=== PATIENT | female | born 1955 | race Caucasian/White ===

== ENCOUNTER → 2020-11-17 | Day surgery (SDC) | payer MEDICARE ==
[~2020-11-17] MED LIST: ASPI325T8 PEG; ATOR80TA72 PO; CARV25TA2 PO; CLOP75TA PO; DEXTROSE 50% 25 GM / 50ML DISP.SYRIN. IV ONE; ENAL1.25 IVP; ESCITALOPRAM OX10 MG PO; INSU100I27 SQ; INSU100V35 SQ; INSU100V41 SQ; IV RINGERS,LACTATED 1000ML 1,000 ML IV SCH; LIDOCAINE 2% PF 5 ML VIAL. ONE; LISI2.5T PO; METF500T16 PO; ONDA4VIA7 IV; PROPOFOL 10 MG/ML (20ML) VIAL. IV ONE
--- NOTE | 2020-11-17 14:01 | PDOC1 ---
History and Physical Date of Admission Date of Admission DATE: 11/17/20 TIME: 13:57 Identification/Chief Complaint Chief Complaint +Unneeded PEG History of Present Illness History of Present Illness 65 y/o female who had PEG placed August for OP dysphagia. Now recovered and wished removal. Past Medical History Cardiovascular: HTN, Hyperlipidemia Endocrine: Diabetes Past Surgical History Past Surgical History: Cholecystectomy, , Total knee replacement, Hysterectomy, Other (left toe amputation) Family History Family History: Coronary Artery Disease Social History Smoke: Quit Current Medications Current Medications Current Medications Ringer's Solution 1,000 ml @ 50 mls/hr Q20H IV Last administered on 11/17/20at 13:28; Start 11/17/20 at 07:00; Stop 11/17/20 at 18:59 Dextrose (Dextrose 50%-Water Syringe) 25 gm 1X ONCE IV Last administered on 11/17/20at 13:28; Start 11/17/20 at 13:30; Stop 11/17/20 at 13:31; Status DC Propofol (Diprivan) 200 mg STK-MED ONCE IV ; Start 11/17/20 at 13:45; Stop 11/17/20 at 13:46; Status DC Lidocaine HCl (Lidocaine Pf 2% Vial) 5 ml STK-MED ONCE .ROUTE ; Start 11/17/20 at 13:45; Stop 11/17/20 at 13:46; Status DC Active Scripts Active Admelog (Insulin Lispro) 100 Unit/1 Ml Vial 0 Units SQ Q6HRS 30 Days Enalaprilat (Enalaprilat Dihydrate) 1.25 Mg/1 Ml Vial 1.25 Mg IVP PRN Q6HRS PRN 10 Days Reported Insulin Aspart 100 Unit/1 Ml Vial 100 Unit SQ SLIDING SCALE Levemir Flextouch (Insulin Detemir) 100 Unit/1 Ml Insuln.pen 50 Unit SQ BID Escitalopram Oxalate 10 Mg Tablet 10 Mg PO DAILY Carvedilol 25 Mg Tablet Unknown Dose PO BIDWMEALS Atorvastatin Calcium 80 Mg Tablet Unknown Dose PO QHS Lisinopril 2.5 Mg Tablet Unknown Dose PO DAILY Clopidogrel (Clopidogrel Bisulfate) 75 Mg Tablet Unknown Dose PO DAILY Metformin Hcl 500 Mg Tablet Unknown Dose PO DAILY Allergies Allergies: Coded Allergies: No Known Drug Allergies (Unverified , 11/17/20) ROS Review of System Otherwise negative. Physical Exam General: Alert, Oriented X3, Cooperative, No acute distress HEENT: Atraumatic, PERRLA, EOMI Lungs: Clear to auscultation Heart: S1S2, RRR, no gallops, no murmurs Abdomen: Normal bowel sounds, No tenderness, No hepatosplenomegaly, No masses, Other (PEG tube) Male Genitals Exam: normal prostate Rectal Exam: not examined Extremities: No cyanosis, No edema Skin: No rashes Neuro: Normal speech, Strength at 5/5 X4 ext, Normal tone, Sensation intact, Cranial nerves 3-12 NL, Reflexes 2+ Psych/Mental Status: Mental status NL, Mood NL Vitals Vitals Vital Signs Date Time Temp Pulse Resp B/P (MAP) Pulse Ox O2 Delivery O2 Flow Rate FiO2 11/17/20 13:21 98.3 62 20 96 98.3 Labs Labs Laboratory Tests Test 11/17/20 13:18 Glucose (Fingerstick) 64 mg/dL (70-99) Laboratory Tests Test 11/17/20 13:18 Glucose (Fingerstick) 64 mg/dL (70-99) VTE Prophylaxis Ordered VTE Prophylaxis Devices: No VTE Pharmacological Prophylaxi: No Assessment/Plan Assessment/Plan IMP: Unneeded PEG PLAN: g-tube removal. CONSTANTINE LIU MD Nov 17, 2020 14:01
--- NOTE | 2020-11-17 14:15 | PDOC4 ---
PROCEDURE Procedure EGD/de-PEG Indication: unneeded PEG Meds: per anesthesia Findings: E--normal G--old g-tube, otherwise normal. D--normal to second portion. -Old g-tube cut and pushed into stomach, grasped with snare and removed orally. Marivel. well. IMP: successful PEG removal. REC: 4x4's over stoma until no drainage; usually w/in 24hours stops. Resume diet, meds. Call/follow-up prn. CONSTANTINE LIU MD Nov 17, 2020 14:15
[2020-11-17 14:34] VITALS: BP 171/77
== END | disposition home or self-care (01) ==
LOC: ENDOS 12:36
PROVIDERS: ATTEND Internal Medicine Gastroenterology
DX: Z43.1 Encounter for attention to gastrostomy (principal); I10 Essential (primary) hypertension; E78.00 Pure hypercholesterolemia, unspecified; E11.9 Type 2 diabetes mellitus without complications; F41.9 Anxiety disorder, unspecified; Z90.710 Acquired absence of both cervix and uterus; Z98.890 Other specified postprocedural states; Z87.891 Personal history of nicotine dependence; Z79.899 Other long term (current) drug therapy; Z79.4 Long term (current) use of insulin
CPT/HCPCS: 43247; 82962; J2704

== ENCOUNTER 2021-02-01 19:29 | Inpatient (IN) | payer MEDICARE, OTHER ==
[~2021-02-01] VITALS: Ht 162.6 cm; Wt 99.3 kg
[~2021-02-01 19:29] MED LIST changes: -DEXTROSE 50% 25 GM / 50ML DISP.SYRIN. IV ONE; -IV RINGERS,LACTATED 1000ML 1,000 ML IV SCH; -LIDOCAINE 2% PF 5 ML VIAL. ONE; -PROPOFOL 10 MG/ML (20ML) VIAL. IV ONE
--- NOTE | 2021-02-01 19:55 | PHYS DOC ---
Past Medical History Smoking Status: Former Smoker (AGUSTIN HERRERA APRN) General Adult HPI: HPI: Patient is a 66 year old female who presents with here from [facility] and rehab when this afternoon she began to have nausea and vomiting. She denies any abdominal pain. She then is now requiring oxygen. She was 88% on room air. On 2 L she is at 94%. Patient was given a Zofran at the nursing facility after she began vomiting and then EMS gave her Zofran on the way to the hospital. Patient states it has helped some. Patient denies fever, cough, shortness of breath, chest pain, body aches, congestion, sore throat, new numbness or tingling my dizziness, headache. Patient denies any pain at this time. 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 She also has a history of diabetes, hyperlipidemia, saccadic eye movements, hypertension. (AGUSTIN HERRERA APRN) Review of Systems: Review of Systems: Constitutional: Denies fever or chills. [] Eyes: Denies change in visual acuity. [] HENT: Denies nasal congestion or sore throat. [] Respiratory: Denies cough. +shortness of breath. [] Cardiovascular: Denies chest pain or edema. [] GI: Denies abdominal pain. + nausea, +vomiting, denies bloody stools or diarrhea. [] : Denies dysuria. [] Musculoskeletal: Denies back pain or joint pain. [] Integument: Denies rash. [] Neurologic: Denies headache, focal weakness or sensory changes. [] Endocrine: Denies polyuria or polydipsia. [] Lymphatic: Denies swollen glands. [] Psychiatric: Denies depression or anxiety. [] (AGUSTIN HERRERA APRN) Heart Score: C/O Chest Pain: No Risk Factors: Risk Factors: DM, Current or recent (<one month) smoker, HTN, HLP, family history of CAD, obesity. Risk Scores: Score 0 - 3: 2.5% MACE over next 6 weeks - Discharge Home Score 4 - 6: 20.3% MACE over next 6 weeks - Admit for Clinical Observation Score 7 - 10: 72.7% MACE over next 6 weeks - Early Invasive Strategies (SHARONAGUSTINSOHAN Reddy APRN) Current Medications: Current Medications Medications (Trade) Dose Ordered Sig/Liam Start Time Stop Time Status Last Admin Dose Admin Sodium Chloride 1,000 ml @ 1,000 mls/hr Q1H 02/01/21 19:45 02/01/21 20:44 UNV (JOSE HERRERASOHAN Reddy APRN) Allergies: Allergies: Allergies Coded Allergies Type Severity Reaction Last Updated Verified No Known Drug Allergies 11/17/20 No (SHARONAGUSTINSOHAN Reddy APRN) Physical Exam: PE: Constitutional: Well developed, well nourished, no acute distress, non-toxic appearance. [] HENT: Normocephalic, atraumatic, bilateral external ears normal, oropharynx moist, no oral exudates, nose normal. [] Eyes: PERRLA, EOMI, conjunctiva normal, no discharge. [] Neck: Normal range of motion, no tenderness, supple, no stridor. [] Cardiovascular:Heart rate regular rhythm, no murmur [] Lungs & Thorax: Bilateral upper breath sounds inspiratory wheezing and lower lobes clear to auscultation [] Abdomen: Bowel sounds normal, soft, no tenderness, no masses, no pulsatile masses. [] Skin: Warm, dry, no erythema, no rash. pressure ulcer to right heel with dressing. [] Back: No tenderness, no CVA tenderness. [] Extremities: No tenderness, no cyanosis, no clubbing, ROM intact, bilateral lower 2+ edema. [] Neurologic: Alert and oriented X 3, normal motor function, normal sensory function, no focal deficits noted. [] Psychologic: Affect normal, judgement normal, mood normal. [] (AGUSTIN HERRERA APRN) EKG: EK AND READ BY DR ROSE SINUS RHYTHM AND NO STEMI (AGUSTIN HERRERA APRN) Radiology/Procedures: Radiology/Procedures: [] Impression: [facility] [address] [place] [address] IMAGING REPORT Signed PATIENT: RE WAKEFIELD ACCOUNT: [id number] : 1955 LOCATION: ER AGE: 66 SEX: F EXAM STATUS: PRE ER ORD. PHYSICIAN: AGUSTIN HERRERA APRN REASON: SOA, VOMITING, HYPOXIA PROCEDURE: PORTABLE CHEST 1V Exam: Chest one view INDICATION: Short of air, vomiting, hypoxia TECHNIQUE: Frontal view of the chest Comparisons: None FINDINGS: The cardiomediastinal silhouette and pulmonary vessels are within normal limits. Patchy airspace disease at the lung bases bilaterally. No pleural effusion. IMPRESSION: Subtle patchy bibasilar airspace disease may be infectious or inflammatory in etiology. Electronically signed by: Dale Wheeler MD (02/01/2021 8:29 PM) [facility] DICTATED and SIGNED BY: DALE WHEELER MD DATE: 02/01/[id number] 0 (AGUSTIN HERRERA APRN) Course & Med Decision Making: Course & Med Decision Making Pertinent Labs and Imaging studies reviewed. (See chart for details) COVID-19 CRITERIA: The patient was evaluated during the global COVID-19 pandemic, and that diagnosis was suspected/considered upon their initial presentation. Their evaluation, treatment and testing was consistent with current guidelines for patients who present with complaints or symptoms that may be related to COVID-19. See HPI. Alert and oriented x4. Abdomen soft and nontender. Upper lungs have expiratory wheezing in lower lobes are clear. Speaks in full clear sentences. Patient states she is eating and drinking a regular diet and has no swallowing issues from the stroke. Skin is pink warm and dry. She is afebrile. Denies any urinary symptoms. Patient is on Plavix. Patient does have pneumonia on x- ray. She is given Zosyn. Lactic is normal. Blood cultures have been drawn. I have shown Dr Rose the venous ABG and states it is fine. Troponin is also bumped but so with the kidney function. Looking back kidney function is staying about the same since 2020. I do not have a troponin to look back on however. EKG shows a sinus rhythm and no STEMI. Patient is admitted to the hospitalist. [] (AGUSTIN HERRERA APRN) Dragon Disclaimer: Dragon Disclaimer: This electronic medical record was generated, in whole or in part, using a voice recognition dictation system. (AGUSTIN HERRERA APRN) COVID-19 Patient Risks: Age 65 or older: Yes Sign of co-morbidity: Yes Exp to person + for COVID: No Travel from affected area: No Lower respiratory symptoms: Yes Fever: No Other: Yes (N/V) (AGUSTIN HERRERA APRN) PPE Use: Full PPE with N95 mask or PAPR: Yes (AGUSTIN HERRERA APRN) Departure Departure Impression: Primary Impression: Pneumonia Qualified Codes: J18.9 - Pneumonia, unspecified organism Additional Impressions: Elevated troponin Person under investigation for COVID-19 UTI (urinary tract infection) Qualified Codes: N39.0 - Urinary tract infection, site not specified Disposition: ADMITTED INPT THIS HOSP Admitting Physician: CELINE (AGUSTIN HERRERA APRN) Condition: STABLE Referrals: SANDRA GORDON (PCP) Attending Signature Attending Signature I have reviewed the PA/ELECTRICAL CONTROLS DESIGNER's note and plan of care. I was available for consultation as needed during the patient's visit in the emergency department. I agree with the clinical impression, plan, and disposition. (CONSTANTINE ROSE DO) AGUSTIN HERRERA APRN Feb 01, 2021 19:55 CONSTANTINE ROSE DO Feb 01, 2021 23:37
[2021-02-01] MEDS ORDERED: IV NORMAL SALINE 1000ML BAG 1,000 ML IV SCH (20:00)
[2021-02-01 20:05] LABS: BASO # 0.1 x10^3/uL (0.0-0.2); BASO % 0 % (0-3); EOS % 0 % (0-3); HEMATOCRIT 28.5 % (36.0-47.0); HEMOGLOBIN 9.1 g/dL (12.0-15.5); LYMPH # 2.2 x10^3/uL (1.0-4.8); LYMPH % 13 % (24-48); MEAN CORPUSCULAR HEMOGLOBIN 25 pg (25-35); MEAN CORPUSCULAR HGB CONC 32 g/dL (31-37); MEAN CORPUSCULAR VOLUME 78 fL (79-100); MONO % 6 % (0-9); NEUT # 13.6 x10^3/uL (1.8-7.7); NEUT % 81 % (31-73); PLATELET COUNT 243 x10^3/uL (140-400); RED BLOOD COUNT 3.63 x10^6/uL (3.50-5.40); RED CELL DISTRIBUTION WIDTH 16.7 % (11.5-14.5); WHITE BLOOD COUNT 16.8 x10^3/uL (4.0-11.0)
[2021-02-01 20:10] LABS: CALCIUM 8.9 mg/dL (8.5-10.1); CREATININE 1.2 mg/dL (0.6-1.0); GFR 44.8; POTASSIUM 4.2 mmol/L (3.5-5.1)
[2021-02-01 20:15] LABS: ALBUMIN 2.6 g/dL (3.4-5.0); ALBUMIN/GLOBULIN RATIO 0.6 (1.0-1.7); TOTAL BILIRUBIN 0.4 mg/dL (0.2-1.0); TOTAL PROTEIN 6.9 g/dL (6.4-8.2)
[2021-02-01 20:18] LABS: BASE EXCESS COOX 3 mmol/L (-3-3); HCO3 COOX 29 mmol/L (21-28); METHEMOGLOBIN 0.6 % (0.0-1.9); OXYHEMOGLOBIN 66.2 %; PCO2 COOX 49 mmHg (35-46)
--- NOTE | 2021-02-01 20:31 | RAD ---
Exam: Chest one view INDICATION: Short of air, vomiting, hypoxia TECHNIQUE: Frontal view of the chest Comparisons: None FINDINGS: The cardiomediastinal silhouette and pulmonary vessels are within normal limits. Patchy airspace disease at the lung bases bilaterally. No pleural effusion. IMPRESSION: Subtle patchy bibasilar airspace disease may be infectious or inflammatory in etiology. Electronically signed by: Dale Lentz MD (02/01/2021 8:29 PM) [facility]
[2021-02-01 20:34] LABS: % BANDS 4 % (0-9); % MONOS 1 % (0-10); PLT ESTIMATE ADEQUATE (ADEQUATE)
[2021-02-01 20:35] LABS: % LYMPHS 10 % (24-48); % SEGS 85 % (35-66)
--- NOTE | 2021-02-01 20:35 | EKG ---
[facility] [address] [place] [address] Test Date: 2021-02-01 Test Time: 20:33:07 Pat Name: RE WAKEFIELD Department: Room: Gender: F [employer]working [employer] Fe[employer]: : 1955 Requested By: AGUSTIN HERRERA Order Number: [id number] Reading MD: Measurements Intervals [place] Rate: 84 P: 32 WY: 158 QRS: 16 QRSD: 76 T: 42 QT: 366 QTc: 436 Interpretive Statements SINUS RHYTHM LEFT ATRIAL ABNORMALITY ABNORMAL ECG RI6.01 No previous ECG available for comparison
[2021-02-01 20:36] LABS: ANISOCYTOSIS SLIGHT; POIKILOCYTOSIS SLIGHT
[2021-02-01 20:49] LABS: SAT O2 COOX 67 % (92-99)
[2021-02-01 20:52] LABS: PO2 COOX 38 mmHg (65-108)
[2021-02-01] MEDS ORDERED: PIPERACILLIN/TAZOBACTAM 3.375 GM in IV NORMAL SALINE 50ML 50 ML IV ONE (21:00)
[2021-02-01] MEDS ORDERED: ONDANSETRON PF 4 MG/2 ML VIAL. IV PRN (21:15)
[2021-02-01] MEDS ORDERED: PIP/TAZO PER PHARMACY MC PRN (21:15)
[2021-02-01 21:28] LABS: BILIRUBIN,URINE NEGATIVE (NEG); CLARITY,URINE CLOUDY; COLOR,URINE YELLOW; NITRITE,URINE POSITIVE (NEG); PROTEIN,URINE >=300 mg/dL (NEG-TRACE); UROBILINOGEN,URINE 0.2 mg/dL (0.2 mg/dL)
[2021-02-01] MEDS ORDERED: MAG HYDROX/ALUMINUM HYD/SIMETH 30 ML ORAL.SUSP PO PRN (21:30)
[2021-02-01] MEDS ORDERED: oxyCODONE/APAP 5/325 1 TAB TABLET PO PRN (21:30)
[2021-02-01] MEDS ORDERED: MORPHINE SULFATE 2 MG/ML VIAL. IV PRN (21:30)
[2021-02-01] MEDS ORDERED: MAGNESIUM HYDROXIDE 2,400 MG/30 ML ORAL.SUSP. PO PRN (21:30)
[2021-02-01] MEDS ORDERED: MORPHINE SULFATE 4 MG/ML VIAL. IV PRN (21:30)
[2021-02-01] MEDS ORDERED: traMADol 50 MG TABLET PO PRN ×2 (21:30)
[2021-02-01] MEDS ORDERED: CALCIUM CARBONATE 500 MG TAB.CHEW PO PRN (21:30)
[2021-02-01] MEDS ORDERED: BISACODYL 10 MG SUPP.RECT. PR PRN (21:30)
[2021-02-01 21:36] LABS: BACTERIA,URINE MANY /HPF (0-FEW); WBC,URINE TNTC /HPF (0-4)
[2021-02-01 21:37] LABS: AMORPHOUS SEDIMENT,UR PRESENT /HPF; HYALINE CASTS, URINE FEW /HPF
[2021-02-01] MEDS ORDERED: DEXTROSE 50% 25 GM / 50ML DISP.SYRIN. IV PRN (22:00)
[2021-02-01] MEDS ORDERED: IV DEXTROSE 5% 250 ML BAG. IV PRN (22:00)
[2021-02-02] MEDS: ENOXAPARIN 40 MG/0.4 ML SYRINGE. SQ SCH ×2 (00:19→21:37)
[2021-02-02] MEDS ORDERED: PIPERACILLIN/TAZOBACTAM 3.375 GM in IV NORMAL SALINE 50ML 50 ML IV ONE (03:30)
[2021-02-02 04:45] VITALS: BP 129/48
--- NOTE | 2021-02-02 06:34 | NUR ---
Around 0445 pt. arrived to the unit via bed from ED w/ PNU, SOA and elevated Troponin. She is alert and can make some needs known.
[2021-02-02 07:00] VITALS: BP 136/48
--- NOTE | 2021-02-02 07:09 | NUR ---
Talked W/ Dr. Jackson about consult and he will see pt. Paged Dr. Stoll and awaiting callback. Day nurse notified.
[2021-02-02] MEDS ORDERED: ASCO500C9 PO (07:28)
[2021-02-02] MEDS ORDERED: COLL30OI TP (07:28)
[2021-02-02] MEDS ORDERED: MELA3TAB19 PO (07:28)
[2021-02-02] MEDS ORDERED: ONDA4TAB7 PO (07:28)
[2021-02-02] MEDS ORDERED: LISI-517 PO (07:28)
[2021-02-02] MEDS ORDERED: ACET325T9 PO (07:28)
[2021-02-02] MEDS ORDERED: MAGN400O7 PO (07:28)
[2021-02-02] MEDS ORDERED: HYDR-2761 PO (07:28)
[2021-02-02] MEDS ORDERED: MULT-238 PO (07:28)
[2021-02-02] MEDS ORDERED: INSU100I53 SQ (07:28)
[2021-02-02] MEDS ORDERED: BISA10SU55 RC (07:28)
[2021-02-02] MEDS: CLOPIDOGREL BISULFATE 75 MG TABLET PO SCH (08:06)
[2021-02-02] MEDS: CITALOPRAM 20 MG TABLET. PO SCH (08:06)
[2021-02-02] MEDS: INSULIN LISPRO 300 UNITS/3 ML VIAL. SQ SCH ×3 (08:08→17:00)
[2021-02-02] MEDS ORDERED: INSULIN DETEMIR 50 UNIT SQ SCH (09:00)
[2021-02-02 09:05] LABS: BASO % 0 % (0-3); EOS # 0.1 x10^3/uL (0.0-0.7); EOS % 1 % (0-3); HEMATOCRIT 27.4 % (36.0-47.0); HEMOGLOBIN 8.6 g/dL (12.0-15.5); LYMPH # 2.1 x10^3/uL (1.0-4.8); LYMPH % 17 % (24-48); MEAN CORPUSCULAR HEMOGLOBIN 25 pg (25-35); MEAN CORPUSCULAR HGB CONC 32 g/dL (31-37); MEAN CORPUSCULAR VOLUME 79 fL (79-100); MONO # 0.9 x10^3/uL (0.0-1.1); MONO % 7 % (0-9); NEUT # 9.1 x10^3/uL (1.8-7.7); NEUT % 75 % (31-73); PLATELET COUNT 215 x10^3/uL (140-400); RED BLOOD COUNT 3.48 x10^6/uL (3.50-5.40); RED CELL DISTRIBUTION WIDTH 16.8 % (11.5-14.5); WHITE BLOOD COUNT 12.2 x10^3/uL (4.0-11.0)
[2021-02-02 09:27] LABS: CALCIUM 8.5 mg/dL (8.5-10.1); CREATININE 1.2 mg/dL (0.6-1.0); GFR 44.8; POTASSIUM 4.1 mmol/L (3.5-5.1)
[2021-02-02 09:37] LABS: MAGNESIUM 1.8 mg/dL (1.8-2.4)
[2021-02-02] MEDS: INSULIN GLARGINE SYRINGE. SQ SCH ×2 (10:00→21:36)
[2021-02-02 11:00] VITALS: BP 123/43
[2021-02-02] MEDS: PIPERACILLIN/TAZOBACTAM 3.375 GM in IV NORMAL SALINE 50ML 50 ML IV SCH ×3 (11:50→23:14)
[2021-02-02] MEDS: ONDANSETRON PF 4 MG/2 ML VIAL. IVP PRN (12:22)
--- NOTE | 2021-02-02 12:22 | NUR ---
NUNO following for discharge planning. Spoke with RN and reviewed chart. NUNO confirmed with Eusebia that pt resides in LTC at [facility]. Pt COVID pending and on . MARNI garcia. Consult to pulmonary. NUNO following. Addendum: 02/03/21 at 1025 by DENISE REINA NUNO did fax updates to [facility], packet on chart. Pt identified as BPCI today, 02/03. Discharge planners to follow.
--- NOTE | 2021-02-02 12:27 | PDOC2 ---
MELANI VILLA APRN 02/02/21 1227: CARDIAC CONSULT DATE OF CONSULT Date of Consult DATE: 02/02/21 TIME: 12:20 REASON FOR CONSULT Reason for Consult: Elevated troponin REFERRING PHYSICIAN Referring Physician: Larisa Fischer APRN SOURCE Source: Chart review, Patient HISTORY OF PRESENT ILLNESS HISTORY OF PRESENT ILLNESS This is a 66 yo female who presented from [facility] secondary to persistent nausea and vomiting. Troponin noted to be elevated, which prompted this consult. She denies any chest pain, palpitations, dizziness, diaphoresis, or shortness of breath. Continues to have nausea/vomiting. PAST MEDICAL HISTORY Cardiovascular: HTN, Hyperlipidemia CENTRAL NERVOUS SYSTEM: CVA Psych: Anxiety Endocrine: Diabetes PAST SURGICAL HISTORY Past Surgical History: Total knee replacement (bilateral ), Hysterectomy FAMILY HISTORY Family History: Heart Disease SOCIAL HISTORY Smoke: No ALCOHOL: none Drugs: None Lives: [facility] (for rehab following stroke ) CURRENT MEDICATIONS CURRENT MEDICATIONS Current Medications Medications (Trade) Dose Ordered Sig/Liam Route PRN Reason Start Time Stop Time Status Last Admin Dose Admin Sodium Chloride 1,000 ml @ 1,000 mls/hr Q1H IV 02/01/21 20:00 02/01/21 20:59 DC 02/01/21 20:48 Piperacillin Sod/ Tazobactam Sod 3.375 gm/Sodium Chloride 50 ml @ 100 mls/hr 1X ONCE IV 02/01/21 21:00 02/01/21 21:29 DC 02/01/21 21:21 Enoxaparin Sodium (Lovenox 40mg Syringe) 40 mg Q24H SQ 02/01/21 21:30 02/02/21 00:19 Clopidogrel Bisulfate (Plavix) 75 mg DAILY PO 02/02/21 09:00 02/02/21 08:06 Citalopram Hydrobromide (CeleXA) 20 mg DAILY PO 02/02/21 09:00 02/02/21 08:06 Insulin Glargine (Lantus Syringe) 50 unit BID SQ 02/02/21 09:00 02/02/21 10:00 Insulin Human Lispro (HumaLOG) 9 units TIDWMEALS SQ 02/02/21 08:00 02/02/21 11:51 Piperacillin Sod/ Tazobactam Sod 3.375 gm/Sodium Chloride 50 ml @ 100 mls/hr ONCE ONCE IV 02/02/21 03:30 02/02/21 03:59 DC 02/02/21 03:33 Piperacillin Sod/ Tazobactam Sod 3.375 gm/Sodium Chloride 50 ml @ 100 mls/hr Q6HRS IV 02/02/21 12:00 02/02/21 11:50 ALLERGIES ALLERGIES: Coded Allergies: No Known Drug Allergies (Unverified , 11/17/20) ROS Review of System 14 point ROS conducted with pertinent positives noted above in HPI PHYSICAL EXAM General: Alert, Oriented X3, Cooperative, No acute distress HEENT: Atraumatic Lungs: Clear to auscultation Heart: Regular rate Abdomen: Soft, Other (obese ) Extremities: Other (1+ bilateral LE edema ) Skin: Other (drsg intact to right heel) Neuro: Normal speech, Sensation intact, Other (right sided hemiplegia ) Psych/Mental Status: Mental status NL, Mood NL MUSCULOSKELETAL: Osteoarthritic changes both hands VITALS/I&O VITALS/I&O: Vital Signs Date Time Temp Pulse Resp B/P (MAP) Pulse Ox O2 Delivery O2 Flow Rate FiO2 02/02/21 11:00 99.7 82 18 123/43 (69) 93 Nasal Cannula 2.0 99.7 I & O 02/01/21 02/01/21 02/02/21 15:00 23:00 07:00 Intake Total 1050 ml 50 ml Balance 1050 ml 50 ml LABS Lab: Laboratory Tests Test 02/01/21 19:41 02/01/21 19:47 02/01/21 21:19 02/01/21 22:35 O2 Saturation 67 % (92-99) *L Arterial Blood pH 7.38 (7.35-7.45) Arterial Blood pCO2 at Patient Temp 49 mmHg (35-46) H Arterial Blood pO2 at Patient Temp 38 mmHg (65-108) *L Arterial Blood HCO3 29 mmol/L (21-28) H Arterial Blood Base Excess 3 mmol/L (-3-3) Alveolar-arterial Oxygen Gradient mmHg (0.0-25.0) Oxyhemoglobin 66.2 % Methemoglobin 0.6 % (0.0-1.9) Carbon Monoxide, Quantitative 0.3 % (0.0-1.9) FiO2 28 White Blood Count 16.8 x10^3/uL (4.0-11.0) H Red Blood Count 3.63 x10^6/uL (3.50-5.40) Hemoglobin 9.1 g/dL (12.0-15.5) L Hematocrit 28.5 % (36.0-47.0) L Mean Corpuscular Volume 78 fL (79-100) L Mean Corpuscular Hemoglobin 25 pg (25-35) Mean Corpuscular Hemoglobin Concent 32 g/dL (31-37) Red Cell Distribution Width 16.7 % (11.5-14.5) H Platelet Count 243 x10^3/uL (140-400) Neutrophils (%) (Auto) 81 % (31-73) H Lymphocytes (%) (Auto) 13 % (24-48) L Monocytes (%) (Auto) 6 % (0-9) Eosinophils (%) (Auto) 0 % (0-3) Basophils (%) (Auto) 0 % (0-3) Neutrophils # (Auto) 13.6 x10^3/uL (1.8-7.7) H Lymphocytes # (Auto) 2.2 x10^3/uL (1.0-4.8) Monocytes # (Auto) 1.0 x10^3/uL (0.0-1.1) Eosinophils # (Auto) 0.0 x10^3/uL (0.0-0.7) Basophils # (Auto) 0.1 x10^3/uL (0.0-0.2) Segmented Neutrophils % 85 % (35-66) H Band Neutrophils % 4 % (0-9) Lymphocytes % 10 % (24-48) L Monocytes % 1 % (0-10) Platelet Estimate Adequate (ADEQUATE) Poikilocytosis Slight Anisocytosis Slight D-Dimer (Ann) 0.99 ug/mlFEU (0.00-0.50) H Sodium Level 141 mmol/L (136-145) Potassium Level 4.2 mmol/L (3.5-5.1) Chloride Level 105 mmol/L (98-107) Carbon Dioxide Level 29 mmol/L (21-32) Anion Gap 7 (6-14) Blood Urea Nitrogen 26 mg/dL (7-20) H Creatinine 1.2 mg/dL (0.6-1.0) H Estimated GFR (Cockcroft-Gault) 44.8 BUN/Creatinine Ratio 22 (6-20) H Glucose Level 174 mg/dL (70-99) H Lactic Acid Level 0.8 mmol/L (0.4-2.0) Calcium Level 8.9 mg/dL (8.5-10.1) Total Bilirubin 0.4 mg/dL (0.2-1.0) Aspartate Amino Transferase (AST) 11 U/L (15-37) L Alanine Aminotransferase (ALT) 20 U/L (14-59) Alkaline Phosphatase 88 U/L (46-116) Troponin I Quantitative 0.082 ng/mL (0.000-0.055) 0.130 ng/mL (0.000-0.055) QU-Tlu-B-Type Natriuretic Peptide 1472 pg/mL (0-124) H Total Protein 6.9 g/dL (6.4-8.2) Albumin 2.6 g/dL (3.4-5.0) L Albumin/Globulin Ratio 0.6 (1.0-1.7) L Urine Collection Type Unknown Urine Color Yellow Urine Clarity Cloudy Urine pH 5.0 (<5.0-8.0) Urine Specific [place] 1.025 (1.000-1.030) Urine Protein >=300 mg/dL (NEG-TRACE) Urine Glucose (UA) Negative mg/dL (NEG) Urine Ketones (Stick) Negative mg/dL (NEG) Urine Blood Large (NEG) Urine Nitrite Positive (NEG) Urine Bilirubin Negative (NEG) Urine Urobilinogen Dipstick 0.2 mg/dL (0.2 mg/dL) Urine Leukocyte Esterase Moderate (NEG) Urine RBC 6-10 /HPF (0-2) Urine WBC Tntc /HPF (0-4) Urine Squamous Epithelial Cells Mod /LPF Urine Amorphous Sediment Present /HPF Urine Bacteria Many /HPF (0-FEW) Urine Hyaline Casts Few /HPF Urine Mucus Slight /LPF Test 02/02/21 01:40 02/02/21 07:57 02/02/21 08:35 Troponin I Quantitative 0.201 ng/mL (0.000-0.055) Glucose (Fingerstick) 179 mg/dL (70-99) H White Blood Count 12.2 x10^3/uL (4.0-11.0) H Red Blood Count 3.48 x10^6/uL (3.50-5.40) L Hemoglobin 8.6 g/dL (12.0-15.5) L Hematocrit 27.4 % (36.0-47.0) L Mean Corpuscular Volume 79 fL (79-100) Mean Corpuscular Hemoglobin 25 pg (25-35) Mean Corpuscular Hemoglobin Concent 32 g/dL (31-37) Red Cell Distribution Width 16.8 % (11.5-14.5) H Platelet Count 215 x10^3/uL (140-400) Neutrophils (%) (Auto) 75 % (31-73) H Lymphocytes (%) (Auto) 17 % (24-48) L Monocytes (%) (Auto) 7 % (0-9) Eosinophils (%) (Auto) 1 % (0-3) Basophils (%) (Auto) 0 % (0-3) Neutrophils # (Auto) 9.1 x10^3/uL (1.8-7.7) H Lymphocytes # (Auto) 2.1 x10^3/uL (1.0-4.8) Monocytes # (Auto) 0.9 x10^3/uL (0.0-1.1) Eosinophils # (Auto) 0.1 x10^3/uL (0.0-0.7) Basophils # (Auto) 0.0 x10^3/uL (0.0-0.2) Sodium Level 144 mmol/L (136-145) Potassium Level 4.1 mmol/L (3.5-5.1) Chloride Level 106 mmol/L (98-107) Carbon Dioxide Level 30 mmol/L (21-32) Anion Gap 8 (6-14) Blood Urea Nitrogen 27 mg/dL (7-20) H Creatinine 1.2 mg/dL (0.6-1.0) H Estimated GFR (Cockcroft-Gault) 44.8 Glucose Level 182 mg/dL (70-99) H Calcium Level 8.5 mg/dL (8.5-10.1) Magnesium Level 1.8 mg/dL (1.8-2.4) Ferritin 51 ng/mL (8-252) Lactate Dehydrogenase 186 U/L (81-234) Creatine Kinase 491 U/L (26-192) H Laboratory Tests 02/01/21 19:47 02/02/21 08:35 Laboratory Tests 02/01/21 19:47 02/02/21 08:35 ECHOCARDIOGRAM ECHOCARDIOGRAM <Conclusion> The left ventricular systolic function is normal and the ejection fraction is within normal range. The Ejection Fraction is 60-65%. There is normal LV segmental wall motion. DATE: 09/02/20 1034 ASSESSMENT/PLAN ASSESSMENT/PLAN 1. Nausea/vomiting, recurrent 2. Acute respiratory failure secondary to PNA 3. Mild troponin elevation; highest 0.2. Most probable type II, demand ischemia. Echo 09/02 with preserved LV systolic function as noted above. CP free 4. GIULIA; s/p IV hydration 5. Accelerated hypertension; now controlled 6. Hyperlipidemia; statin 7. Diabetes, II 8. H/o CVA with right-sided hemiplegia. 9. Leukocytosis, fevers in setting of UTI and PNA Recommendations Trend troponin Secondary prevention; Plavix, statin Consider outpatient ischemic evaluation Support care Ongoing antibiotic therapy GENE PRINCE MD 02/03/21 1048: CARDIAC CONSULT ASSESSMENT/PLAN ASSESSMENT/PLAN Pt. seen and examined. Agree with above TICKET ATTENDANT note. Supportive care. Late entry for 02/02/2021 MELANI VILLA APRN Feb 02, 2021 12:27 GENE PRINCE MD Feb 03, 2021 10:48
[2021-02-02] MEDS ORDERED: INSULIN ASPART 100 UNIT SQ SCH (12:30)
[2021-02-02] MEDS ORDERED: NON FORMULARY ITEM (Melatonin 3 MG) PO PRN (12:30)
[2021-02-02] MEDS ORDERED: MAGNESIUM HYDROXIDE 2,400 MG/30 ML ORAL.SUSP. PO PRN (12:30)
[2021-02-02] MEDS ORDERED: BISACODYL 10 MG SUPP.RECT. RC PRN (12:30)
[2021-02-02] MEDS ORDERED: ACETAMINOPHEN 325 MG TABLET. PO PRN (12:30)
[2021-02-02] MEDS ORDERED: HYDROcodone/APAP 5/325MG 1 TAB TABLET PO PRN (12:30)
[2021-02-02 12:52] LABS: CHOLESTEROL/HDL RATIO 2.9
[2021-02-02] MEDS: LISINOPRIL 5 MG TABLET. PO SCH (12:59)
[2021-02-02] MEDS: MULTIVITAMIN with MINERAL TABLET. PO SCH (12:59)
--- NOTE | 2021-02-02 13:10 | HP ---
ADMIT DATE: 02/01/2021 HISTORY OF PRESENT ILLNESS: The patient is a 66-year-old female patient, a resident at [facility] who apparently has been complaining of recurrent bouts of nausea and vomiting. She was treated with Zofran ODT without any improvement. While at the snf, she denied any abdominal pain and therefore, the patient was transferred to [facility] for further evaluation for this intractable nausea and vomiting. By the time she arrived here, she was noted to be hypoxic. Her oxygen saturation was only 88% on 2 liters of oxygen. Her oxygen saturation has improved to 94%. She apparently was given Zofran again en route to the hospital and the patient stated that her nausea and vomiting, has subsided. She denied any fever, but did complain of cough with scanty sputum. Denied any chest pain, body aches, congestion, sore throat and she is known to have a left middle cerebral artery territory infarct with right-sided hemiplegia and she is mostly bed bound, wheelchair bound. Was extensively investigated in the Emergency Room. Has had lab work, which showed that she has leukocytosis, white cell count of 16,800. Her blood gases showed that she was hypoxic with pH of 7.38, pCO2 of 49, pO2 of 38 and bicarbonate 29, oxygen saturation was only 67%. Her D-dimer was 0.99. Her chemistry on arrival showed that she was mildly dehydrated. Her troponin was slightly elevated at 0.082 and beta natriuretic peptide was 1472. Her urinalysis showed the urine was yellow, cloudy with a pH of 5, specific gravity 10.25. There was large amount of protein, negative for glucose, negative for ketones. There was large amount of blood, positive for nitrite and negative for bilirubin. Moderate amount of leukocyte esterase. There were 6-10 rbc's, too numerous to count wbc's, and many bacteria. Her chest x-ray showed the patient has patchy airspace disease at the lung bases bilaterally, no pleural effusion. ASSESSMENT AND PLAN: The patient was admitted with bilateral lung infiltrate and urinary tract infection. She was started on IV antibiotic in the form of Zosyn 3.375 gram IV every 6 hours, was continued on all her other medications. PAST MEDICAL HISTORY: Significant for type 2 diabetes mellitus, hypertension, and hyperlipidemia. PAST SURGICAL HISTORY: Unremarkable. FAMILY HISTORY: Noncontributory. SOCIAL HISTORY: She is , currently resides at [facility]. She does not smoke, drink alcohol or use any recreational drugs. 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 She obviously has left middle cerebral artery territory infarct with right-sided hemiplegia, aphasia and dysphagia that has resolved. She did have gastrostomy tube placed, but was subsequently removed. MEDICATIONS: She is currently on following medications: She is currently on Plavix 75 mg once a day, atorvastatin calcium 80 mg at bedtime, carvedilol 25 mg twice a day, lisinopril 5 mg once a day, hydrocodone/APAP 5/325 one tablet every 8 hours, Tylenol 650 every 6 hours, escitalopram oxalate 10 mg once a day, bisacodyl 10 mg suppositories rectally daily p.r.n. for constipation. She is on milk of magnesia 30 mL p.o. daily p.r.n. for constipation, ondansetron 4 mg every 4 hours as needed. She is on metformin 500 mg twice a day. She is on Lantus insulin as insulin sliding scale, Levemir insulin 50 units twice a day. She is on ascorbic acid 500 mg twice a day, multivitamin 1 tablet once a day. She is on Santyl ointment for her wounds, multivitamin with mineral 1 tablet once a day, melatonin 3 mg at bedtime. PHYSICAL EXAMINATION: GENERAL: On arrival to the Emergency Room, she looked well and was clearly in no apparent respiratory distress. He was slightly tachypneic, but she was pale, but no jaundice, cyanosis or thyromegaly. No jugular venous distention. Slight bilateral lower limb edema, more so on the right than the left. VITAL SIGNS: Her heart rate was 92, blood pressure was 171/77, temperature was 98.6, respiratory rate was 26 and oxygen saturation was 92% on 2 liters of oxygen. HEAD, EYES, EARS, NOSE AND THROAT: Showed normocephalic, atraumatic. NECK: Supple. HEART: Showed normal first and second heart sounds with no gallop or murmur. CHEST: Clear to auscultation. No crepitation or rhonchi. ABDOMEN: Distended, soft, nontender. NEUROLOGIC: She was awake, alert, responding appropriately. All cranial nerves intact. She has dense right-sided hemiplegia. LABORATORY DIAGNOSTIC DATA: Her lab work on arrival to the Emergency Room showed a white cell count of 16,800; hemoglobin 9.1; hematocrit 28.5; MCV 78; and platelet count of 243,000 with normal manual differential. Her D-dimer was 0.99. Chemistry on arrival showed that the patient's serum sodium was 141, potassium 4.2, chloride 105, bicarbonate 29, anion gap of 7, BUN 26, creatinine 1.2. Estimated GFR was 44.8 mL per minute. Her glucose 174, calcium was 8.9. Lactic acid was only 0.8. Total bilirubin, AST, ALT, alkaline phosphatase were normal. Her first set of cardiac enzymes showed troponin to be 0.082, beta natriuretic peptide was 1472. Total protein 6.9, albumin was 2.6. Her blood gases showed a pH of 7.38, pCO2 of 49, pO2 of 38, bicarbonate 29, oxygen saturation was 67% on room air. ASSESSMENT: The patient was admitted with recurrent bouts of nausea, vomiting that have subsided. She was extensively investigated in the Emergency Room, was found to have urinary tract infection as well as bilateral lung infiltrate and was started on IV antibiotic in the form of Zosyn 3.375 gram. The patient has multiple other medical problems including hypertension, hyperlipidemia, type 2 diabetes mellitus, left middle cerebral artery territory infarct, right-sided hemiplegia. Has dysphagia for which she has a gastrostomy tube that was placed and was removed. She is now able to eat and drink. PLAN: My plan is to continue with IV antibiotic in the form of Zosyn. Continue with all her medications. Continue with Lovenox for DVT prophylaxis. Continue with wound care. I have consulted the wound care team as well as vascular surgeon evaluate the patient. HUMAIRA LORD MD DR: ALVIN/deuce JOB#: [id number] / [id number]
[2021-02-02] MEDS: ACETAMINOPHEN 325 MG TABLET. PO PRN (15:22)
--- NOTE | 2021-02-02 15:55 | NUR ---
Wound/Ostomy Care Wound Type/Assessment: Patient seen per wound care consult. See wound assessment. Patient has DFU to right heel. Wound cleansed and assessed. Wound appears sloughy with some eschar. Treatment Recommendations/Plan: Recommendations for honey alginate (left in room) and cover with foam dressing. Change every 3 days. A foam was also placed on the left heel for protection. Education provided: Patient educated on dressing changes and PU prevention. Offloading surface/device: Bilateral heels elevated using pillows. Recommended Referrals/Tests: N/A Discharge Recommendations for dressings: Dressing change instructions left in room. No other wounds noted. Bed lowered and call light in reach. Wound care will follow up on 02/11/21. Addendum: 02/04/21 at 1304 by LAVELLE ROSA RN Pair of Heel medix boots ordered
[2021-02-02 16:22] VITALS: BP 149/54
[2021-02-02] MEDS: METOCLOPRAMIDE HCL 10 MG/2 ML VIAL. IVP SCH ×2 (16:29→21:37)
[2021-02-02] MEDS ORDERED: INSULIN ASPART 15 UNIT SQ SCH (16:30)
[2021-02-02] MEDS: metFORMIN 500 MG TABLET PO SCH (17:00)
[2021-02-02] MEDS: VANCOMYCIN PER PHARMACY MC PRN (17:31)
--- NOTE | 2021-02-02 17:31 | NUR ---
Pharmacy Vancomycin Dosing Note S:Consulted to monitor and dose vancomycin started 02/02/21. O:RE WAKEFIELD is a 66 year old F with pneumonia, fever. Height: 5 feet, 4 inches Weight: 98.5 kg Dosing Weight: Actual Other Antibiotics: ZOSYN 3.375G IV Q6HRS LABS: Last BUN: 27 Last Creatinine: 1.2 Creatinine Clearance: 52 mL/min Last WBC: 12.2 Tmax (past 24 hours): 103.4 Microbiology: BLOOD CX PENDING I/O: 1100/- A: Patient requires vancomycin for pneumonia/fevers, goal trough 15-20 mcg/ml. Her SCr is 1.2 with an eCrCl of 52 ml/min. Will plan to omit loading dose due to elevated SCr on admission: P: 1. Initiate Vancomycin 1500 mg IV q24h 2. Follow up Trough level on 02/04/21 at 1630 3. Pharmacy will continue to monitor, follow and adjust therapy as needed. GAIL KENNEY [facility], 02/02/21 [id number]
--- NOTE | 2021-02-02 17:38 | PDOC ---
PULMONARY PROGRESS NOTES DATE: 02/02/21 TIME: 17:38 Vitals Vital Signs Date Time Temp Pulse Resp B/P (MAP) Pulse Ox O2 Delivery O2 Flow Rate FiO2 02/02/21 16:22 100.0 83 18 149/54 (85) 93 Nasal Cannula 2.0 100.0 Lungs: Clear Labs Laboratory Tests Test 02/01/21 19:41 02/01/21 19:47 02/01/21 21:19 02/01/21 22:35 O2 Saturation 67 % (92-99) Arterial Blood pH 7.38 (7.35-7.45) Arterial Blood pCO2 at Patient Temp 49 mmHg (35-46) Arterial Blood pO2 at Patient Temp 38 mmHg (65-108) Arterial Blood HCO3 29 mmol/L (21-28) Arterial Blood Base Excess 3 mmol/L (-3-3) Alveolar-arterial Oxygen Gradient mmHg (0.0-25.0) Oxyhemoglobin 66.2 % Methemoglobin 0.6 % (0.0-1.9) Carbon Monoxide, Quantitative 0.3 % (0.0-1.9) FiO2 28 White Blood Count 16.8 x10^3/uL (4.0-11.0) Red Blood Count 3.63 x10^6/uL (3.50-5.40) Hemoglobin 9.1 g/dL (12.0-15.5) Hematocrit 28.5 % (36.0-47.0) Mean Corpuscular Volume 78 fL (79-100) Mean Corpuscular Hemoglobin 25 pg (25-35) Mean Corpuscular Hemoglobin Concent 32 g/dL (31-37) Red Cell Distribution Width 16.7 % (11.5-14.5) Platelet Count 243 x10^3/uL (140-400) Neutrophils (%) (Auto) 81 % (31-73) Lymphocytes (%) (Auto) 13 % (24-48) Monocytes (%) (Auto) 6 % (0-9) Eosinophils (%) (Auto) 0 % (0-3) Basophils (%) (Auto) 0 % (0-3) Neutrophils # (Auto) 13.6 x10^3/uL (1.8-7.7) Lymphocytes # (Auto) 2.2 x10^3/uL (1.0-4.8) Monocytes # (Auto) 1.0 x10^3/uL (0.0-1.1) Eosinophils # (Auto) 0.0 x10^3/uL (0.0-0.7) Basophils # (Auto) 0.1 x10^3/uL (0.0-0.2) Segmented Neutrophils % 85 % (35-66) Band Neutrophils % 4 % (0-9) Lymphocytes % 10 % (24-48) Monocytes % 1 % (0-10) Platelet Estimate Adequate (ADEQUATE) Poikilocytosis Slight Anisocytosis Slight D-Dimer (Ann) 0.99 ug/mlFEU (0.00-0.50) Sodium Level 141 mmol/L (136-145) Potassium Level 4.2 mmol/L (3.5-5.1) Chloride Level 105 mmol/L (98-107) Carbon Dioxide Level 29 mmol/L (21-32) Anion Gap 7 (6-14) Blood Urea Nitrogen 26 mg/dL (7-20) Creatinine 1.2 mg/dL (0.6-1.0) Estimated GFR (Cockcroft-Gault) 44.8 BUN/Creatinine Ratio 22 (6-20) Glucose Level 174 mg/dL (70-99) Lactic Acid Level 0.8 mmol/L (0.4-2.0) Calcium Level 8.9 mg/dL (8.5-10.1) Total Bilirubin 0.4 mg/dL (0.2-1.0) Aspartate Amino Transf (AST/SGOT) 11 U/L (15-37) Alanine Aminotransferase (ALT/SGPT) 20 U/L (14-59) Alkaline Phosphatase 88 U/L (46-116) Troponin I Quantitative 0.082 ng/mL (0.000-0.055) 0.130 ng/mL (0.000-0.055) CU-Usw-O-Type Natriuretic Peptide 1472 pg/mL (0-124) Total Protein 6.9 g/dL (6.4-8.2) Albumin 2.6 g/dL (3.4-5.0) Albumin/Globulin Ratio 0.6 (1.0-1.7) Urine Collection Type Unknown Urine Color Yellow Urine Clarity Cloudy Urine pH 5.0 (<5.0-8.0) Urine Specific [place] 1.025 (1.000-1.030) Urine Protein >=300 mg/dL (NEG-TRACE) Urine Glucose (UA) Negative mg/dL (NEG) Urine Ketones (Stick) Negative mg/dL (NEG) Urine Blood Large (NEG) Urine Nitrite Positive (NEG) Urine Bilirubin Negative (NEG) Urine Urobilinogen Dipstick 0.2 mg/dL (0.2 mg/dL) Urine Leukocyte Esterase Moderate (NEG) Urine RBC 6-10 /HPF (0-2) Urine WBC Tntc /HPF (0-4) Urine Squamous Epithelial Cells Mod /LPF Urine Amorphous Sediment Present /HPF Urine Bacteria Many /HPF (0-FEW) Urine Hyaline Casts Few /HPF Urine Mucus Slight /LPF Test 02/02/21 01:40 02/02/21 07:57 02/02/21 08:35 02/02/21 11:38 Troponin I Quantitative 0.201 ng/mL (0.000-0.055) 0.185 ng/mL (0.000-0.055) Glucose (Fingerstick) 179 mg/dL (70-99) 276 mg/dL (70-99) White Blood Count 12.2 x10^3/uL (4.0-11.0) Red Blood Count 3.48 x10^6/uL (3.50-5.40) Hemoglobin 8.6 g/dL (12.0-15.5) Hematocrit 27.4 % (36.0-47.0) Mean Corpuscular Volume 79 fL (79-100) Mean Corpuscular Hemoglobin 25 pg (25-35) Mean Corpuscular Hemoglobin Concent 32 g/dL (31-37) Red Cell Distribution Width 16.8 % (11.5-14.5) Platelet Count 215 x10^3/uL (140-400) Neutrophils (%) (Auto) 75 % (31-73) Lymphocytes (%) (Auto) 17 % (24-48) Monocytes (%) (Auto) 7 % (0-9) Eosinophils (%) (Auto) 1 % (0-3) Basophils (%) (Auto) 0 % (0-3) Neutrophils # (Auto) 9.1 x10^3/uL (1.8-7.7) Lymphocytes # (Auto) 2.1 x10^3/uL (1.0-4.8) Monocytes # (Auto) 0.9 x10^3/uL (0.0-1.1) Eosinophils # (Auto) 0.1 x10^3/uL (0.0-0.7) Basophils # (Auto) 0.0 x10^3/uL (0.0-0.2) Sodium Level 144 mmol/L (136-145) Potassium Level 4.1 mmol/L (3.5-5.1) Chloride Level 106 mmol/L (98-107) Carbon Dioxide Level 30 mmol/L (21-32) Anion Gap 8 (6-14) Blood Urea Nitrogen 27 mg/dL (7-20) Creatinine 1.2 mg/dL (0.6-1.0) Estimated GFR (Cockcroft-Gault) 44.8 Glucose Level 182 mg/dL (70-99) Calcium Level 8.5 mg/dL (8.5-10.1) Magnesium Level 1.8 mg/dL (1.8-2.4) Ferritin 51 ng/mL (8-252) Lactate Dehydrogenase 186 U/L (81-234) Creatine Kinase 491 U/L (26-192) Triglycerides Level 137 mg/dL (0-150) Cholesterol Level 113 mg/dL (0-200) LDL Cholesterol, Calculated 47 mg/dL (0-100) VLDL Cholesterol, Calculated 27 mg/dL (0-40) Non-HDL Cholesterol Calculated 74 mg/dL (0-129) HDL Cholesterol 39 mg/dL (40-60) Cholesterol/HDL Ratio 2.9 Test 02/02/21 17:05 Glucose (Fingerstick) 165 mg/dL (70-99) Laboratory Tests Test 02/01/21 19:41 02/01/21 19:47 02/01/21 21:19 02/01/21 22:35 O2 Saturation 67 % (92-99) Arterial Blood pH 7.38 (7.35-7.45) Arterial Blood pCO2 at Patient Temp 49 mmHg (35-46) Arterial Blood pO2 at Patient Temp 38 mmHg (65-108) Arterial Blood HCO3 29 mmol/L (21-28) Arterial Blood Base Excess 3 mmol/L (-3-3) Alveolar-arterial Oxygen Gradient mmHg (0.0-25.0) Oxyhemoglobin 66.2 % Methemoglobin 0.6 % (0.0-1.9) Carbon Monoxide, Quantitative 0.3 % (0.0-1.9) FiO2 28 White Blood Count 16.8 x10^3/uL (4.0-11.0) Red Blood Count 3.63 x10^6/uL (3.50-5.40) Hemoglobin 9.1 g/dL (12.0-15.5) Hematocrit 28.5 % (36.0-47.0) Mean Corpuscular Volume 78 fL (79-100) Mean Corpuscular Hemoglobin 25 pg (25-35) Mean Corpuscular Hemoglobin Concent 32 g/dL (31-37) Red Cell Distribution Width 16.7 % (11.5-14.5) Platelet Count 243 x10^3/uL (140-400) Neutrophils (%) (Auto) 81 % (31-73) Lymphocytes (%) (Auto) 13 % (24-48) Monocytes (%) (Auto) 6 % (0-9) Eosinophils (%) (Auto) 0 % (0-3) Basophils (%) (Auto) 0 % (0-3) Neutrophils # (Auto) 13.6 x10^3/uL (1.8-7.7) Lymphocytes # (Auto) 2.2 x10^3/uL (1.0-4.8) Monocytes # (Auto) 1.0 x10^3/uL (0.0-1.1) Eosinophils # (Auto) 0.0 x10^3/uL (0.0-0.7) Basophils # (Auto) 0.1 x10^3/uL (0.0-0.2) Segmented Neutrophils % 85 % (35-66) Band Neutrophils % 4 % (0-9) Lymphocytes % 10 % (24-48) Monocytes % 1 % (0-10) Platelet Estimate Adequate (ADEQUATE) Poikilocytosis Slight Anisocytosis Slight D-Dimer (Ann) 0.99 ug/mlFEU (0.00-0.50) Sodium Level 141 mmol/L (136-145) Potassium Level 4.2 mmol/L (3.5-5.1) Chloride Level 105 mmol/L (98-107) Carbon Dioxide Level 29 mmol/L (21-32) Anion Gap 7 (6-14) Blood Urea Nitrogen 26 mg/dL (7-20) Creatinine 1.2 mg/dL (0.6-1.0) Estimated GFR (Cockcroft-Gault) 44.8 BUN/Creatinine Ratio 22 (6-20) Glucose Level 174 mg/dL (70-99) Lactic Acid Level 0.8 mmol/L (0.4-2.0) Calcium Level 8.9 mg/dL (8.5-10.1) Total Bilirubin 0.4 mg/dL (0.2-1.0) Aspartate Amino Transf (AST/SGOT) 11 U/L (15-37) Alanine Aminotransferase (ALT/SGPT) 20 U/L (14-59) Alkaline Phosphatase 88 U/L (46-116) Troponin I Quantitative 0.082 ng/mL (0.000-0.055) 0.130 ng/mL (0.000-0.055) LH-Tox-M-Type Natriuretic Peptide 1472 pg/mL (0-124) Total Protein 6.9 g/dL (6.4-8.2) Albumin 2.6 g/dL (3.4-5.0) Albumin/Globulin Ratio 0.6 (1.0-1.7) Urine Collection Type Unknown Urine Color Yellow Urine Clarity Cloudy Urine pH 5.0 (<5.0-8.0) Urine Specific [place] 1.025 (1.000-1.030) Urine Protein >=300 mg/dL (NEG-TRACE) Urine Glucose (UA) Negative mg/dL (NEG) Urine Ketones (Stick) Negative mg/dL (NEG) Urine Blood Large (NEG) Urine Nitrite Positive (NEG) Urine Bilirubin Negative (NEG) Urine Urobilinogen Dipstick 0.2 mg/dL (0.2 mg/dL) Urine Leukocyte Esterase Moderate (NEG) Urine RBC 6-10 /HPF (0-2) Urine WBC Tntc /HPF (0-4) Urine Squamous Epithelial Cells Mod /LPF Urine Amorphous Sediment Present /HPF Urine Bacteria Many /HPF (0-FEW) Urine Hyaline Casts Few /HPF Urine Mucus Slight /LPF Test 02/02/21 01:40 02/02/21 07:57 02/02/21 08:35 02/02/21 11:38 Troponin I Quantitative 0.201 ng/mL (0.000-0.055) 0.185 ng/mL (0.000-0.055) Glucose (Fingerstick) 179 mg/dL (70-99) 276 mg/dL (70-99) White Blood Count 12.2 x10^3/uL (4.0-11.0) Red Blood Count 3.48 x10^6/uL (3.50-5.40) Hemoglobin 8.6 g/dL (12.0-15.5) Hematocrit 27.4 % (36.0-47.0) Mean Corpuscular Volume 79 fL (79-100) Mean Corpuscular Hemoglobin 25 pg (25-35) Mean Corpuscular Hemoglobin Concent 32 g/dL (31-37) Red Cell Distribution Width 16.8 % (11.5-14.5) Platelet Count 215 x10^3/uL (140-400) Neutrophils (%) (Auto) 75 % (31-73) Lymphocytes (%) (Auto) 17 % (24-48) Monocytes (%) (Auto) 7 % (0-9) Eosinophils (%) (Auto) 1 % (0-3) Basophils (%) (Auto) 0 % (0-3) Neutrophils # (Auto) 9.1 x10^3/uL (1.8-7.7) Lymphocytes # (Auto) 2.1 x10^3/uL (1.0-4.8) Monocytes # (Auto) 0.9 x10^3/uL (0.0-1.1) Eosinophils # (Auto) 0.1 x10^3/uL (0.0-0.7) Basophils # (Auto) 0.0 x10^3/uL (0.0-0.2) Sodium Level 144 mmol/L (136-145) Potassium Level 4.1 mmol/L (3.5-5.1) Chloride Level 106 mmol/L (98-107) Carbon Dioxide Level 30 mmol/L (21-32) Anion Gap 8 (6-14) Blood Urea Nitrogen 27 mg/dL (7-20) Creatinine 1.2 mg/dL (0.6-1.0) Estimated GFR (Cockcroft-Gault) 44.8 Glucose Level 182 mg/dL (70-99) Calcium Level 8.5 mg/dL (8.5-10.1) Magnesium Level 1.8 mg/dL (1.8-2.4) Ferritin 51 ng/mL (8-252) Lactate Dehydrogenase 186 U/L (81-234) Creatine Kinase 491 U/L (26-192) Triglycerides Level 137 mg/dL (0-150) Cholesterol Level 113 mg/dL (0-200) LDL Cholesterol, Calculated 47 mg/dL (0-100) VLDL Cholesterol, Calculated 27 mg/dL (0-40) Non-HDL Cholesterol Calculated 74 mg/dL (0-129) HDL Cholesterol 39 mg/dL (40-60) Cholesterol/HDL Ratio 2.9 Test 02/02/21 17:05 Glucose (Fingerstick) 165 mg/dL (70-99) Medications Active Scripts Medications Dose Route/Sig Max Daily Dose Days Date Category Dose Instructions Zofran (Ondansetron Hcl) 4 Mg Tablet 1 Tab PO PRN Q4HRS PRN 02/02/21 Reported Vitamin C (Ascorbic Acid) 500 Mg Capsule 500 Mg PO BID 02/02/21 Reported Santyl Ointment (Collagenase) 30 Gm Oint...g. 1 Kimberlee TP QSUTUTH 02/02/21 Reported DIRECTED BY PHYSICIAN Hydrocodone-Apap 5-325 (Hydrocodone Bit/Acetaminophen) 1 Tab Tablet 1 Tab PO PRN Q8HRS PRN 02/02/21 Reported Thera-M Caplet (Multivit,Ther Iron,Ca,Fa & Min) 1 Each Tablet 1 Each PO DAILY 02/02/21 Reported Milk Of Magnesia (Magnesium Hydroxide) 400 Mg/5 Ml Oral.susp 30 Ml PO PRN DAILY PRN 02/02/21 Reported Melatonin 3 Mg Tablet.er 3 Mg PO PRN QHS PRN 02/02/21 Reported Insulin Aspart Flexpen (Insulin Aspart) 100 Unit/1 Ml Insuln.pen 15 Unit SQ TIDAC 02/02/21 Reported Dulcolax (Bisacodyl) 10 Mg Supp.rect 10 Mg RC PRN DAILY PRN 02/02/21 Reported Tylenol (Acetaminophen) 325 Mg Tablet 650 Mg PO PRN Q6HRS PRN 02/02/21 Reported Lisinopril 5 Mg Tablet 5 Mg PO DAILY 02/02/21 Reported Insulin Aspart 100 Unit/1 Ml Vial 100 Unit SQ SLIDING SCALE 11/17/20 Reported Levemir Flextouch (Insulin Detemir) 100 Unit/1 Ml Insuln.pen 50 Unit SQ BID 11/17/20 Reported Escitalopram Oxalate 10 Mg Tablet 10 Mg PO DAILY 11/17/20 Reported Carvedilol 25 Mg Tablet Unknown Dose PO BIDWMEALS 09/01/20 Reported Atorvastatin Calcium 80 Mg Tablet Unknown Dose PO QHS 09/01/20 Reported Clopidogrel (Clopidogrel Bisulfate) 75 Mg Tablet Unknown Dose PO DAILY 09/01/20 Reported Metformin Hcl 500 Mg Tablet 500 Mg PO BID 09/01/20 Reported Impression . Acute hypoxemic respiratory failure multifactorial Suspect recurrent aspiration Fever rule out sepsis See orders N.p.o. for now, consult speech LOREN LUGO MD Feb 02, 2021 17:38
[2021-02-02] MEDS: VANCOMYCIN 1.5 GM in IV NORMAL SALINE 500ML BAG 500 ML IV SCH (18:26)
[2021-02-02 18:27] LABS: INFLUENZA A PATIENT NEGATIVE (NEGATIVE); INFLUENZA B PATIENT NEGATIVE (NEGATIVE)
[2021-02-02 19:00] VITALS: BP 127/46
--- NOTE | 2021-02-02 20:15 | CONS ---
DATE OF CONSULTATION: 02/02/2021 ATTENDING PHYSICIAN: Elia Davies MD REASON FOR CONSULTATION: The patient is seen in pulmonary consultation at the request of Dr. Davies for abnormal chest x-ray revealing bilateral nodular alveolar type of infiltrates. HISTORY OF PRESENT ILLNESS: The patient is a 66-year-old with prior history of CVA with right-sided hemiparesis. She has had previous video dysphagia study back in 08/2020 which revealed aspiration. The patient has had a previous PEG tube placement in place, which was eventually removed. She now presents with intractable emesis. She had an abnormal x-ray, which I personally reviewed. I was asked to see her in consultation. The patient denies fever or chills. She has been having some periods of diaphoresis. She has never smoked. Normally does not wear oxygen at home. PAST MEDICAL HISTORY: Remarkable for previous CVA with right-sided hemiparesis, status post previous PEG placement, which was eventually removed. She also has a history of type 2 diabetes, hypertension, hyperlipidemia. She has had previous left middle cerebral artery infarct. SOCIAL HISTORY: She currently resides at [facility]. PAST SURGICAL HISTORY: Status post previous PEG placement. She has had previous left big toe amputation. FAMILY HISTORY: Noncontributory. SOCIAL HISTORY: She resides at [facility]. No history of tobacco or alcohol. REVIEW OF SYSTEMS: As indicated above, otherwise, a 10-point system was reviewed and negative. CURRENT MEDICATION: List was reviewed. She is receiving IV Zosyn along with multiple other medications. PHYSICAL EXAMINATION: VITAL SIGNS: Since admission, she has had a T-max of 100.0. HEENT: Eyes: The sclerae were nonicteric. NECK: Jugular venous distention was not elevated. No lymphadenopathy. CHEST: Full expansion. LUNGS: Scattered rhonchi. No wheezes. CARDIOVASCULAR: Regular rate and rhythm with S1, S2. No S3. ABDOMEN: Obese, soft. EXTREMITIES: No clubbing, cyanosis. Minimal edema. NEUROLOGICAL: The patient had a weak cough. She had right-sided hemiparesis. A detailed neuro exam was not performed. LABORATORY DATA: Reviewed. White count was elevated. Hemoglobin and hematocrit were chronically low. Arterial blood gas revealed a pH of 7.38, PaCO2 of 49, PO2 of 38 on FiO2 of 28%. This may be a venous sample. D-dimer was 0.99. Chest x-ray as indicated above. IMPRESSION: 1. Acute hypoxemic respiratory failure, multifactorial. 2. Suspect aspiration pneumonia. 3. Abnormal x-ray compatible with bilateral nodular alveolar type of infiltrates, suspect chronic on top of acute infiltrates. 4. Rule out SARS-CoV-2. 5. Rule out possible influenza A or B. 6. History of cerebrovascular accident with right-sided hemiparesis. 7. Type 2 diabetes. 8. Intractable emesis. 9. Fever. PLAN: 1. We will initiate empiric antibiotics. 2. Check SARS-CoV-2 and influenza screen. 3. Continue home medications. 4. Anticoagulation. 5. We will defer any further evaluation of intractable vomiting to Dr. Davies. 6. N.p.o. Consult speech. Suspect the patient chronically aspirating. I do appreciate the privilege in sharing in the patient's care. LOREN LUGO MD DR: RUPERT/deuce JOB#: [id number] / [id number]
[2021-02-02] MEDS: LACTOBACILLUS RHAMNOSUS GG 1 CAPSULE. PO SCH (21:34)
[2021-02-02] MEDS: ASCORBIC ACID 500 MG TABLET PO SCH (21:34)
[2021-02-02] MEDS: ATORVASTATIN CALCIUM 40 MG TABLET. PO SCH (21:34)
[2021-02-02 22:56] VITALS: BP 125/52
[2021-02-03 03:00] VITALS: BP 120/59
[2021-02-03] MEDS: PIPERACILLIN/TAZOBACTAM 3.375 GM in IV NORMAL SALINE 50ML 50 ML IV SCH ×3 (06:15→18:19)
[2021-02-03 07:00] VITALS: BP 137/48
[2021-02-03 07:37] LABS: BASO % 0 % (0-3); EOS # 0.1 x10^3/uL (0.0-0.7); EOS % 1 % (0-3); HEMATOCRIT 25.4 % (36.0-47.0); LYMPH # 2.1 x10^3/uL (1.0-4.8); LYMPH % 18 % (24-48); MEAN CORPUSCULAR HEMOGLOBIN 25 pg (25-35); MEAN CORPUSCULAR HGB CONC 31 g/dL (31-37); MEAN CORPUSCULAR VOLUME 80 fL (79-100); MONO # 1.1 x10^3/uL (0.0-1.1); MONO % 9 % (0-9); NEUT # 8.1 x10^3/uL (1.8-7.7); NEUT % 71 % (31-73); PLATELET COUNT 197 x10^3/uL (140-400); RED CELL DISTRIBUTION WIDTH 16.7 % (11.5-14.5); WHITE BLOOD COUNT 11.5 x10^3/uL (4.0-11.0)
[2021-02-03 07:50] LABS: CALCIUM 8.3 mg/dL (8.5-10.1); CREATININE 1.3 mg/dL (0.6-1.0); GFR 40.9; POTASSIUM 3.9 mmol/L (3.5-5.1)
[2021-02-03] MEDS: INSULIN LISPRO 300 UNITS/3 ML VIAL. SQ SCH ×3 (07:56→17:00)
[2021-02-03] MEDS: metFORMIN 500 MG TABLET PO SCH ×2 (08:00→18:18)
[2021-02-03] MEDS: LACTOBACILLUS RHAMNOSUS GG 1 CAPSULE. PO SCH ×2 (09:00→21:23)
[2021-02-03] MEDS: ASCORBIC ACID 500 MG TABLET PO SCH ×2 (09:00→21:23)
[2021-02-03] MEDS: METOCLOPRAMIDE HCL 10 MG/2 ML VIAL. IVP SCH ×4 (09:33→21:21)
--- NOTE | 2021-02-03 09:34 | PDOC2 ---
GI CONSULT Date of Service: DATE: 02/03/21 TIME: 09:34 Reason For Consult: n/v HPI: HPI: 66 y/o female sent from care facility for n/v which has apparently resolved. Admitted w/ resp failure/concern for aspiration pneumonia and UTI, also some elevation in troponin. MILLER HEAD eval pending - the patient also has ice water at bedside. She tells me it started yesterday w/o precipitating events, happened "a lot," and has not recurred since last night. Denies abd pain and acid reflux. Hasn't stooled in a couple days but doesn't want help. Not able to obtain much more meaningful history - she became tearful and said "I don't want another feeding tube." H/o oropharyngeal dysphagia after CVA in 08/2020, had PEG placed and then removed by Dr. Sanchez in 11/2020. EGD unremarkable. On Plavix. PMH: PMH: HTN, HLD, CVA, DM, CKD cholecystectomy, , hysterectomy, bilateral total knee replacements, left toe amputation FH: Family History: CAD Social History: Smoke: No ALCOHOL: none Drugs: None ROS: Per HPI. Vitals: Vitals: Vital Signs Date Time Temp Pulse Resp B/P (MAP) Pulse Ox O2 Delivery O2 Flow Rate FiO2 02/03/21 03:00 98.0 80 17 120/59 (79) 94 Nasal Cannula 2.0 98.0 Labs: Labs: Laboratory Tests Test 02/02/21 11:38 02/02/21 17:05 02/02/21 17:54 02/02/21 19:28 Glucose (Fingerstick) 276 mg/dL (70-99) 165 mg/dL (70-99) 143 mg/dL (70-99) Influenza Type A Antigen Negative (NEGATIVE) Influenza Type B Antigen Negative (NEGATIVE) Test 02/03/21 06:50 02/03/21 07:48 White Blood Count 11.5 x10^3/uL (4.0-11.0) Red Blood Count 3.20 x10^6/uL (3.50-5.40) Hemoglobin 8.0 g/dL (12.0-15.5) Hematocrit 25.4 % (36.0-47.0) Mean Corpuscular Volume 80 fL (79-100) Mean Corpuscular Hemoglobin 25 pg (25-35) Mean Corpuscular Hemoglobin Concent 31 g/dL (31-37) Red Cell Distribution Width 16.7 % (11.5-14.5) Platelet Count 197 x10^3/uL (140-400) Neutrophils (%) (Auto) 71 % (31-73) Lymphocytes (%) (Auto) 18 % (24-48) Monocytes (%) (Auto) 9 % (0-9) Eosinophils (%) (Auto) 1 % (0-3) Basophils (%) (Auto) 0 % (0-3) Neutrophils # (Auto) 8.1 x10^3/uL (1.8-7.7) Lymphocytes # (Auto) 2.1 x10^3/uL (1.0-4.8) Monocytes # (Auto) 1.1 x10^3/uL (0.0-1.1) Eosinophils # (Auto) 0.1 x10^3/uL (0.0-0.7) Basophils # (Auto) 0.0 x10^3/uL (0.0-0.2) Sodium Level 144 mmol/L (136-145) Potassium Level 3.9 mmol/L (3.5-5.1) Chloride Level 108 mmol/L (98-107) Carbon Dioxide Level 31 mmol/L (21-32) Anion Gap 5 (6-14) Blood Urea Nitrogen 26 mg/dL (7-20) Creatinine 1.3 mg/dL (0.6-1.0) Estimated GFR (Cockcroft-Gault) 40.9 Glucose Level 109 mg/dL (70-99) Calcium Level 8.3 mg/dL (8.5-10.1) Glucose (Fingerstick) 111 mg/dL (70-99) URINE CULTURE Preliminary Preliminary GREATER THAN 100,000 CFU/ML GRAM NEGATIVE RODS on 02/03/21 at 0852 FINAL ID= [ESCHERICHIA COLI] BLOOD CULTURE Preliminary NO GROWTH AFTER 1 DAY Allergies: Coded Allergies: No Known Drug Allergies (Unverified , 11/17/20) Medications: Current Medications Medications (Trade) Dose Ordered Sig/Liam Route PRN Reason Start Time Stop Time Status Last Admin Dose Admin Piperacillin Sod/ Tazobactam Sod 3.375 gm/Sodium Chloride 50 ml @ 100 mls/hr Q6HRS IV 02/02/21 12:00 02/03/21 06:15 Lisinopril (Prinivil) 5 mg DAILY PO 02/02/21 13:00 02/02/21 12:59 Multivitamins (Thera M Plus) 1 tab DAILY PO 02/02/21 13:00 02/02/21 12:59 Vancomycin HCl (Vanco Per Pharmacy) 1 each PRN DAILY PRN MC SEE COMMENTS 02/02/21 16:15 02/02/21 17:31 Metoclopramide HCl (Reglan Vial) 10 mg QIDACHS IVP 02/02/21 16:30 02/02/21 21:37 Vancomycin HCl 1.5 gm/Sodium Chloride 500 ml @ 250 mls/hr Q24H IV 02/02/21 17:00 02/02/21 18:26 Imaging: Imaging: CXR 02/02 IMPRESSION: Subtle patchy bibasilar airspace disease may be infectious or inflammatory in etiology. PE: GEN: in COVID isolation - test pending HEENT: Atraumatic, PERRL LUNGS: diminished, NC 2L HEART: RRR ABD: large, soft, non-tender, quiet bS EXTREMITY: BLE edema SKIN: dressing right heel NEURO/PSYCH: A & O 3, tearful, right hemiplegia A/P: A/P: N/v - resolved?? Pneumonia, UTI, NSTEMI, fever Leukocytosis, chronic anemia H/o PEG placement/removal H/o CVA on Plavix, DM R/o COVID -- Add IV acid-head control clerk - monitor for n/v - not sure she's the greatest historian, also was upset this morning. Note has IV Reglan ordered. Consider abd imaging. Check anemia parameters for completeness. Await MILLER HEAD suzanne. SONA SHAW Feb 03, 2021 09:34
[2021-02-03] MEDS: INSULIN GLARGINE SYRINGE. SQ SCH ×2 (09:41→22:35)
--- NOTE | 2021-02-03 09:57 | PDOC ---
PULMONARY PROGRESS NOTES DATE: 02/03/21 TIME: 09:57 Subjective Patient ate today, had 1 episodes of emesis, not more short of air no chest pain no pressure Vitals Vital Signs Date Time Temp Pulse Resp B/P (MAP) Pulse Ox O2 Delivery O2 Flow Rate FiO2 02/03/21 07:00 98.4 71 17 137/48 (77) 96 Nasal Cannula 2.0 98.4 ROS: No Chest Pain, No Abdominal Pain, No Increase Cough General: Alert Lungs: Clear, Crackles Cardiovascular: S1, S2 Abdomen: Soft Neuro Exam: Alert Extremities: No Edema Skin: Warm Labs Laboratory Tests Test 02/01/21 19:41 02/01/21 19:47 02/01/21 21:19 02/01/21 22:35 O2 Saturation 67 % (92-99) Arterial Blood pH 7.38 (7.35-7.45) Arterial Blood pCO2 at Patient Temp 49 mmHg (35-46) Arterial Blood pO2 at Patient Temp 38 mmHg (65-108) Arterial Blood HCO3 29 mmol/L (21-28) Arterial Blood Base Excess 3 mmol/L (-3-3) Alveolar-arterial Oxygen Gradient mmHg (0.0-25.0) Oxyhemoglobin 66.2 % Methemoglobin 0.6 % (0.0-1.9) Carbon Monoxide, Quantitative 0.3 % (0.0-1.9) FiO2 28 White Blood Count 16.8 x10^3/uL (4.0-11.0) Red Blood Count 3.63 x10^6/uL (3.50-5.40) Hemoglobin 9.1 g/dL (12.0-15.5) Hematocrit 28.5 % (36.0-47.0) Mean Corpuscular Volume 78 fL (79-100) Mean Corpuscular Hemoglobin 25 pg (25-35) Mean Corpuscular Hemoglobin Concent 32 g/dL (31-37) Red Cell Distribution Width 16.7 % (11.5-14.5) Platelet Count 243 x10^3/uL (140-400) Neutrophils (%) (Auto) 81 % (31-73) Lymphocytes (%) (Auto) 13 % (24-48) Monocytes (%) (Auto) 6 % (0-9) Eosinophils (%) (Auto) 0 % (0-3) Basophils (%) (Auto) 0 % (0-3) Neutrophils # (Auto) 13.6 x10^3/uL (1.8-7.7) Lymphocytes # (Auto) 2.2 x10^3/uL (1.0-4.8) Monocytes # (Auto) 1.0 x10^3/uL (0.0-1.1) Eosinophils # (Auto) 0.0 x10^3/uL (0.0-0.7) Basophils # (Auto) 0.1 x10^3/uL (0.0-0.2) Segmented Neutrophils % 85 % (35-66) Band Neutrophils % 4 % (0-9) Lymphocytes % 10 % (24-48) Monocytes % 1 % (0-10) Platelet Estimate Adequate (ADEQUATE) Poikilocytosis Slight Anisocytosis Slight D-Dimer (Ann) 0.99 ug/mlFEU (0.00-0.50) Sodium Level 141 mmol/L (136-145) Potassium Level 4.2 mmol/L (3.5-5.1) Chloride Level 105 mmol/L (98-107) Carbon Dioxide Level 29 mmol/L (21-32) Anion Gap 7 (6-14) Blood Urea Nitrogen 26 mg/dL (7-20) Creatinine 1.2 mg/dL (0.6-1.0) Estimated GFR (Cockcroft-Gault) 44.8 BUN/Creatinine Ratio 22 (6-20) Glucose Level 174 mg/dL (70-99) Lactic Acid Level 0.8 mmol/L (0.4-2.0) Calcium Level 8.9 mg/dL (8.5-10.1) Total Bilirubin 0.4 mg/dL (0.2-1.0) Aspartate Amino Transf (AST/SGOT) 11 U/L (15-37) Alanine Aminotransferase (ALT/SGPT) 20 U/L (14-59) Alkaline Phosphatase 88 U/L (46-116) Troponin I Quantitative 0.082 ng/mL (0.000-0.055) 0.130 ng/mL (0.000-0.055) RN-Mdb-Y-Type Natriuretic Peptide 1472 pg/mL (0-124) Total Protein 6.9 g/dL (6.4-8.2) Albumin 2.6 g/dL (3.4-5.0) Albumin/Globulin Ratio 0.6 (1.0-1.7) Urine Collection Type Unknown Urine Color Yellow Urine Clarity Cloudy Urine pH 5.0 (<5.0-8.0) Urine Specific [place] 1.025 (1.000-1.030) Urine Protein >=300 mg/dL (NEG-TRACE) Urine Glucose (UA) Negative mg/dL (NEG) Urine Ketones (Stick) Negative mg/dL (NEG) Urine Blood Large (NEG) Urine Nitrite Positive (NEG) Urine Bilirubin Negative (NEG) Urine Urobilinogen Dipstick 0.2 mg/dL (0.2 mg/dL) Urine Leukocyte Esterase Moderate (NEG) Urine RBC 6-10 /HPF (0-2) Urine WBC Tntc /HPF (0-4) Urine Squamous Epithelial Cells Mod /LPF Urine Amorphous Sediment Present /HPF Urine Bacteria Many /HPF (0-FEW) Urine Hyaline Casts Few /HPF Urine Mucus Slight /LPF Test 02/02/21 01:40 02/02/21 07:57 02/02/21 08:35 02/02/21 11:38 Troponin I Quantitative 0.201 ng/mL (0.000-0.055) 0.185 ng/mL (0.000-0.055) Glucose (Fingerstick) 179 mg/dL (70-99) 276 mg/dL (70-99) White Blood Count 12.2 x10^3/uL (4.0-11.0) Red Blood Count 3.48 x10^6/uL (3.50-5.40) Hemoglobin 8.6 g/dL (12.0-15.5) Hematocrit 27.4 % (36.0-47.0) Mean Corpuscular Volume 79 fL (79-100) Mean Corpuscular Hemoglobin 25 pg (25-35) Mean Corpuscular Hemoglobin Concent 32 g/dL (31-37) Red Cell Distribution Width 16.8 % (11.5-14.5) Platelet Count 215 x10^3/uL (140-400) Neutrophils (%) (Auto) 75 % (31-73) Lymphocytes (%) (Auto) 17 % (24-48) Monocytes (%) (Auto) 7 % (0-9) Eosinophils (%) (Auto) 1 % (0-3) Basophils (%) (Auto) 0 % (0-3) Neutrophils # (Auto) 9.1 x10^3/uL (1.8-7.7) Lymphocytes # (Auto) 2.1 x10^3/uL (1.0-4.8) Monocytes # (Auto) 0.9 x10^3/uL (0.0-1.1) Eosinophils # (Auto) 0.1 x10^3/uL (0.0-0.7) Basophils # (Auto) 0.0 x10^3/uL (0.0-0.2) Sodium Level 144 mmol/L (136-145) Potassium Level 4.1 mmol/L (3.5-5.1) Chloride Level 106 mmol/L (98-107) Carbon Dioxide Level 30 mmol/L (21-32) Anion Gap 8 (6-14) Blood Urea Nitrogen 27 mg/dL (7-20) Creatinine 1.2 mg/dL (0.6-1.0) Estimated GFR (Cockcroft-Gault) 44.8 Glucose Level 182 mg/dL (70-99) Calcium Level 8.5 mg/dL (8.5-10.1) Magnesium Level 1.8 mg/dL (1.8-2.4) Ferritin 51 ng/mL (8-252) Lactate Dehydrogenase 186 U/L (81-234) Creatine Kinase 491 U/L (26-192) Triglycerides Level 137 mg/dL (0-150) Cholesterol Level 113 mg/dL (0-200) LDL Cholesterol, Calculated 47 mg/dL (0-100) VLDL Cholesterol, Calculated 27 mg/dL (0-40) Non-HDL Cholesterol Calculated 74 mg/dL (0-129) HDL Cholesterol 39 mg/dL (40-60) Cholesterol/HDL Ratio 2.9 Test 02/02/21 17:05 02/02/21 17:54 02/02/21 19:28 02/03/21 06:50 Glucose (Fingerstick) 165 mg/dL (70-99) 143 mg/dL (70-99) Influenza Type A Antigen Negative (NEGATIVE) Influenza Type B Antigen Negative (NEGATIVE) White Blood Count 11.5 x10^3/uL (4.0-11.0) Red Blood Count 3.20 x10^6/uL (3.50-5.40) Hemoglobin 8.0 g/dL (12.0-15.5) Hematocrit 25.4 % (36.0-47.0) Mean Corpuscular Volume 80 fL (79-100) Mean Corpuscular Hemoglobin 25 pg (25-35) Mean Corpuscular Hemoglobin Concent 31 g/dL (31-37) Red Cell Distribution Width 16.7 % (11.5-14.5) Platelet Count 197 x10^3/uL (140-400) Neutrophils (%) (Auto) 71 % (31-73) Lymphocytes (%) (Auto) 18 % (24-48) Monocytes (%) (Auto) 9 % (0-9) Eosinophils (%) (Auto) 1 % (0-3) Basophils (%) (Auto) 0 % (0-3) Neutrophils # (Auto) 8.1 x10^3/uL (1.8-7.7) Lymphocytes # (Auto) 2.1 x10^3/uL (1.0-4.8) Monocytes # (Auto) 1.1 x10^3/uL (0.0-1.1) Eosinophils # (Auto) 0.1 x10^3/uL (0.0-0.7) Basophils # (Auto) 0.0 x10^3/uL (0.0-0.2) Sodium Level 144 mmol/L (136-145) Potassium Level 3.9 mmol/L (3.5-5.1) Chloride Level 108 mmol/L (98-107) Carbon Dioxide Level 31 mmol/L (21-32) Anion Gap 5 (6-14) Blood Urea Nitrogen 26 mg/dL (7-20) Creatinine 1.3 mg/dL (0.6-1.0) Estimated GFR (Cockcroft-Gault) 40.9 Glucose Level 109 mg/dL (70-99) Calcium Level 8.3 mg/dL (8.5-10.1) Test 02/03/21 07:48 Glucose (Fingerstick) 111 mg/dL (70-99) Laboratory Tests Test 02/02/21 11:38 02/02/21 17:05 02/02/21 17:54 02/02/21 19:28 Glucose (Fingerstick) 276 mg/dL (70-99) 165 mg/dL (70-99) 143 mg/dL (70-99) Influenza Type A Antigen Negative (NEGATIVE) Influenza Type B Antigen Negative (NEGATIVE) Test 02/03/21 06:50 02/03/21 07:48 White Blood Count 11.5 x10^3/uL (4.0-11.0) Red Blood Count 3.20 x10^6/uL (3.50-5.40) Hemoglobin 8.0 g/dL (12.0-15.5) Hematocrit 25.4 % (36.0-47.0) Mean Corpuscular Volume 80 fL (79-100) Mean Corpuscular Hemoglobin 25 pg (25-35) Mean Corpuscular Hemoglobin Concent 31 g/dL (31-37) Red Cell Distribution Width 16.7 % (11.5-14.5) Platelet Count 197 x10^3/uL (140-400) Neutrophils (%) (Auto) 71 % (31-73) Lymphocytes (%) (Auto) 18 % (24-48) Monocytes (%) (Auto) 9 % (0-9) Eosinophils (%) (Auto) 1 % (0-3) Basophils (%) (Auto) 0 % (0-3) Neutrophils # (Auto) 8.1 x10^3/uL (1.8-7.7) Lymphocytes # (Auto) 2.1 x10^3/uL (1.0-4.8) Monocytes # (Auto) 1.1 x10^3/uL (0.0-1.1) Eosinophils # (Auto) 0.1 x10^3/uL (0.0-0.7) Basophils # (Auto) 0.0 x10^3/uL (0.0-0.2) Sodium Level 144 mmol/L (136-145) Potassium Level 3.9 mmol/L (3.5-5.1) Chloride Level 108 mmol/L (98-107) Carbon Dioxide Level 31 mmol/L (21-32) Anion Gap 5 (6-14) Blood Urea Nitrogen 26 mg/dL (7-20) Creatinine 1.3 mg/dL (0.6-1.0) Estimated GFR (Cockcroft-Gault) 40.9 Glucose Level 109 mg/dL (70-99) Calcium Level 8.3 mg/dL (8.5-10.1) Glucose (Fingerstick) 111 mg/dL (70-99) Medications Active Scripts Medications Dose Route/Sig Max Daily Dose Days Date Category Dose Instructions Zofran (Ondansetron Hcl) 4 Mg Tablet 1 Tab PO PRN Q4HRS PRN 02/02/21 Reported Vitamin C (Ascorbic Acid) 500 Mg Capsule 500 Mg PO BID 02/02/21 Reported Santyl Ointment (Collagenase) 30 Gm Oint...g. 1 Kimberlee TP QSUTUTH 02/02/21 Reported DIRECTED BY PHYSICIAN Hydrocodone-Apap 5-325 (Hydrocodone Bit/Acetaminophen) 1 Tab Tablet 1 Tab PO PRN Q8HRS PRN 02/02/21 Reported Thera-M Caplet (Multivit,Ther Iron,Ca,Fa & Min) 1 Each Tablet 1 Each PO DAILY 02/02/21 Reported Milk Of Magnesia (Magnesium Hydroxide) 400 Mg/5 Ml Oral.susp 30 Ml PO PRN DAILY PRN 02/02/21 Reported Melatonin 3 Mg Tablet.er 3 Mg PO PRN QHS PRN 02/02/21 Reported Insulin Aspart Flexpen (Insulin Aspart) 100 Unit/1 Ml Insuln.pen 15 Unit SQ TIDAC 02/02/21 Reported Dulcolax (Bisacodyl) 10 Mg Supp.rect 10 Mg RC PRN DAILY PRN 02/02/21 Reported Tylenol (Acetaminophen) 325 Mg Tablet 650 Mg PO PRN Q6HRS PRN 02/02/21 Reported Lisinopril 5 Mg Tablet 5 Mg PO DAILY 02/02/21 Reported Insulin Aspart 100 Unit/1 Ml Vial 100 Unit SQ SLIDING SCALE 11/17/20 Reported Levemir Flextouch (Insulin Detemir) 100 Unit/1 Ml Insuln.pen 50 Unit SQ BID 11/17/20 Reported Escitalopram Oxalate 10 Mg Tablet 10 Mg PO DAILY 11/17/20 Reported Carvedilol 25 Mg Tablet Unknown Dose PO BIDWMEALS 09/01/20 Reported Atorvastatin Calcium 80 Mg Tablet Unknown Dose PO QHS 09/01/20 Reported Clopidogrel (Clopidogrel Bisulfate) 75 Mg Tablet Unknown Dose PO DAILY 09/01/20 Reported Metformin Hcl 500 Mg Tablet 500 Mg PO BID 09/01/20 Reported Impression . IMPRESSION: 1. Acute hypoxemic respiratory failure, multifactorial. 2. Suspect aspiration pneumonia. 3. Abnormal x-ray compatible with bilateral nodular alveolar type of infiltrates, suspect chronic on top of acute infiltrates. 4. Rule out SARS-CoV-2., Pending 5. Influenza screen negative 6. History of cerebrovascular accident with right-sided hemiparesis. 7. Type 2 diabetes. 8. Intractable emesis. 9. Fever. Plan . Updated 02/03 Discussed with speech Continue antibiotics We will defer advancing diet to PCP Follow GI input 1. We will initiate empiric antibiotics. 2. Check SARS-CoV-2 and influenza screen. 3. Continue home medications. 4. Anticoagulation. 5. We will defer any further evaluation of intractable vomiting to Dr. Davies. 6. N.p.o. Consult speech. Suspect the patient chronically aspirating. LOREN LUGO MD Feb 03, 2021 09:57
--- NOTE | 2021-02-03 10:11 | PDOC ---
PER LI WOMEN'S ACTIVITIES ADVISER 02/03/21 1011: CARDIO Progress Notes Date and Time Date of Service 02/03/2021 Time of Evaluation 0940 Subjective Subjective: No Chest Pain, No shortness of breath, No Palpitations Vitals Vitals Vital Signs Date Time Temp Pulse Resp B/P (MAP) Pulse Ox O2 Delivery O2 Flow Rate FiO2 02/03/21 07:00 98.4 71 17 137/48 (77) 96 Nasal Cannula 2.0 98.4 Weight Weight [ ] Input and Output Intake and Output Intake and Output 02/03/21 07:00 Intake Total 400 ml Balance 400 ml Intake Oral 300 ml IV Total 100 ml # Voids 1 Laboratory Labs Laboratory Tests Test 02/02/21 11:38 02/02/21 17:05 02/02/21 17:54 02/02/21 19:28 Glucose (Fingerstick) 276 mg/dL (70-99) 165 mg/dL (70-99) 143 mg/dL (70-99) Influenza Type A Antigen Negative (NEGATIVE) Influenza Type B Antigen Negative (NEGATIVE) Test 02/03/21 06:50 02/03/21 07:48 White Blood Count 11.5 x10^3/uL (4.0-11.0) Red Blood Count 3.20 x10^6/uL (3.50-5.40) Hemoglobin 8.0 g/dL (12.0-15.5) Hematocrit 25.4 % (36.0-47.0) Mean Corpuscular Volume 80 fL (79-100) Mean Corpuscular Hemoglobin 25 pg (25-35) Mean Corpuscular Hemoglobin Concent 31 g/dL (31-37) Red Cell Distribution Width 16.7 % (11.5-14.5) Platelet Count 197 x10^3/uL (140-400) Neutrophils (%) (Auto) 71 % (31-73) Lymphocytes (%) (Auto) 18 % (24-48) Monocytes (%) (Auto) 9 % (0-9) Eosinophils (%) (Auto) 1 % (0-3) Basophils (%) (Auto) 0 % (0-3) Neutrophils # (Auto) 8.1 x10^3/uL (1.8-7.7) Lymphocytes # (Auto) 2.1 x10^3/uL (1.0-4.8) Monocytes # (Auto) 1.1 x10^3/uL (0.0-1.1) Eosinophils # (Auto) 0.1 x10^3/uL (0.0-0.7) Basophils # (Auto) 0.0 x10^3/uL (0.0-0.2) Sodium Level 144 mmol/L (136-145) Potassium Level 3.9 mmol/L (3.5-5.1) Chloride Level 108 mmol/L (98-107) Carbon Dioxide Level 31 mmol/L (21-32) Anion Gap 5 (6-14) Blood Urea Nitrogen 26 mg/dL (7-20) Creatinine 1.3 mg/dL (0.6-1.0) Estimated GFR (Cockcroft-Gault) 40.9 Glucose Level 109 mg/dL (70-99) Calcium Level 8.3 mg/dL (8.5-10.1) Glucose (Fingerstick) 111 mg/dL (70-99) Microbiology Micro Microbiology 02/01/21 Urine Culture - Preliminary, Resulted 02/01/21 Blood Culture - Preliminary, Resulted NO GROWTH AFTER 1 DAY Physical Exam HEENT: Neck Supple W Full Motion Chest: Symmetric LUNGS: Other (diminished) Heart: RRR (SR) Abdomen: Soft N/T Extremities: Other (3+ bilateral Le pitting edema) Neurology: alert, oriented, follow commands Assessment Assessment 1. Nausea/vomiting, recurrent 2. Acute respiratory failure secondary to PNA. Aspiration? currently NPO 3. Mild troponin elevation; highest 0.2. Most probable type II, demand ischemia. Echo 09/02 with preserved LV systolic function as noted above. CP free 4. GIULIA; s/p IV hydration 5. Accelerated hypertension; labile episode 6. Hyperlipidemia; statin 7. Diabetes, II 8. H/o CVA with right-sided hemiplegia. 9. Leukocytosis, fevers in setting of UTI and PNA 10. Bilateral Leg edema: more to left with tenderness Recommendations 1. Venous doppler to r/o DVT low dose lasix x1 2. Secondary prevention resume when able to take PO. Plavix, statin. Hydralazine IV PRN while NPO 3. Consider outpatient ischemic evaluation 4. Ongoing antibiotic therapy Justicifation of Admission Dx: Justifications for Admission: Justification of Admission Dx: Yes Stroke - Ischemic: Stroke-Ischemic GENE PRINCE MD 02/03/21 1618: CARDIO Progress Notes Plan Plan The patient was seen and interviewed as well as examined at the bedside. The chart was reviewed. The case was discussed. Agree with the plan of care. PER LI APRN Feb 03, 2021 10:11 GENE PRINCE MD Feb 03, 2021 16:18
--- NOTE | 2021-02-03 10:51 | PN ---
DATE: SUBJECTIVE: The patient is resting, slightly propped up in bed, no apparent distress. She denied any further episodes of nausea and vomiting. This morning, she apparently has had her breakfast without any difficulty, although she has vomited yesterday. PHYSICAL EXAMINATION: GENERAL: When I examined her this morning, she looked well and was clearly in no apparent respiratory distress. She was pale. No jaundice or cyanosis. No lymphadenopathy, no thyromegaly. No jugular venous distention. No limb edema. VITAL SIGNS: Her heart rate was 71, blood pressure was 137/48, temperature was 98.4, respiratory rate was 17 and oxygen saturation was 96% on 2 liters of oxygen. HEAD, EYES, EARS, NOSE AND THROAT: Normocephalic, atraumatic. NECK: Supple. HEART: Showed normal first and second heart sounds. No gallop, rub or murmur. CHEST: Clear to auscultation. No crepitation or rhonchi. ABDOMEN: Distended, soft, nontender. NEUROLOGIC: She is awake, alert, responding appropriately. All her cranial nerves intact. She has right-sided hemiparesis. Her intake was 1100, no output was recorded. LABORATORY DATA: As of this morning, her white cell count is down to 11,500, hemoglobin 8, hematocrit 25, MCV 80 and platelet count of 197,000. Her chemistry showed a serum sodium over 144, potassium 3.9, chloride 108, bicarbonate 31, anion gap of 5, BUN 26, creatinine 1.3, estimated GFR was 40 mL per minute. Her glucose 109, calcium was 8.3. ASSESSMENT: 1. Recurrent bouts of nausea, vomiting, probably aspiration pneumonia. 2. Urinary tract infection, left middle cerebral artery territory infarct, right-sided hemiplegia, hypertension, hyperlipidemia. PLAN: To continue with IV antibiotic in the form of Zosyn and vancomycin. Continue to monitor blood sugar and adjust insulin as needed. Continue with Lovenox for DVT prophylaxis. I did consult the sleeping car service attendant as well as the audio production engineer. She was seen also by the garment sorter and she has type 2 non-ST segment elevation myocardial infarction and she was also seen by the vascular surgeon who is ordering carotid Doppler. There are no plans for any aggressive treatment. HUMAIRA LORD MD DR: ALVIN/deuce JOB#: [id number] / [id number]
[2021-02-03 11:00] VITALS: BP 149/57
--- NOTE | 2021-02-03 11:01 | PDOC2 ---
CONSULT Date of Service Date of Service DATE: 02/03/21 TIME: 10:37 Reason for Consult Reason for Consult: Lower extremity wounds. Referring Physician Referring Physician: Dr. Davies Identification/Chief Complaint Chief Complaint Nausea and vomiting Source Source: Chart review, Patient History of Present Illness Reason for Visit: This is a pleasant 66-year-old female who is a resident of [facility] re[facility] who was admitted with complaints of nausea and vomiting. Upon admission she was noted to be hypoxic with bilateral lung infiltrates and urinary tract infection. She has a history of CVA with right-sided hemiparesis. She is also noted to have bilateral heel pressure wounds. Patient states her stroke occurred in August 2020. She has not ambulated since due to her right-sided weakness. She states the wounds on her heel are the results of shearing with the sheets and she does not know how long they have been present. She complains of pain in her right heel and no obvious pain in left heel. Her right heel has full thickness skin slough with eschar, her right heel has more of a pressure injury with callous. Past Medical History Cardiovascular: HTN, Hyperlipidemia CENTRAL NERVOUS SYSTEM: CVA Psych: Anxiety Endocrine: Diabetes Past Surgical History Past Surgical History Left first toe amputation Past Surgical History: Total knee replacement (bilateral ), Hysterectomy Family History Family History: Heart Disease Social History No ALCOHOL: none Drugs: None Lives: [facility] (for rehab following stroke ) Current Problem List Problem List Problems Medical Problems: (1) Elevated troponin Status: Acute (2) Person under investigation for COVID-19 Status: Acute (3) Pneumonia Status: Acute (4) UTI (urinary tract infection) Status: Acute Current Medications Current Medications Current Medications Sodium Chloride 1,000 ml @ 1,000 mls/hr Q1H IV Last administered on 02/01/21at 20:48; Start 02/01/21 at 20:00; Stop 02/01/21 at 20:59; Status DC Piperacillin Sod/ Tazobactam Sod 3.375 gm/Sodium Chloride 50 ml @ 100 mls/hr 1X ONCE IV Last administered on 02/01/21at 21:21; Start 02/01/21 at 21:00; Stop 02/01/21 at 21:29; Status DC Ondansetron HCl (Zofran) 4 mg PRN Q8HRS PRN IV NAUSEA/VOMITING; Start 02/01/21 at 21:15; Stop 02/01/21 at 21:35; Status DC Labetalol HCl (Normodyne Iv Push) 20 mg PRN Q30MIN PRN IVP HYPERTENSION; Start 02/01/21 at 21:15 Piperacillin Sod/ Tazobactam Sod (Zosyn Per Pharmacy) 1 each PRN DAILY PRN MC SEE COMMENTS; Start 02/01/21 at 21:15 Tramadol HCl (Ultram) 50 mg PRN Q6HRS PRN PO MILD PAIN 1-3; Start 02/01/21 at 21:30 Morphine Sulfate (Morphine Sulfate) 4 mg PRN Q3HRS PRN IV SEVERE PAIN; Start 02/01/21 at 21:30 Ondansetron HCl (Zofran) 4 mg PRN Q6HRS PRN IVP NAUSEA/VOMITING Last administered on 02/02/21at 12:22; Start 02/01/21 at 21:30 Al Hydroxide/Mg Hydroxide (Mylanta Plus Xs) 30 ml PRN Q3HRS PRN PO HEARTBURN / GAS; Start 02/01/21 at 21:30 Calcium Carbonate/ Glycine (Tums) 500 mg PRN Q3HRS PRN PO UPSET STOMACH; Start 02/01/21 at 21:30 Zolpidem Tartrate (Ambien) 5 mg PRN QHS PRN PO INSOMNIA, MAY REPEAT IN 1HR; Start 02/01/21 at 21:30 Morphine Sulfate (Morphine Sulfate) 2 mg PRN Q1HR PRN IV MODERATE PAIN; Start 02/01/21 at 21:30 Oxycodone/ Acetaminophen (Percocet 5/325) 1 tab PRN Q4HRS PRN PO SEVERE PAIN; Start 02/01/21 at 21:30 Acetaminophen (Tylenol) 650 mg PRN Q6HRS PRN PO Headaches, Temp > 101.5F Last administered on 02/02/21at 15:22; Start 02/01/21 at 21:30 Magnesium Hydroxide (Milk Of Magnesia) 2,400 mg PRN Q12HR PRN PO CONSTIPATION; Start 02/01/21 at 21:30 Bisacodyl (Dulcolax Supp) 10 mg PRN DAILY PRN AK CONSTIPATION; Start 02/01/21 at 21:30 Enoxaparin Sodium (Lovenox 40mg Syringe) 40 mg Q24H SQ Last administered on 02/02/21at 21:37; Start 02/01/21 at 21:30 Clopidogrel Bisulfate (Plavix) 75 mg DAILY PO Last administered on 02/02/21at 08:06; Start 02/02/21 at 09:00 Citalopram Hydrobromide (CeleXA) 20 mg DAILY PO Last administered on 02/02/21at 08:06; Start 02/02/21 at 09:00 Non-Formulary Medication (Insulin Detemir (Levemir Flextouch)) 50 unit BID SQ ; Start 02/02/21 at 09:00; Status UNV Tramadol HCl (Ultram) 50 mg PRN Q6HRS PRN PO PAIN; Start 02/01/21 at 21:30; Stop 02/01/21 at 21:35; Status DC Insulin Glargine (Lantus Syringe) 50 unit BID SQ Last administered on 02/03/21at 09:41; Start 02/02/21 at 09:00 Insulin Human Lispro (HumaLOG) 9 units TIDWMEALS SQ Last administered on 02/02/21at 11:51; Start 02/02/21 at 08:00 Dextrose (Dextrose 50%-Water Syringe) 12.5 gm PRN Q15MIN PRN IV SEE COMMENTS; Start 02/01/21 at 22:00 Dextrose (Iv Dextrose 5%) 250 ml PRN Q15MIN PRN IV SEE COMMENTS; Start 02/01/21 at 22:00 Piperacillin Sod/ Tazobactam Sod 3.375 gm/Sodium Chloride 50 ml @ 100 mls/hr ONCE ONCE IV Last administered on 02/02/21at 03:33; Start 02/02/21 at 03:30; Stop 02/02/21 at 03:59; Status DC Piperacillin Sod/ Tazobactam Sod 3.375 gm/Sodium Chloride 50 ml @ 100 mls/hr Q6HRS IV Last administered on 02/03/21at 06:15; Start 02/02/21 at 12:00 Lactobacillus Rhamnosus (Culturelle) 1 cap BID PO ; Start 02/02/21 at 21:00 Acetaminophen (Tylenol) 650 mg PRN Q6HRS PRN PO MILD PAIN / TEMP > 100.3'F; Start 02/02/21 at 12:30; Status UNV Bisacodyl (Dulcolax Supp) 10 mg PRN DAILY PRN RC CONSTIPATION; Start 02/02/21 at 12:30; Status UNV Acetaminophen/ Hydrocodone Bitart (Lortab 5/325) 1 tab PRN Q8HRS PRN PO MODERATE PAIN; Start 02/02/21 at 12:30 Lisinopril (Prinivil) 5 mg DAILY PO Last administered on 02/02/21at 12:59; Start 02/02/21 at 13:00 Magnesium Hydroxide (Milk Of Magnesia) 2,400 mg PRN DAILY PRN PO CONSTIPATION; Start 02/02/21 at 12:30; Status UNV Metformin HCl (Glucophage) 500 mg BIDWMEALS PO ; Start 02/02/21 at 17:00 Ascorbic Acid (Vitamin C) 500 mg BID PO ; Start 02/02/21 at 21:00 Non-Formulary Medication (Collagenase Clostridium Hist. (Santyl Ointment)) 1 kimberlee [facility] ; Start 02/03/21 at 16:00; Status UNV Non-Formulary Medication (Insulin Aspart ) 100 unit sliding scale SQ ; Start 02/02/21 at 12:30; Status UNV Non-Formulary Medication (Insulin Aspart (Insulin Aspart Flexpen)) 15 unit TIDAC SQ ; Start 02/02/21 at 16:30; Status UNV Non-Formulary Medication (Melatonin ) 3 mg PRN QHS PRN PO INSOMNIA; Start 02/02/21 at 12:30; Status UNV Multivitamins (Thera M Plus) 1 tab DAILY PO Last administered on 02/02/21at 12:59; Start 02/02/21 at 13:00 Ondansetron HCl (Zofran Odt) 4 mg PRN Q4HRS PRN PO NAUSEA/VOMITING; Start 02/02 at 12:45 Atorvastatin Calcium (Lipitor) 40 mg QHS PO ; Start 02/02/21 at 21:00 Vancomycin HCl (Vanco Per Pharmacy) 1 each PRN DAILY PRN MC SEE COMMENTS Last administered on 02/02/21at 17:31; Start 02/02/21 at 16:15 Metoclopramide HCl (Reglan Vial) 10 mg QIDACHS IVP Last administered on 02/03/21at 09:33; Start 02/02/21 at 16:30 Vancomycin HCl 1.5 gm/Sodium Chloride 500 ml @ 250 mls/hr Q24H IV Last administered on 02/02/21at 18:26; Start 02/02/21 at 17:00 Vancomycin HCl (Vancomycin Trough Level) 1 each 1X ONCE MC ; Start 02/04/21 at 16:30; Stop 02/04/21 at 16:31 Pantoprazole Sodium (PROTONIX VIAL for IV PUSH) 40 mg DAILYAC IVP ; Start 02/03/21 at 11:00 Active Scripts Active Reported Zofran (Ondansetron Hcl) 4 Mg Tablet 1 Tab PO PRN Q4HRS PRN Vitamin C (Ascorbic Acid) 500 Mg Capsule 500 Mg PO BID Santyl Ointment (Collagenase) 30 Gm Oint...g. 1 Kimberlee TP QSUTUTH DIRECTED BY PHYSICIAN Hydrocodone-Apap 5-325 (Hydrocodone Bit/Acetaminophen) 1 Tab Tablet 1 Tab PO PRN Q8HRS PRN Thera-M Caplet (Multivit,Ther Iron,Ca,Fa & Min) 1 Each Tablet 1 Each PO DAILY Milk Of Magnesia (Magnesium Hydroxide) 400 Mg/5 Ml Oral.susp 30 Ml PO PRN DAILY PRN Melatonin 3 Mg Tablet.er 3 Mg PO PRN QHS PRN Insulin Aspart Flexpen (Insulin Aspart) 100 Unit/1 Ml Insuln.pen 15 Unit SQ TIDAC Dulcolax (Bisacodyl) 10 Mg Supp.rect 10 Mg RC PRN DAILY PRN Tylenol (Acetaminophen) 325 Mg Tablet 650 Mg PO PRN Q6HRS PRN Lisinopril 5 Mg Tablet 5 Mg PO DAILY Insulin Aspart 100 Unit/1 Ml Vial 100 Unit SQ SLIDING SCALE Levemir Flextouch (Insulin Detemir) 100 Unit/1 Ml Insuln.pen 50 Unit SQ BID Escitalopram Oxalate 10 Mg Tablet 10 Mg PO DAILY Carvedilol 25 Mg Tablet Unknown Dose PO BIDWMEALS Atorvastatin Calcium 80 Mg Tablet Unknown Dose PO QHS Clopidogrel (Clopidogrel Bisulfate) 75 Mg Tablet Unknown Dose PO DAILY Metformin Hcl 500 Mg Tablet 500 Mg PO BID Allergies Allergies: Coded Allergies: No Known Drug Allergies (Unverified , 11/17/20) ROS Review of System Constitutional: Positive for fever Eyes: Denies any visual disturbances, wears glasses. HENT: Denies nasal congestion or sore throat Respiratory: Denies shortness of breath Cardiovascular: Denies any palpitations or chest pain GI: Denies abdominal pain, nausea and vomiting have resolved, tolerating diet : Denies dysuria or hematuria, positive for UTI Musculoskeletal: As per HPI Integument: As per HPI Neurologic: No gross deficits Endocrine: Diabetes all other ROS negative. Physical Exam Physical Exam General: Alert and oriented X3 HEENT: Atraumatic, Pupils equal, round. Mucous membranes moist. Cardiac: Heart rate regular. Normal carotid pulses. Lungs: Non-labored respirations. Abdomen: Obese. Extremities: unable to appreciated pulses, possibly due to body habitus Musculoskeletal: Gait steady. Moving all extremities on left side. Right side flaccid. Account Specialist strength left arm 5/5. Skin: Right heel with eschar and slough. Erythema present. Left heel with erythema, small intact callous. Neurological: Sensation intact bilaterally. Speech clear, no facial asymmetry. Psychiatry: No depression or anxiety Vitals VITALS Vital Signs Date Time Temp Pulse Resp B/P (MAP) Pulse Ox O2 Delivery O2 Flow Rate FiO2 02/03/21 07:00 98.4 71 17 137/48 (77) 96 Nasal Cannula 2.0 98.4 Labs Labs Laboratory Tests Test 02/01/21 19:41 02/01/21 19:47 02/01/21 21:19 02/01/21 22:35 O2 Saturation 67 % (92-99) Arterial Blood pH 7.38 (7.35-7.45) Arterial Blood pCO2 at Patient Temp 49 mmHg (35-46) Arterial Blood pO2 at Patient Temp 38 mmHg (65-108) Arterial Blood HCO3 29 mmol/L (21-28) Arterial Blood Base Excess 3 mmol/L (-3-3) Alveolar-arterial Oxygen Gradient mmHg (0.0-25.0) Oxyhemoglobin 66.2 % Methemoglobin 0.6 % (0.0-1.9) Carbon Monoxide, Quantitative 0.3 % (0.0-1.9) FiO2 28 White Blood Count 16.8 x10^3/uL (4.0-11.0) Red Blood Count 3.63 x10^6/uL (3.50-5.40) Hemoglobin 9.1 g/dL (12.0-15.5) Hematocrit 28.5 % (36.0-47.0) Mean Corpuscular Volume 78 fL (79-100) Mean Corpuscular Hemoglobin 25 pg (25-35) Mean Corpuscular Hemoglobin Concent 32 g/dL (31-37) Red Cell Distribution Width 16.7 % (11.5-14.5) Platelet Count 243 x10^3/uL (140-400) Neutrophils (%) (Auto) 81 % (31-73) Lymphocytes (%) (Auto) 13 % (24-48) Monocytes (%) (Auto) 6 % (0-9) Eosinophils (%) (Auto) 0 % (0-3) Basophils (%) (Auto) 0 % (0-3) Neutrophils # (Auto) 13.6 x10^3/uL (1.8-7.7) Lymphocytes # (Auto) 2.2 x10^3/uL (1.0-4.8) Monocytes # (Auto) 1.0 x10^3/uL (0.0-1.1) Eosinophils # (Auto) 0.0 x10^3/uL (0.0-0.7) Basophils # (Auto) 0.1 x10^3/uL (0.0-0.2) Segmented Neutrophils % 85 % (35-66) Band Neutrophils % 4 % (0-9) Lymphocytes % 10 % (24-48) Monocytes % 1 % (0-10) Platelet Estimate Adequate (ADEQUATE) Poikilocytosis Slight Anisocytosis Slight D-Dimer (Ann) 0.99 ug/mlFEU (0.00-0.50) Sodium Level 141 mmol/L (136-145) Potassium Level 4.2 mmol/L (3.5-5.1) Chloride Level 105 mmol/L (98-107) Carbon Dioxide Level 29 mmol/L (21-32) Anion Gap 7 (6-14) Blood Urea Nitrogen 26 mg/dL (7-20) Creatinine 1.2 mg/dL (0.6-1.0) Estimated GFR (Cockcroft-Gault) 44.8 BUN/Creatinine Ratio 22 (6-20) Glucose Level 174 mg/dL (70-99) Lactic Acid Level 0.8 mmol/L (0.4-2.0) Calcium Level 8.9 mg/dL (8.5-10.1) Total Bilirubin 0.4 mg/dL (0.2-1.0) Aspartate Amino Transf (AST/SGOT) 11 U/L (15-37) Alanine Aminotransferase (ALT/SGPT) 20 U/L (14-59) Alkaline Phosphatase 88 U/L (46-116) Troponin I Quantitative 0.082 ng/mL (0.000-0.055) 0.130 ng/mL (0.000-0.055) YE-Elj-U-Type Natriuretic Peptide 1472 pg/mL (0-124) Total Protein 6.9 g/dL (6.4-8.2) Albumin 2.6 g/dL (3.4-5.0) Albumin/Globulin Ratio 0.6 (1.0-1.7) Urine Collection Type Unknown Urine Color Yellow Urine Clarity Cloudy Urine pH 5.0 (<5.0-8.0) Urine Specific [place] 1.025 (1.000-1.030) Urine Protein >=300 mg/dL (NEG-TRACE) Urine Glucose (UA) Negative mg/dL (NEG) Urine Ketones (Stick) Negative mg/dL (NEG) Urine Blood Large (NEG) Urine Nitrite Positive (NEG) Urine Bilirubin Negative (NEG) Urine Urobilinogen Dipstick 0.2 mg/dL (0.2 mg/dL) Urine Leukocyte Esterase Moderate (NEG) Urine RBC 6-10 /HPF (0-2) Urine WBC Tntc /HPF (0-4) Urine Squamous Epithelial Cells Mod /LPF Urine Amorphous Sediment Present /HPF Urine Bacteria Many /HPF (0-FEW) Urine Hyaline Casts Few /HPF Urine Mucus Slight /LPF Test 02/02/21 01:40 02/02/21 07:57 02/02/21 08:35 02/02/21 11:38 Troponin I Quantitative 0.201 ng/mL (0.000-0.055) 0.185 ng/mL (0.000-0.055) Glucose (Fingerstick) 179 mg/dL (70-99) 276 mg/dL (70-99) White Blood Count 12.2 x10^3/uL (4.0-11.0) Red Blood Count 3.48 x10^6/uL (3.50-5.40) Hemoglobin 8.6 g/dL (12.0-15.5) Hematocrit 27.4 % (36.0-47.0) Mean Corpuscular Volume 79 fL (79-100) Mean Corpuscular Hemoglobin 25 pg (25-35) Mean Corpuscular Hemoglobin Concent 32 g/dL (31-37) Red Cell Distribution Width 16.8 % (11.5-14.5) Platelet Count 215 x10^3/uL (140-400) Neutrophils (%) (Auto) 75 % (31-73) Lymphocytes (%) (Auto) 17 % (24-48) Monocytes (%) (Auto) 7 % (0-9) Eosinophils (%) (Auto) 1 % (0-3) Basophils (%) (Auto) 0 % (0-3) Neutrophils # (Auto) 9.1 x10^3/uL (1.8-7.7) Lymphocytes # (Auto) 2.1 x10^3/uL (1.0-4.8) Monocytes # (Auto) 0.9 x10^3/uL (0.0-1.1) Eosinophils # (Auto) 0.1 x10^3/uL (0.0-0.7) Basophils # (Auto) 0.0 x10^3/uL (0.0-0.2) Sodium Level 144 mmol/L (136-145) Potassium Level 4.1 mmol/L (3.5-5.1) Chloride Level 106 mmol/L (98-107) Carbon Dioxide Level 30 mmol/L (21-32) Anion Gap 8 (6-14) Blood Urea Nitrogen 27 mg/dL (7-20) Creatinine 1.2 mg/dL (0.6-1.0) Estimated GFR (Cockcroft-Gault) 44.8 Glucose Level 182 mg/dL (70-99) Calcium Level 8.5 mg/dL (8.5-10.1) Magnesium Level 1.8 mg/dL (1.8-2.4) Ferritin 51 ng/mL (8-252) Lactate Dehydrogenase 186 U/L (81-234) Creatine Kinase 491 U/L (26-192) Triglycerides Level 137 mg/dL (0-150) Cholesterol Level 113 mg/dL (0-200) LDL Cholesterol, Calculated 47 mg/dL (0-100) VLDL Cholesterol, Calculated 27 mg/dL (0-40) Non-HDL Cholesterol Calculated 74 mg/dL (0-129) HDL Cholesterol 39 mg/dL (40-60) Cholesterol/HDL Ratio 2.9 Test 02/02/21 17:05 02/02/21 17:54 02/02/21 19:28 02/03/21 06:50 Glucose (Fingerstick) 165 mg/dL (70-99) 143 mg/dL (70-99) Influenza Type A Antigen Negative (NEGATIVE) Influenza Type B Antigen Negative (NEGATIVE) White Blood Count 11.5 x10^3/uL (4.0-11.0) Red Blood Count 3.20 x10^6/uL (3.50-5.40) Hemoglobin 8.0 g/dL (12.0-15.5) Hematocrit 25.4 % (36.0-47.0) Mean Corpuscular Volume 80 fL (79-100) Mean Corpuscular Hemoglobin 25 pg (25-35) Mean Corpuscular Hemoglobin Concent 31 g/dL (31-37) Red Cell Distribution Width 16.7 % (11.5-14.5) Platelet Count 197 x10^3/uL (140-400) Neutrophils (%) (Auto) 71 % (31-73) Lymphocytes (%) (Auto) 18 % (24-48) Monocytes (%) (Auto) 9 % (0-9) Eosinophils (%) (Auto) 1 % (0-3) Basophils (%) (Auto) 0 % (0-3) Neutrophils # (Auto) 8.1 x10^3/uL (1.8-7.7) Lymphocytes # (Auto) 2.1 x10^3/uL (1.0-4.8) Monocytes # (Auto) 1.1 x10^3/uL (0.0-1.1) Eosinophils # (Auto) 0.1 x10^3/uL (0.0-0.7) Basophils # (Auto) 0.0 x10^3/uL (0.0-0.2) Sodium Level 144 mmol/L (136-145) Potassium Level 3.9 mmol/L (3.5-5.1) Chloride Level 108 mmol/L (98-107) Carbon Dioxide Level 31 mmol/L (21-32) Anion Gap 5 (6-14) Blood Urea Nitrogen 26 mg/dL (7-20) Creatinine 1.3 mg/dL (0.6-1.0) Estimated GFR (Cockcroft-Gault) 40.9 Glucose Level 109 mg/dL (70-99) Calcium Level 8.3 mg/dL (8.5-10.1) Test 02/03/21 07:48 Glucose (Fingerstick) 111 mg/dL (70-99) Laboratory Tests Test 02/02/21 11:38 02/02/21 17:05 02/02/21 17:54 02/02/21 19:28 Glucose (Fingerstick) 276 mg/dL (70-99) 165 mg/dL (70-99) 143 mg/dL (70-99) Influenza Type A Antigen Negative (NEGATIVE) Influenza Type B Antigen Negative (NEGATIVE) Test 02/03/21 06:50 02/03/21 07:48 White Blood Count 11.5 x10^3/uL (4.0-11.0) Red Blood Count 3.20 x10^6/uL (3.50-5.40) Hemoglobin 8.0 g/dL (12.0-15.5) Hematocrit 25.4 % (36.0-47.0) Mean Corpuscular Volume 80 fL (79-100) Mean Corpuscular Hemoglobin 25 pg (25-35) Mean Corpuscular Hemoglobin Concent 31 g/dL (31-37) Red Cell Distribution Width 16.7 % (11.5-14.5) Platelet Count 197 x10^3/uL (140-400) Neutrophils (%) (Auto) 71 % (31-73) Lymphocytes (%) (Auto) 18 % (24-48) Monocytes (%) (Auto) 9 % (0-9) Eosinophils (%) (Auto) 1 % (0-3) Basophils (%) (Auto) 0 % (0-3) Neutrophils # (Auto) 8.1 x10^3/uL (1.8-7.7) Lymphocytes # (Auto) 2.1 x10^3/uL (1.0-4.8) Monocytes # (Auto) 1.1 x10^3/uL (0.0-1.1) Eosinophils # (Auto) 0.1 x10^3/uL (0.0-0.7) Basophils # (Auto) 0.0 x10^3/uL (0.0-0.2) Sodium Level 144 mmol/L (136-145) Potassium Level 3.9 mmol/L (3.5-5.1) Chloride Level 108 mmol/L (98-107) Carbon Dioxide Level 31 mmol/L (21-32) Anion Gap 5 (6-14) Blood Urea Nitrogen 26 mg/dL (7-20) Creatinine 1.3 mg/dL (0.6-1.0) Estimated GFR (Cockcroft-Gault) 40.9 Glucose Level 109 mg/dL (70-99) Calcium Level 8.3 mg/dL (8.5-10.1) Glucose (Fingerstick) 111 mg/dL (70-99) Assessment/Plan Assessment/Plan 66-year-old female with 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 Right worse than left. In addition patient has bilateral lung infiltrates and urinary tract infection. Her wound should heel with offloading and local wound care. Would be agressive with off-loading will order heriberto splints as well as elevate on multiple pillows. No surgical or arterial intervention recommended at this time. We could pursue additional imaging if the wounds worsen or fail to he el. In light of her recent CVA would recommend carotid ultrasound. Patient was seen and examined with Dr. Nails he agrees with above. We will follow-up on the patient's carotid ultrasound once completed. We will follow peripherally with regards to her wounds. Vascular surgery staff note: Pt seen and examined with the nurse practioner. The Impression and plan were discussed and well stated above. 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 She has a history of left hemispheric stroke with right hemiplegia. Plan to obtain a carotid ultrasound. She needs a heel relief splint for the right foot with f/u at the wound care center. She does not require debridement at this time. Discussed in detail with the patient. RE Beckett MD, APRN Feb 03, 2021 11:01 KATIANA NAILS II, MD Feb 04, 2021 11:28
[2021-02-03] MEDS: PANTOPRAZOLE IV PUSH 40 MG VIAL. IVP SCH (13:04)
[2021-02-03] MEDS: VANCOMYCIN PER PHARMACY MC PRN ×2 (13:08→13:13)
--- NOTE | 2021-02-03 13:43 | RAD ---
US BILATERAL LOWEREXTREMITY VENOUS DOPPLER History: Reason: leg pain, edema Comparison: None. Discussion: Multiple longitudinal and transverse high resolution real-time images of the venous system of bilater wi lower extremity were obtained with color and Doppler sampling. The common femoral, superficial fem oral, popliteal and proximal calf veins are all patent and demonstrate normal flow and compressibilit y. Normal respiratory phasicity and augmentation is present. Impression: 1. No evidence of deep vein thrombosis. Electronically signed by: Mc Aceves DO (02/03/2021 1:41 PM) [id number]
--- NOTE | 2021-02-03 13:45 | RAD ---
US DPLX CAROTID BILAT History: Reason: Right Sided Weakness; history CVA 08/2020 / [facility]. Instructions: / History: COMPARISON: None Technique: Duplex sonography of the cervical portion of both carotid arteries was performed. Real-roberta e grayscale, color flow Doppler, and Doppler spectral waveform analysis is performed. PQRS Compliance Statement - Stenosis calculations for CT, MR and conventional angiography are based u donna measurement of the distal ICA diameter in accordance with the NASCET methodology. Stenosis calcu lations for carotid ultrasound studies are derived from validated velocity criteria which are known t o correlate with the NASCET methodology. Findings: Right side: Peak systolic flow velocity of the CCA is 78 cm/sec. Peak systolic flow velocity of the ICA is 137 cm/sec. The ICA/CCA ratio is 1.8. Peak end diastolic flow velocity of the ICA is 40 cm/sec. The peak systolic velocity of the ECA is 149 cm/sec. Mild atheromatous plaque. Tortuous internal carotid artery. Left side: Peak systolic flow velocity of the CCA is 125 cm/sec. Peak systolic flow velocity of the ICA is 135 cm/sec. The ICA/CCA ratio is 1.1. Peak end diastolic flow velocity of the ICA is 44 cm/sec. Peak systolic flow velocity of the ECA is 135 cm/sec. Mild atheromatous plaque. Tortuous internal carotid artery. Vertebral arteries: Bilateral vertebral arteries demonstrate antegrade flow. IMPRESSION: 1. 50-69 percent narrowing of the bilateral mid internal carotid arteries. 2. Mild atheromatous plaque bilaterally. Electronically signed by: Mc Aceves DO (02/03/2021 1:42 PM) [id number]
[2021-02-03 15:00] VITALS: BP 176/67
--- NOTE | 2021-02-03 15:45 | RAD ---
Supine abdomen. HISTORY: Vomiting Supine view was taken of the abdomen. There is mild gas in the colon. There is not definite evidence of a small bowel obstruction. There is degenerative change and disc space narrowing in the lower lumb ar spine. Portable technique is limited. There is vascular calcification. Patient's had a cholecystec benjamin. IMPRESSION: 1. Nonspecific bowel gas without definite obstruction. Electronically signed by: Rico Reynaga MD (02/03/2021 3:42 PM) [facility]
[2021-02-03] MEDS ORDERED: COLLAGENASE CLOSTRIDIUM HIST TP SCH (16:00)
[2021-02-03] MEDS ORDERED: FUROSEMIDE 20 MG/2 ML VIAL. IVP ONE (16:15)
[2021-02-03] MEDS: LISINOPRIL 5 MG TABLET. PO SCH (18:18)
[2021-02-03] MEDS: CLOPIDOGREL BISULFATE 75 MG TABLET PO SCH (18:18)
[2021-02-03] MEDS: MULTIVITAMIN with MINERAL TABLET. PO SCH (18:18)
[2021-02-03] MEDS: CITALOPRAM 20 MG TABLET. PO SCH (18:18)
[2021-02-03 19:00] VITALS: BP 153/63
[2021-02-03] MEDS: VANCOMYCIN 1.5 GM in IV NORMAL SALINE 500ML BAG 500 ML IV SCH (19:50)
[2021-02-03] MEDS: ENOXAPARIN 40 MG/0.4 ML SYRINGE. SQ SCH (21:21)
[2021-02-03] MEDS: ATORVASTATIN CALCIUM 40 MG TABLET. PO SCH (21:22)
[2021-02-03 23:00] VITALS: BP 144/55
[2021-02-04] MEDS: PIPERACILLIN/TAZOBACTAM 3.375 GM in IV NORMAL SALINE 50ML 50 ML IV SCH ×5 (00:02→21:11)
[2021-02-04 03:00] VITALS: BP 135/55
[2021-02-04] MEDS: ONDANSETRON PF 4 MG/2 ML VIAL. IVP PRN (06:03)
[2021-02-04 07:00] VITALS: BP 134/54
[2021-02-04 07:45] LABS: BASO % 0 % (0-3); EOS # 0.1 x10^3/uL (0.0-0.7); EOS % 1 % (0-3); HEMATOCRIT 23.5 % (36.0-47.0); HEMOGLOBIN 7.7 g/dL (12.0-15.5); LYMPH # 1.6 x10^3/uL (1.0-4.8); LYMPH % 17 % (24-48); MEAN CORPUSCULAR HEMOGLOBIN 26 pg (25-35); MEAN CORPUSCULAR HGB CONC 33 g/dL (31-37); MEAN CORPUSCULAR VOLUME 78 fL (79-100); MONO % 10 % (0-9); NEUT # 7.1 x10^3/uL (1.8-7.7); NEUT % 72 % (31-73); PLATELET COUNT 193 x10^3/uL (140-400); RED BLOOD COUNT 3.01 x10^6/uL (3.50-5.40); RED CELL DISTRIBUTION WIDTH 16.3 % (11.5-14.5); WHITE BLOOD COUNT 9.9 x10^3/uL (4.0-11.0)
[2021-02-04] MEDS: ASCORBIC ACID 500 MG TABLET PO SCH ×2 (07:56→21:36)
[2021-02-04] MEDS: metFORMIN 500 MG TABLET PO SCH ×2 (07:56→17:04)
[2021-02-04] MEDS: PANTOPRAZOLE IV PUSH 40 MG VIAL. IVP SCH (07:56)
[2021-02-04] MEDS: CITALOPRAM 20 MG TABLET. PO SCH (07:56)
[2021-02-04] MEDS: LACTOBACILLUS RHAMNOSUS GG 1 CAPSULE. PO SCH ×2 (07:56→21:35)
[2021-02-04] MEDS: MULTIVITAMIN with MINERAL TABLET. PO SCH (07:56)
[2021-02-04] MEDS: METOCLOPRAMIDE HCL 10 MG/2 ML VIAL. IVP SCH ×4 (07:56→21:36)
[2021-02-04] MEDS: CLOPIDOGREL BISULFATE 75 MG TABLET PO SCH (07:57)
[2021-02-04] MEDS: INSULIN LISPRO 300 UNITS/3 ML VIAL. SQ SCH ×3 (08:00→17:00)
[2021-02-04] MEDS: INSULIN GLARGINE SYRINGE. SQ SCH ×2 (08:05→21:00)
[2021-02-04] MEDS: LISINOPRIL 5 MG TABLET. PO SCH (08:10)
[2021-02-04 08:14] LABS: ALBUMIN 2.3 g/dL (3.4-5.0); ALBUMIN/GLOBULIN RATIO 0.5 (1.0-1.7); CALCIUM 8.6 mg/dL (8.5-10.1); CREATININE 1.3 mg/dL (0.6-1.0); GFR 40.9; POTASSIUM 3.6 mmol/L (3.5-5.1); TOTAL BILIRUBIN 0.6 mg/dL (0.2-1.0); TOTAL PROTEIN 6.6 g/dL (6.4-8.2)
--- NOTE | 2021-02-04 08:44 | PDOC ---
PULMONARY PROGRESS NOTES DATE: 02/04/21 TIME: 08:44 Subjective Feels a bit better, fever yesterday 100.5 Not more short of air Vitals Vital Signs Date Time Temp Pulse Resp B/P (MAP) Pulse Ox O2 Delivery O2 Flow Rate FiO2 02/04/21 08:10 73 134/54 02/04/21 03:00 98.8 18 99 Nasal Cannula 3.0 98.8 ROS: No Chest Pain, No Abdominal Pain, No Increase Cough General: Alert Lungs: Clear, Crackles Cardiovascular: S1, S2 Abdomen: Soft Neuro Exam: Alert Extremities: No Edema Skin: Warm Labs Laboratory Tests Test 02/02/21 11:38 02/02/21 17:05 02/02/21 17:54 02/02/21 19:28 Glucose (Fingerstick) 276 mg/dL (70-99) 165 mg/dL (70-99) 143 mg/dL (70-99) Influenza Type A Antigen Negative (NEGATIVE) Influenza Type B Antigen Negative (NEGATIVE) Test 02/03/21 06:50 02/03/21 07:48 02/03/21 11:36 02/03/21 17:11 White Blood Count 11.5 x10^3/uL (4.0-11.0) Red Blood Count 3.20 x10^6/uL (3.50-5.40) Hemoglobin 8.0 g/dL (12.0-15.5) Hematocrit 25.4 % (36.0-47.0) Mean Corpuscular Volume 80 fL (79-100) Mean Corpuscular Hemoglobin 25 pg (25-35) Mean Corpuscular Hemoglobin Concent 31 g/dL (31-37) Red Cell Distribution Width 16.7 % (11.5-14.5) Platelet Count 197 x10^3/uL (140-400) Neutrophils (%) (Auto) 71 % (31-73) Lymphocytes (%) (Auto) 18 % (24-48) Monocytes (%) (Auto) 9 % (0-9) Eosinophils (%) (Auto) 1 % (0-3) Basophils (%) (Auto) 0 % (0-3) Neutrophils # (Auto) 8.1 x10^3/uL (1.8-7.7) Lymphocytes # (Auto) 2.1 x10^3/uL (1.0-4.8) Monocytes # (Auto) 1.1 x10^3/uL (0.0-1.1) Eosinophils # (Auto) 0.1 x10^3/uL (0.0-0.7) Basophils # (Auto) 0.0 x10^3/uL (0.0-0.2) Sodium Level 144 mmol/L (136-145) Potassium Level 3.9 mmol/L (3.5-5.1) Chloride Level 108 mmol/L (98-107) Carbon Dioxide Level 31 mmol/L (21-32) Anion Gap 5 (6-14) Blood Urea Nitrogen 26 mg/dL (7-20) Creatinine 1.3 mg/dL (0.6-1.0) Estimated GFR (Cockcroft-Gault) 40.9 Glucose Level 109 mg/dL (70-99) Calcium Level 8.3 mg/dL (8.5-10.1) Iron Level 12 ug/dL (50-170) Total Iron Binding Capacity 226 ug/dL (250-450) Iron Saturation 5 % (15-34) Vitamin B12 Level 406 pg/mL (247-911) Glucose (Fingerstick) 111 mg/dL (70-99) 152 mg/dL (70-99) 148 mg/dL (70-99) Test 02/03/21 19:31 02/04/21 07:30 02/04/21 08:01 Glucose (Fingerstick) 147 mg/dL (70-99) 64 mg/dL (70-99) White Blood Count 9.9 x10^3/uL (4.0-11.0) Red Blood Count 3.01 x10^6/uL (3.50-5.40) Hemoglobin 7.7 g/dL (12.0-15.5) Hematocrit 23.5 % (36.0-47.0) Mean Corpuscular Volume 78 fL (79-100) Mean Corpuscular Hemoglobin 26 pg (25-35) Mean Corpuscular Hemoglobin Concent 33 g/dL (31-37) Red Cell Distribution Width 16.3 % (11.5-14.5) Platelet Count 193 x10^3/uL (140-400) Neutrophils (%) (Auto) 72 % (31-73) Lymphocytes (%) (Auto) 17 % (24-48) Monocytes (%) (Auto) 10 % (0-9) Eosinophils (%) (Auto) 1 % (0-3) Basophils (%) (Auto) 0 % (0-3) Neutrophils # (Auto) 7.1 x10^3/uL (1.8-7.7) Lymphocytes # (Auto) 1.6 x10^3/uL (1.0-4.8) Monocytes # (Auto) 1.0 x10^3/uL (0.0-1.1) Eosinophils # (Auto) 0.1 x10^3/uL (0.0-0.7) Basophils # (Auto) 0.0 x10^3/uL (0.0-0.2) Sodium Level 146 mmol/L (136-145) Potassium Level 3.6 mmol/L (3.5-5.1) Chloride Level 108 mmol/L (98-107) Carbon Dioxide Level 30 mmol/L (21-32) Anion Gap 8 (6-14) Blood Urea Nitrogen 27 mg/dL (7-20) Creatinine 1.3 mg/dL (0.6-1.0) Estimated GFR (Cockcroft-Gault) 40.9 BUN/Creatinine Ratio 21 (6-20) Glucose Level 61 mg/dL (70-99) Calcium Level 8.6 mg/dL (8.5-10.1) Total Bilirubin 0.6 mg/dL (0.2-1.0) Aspartate Amino Transf (AST/SGOT) 12 U/L (15-37) Alanine Aminotransferase (ALT/SGPT) 17 U/L (14-59) Alkaline Phosphatase 61 U/L (46-116) Total Protein 6.6 g/dL (6.4-8.2) Albumin 2.3 g/dL (3.4-5.0) Albumin/Globulin Ratio 0.5 (1.0-1.7) Laboratory Tests Test 02/03/21 11:36 02/03/21 17:11 02/03/21 19:31 02/04/21 07:30 Glucose (Fingerstick) 152 mg/dL (70-99) 148 mg/dL (70-99) 147 mg/dL (70-99) White Blood Count 9.9 x10^3/uL (4.0-11.0) Red Blood Count 3.01 x10^6/uL (3.50-5.40) Hemoglobin 7.7 g/dL (12.0-15.5) Hematocrit 23.5 % (36.0-47.0) Mean Corpuscular Volume 78 fL (79-100) Mean Corpuscular Hemoglobin 26 pg (25-35) Mean Corpuscular Hemoglobin Concent 33 g/dL (31-37) Red Cell Distribution Width 16.3 % (11.5-14.5) Platelet Count 193 x10^3/uL (140-400) Neutrophils (%) (Auto) 72 % (31-73) Lymphocytes (%) (Auto) 17 % (24-48) Monocytes (%) (Auto) 10 % (0-9) Eosinophils (%) (Auto) 1 % (0-3) Basophils (%) (Auto) 0 % (0-3) Neutrophils # (Auto) 7.1 x10^3/uL (1.8-7.7) Lymphocytes # (Auto) 1.6 x10^3/uL (1.0-4.8) Monocytes # (Auto) 1.0 x10^3/uL (0.0-1.1) Eosinophils # (Auto) 0.1 x10^3/uL (0.0-0.7) Basophils # (Auto) 0.0 x10^3/uL (0.0-0.2) Sodium Level 146 mmol/L (136-145) Potassium Level 3.6 mmol/L (3.5-5.1) Chloride Level 108 mmol/L (98-107) Carbon Dioxide Level 30 mmol/L (21-32) Anion Gap 8 (6-14) Blood Urea Nitrogen 27 mg/dL (7-20) Creatinine 1.3 mg/dL (0.6-1.0) Estimated GFR (Cockcroft-Gault) 40.9 BUN/Creatinine Ratio 21 (6-20) Glucose Level 61 mg/dL (70-99) Calcium Level 8.6 mg/dL (8.5-10.1) Total Bilirubin 0.6 mg/dL (0.2-1.0) Aspartate Amino Transf (AST/SGOT) 12 U/L (15-37) Alanine Aminotransferase (ALT/SGPT) 17 U/L (14-59) Alkaline Phosphatase 61 U/L (46-116) Total Protein 6.6 g/dL (6.4-8.2) Albumin 2.3 g/dL (3.4-5.0) Albumin/Globulin Ratio 0.5 (1.0-1.7) Test 02/04/21 08:01 Glucose (Fingerstick) 64 mg/dL (70-99) Medications Active Scripts Medications Dose Route/Sig Max Daily Dose Days Date Category Dose Instructions Zofran (Ondansetron Hcl) 4 Mg Tablet 1 Tab PO PRN Q4HRS PRN 02/02/21 Reported Vitamin C (Ascorbic Acid) 500 Mg Capsule 500 Mg PO BID 02/02/21 Reported Santyl Ointment (Collagenase) 30 Gm Oint...g. 1 Kimberlee TP QSUTUTH 02/02/21 Reported DIRECTED BY PHYSICIAN Hydrocodone-Apap 5-325 (Hydrocodone Bit/Acetaminophen) 1 Tab Tablet 1 Tab PO PRN Q8HRS PRN 02/02/21 Reported Thera-M Caplet (Multivit,Ther Iron,Ca,Fa & Min) 1 Each Tablet 1 Each PO DAILY 02/02/21 Reported Milk Of Magnesia (Magnesium Hydroxide) 400 Mg/5 Ml Oral.susp 30 Ml PO PRN DAILY PRN 02/02/21 Reported Melatonin 3 Mg Tablet.er 3 Mg PO PRN QHS PRN 02/02/21 Reported Insulin Aspart Flexpen (Insulin Aspart) 100 Unit/1 Ml Insuln.pen 15 Unit SQ TIDAC 02/02/21 Reported Dulcolax (Bisacodyl) 10 Mg Supp.rect 10 Mg RC PRN DAILY PRN 02/02/21 Reported Tylenol (Acetaminophen) 325 Mg Tablet 650 Mg PO PRN Q6HRS PRN 02/02/21 Reported Lisinopril 5 Mg Tablet 5 Mg PO DAILY 02/02/21 Reported Insulin Aspart 100 Unit/1 Ml Vial 100 Unit SQ SLIDING SCALE 11/17/20 Reported Levemir Flextouch (Insulin Detemir) 100 Unit/1 Ml Insuln.pen 50 Unit SQ BID 11/17/20 Reported Escitalopram Oxalate 10 Mg Tablet 10 Mg PO DAILY 11/17/20 Reported Carvedilol 25 Mg Tablet Unknown Dose PO BIDWMEALS 09/01/20 Reported Atorvastatin Calcium 80 Mg Tablet Unknown Dose PO QHS 09/01/20 Reported Clopidogrel (Clopidogrel Bisulfate) 75 Mg Tablet Unknown Dose PO DAILY 09/01/20 Reported Metformin Hcl 500 Mg Tablet 500 Mg PO BID 09/01/20 Reported Impression . IMPRESSION: 1. Acute hypoxemic respiratory failure, multifactorial. 2. Suspect aspiration pneumonia. 3. Abnormal x-ray compatible with bilateral nodular alveolar type of infiltrates, suspect chronic on top of acute infiltrates. 4. Rule out SARS-CoV-2., Pending 5. Influenza screen negative 6. History of cerebrovascular accident with right-sided hemiparesis. 7. Type 2 diabetes. 8. Intractable emesis. 9. Fever. 10. Carotic stenosis 11. Diabetic heel ulcer right greater than left Plan . Updated 02/04 continue current support with antibiotics Follow other consultants input If fever persists may require ID consult Nausea and vomiting is better today Updated 02/03 Discussed with speech Continue antibiotics We will defer advancing diet to PCP Follow GI input LOREN LUGO MD Feb 04, 2021 08:44
--- NOTE | 2021-02-04 10:20 | PN ---
DATE: 02/04/2021 SUBJECTIVE: The patient is resting, slightly propped up in bed, in no apparent distress. On questioning her, she denied any complaint. In particular, she has no further episodes of nausea or vomiting. She has eaten her breakfast. Denied any other complaint. Apparently, she was seen by the Speech Therapy yesterday and she has had a bedside swallowing evaluation, which showed that there are no overt signs or symptoms of aspiration. Her blood cultures are so far negative; however, her urine culture has grown more than 100,000 colony-forming units per mL of Gram-negative rods identified as Escherichia coli sensitive to almost all antibiotics. PHYSICAL EXAMINATION: GENERAL: When I examined her this morning, she looked pale, but not jaundiced or cyanosed. No lymphadenopathy. No thyromegaly. No jugular venous distension. No lower limb edema. VITAL SIGNS: Her heart rate was 73, blood pressure was 134/54, temperature was 98.5, respiratory rate was 18 and oxygen saturation was 96% on 2 liters of oxygen. HEAD, EYES, EARS, NOSE, AND THROAT:: Showed normocephalic, atraumatic. NECK: Supple. HEART: Showed normal first and second heart sounds. No gallop or murmur. CHEST: Clear to auscultation. No crepitation or rhonchi. ABDOMEN: Distended, soft, nontender. NEUROLOGIC: She is awake, alert, responding appropriately. All her cranial nerves are intact. She has right-sided hemiplegia. Her intake was 400, no output was recorded. LABORATORY DATA: Her lab work this morning showed a serum sodium 146, potassium 3.6, chloride 108, bicarbonate 30, anion gap of 8, BUN 27, creatinine 1.3, estimated GFR was 41 mL per minute. Her glucose was 61, calcium was 8.6. Total bilirubin, AST, ALT, alkaline phosphatase were normal. Total protein was 6.6, albumin was 2.3. Her white cell count was 9900; hemoglobin 7.7; hematocrit 23.5; MCV 78; platelet count of 193,000 with normal manual differential. ASSESSMENT: 1. Recurrent bouts of nausea and vomiting with resultant aspiration pneumonia. 2. Urinary tract infection. 3. 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 4. Hypertension. 5. Hyperlipidemia. PLAN: Is to continue with IV Zosyn and vancomycin. Continue to monitor blood sugar and adjust insulin as needed. Continue with Lovenox for DVT prophylaxis. She has elevated D-dimer; however, the information systems architect felt that this is type 2 non-ST segment elevation myocardial infarction and the vascular surgeon saw her and they recommended carotid Doppler ultrasound, which showed that the patient has 50-69% narrowing of the bilateral mid internal carotid arteries and mild atheromatous plaque bilaterally. Her lower extremity ultrasound showed no evidence of deep vein thrombosis. Her KUB showed nonspecific bowel gas pattern without evidence of obstruction. HUMAIRA LORD MD DR: ALVIN/deuce JOB#: [id number] / [id number]
[2021-02-04 10:22] LABS: VANC TR 21.6 mcg/mL (10.0-20.0)
--- NOTE | 2021-02-04 10:26 | PDOC ---
Date of Service: DATE: 02/04/21 TIME: 10:22 Subjective: Subjective: Says passed swallow eval. No vomiting since yesterday. Had some juice. Objective: Vital Signs: Vital Signs Date Time Temp Pulse Resp B/P (MAP) Pulse Ox O2 Delivery O2 Flow Rate FiO2 02/04/21 08:10 73 134/54 02/04/21 07:00 98.5 18 96 Nasal Cannula 2.0 98.5 Labs: Laboratory Tests Test 02/03/21 11:36 02/03/21 17:11 02/03/21 19:31 02/04/21 07:30 Glucose (Fingerstick) 152 mg/dL 148 mg/dL 147 mg/dL White Blood Count 9.9 x10^3/uL Red Blood Count 3.01 x10^6/uL Hemoglobin 7.7 g/dL Hematocrit 23.5 % Mean Corpuscular Volume 78 fL Mean Corpuscular Hemoglobin 26 pg Mean Corpuscular Hemoglobin Concent 33 g/dL Red Cell Distribution Width 16.3 % Platelet Count 193 x10^3/uL Neutrophils (%) (Auto) 72 % Lymphocytes (%) (Auto) 17 % Monocytes (%) (Auto) 10 % Eosinophils (%) (Auto) 1 % Basophils (%) (Auto) 0 % Neutrophils # (Auto) 7.1 x10^3/uL Lymphocytes # (Auto) 1.6 x10^3/uL Monocytes # (Auto) 1.0 x10^3/uL Eosinophils # (Auto) 0.1 x10^3/uL Basophils # (Auto) 0.0 x10^3/uL Sodium Level 146 mmol/L Potassium Level 3.6 mmol/L Chloride Level 108 mmol/L Carbon Dioxide Level 30 mmol/L Anion Gap 8 Blood Urea Nitrogen 27 mg/dL Creatinine 1.3 mg/dL Estimated GFR (Cockcroft-Gault) 40.9 BUN/Creatinine Ratio 21 Glucose Level 61 mg/dL Calcium Level 8.6 mg/dL Total Bilirubin 0.6 mg/dL Aspartate Amino Transf (AST/SGOT) 12 U/L Alanine Aminotransferase (ALT/SGPT) 17 U/L Alkaline Phosphatase 61 U/L Total Protein 6.6 g/dL Albumin 2.3 g/dL Albumin/Globulin Ratio 0.5 Test 02/04/21 08:01 Glucose (Fingerstick) 64 mg/dL BLOOD CULTURE Preliminary NO GROWTH AFTER 2 DAYS Imaging: LITIGATION SECRETARY Bedside Swallow 02/03 Bedside swallow eval completed earlier this date. Pt w/hx of dysphagia d/t CVA in 08/2020. Had PEG placed at that time but removed 11/2020. Pt now resides at [facility]. Staff there stated pt came to them from [facility] on an oral diet. Diet consistency has reportedly been advanced while at [facility] per JOE Reyes. IMPRESSIONS: Oropharyngeal swallow appeared timely, complete at bedside. No overt s/s aspiration. Pt adm w/abnl PCXR and negative COVID 19 and influenza tests. If felt strongly that aspiration may be source of abnl PCXR, could perform imaging to more fully outline swallow function. RECOMMENDATIONS: Diet per GI, thin liquids ok. Imaging (videoswallow) if desired to r/o silent aspiration. DW JOE Morrell and pt. KUB 02/03 IMPRESSION: 1. Nonspecific bowel gas without definite obstruction. PE: GEN: NAD LUNGS: NC 2L, some diminished HEART: RRR ABD: large, soft, non-tender, BS+ NEURO/PSYCH: A & O 3 - happier today A/P: N/v - better Pneumonia, UTI, NSTEMI ACD/ANTONIETA H/o CVA on Plavix, DM COVID negative -- Try clears, ADAT. Continue PPI - change to PO as able. Justicifation of Admission Dx: Justifications for Admission: Justification of Admission Dx: Yes Stroke - Ischemic: Stroke-Ischemic SONA SHAW Feb 04, 2021 10:26
[2021-02-04 10:42] LABS: MAGNESIUM 1.9 mg/dL (1.8-2.4)
--- NOTE | 2021-02-04 10:46 | PDOC ---
PROGRESS NOTES Date of Service DATE: 02/04/21 TIME: 10:42 Subjective Subjective Patient resting in bed, continues to have mild right heel pain. Denies nausea. Feels her "breathing is better". Objective Objective Vital Signs Date Time Temp Pulse Resp B/P (MAP) Pulse Ox O2 Delivery O2 Flow Rate FiO2 02/04/21 08:10 73 134/54 02/04/21 07:00 98.5 18 96 Nasal Cannula 2.0 98.5 Intake and Output 02/04/21 06:57 # Voids 7 # Bowel Movements 1 Physical Exam Physical Exam General: Alert and oriented X3 Cardiac: Heart rate regular. Normal carotid pulses. Lungs: Non-labored respirations. Abdomen: Obese. Skin: Right heel with eschar and slough. Erythema present. Left heel with erythema, small intact callous. Neurological: Sensation intact bilaterally. 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 Right worse than left. -continue to off-load on pillows, prafo boots ordered. -local wound care per wound care team. Carotid stenosis-Ultrasound independently reviewed, mild stenosis bilaterally -follow up scan in one year. Will follow peripherally. Comment Review of Relevant I have reviewed the following items laurie (where applicable) has been applied. Labs Laboratory Tests Test 02/02/21 11:38 02/02/21 17:05 02/02/21 17:54 02/02/21 19:28 Glucose (Fingerstick) 276 mg/dL (70-99) 165 mg/dL (70-99) 143 mg/dL (70-99) Influenza Type A Antigen Negative (NEGATIVE) Influenza Type B Antigen Negative (NEGATIVE) Test 02/03/21 06:50 02/03/21 07:48 02/03/21 11:36 02/03/21 17:11 White Blood Count 11.5 x10^3/uL (4.0-11.0) Red Blood Count 3.20 x10^6/uL (3.50-5.40) Hemoglobin 8.0 g/dL (12.0-15.5) Hematocrit 25.4 % (36.0-47.0) Mean Corpuscular Volume 80 fL (79-100) Mean Corpuscular Hemoglobin 25 pg (25-35) Mean Corpuscular Hemoglobin Concent 31 g/dL (31-37) Red Cell Distribution Width 16.7 % (11.5-14.5) Platelet Count 197 x10^3/uL (140-400) Neutrophils (%) (Auto) 71 % (31-73) Lymphocytes (%) (Auto) 18 % (24-48) Monocytes (%) (Auto) 9 % (0-9) Eosinophils (%) (Auto) 1 % (0-3) Basophils (%) (Auto) 0 % (0-3) Neutrophils # (Auto) 8.1 x10^3/uL (1.8-7.7) Lymphocytes # (Auto) 2.1 x10^3/uL (1.0-4.8) Monocytes # (Auto) 1.1 x10^3/uL (0.0-1.1) Eosinophils # (Auto) 0.1 x10^3/uL (0.0-0.7) Basophils # (Auto) 0.0 x10^3/uL (0.0-0.2) Sodium Level 144 mmol/L (136-145) Potassium Level 3.9 mmol/L (3.5-5.1) Chloride Level 108 mmol/L (98-107) Carbon Dioxide Level 31 mmol/L (21-32) Anion Gap 5 (6-14) Blood Urea Nitrogen 26 mg/dL (7-20) Creatinine 1.3 mg/dL (0.6-1.0) Estimated GFR (Cockcroft-Gault) 40.9 Glucose Level 109 mg/dL (70-99) Calcium Level 8.3 mg/dL (8.5-10.1) Iron Level 12 ug/dL (50-170) Total Iron Binding Capacity 226 ug/dL (250-450) Iron Saturation 5 % (15-34) Vitamin B12 Level 406 pg/mL (247-911) Glucose (Fingerstick) 111 mg/dL (70-99) 152 mg/dL (70-99) 148 mg/dL (70-99) Test 02/03/21 19:31 02/04/21 07:30 02/04/21 08:01 02/04/21 09:35 Glucose (Fingerstick) 147 mg/dL (70-99) 64 mg/dL (70-99) White Blood Count 9.9 x10^3/uL (4.0-11.0) Red Blood Count 3.01 x10^6/uL (3.50-5.40) Hemoglobin 7.7 g/dL (12.0-15.5) Hematocrit 23.5 % (36.0-47.0) Mean Corpuscular Volume 78 fL (79-100) Mean Corpuscular Hemoglobin 26 pg (25-35) Mean Corpuscular Hemoglobin Concent 33 g/dL (31-37) Red Cell Distribution Width 16.3 % (11.5-14.5) Platelet Count 193 x10^3/uL (140-400) Neutrophils (%) (Auto) 72 % (31-73) Lymphocytes (%) (Auto) 17 % (24-48) Monocytes (%) (Auto) 10 % (0-9) Eosinophils (%) (Auto) 1 % (0-3) Basophils (%) (Auto) 0 % (0-3) Neutrophils # (Auto) 7.1 x10^3/uL (1.8-7.7) Lymphocytes # (Auto) 1.6 x10^3/uL (1.0-4.8) Monocytes # (Auto) 1.0 x10^3/uL (0.0-1.1) Eosinophils # (Auto) 0.1 x10^3/uL (0.0-0.7) Basophils # (Auto) 0.0 x10^3/uL (0.0-0.2) Sodium Level 146 mmol/L (136-145) Potassium Level 3.6 mmol/L (3.5-5.1) Chloride Level 108 mmol/L (98-107) Carbon Dioxide Level 30 mmol/L (21-32) Anion Gap 8 (6-14) Blood Urea Nitrogen 27 mg/dL (7-20) Creatinine 1.3 mg/dL (0.6-1.0) Estimated GFR (Cockcroft-Gault) 40.9 BUN/Creatinine Ratio 21 (6-20) Glucose Level 61 mg/dL (70-99) Calcium Level 8.6 mg/dL (8.5-10.1) Total Bilirubin 0.6 mg/dL (0.2-1.0) Aspartate Amino Transf (AST/SGOT) 12 U/L (15-37) Alanine Aminotransferase (ALT/SGPT) 17 U/L (14-59) Alkaline Phosphatase 61 U/L (46-116) Total Protein 6.6 g/dL (6.4-8.2) Albumin 2.3 g/dL (3.4-5.0) Albumin/Globulin Ratio 0.5 (1.0-1.7) Vancomycin Level Trough 21.6 mcg/mL (10.0-20.0) Vancomycin Last Dose Date 02/03/21 Vancomycin Last Dose Time 1700 Laboratory Tests Test 02/03/21 11:36 02/03/21 17:11 02/03/21 19:31 02/04/21 07:30 Glucose (Fingerstick) 152 mg/dL (70-99) 148 mg/dL (70-99) 147 mg/dL (70-99) White Blood Count 9.9 x10^3/uL (4.0-11.0) Red Blood Count 3.01 x10^6/uL (3.50-5.40) Hemoglobin 7.7 g/dL (12.0-15.5) Hematocrit 23.5 % (36.0-47.0) Mean Corpuscular Volume 78 fL (79-100) Mean Corpuscular Hemoglobin 26 pg (25-35) Mean Corpuscular Hemoglobin Concent 33 g/dL (31-37) Red Cell Distribution Width 16.3 % (11.5-14.5) Platelet Count 193 x10^3/uL (140-400) Neutrophils (%) (Auto) 72 % (31-73) Lymphocytes (%) (Auto) 17 % (24-48) Monocytes (%) (Auto) 10 % (0-9) Eosinophils (%) (Auto) 1 % (0-3) Basophils (%) (Auto) 0 % (0-3) Neutrophils # (Auto) 7.1 x10^3/uL (1.8-7.7) Lymphocytes # (Auto) 1.6 x10^3/uL (1.0-4.8) Monocytes # (Auto) 1.0 x10^3/uL (0.0-1.1) Eosinophils # (Auto) 0.1 x10^3/uL (0.0-0.7) Basophils # (Auto) 0.0 x10^3/uL (0.0-0.2) Sodium Level 146 mmol/L (136-145) Potassium Level 3.6 mmol/L (3.5-5.1) Chloride Level 108 mmol/L (98-107) Carbon Dioxide Level 30 mmol/L (21-32) Anion Gap 8 (6-14) Blood Urea Nitrogen 27 mg/dL (7-20) Creatinine 1.3 mg/dL (0.6-1.0) Estimated GFR (Cockcroft-Gault) 40.9 BUN/Creatinine Ratio 21 (6-20) Glucose Level 61 mg/dL (70-99) Calcium Level 8.6 mg/dL (8.5-10.1) Total Bilirubin 0.6 mg/dL (0.2-1.0) Aspartate Amino Transf (AST/SGOT) 12 U/L (15-37) Alanine Aminotransferase (ALT/SGPT) 17 U/L (14-59) Alkaline Phosphatase 61 U/L (46-116) Total Protein 6.6 g/dL (6.4-8.2) Albumin 2.3 g/dL (3.4-5.0) Albumin/Globulin Ratio 0.5 (1.0-1.7) Test 02/04/21 08:01 02/04/21 09:35 Glucose (Fingerstick) 64 mg/dL (70-99) Vancomycin Level Trough 21.6 mcg/mL (10.0-20.0) Vancomycin Last Dose Date 02/03/21 Vancomycin Last Dose Time 1700 Microbiology 02/02/21 Blood Culture - Preliminary, Resulted NO GROWTH AFTER 1 DAY 02/01/21 Urine Culture - Final, Complete 02/01/21 Antimicrobic Susceptibility - Final, Complete Medications Current Medications Sodium Chloride 1,000 ml @ 1,000 mls/hr Q1H IV Last administered on 02/01/21at 20:48; Start 02/01/21 at 20:00; Stop 02/01/21 at 20:59; Status DC Piperacillin Sod/ Tazobactam Sod 3.375 gm/Sodium Chloride 50 ml @ 100 mls/hr 1X ONCE IV Last administered on 02/01/21at 21:21; Start 02/01/21 at 21:00; Stop 02/01/21 at 21:29; Status DC Ondansetron HCl (Zofran) 4 mg PRN Q8HRS PRN IV NAUSEA/VOMITING; Start 02/01/21 at 21:15; Stop 02/01/21 at 21:35; Status DC Labetalol HCl (Normodyne Iv Push) 20 mg PRN Q30MIN PRN IVP HYPERTENSION; Start 02/01/21 at 21:15 Piperacillin Sod/ Tazobactam Sod (Zosyn Per Pharmacy) 1 each PRN DAILY PRN MC SEE COMMENTS; Start 02/01/21 at 21:15 Tramadol HCl (Ultram) 50 mg PRN Q6HRS PRN PO MILD PAIN 1-3; Start 02/01/21 at 21:30 Morphine Sulfate (Morphine Sulfate) 4 mg PRN Q3HRS PRN IV SEVERE PAIN; Start 02/01/21 at 21:30 Ondansetron HCl (Zofran) 4 mg PRN Q6HRS PRN IVP NAUSEA/VOMITING Last administered on 02/04/21at 06:03; Start 02/01/21 at 21:30 Al Hydroxide/Mg Hydroxide (Mylanta Plus Xs) 30 ml PRN Q3HRS PRN PO HEARTBURN / GAS; Start 02/01/21 at 21:30 Calcium Carbonate/ Glycine (Tums) 500 mg PRN Q3HRS PRN PO UPSET STOMACH; Start 02/01/21 at 21:30 Zolpidem Tartrate (Ambien) 5 mg PRN QHS PRN PO INSOMNIA, MAY REPEAT IN 1HR; Start 02/01/21 at 21:30 Morphine Sulfate (Morphine Sulfate) 2 mg PRN Q1HR PRN IV MODERATE PAIN; Start 02/01/21 at 21:30 Oxycodone/ Acetaminophen (Percocet 5/325) 1 tab PRN Q4HRS PRN PO SEVERE PAIN; Start 02/01/21 at 21:30 Acetaminophen (Tylenol) 650 mg PRN Q6HRS PRN PO Headaches, Temp > 101.5F Last administered on 02/02/21at 15:22; Start 02/01/21 at 21:30 Magnesium Hydroxide (Milk Of Magnesia) 2,400 mg PRN Q12HR PRN PO CONSTIPATION; Start 02/01/21 at 21:30 Bisacodyl (Dulcolax Supp) 10 mg PRN DAILY PRN [place] CONSTIPATION; Start 02/01/21 at 21:30 Enoxaparin Sodium (Lovenox 40mg Syringe) 40 mg Q24H SQ Last administered on 02/03/21at 21:21; Start 02/01/21 at 21:30 Clopidogrel Bisulfate (Plavix) 75 mg DAILY PO Last administered on 02/04/21at 07:57; Start 02/02/21 at 09:00 Citalopram Hydrobromide (CeleXA) 20 mg DAILY PO Last administered on 02/04/21at 07:56; Start 02/02/21 at 09:00 Non-Formulary Medication (Insulin Detemir (Levemir Flextouch)) 50 unit BID SQ ; Start 02/02/21 at 09:00; Status UNV Tramadol HCl (Ultram) 50 mg PRN Q6HRS PRN PO PAIN; Start 02/01/21 at 21:30; Stop 02/01/21 at 21:35; Status DC Insulin Glargine (Lantus Syringe) 50 unit BID SQ Last administered on 02/03/21at 22:35; Start 02/02/21 at 09:00 Insulin Human Lispro (HumaLOG) 9 units TIDWMEALS SQ Last administered on 02/02/21at 11:51; Start 02/02/21 at 08:00 Dextrose (Dextrose 50%-Water Syringe) 12.5 gm PRN Q15MIN PRN IV SEE COMMENTS; Start 02/01/21 at 22:00 Dextrose (Iv Dextrose 5%) 250 ml PRN Q15MIN PRN IV SEE COMMENTS; Start 02/01/21 at 22:00 Piperacillin Sod/ Tazobactam Sod 3.375 gm/Sodium Chloride 50 ml @ 100 mls/hr ONCE ONCE IV Last administered on 02/02/21at 03:33; Start 02/02/21 at 03:30; Stop 02/02/21 at 03:59; Status DC Piperacillin Sod/ Tazobactam Sod 3.375 gm/Sodium Chloride 50 ml @ 100 mls/hr Q6HRS IV Last administered on 02/04/21at 06:03; Start 02/02/21 at 12:00 Lactobacillus Rhamnosus (Culturelle) 1 cap BID PO Last administered on 02/04/21 07:56; Start 02/02/21 at 21:00 Acetaminophen (Tylenol) 650 mg PRN Q6HRS PRN PO MILD PAIN / TEMP > 100.3'F; Start 02/02/21 at 12:30; Status UNV Bisacodyl (Dulcolax Supp) 10 mg PRN DAILY PRN RC CONSTIPATION; Start 02/02/21 at 12:30; Status UNV Acetaminophen/ Hydrocodone Bitart (Lortab 5/325) 1 tab PRN Q8HRS PRN PO MODERATE PAIN; Start 02/02/21 at 12:30 Lisinopril (Prinivil) 5 mg DAILY PO Last administered on 02/04/21at 08:10; Start 02/02/21 at 13:00 Magnesium Hydroxide (Milk Of Magnesia) 2,400 mg PRN DAILY PRN PO CONSTIPATION; Start 02/02/21 at 12:30; Status UNV Metformin HCl (Glucophage) 500 mg BIDWMEALS PO Last administered on 02/04/21at 07:56; Start 02/02/21 at 17:00 Ascorbic Acid (Vitamin C) 500 mg BID PO Last administered on 02/04/21at 07:56; Start 02/02/21 at 21:00 Non-Formulary Medication (Collagenase Clostridium Hist. (Santyl Ointment)) 1 kimberlee QSUTUTH TP ; Start 02/03/21 at 16:00; Status UNV Non-Formulary Medication (Insulin Aspart ) 100 unit sliding scale SQ ; Start 02/02/21 at 12:30; Status UNV Non-Formulary Medication (Insulin Aspart (Insulin Aspart Flexpen)) 15 unit TIDAC SQ ; Start 02/02/21 at 16:30; Status UNV Non-Formulary Medication (Melatonin ) 3 mg PRN QHS PRN PO INSOMNIA; Start 02/02/21 at 12:30; Status UNV Multivitamins (Thera M Plus) 1 tab DAILY PO Last administered on 02/04/21at 07:56; Start 02/02/21 at 13:00 Ondansetron HCl (Zofran Odt) 4 mg PRN Q4HRS PRN PO NAUSEA/VOMITING; Start 02/02/21 at 12:45 Atorvastatin Calcium (Lipitor) 40 mg QHS PO Last administered on 02/03/21at 21:22; Start 02/02/21 at 21:00 Vancomycin HCl (Vanco Per Pharmacy) 1 each PRN DAILY PRN MC SEE COMMENTS Last administered on 02/03/21at 13:13; Start 02/02/21 at 16:15 Metoclopramide HCl (Reglan Vial) 10 mg QIDACHS IVP Last administered on 02/04/21at 07:56; Start 02/02/21 at 16:30 Vancomycin HCl 1.5 gm/Sodium Chloride 500 ml @ 250 mls/hr Q24H IV Last administered on 02/03/21at 19:50; Start 02/02/21 at 17:00 Vancomycin HCl (Vancomycin Trough Level) 1 each 1X ONCE MC ; Start 02/04/21 at 18:00; Stop 02/04/21 at 18:01 Pantoprazole Sodium (PROTONIX VIAL for IV PUSH) 40 mg DAILYAC IVP Last administered on 02/04/21at 07:56; Start 02/03/21 at 11:00 Furosemide (Lasix) 20 mg 1X ONCE IVP Last administered on 02/03/21at 16:52; Start 02/03/21 at 16:15; Stop 02/03/21 at 16:16; Status DC Hydralazine HCl (Apresoline Inj) 10 mg PRN Q4HRS PRN IVP ELEVATED BP, SEE COMMENTS; Start 02/03/21 at 16:15 Active Scripts Active Reported Zofran (Ondansetron Hcl) 4 Mg Tablet 1 Tab PO PRN Q4HRS PRN Vitamin C (Ascorbic Acid) 500 Mg Capsule 500 Mg PO BID Santyl Ointment (Collagenase) 30 Gm Oint...g. 1 Kimberlee TP QSUTUTH DIRECTED BY PHYSICIAN Hydrocodone-Apap 5-325 (Hydrocodone Bit/Acetaminophen) 1 Tab Tablet 1 Tab PO PRN Q8HRS PRN Thera-M Caplet (Multivit,Ther Iron,Ca,Fa & Min) 1 Each Tablet 1 Each PO DAILY Milk Of Magnesia (Magnesium Hydroxide) 400 Mg/5 Ml Oral.susp 30 Ml PO PRN DAILY PRN Melatonin 3 Mg Tablet.er 3 Mg PO PRN QHS PRN Insulin Aspart Flexpen (Insulin Aspart) 100 Unit/1 Ml Insuln.pen 15 Unit SQ TIDAC Dulcolax (Bisacodyl) 10 Mg Supp.rect 10 Mg RC PRN DAILY PRN Tylenol (Acetaminophen) 325 Mg Tablet 650 Mg PO PRN Q6HRS PRN Lisinopril 5 Mg Tablet 5 Mg PO DAILY Insulin Aspart 100 Unit/1 Ml Vial 100 Unit SQ SLIDING SCALE Levemir Flextouch (Insulin Detemir) 100 Unit/1 Ml Insuln.pen 50 Unit SQ BID Escitalopram Oxalate 10 Mg Tablet 10 Mg PO DAILY Carvedilol 25 Mg Tablet Unknown Dose PO BIDWMEALS Atorvastatin Calcium 80 Mg Tablet Unknown Dose PO QHS Clopidogrel (Clopidogrel Bisulfate) 75 Mg Tablet Unknown Dose PO DAILY Metformin Hcl 500 Mg Tablet 500 Mg PO BID Vitals/I & O Vital Sign - Last 24 Hours 02/03/21 02/03/21 02/03/21 02/03/21 11:00 15:00 18:18 19:00 Temp 98.8 100.5 98.8 98.8 100.5 98.8 Pulse 81 92 92 79 Resp 18 B/P (MAP) 149/57 (87) 176/67 (103) 176/67 153/63 (93) Pulse Ox 96 92 100 O2 Delivery Nasal Cannula Nasal Cannula Nasal Cannula O2 Flow Rate 2.0 3.0 3.0 02/03/21 02/03/21 02/04/21 02/04/21 20:00 23:00 03:00 07:00 Temp 98.6 98.8 98.5 98.6 98.8 98.5 Pulse 63 73 73 Resp 18 18 18 B/P (MAP) 144/55 (84) 135/55 (81) 134/54 (80) Pulse Ox 98 99 96 O2 Delivery Nasal Cannula Nasal Cannula Nasal Cannula Nasal Cannula O2 Flow Rate 2.0 3.0 3.0 2.0 02/04/21 08:10 Pulse 73 B/P (MAP) 134/54 Justifications for Admission Other Justification HCAP, Resp RE [employer] Feb 04, 2021 10:46
[2021-02-04 11:00] VITALS: BP 137/52
--- NOTE | 2021-02-04 13:22 | PDOC ---
PER LI TETRYL SCREEN OPERATOR 02/04/21 1322: CARDIO Progress Notes Date and Time Date of Service 02/04/2021 Time of Evaluation 1300 Subjective Subjective: No Chest Pain, No shortness of breath, No Palpitations Vitals Vitals Vital Signs Date Time Temp Pulse Resp B/P (MAP) Pulse Ox O2 Delivery O2 Flow Rate FiO2 02/04/21 11:00 98.4 67 18 137/52 (80) 100 Nasal Cannula 2.0 98.4 Weight Weight [ ] Input and Output Intake and Output Intake and Output 02/04/21 07:00 # Voids 7 # Bowel Movements 1 Laboratory Labs Laboratory Tests Test 02/03/21 17:11 02/03/21 19:31 02/04/21 07:30 02/04/21 08:01 Glucose (Fingerstick) 148 mg/dL (70-99) 147 mg/dL (70-99) 64 mg/dL (70-99) White Blood Count 9.9 x10^3/uL (4.0-11.0) Red Blood Count 3.01 x10^6/uL (3.50-5.40) Hemoglobin 7.7 g/dL (12.0-15.5) Hematocrit 23.5 % (36.0-47.0) Mean Corpuscular Volume 78 fL (79-100) Mean Corpuscular Hemoglobin 26 pg (25-35) Mean Corpuscular Hemoglobin Concent 33 g/dL (31-37) Red Cell Distribution Width 16.3 % (11.5-14.5) Platelet Count 193 x10^3/uL (140-400) Neutrophils (%) (Auto) 72 % (31-73) Lymphocytes (%) (Auto) 17 % (24-48) Monocytes (%) (Auto) 10 % (0-9) Eosinophils (%) (Auto) 1 % (0-3) Basophils (%) (Auto) 0 % (0-3) Neutrophils # (Auto) 7.1 x10^3/uL (1.8-7.7) Lymphocytes # (Auto) 1.6 x10^3/uL (1.0-4.8) Monocytes # (Auto) 1.0 x10^3/uL (0.0-1.1) Eosinophils # (Auto) 0.1 x10^3/uL (0.0-0.7) Basophils # (Auto) 0.0 x10^3/uL (0.0-0.2) Sodium Level 146 mmol/L (136-145) Potassium Level 3.6 mmol/L (3.5-5.1) Chloride Level 108 mmol/L (98-107) Carbon Dioxide Level 30 mmol/L (21-32) Anion Gap 8 (6-14) Blood Urea Nitrogen 27 mg/dL (7-20) Creatinine 1.3 mg/dL (0.6-1.0) Estimated GFR (Cockcroft-Gault) 40.9 BUN/Creatinine Ratio 21 (6-20) Glucose Level 61 mg/dL (70-99) Calcium Level 8.6 mg/dL (8.5-10.1) Total Bilirubin 0.6 mg/dL (0.2-1.0) Aspartate Amino Transf (AST/SGOT) 12 U/L (15-37) Alanine Aminotransferase (ALT/SGPT) 17 U/L (14-59) Alkaline Phosphatase 61 U/L (46-116) Total Protein 6.6 g/dL (6.4-8.2) Albumin 2.3 g/dL (3.4-5.0) Albumin/Globulin Ratio 0.5 (1.0-1.7) Test 02/04/21 09:35 02/04/21 11:38 Magnesium Level 1.9 mg/dL (1.8-2.4) Ferritin 85 ng/mL (8-252) Lactate Dehydrogenase 158 U/L (81-234) Creatine Kinase 447 U/L (26-192) Vancomycin Level Trough 21.6 mcg/mL (10.0-20.0) Vancomycin Last Dose Date 02/03/21 Vancomycin Last Dose Time 1700 Glucose (Fingerstick) 91 mg/dL (70-99) Microbiology Micro Microbiology 02/02/21 Blood Culture - Preliminary, Resulted NO GROWTH AFTER 1 DAY 02/01/21 Urine Culture - Final, Complete 02/01/21 Antimicrobic Susceptibility - Final, Complete Physical Exam HEENT: Neck Supple W Full Motion Chest: Symmetric LUNGS: Other (diminished; upper rhonchi faint wheeze) Heart: RRR (SR) Abdomen: Soft N/T Extremities: Other (3+RUE edema and 2+ bilateral Le pitting edema; right side hemiplegia) Neurology: alert, oriented, follow commands Assessment Assessment 1. Nausea/vomiting: none further, now eating 2. Acute respiratory failure secondary to PNA 3. Mild troponin elevation; highest 0.2. Most probable type II, demand ischemia. Echo 09/02 with preserved LV systolic function as noted above. CP free 4. GIULIA; Cr stable at 1.3 5. Accelerated hypertension; controlled 6. Hyperlipidemia; statin 7. Diabetes, II 8. H/o CVA with right-sided hemiplegia. 9. Leukocytosis, fevers in setting of UTI and PNA 10. Bilateral Leg edema: and RUE edema: negative LE DVT. with associated hemiplegia. 11. PSVT: rare episdose Recommendations 1. Passed swallow study. Secondary prevention. Plavix, statin. Continue lisinopril. Low dose toprol 2. Consider outpatient ischemic evaluation 3. Ongoing antibiotic therapy 4. Lasix PRN. PCXR. OT for lymphedema Justicifation of Admission Dx: Justifications for Admission: Justification of Admission Dx: Yes Stroke - Ischemic: Stroke-Ischemic GENE PRINCE MD 02/05/21 0824: CARDIO Progress Notes Plan Plan Late entry for 02/04/2021 Patient seen and examined. Agree with above nurse practitioner note. No new cardiovascular issues. Supportive care. PER LI APRN Feb 04, 2021 13:22 GENE PRINCE MD Feb 05, 2021 08:24
[2021-02-04 15:00] VITALS: BP 148/63
--- NOTE | 2021-02-04 15:07 | RAD ---
XR CHEST 1V History: Reason: [id number],[id number] / Spl. Instructions: / History: Comparison: February 01, 2021 Findings: Ill-defined mid and bibasilar opacities, increased within the left lung base. No pleural effusion. No pneumothorax. Unchanged heart size. Impression: 1. Multifocal ill-defined opacities increased within the left lung base. Electronically signed by: Mc Aceves DO (02/04/2021 3:05 PM) [id number]
[2021-02-04] MEDS: VANCOMYCIN PER PHARMACY MC PRN (15:20)
--- NOTE | 2021-02-04 15:23 | NUR ---
Pharmacy Vancomycin Dosing Note S:Consulted to monitor and dose vancomycin started 02/02/21. O:ER WAKEFIELD is a 66 year old F with Pneumonia fever . Height: 5 feet, 4 inches Weight: 99.3 kg [place] Body Weight: 54.70 Adjusted Body Weight: 72.54 Dosing Weight: Actual Other Antibiotics: ZOSYN 3.375G IV Q6HRS LABS: Last BUN: 27 Last Creatinine: 1.3 Creatinine Clearance: 48 mL/min Last WBC: 9.9 Last Procalcitonin: - Tmax (past 24 hours): 100.5 Microbiology: 02/04 UCX E COLI, BCX NGTD I/O: 400/1 VOID Drug Levels: Last Trough level: 21.6, TRUE TROUGH ~15.2 on 02/04/21 at 0935 Last dose given 02/03/21 at 1950 Vancomycin Dosing: Loading Dose: x1 Dosing Weight: Actual Target Trough: 15-20 A: Based on: THERAPEUTIC TRUE TROUGH ~15.2 MCG/ML (TROUGH WAS DRAWN EARLY), P: 1. CONTINUE Vancomycin 1500 mg IV q24h 2. Follow up Trough level NEEDED 3. Pharmacy will continue to monitor, follow and adjust therapy as needed. GIANFRANCO SALINAS [facility], 02/04/21 [id number]
[2021-02-04] MEDS: METOPROLOL SUCC 24HR ER 25 MG TAB.ER.24H. PO SCH (15:34)
[2021-02-04] MEDS: VANCOMYCIN 1.5 GM in IV NORMAL SALINE 500ML BAG 500 ML IV SCH (17:04)
[2021-02-04 19:00] VITALS: BP 144/54
[2021-02-04] MEDS: ATORVASTATIN CALCIUM 40 MG TABLET. PO SCH (21:35)
[2021-02-04] MEDS: ENOXAPARIN 40 MG/0.4 ML SYRINGE. SQ SCH (21:36)
[2021-02-04 23:00] VITALS: BP 142/54
[2021-02-05] MEDS: PIPERACILLIN/TAZOBACTAM 3.375 GM in IV NORMAL SALINE 50ML 50 ML IV SCH ×4 (00:34→17:55)
[2021-02-05 03:00] VITALS: BP 143/64
[2021-02-05 04:28] LABS: BASO % 0 % (0-3); EOS # 0.3 x10^3/uL (0.0-0.7); EOS % 4 % (0-3); HEMATOCRIT 23.9 % (36.0-47.0); HEMOGLOBIN 7.7 g/dL (12.0-15.5); LYMPH # 1.9 x10^3/uL (1.0-4.8); LYMPH % 21 % (24-48); MEAN CORPUSCULAR HEMOGLOBIN 25 pg (25-35); MEAN CORPUSCULAR HGB CONC 32 g/dL (31-37); MEAN CORPUSCULAR VOLUME 79 fL (79-100); MONO % 11 % (0-9); NEUT # 5.6 x10^3/uL (1.8-7.7); NEUT % 63 % (31-73); PLATELET COUNT 192 x10^3/uL (140-400); RED BLOOD COUNT 3.03 x10^6/uL (3.50-5.40); RED CELL DISTRIBUTION WIDTH 16.5 % (11.5-14.5); WHITE BLOOD COUNT 8.8 x10^3/uL (4.0-11.0)
[2021-02-05 07:00] VITALS: BP 154/52
[2021-02-05] MEDS: INSULIN LISPRO 300 UNITS/3 ML VIAL. SQ SCH ×3 (08:00→17:00)
[2021-02-05] MEDS: INSULIN GLARGINE SYRINGE. SQ SCH ×3 (08:05→21:46)
[2021-02-05] MEDS: PANTOPRAZOLE IV PUSH 40 MG VIAL. IVP SCH (08:12)
[2021-02-05] MEDS: METOCLOPRAMIDE HCL 10 MG/2 ML VIAL. IVP SCH ×2 (08:12→12:42)
[2021-02-05] MEDS: MULTIVITAMIN with MINERAL TABLET. PO SCH (08:13)
[2021-02-05] MEDS: ASCORBIC ACID 500 MG TABLET PO SCH ×2 (08:14→21:42)
[2021-02-05] MEDS: CITALOPRAM 20 MG TABLET. PO SCH (08:14)
[2021-02-05] MEDS: METOPROLOL SUCC 24HR ER 25 MG TAB.ER.24H. PO SCH (08:14)
[2021-02-05] MEDS: metFORMIN 500 MG TABLET PO SCH ×2 (08:14→17:55)
[2021-02-05] MEDS: LACTOBACILLUS RHAMNOSUS GG 1 CAPSULE. PO SCH ×2 (08:14→21:42)
[2021-02-05] MEDS: CLOPIDOGREL BISULFATE 75 MG TABLET PO SCH (08:15)
[2021-02-05] MEDS: LISINOPRIL 5 MG TABLET. PO SCH (08:15)
--- NOTE | 2021-02-05 09:53 | PDOC ---
PULMONARY PROGRESS NOTES DATE: 02/05/21 TIME: 09:53 Subjective Feels a bit better, fever yesterday 100.5 Not more short of air Vitals Vital Signs Date Time Temp Pulse Resp B/P (MAP) Pulse Ox O2 Delivery O2 Flow Rate FiO2 02/05/21 08:15 71 154/52 02/05/21 08:00 Nasal Cannula 2.0 02/05/21 07:00 96.5 22 100 96.5 ROS: No Chest Pain, No Abdominal Pain, No Increase Cough General: Alert Lungs: Clear, Crackles Cardiovascular: S1, S2 Abdomen: Soft Neuro Exam: Alert Extremities: No Edema Skin: Warm Labs Laboratory Tests Test 02/03/21 11:36 02/03/21 17:11 02/03/21 19:31 02/04/21 07:30 Glucose (Fingerstick) 152 mg/dL (70-99) 148 mg/dL (70-99) 147 mg/dL (70-99) White Blood Count 9.9 x10^3/uL (4.0-11.0) Red Blood Count 3.01 x10^6/uL (3.50-5.40) Hemoglobin 7.7 g/dL (12.0-15.5) Hematocrit 23.5 % (36.0-47.0) Mean Corpuscular Volume 78 fL (79-100) Mean Corpuscular Hemoglobin 26 pg (25-35) Mean Corpuscular Hemoglobin Concent 33 g/dL (31-37) Red Cell Distribution Width 16.3 % (11.5-14.5) Platelet Count 193 x10^3/uL (140-400) Neutrophils (%) (Auto) 72 % (31-73) Lymphocytes (%) (Auto) 17 % (24-48) Monocytes (%) (Auto) 10 % (0-9) Eosinophils (%) (Auto) 1 % (0-3) Basophils (%) (Auto) 0 % (0-3) Neutrophils # (Auto) 7.1 x10^3/uL (1.8-7.7) Lymphocytes # (Auto) 1.6 x10^3/uL (1.0-4.8) Monocytes # (Auto) 1.0 x10^3/uL (0.0-1.1) Eosinophils # (Auto) 0.1 x10^3/uL (0.0-0.7) Basophils # (Auto) 0.0 x10^3/uL (0.0-0.2) Sodium Level 146 mmol/L (136-145) Potassium Level 3.6 mmol/L (3.5-5.1) Chloride Level 108 mmol/L (98-107) Carbon Dioxide Level 30 mmol/L (21-32) Anion Gap 8 (6-14) Blood Urea Nitrogen 27 mg/dL (7-20) Creatinine 1.3 mg/dL (0.6-1.0) Estimated GFR (Cockcroft-Gault) 40.9 BUN/Creatinine Ratio 21 (6-20) Glucose Level 61 mg/dL (70-99) Calcium Level 8.6 mg/dL (8.5-10.1) Total Bilirubin 0.6 mg/dL (0.2-1.0) Aspartate Amino Transf (AST/SGOT) 12 U/L (15-37) Alanine Aminotransferase (ALT/SGPT) 17 U/L (14-59) Alkaline Phosphatase 61 U/L (46-116) Total Protein 6.6 g/dL (6.4-8.2) Albumin 2.3 g/dL (3.4-5.0) Albumin/Globulin Ratio 0.5 (1.0-1.7) Test 02/04/21 08:01 02/04/21 09:35 02/04/21 11:38 02/04/21 17:02 Glucose (Fingerstick) 64 mg/dL (70-99) 91 mg/dL (70-99) 84 mg/dL (70-99) Magnesium Level 1.9 mg/dL (1.8-2.4) Ferritin 85 ng/mL (8-252) Lactate Dehydrogenase 158 U/L (81-234) Creatine Kinase 447 U/L (26-192) Vancomycin Level Trough 21.6 mcg/mL (10.0-20.0) Vancomycin Last Dose Date 02/03/21 Vancomycin Last Dose Time 1700 Test 02/04/21 20:27 02/04/21 21:12 02/05/21 04:00 02/05/21 07:58 Glucose (Fingerstick) 65 mg/dL (70-99) 73 mg/dL (70-99) 50 mg/dL (70-99) White Blood Count 8.8 x10^3/uL (4.0-11.0) Red Blood Count 3.03 x10^6/uL (3.50-5.40) Hemoglobin 7.7 g/dL (12.0-15.5) Hematocrit 23.9 % (36.0-47.0) Mean Corpuscular Volume 79 fL (79-100) Mean Corpuscular Hemoglobin 25 pg (25-35) Mean Corpuscular Hemoglobin Concent 32 g/dL (31-37) Red Cell Distribution Width 16.5 % (11.5-14.5) Platelet Count 192 x10^3/uL (140-400) Neutrophils (%) (Auto) 63 % (31-73) Lymphocytes (%) (Auto) 21 % (24-48) Monocytes (%) (Auto) 11 % (0-9) Eosinophils (%) (Auto) 4 % (0-3) Basophils (%) (Auto) 0 % (0-3) Neutrophils # (Auto) 5.6 x10^3/uL (1.8-7.7) Lymphocytes # (Auto) 1.9 x10^3/uL (1.0-4.8) Monocytes # (Auto) 1.0 x10^3/uL (0.0-1.1) Eosinophils # (Auto) 0.3 x10^3/uL (0.0-0.7) Basophils # (Auto) 0.0 x10^3/uL (0.0-0.2) Sodium Level 147 mmol/L (136-145) Potassium Level 3.5 mmol/L (3.5-5.1) Chloride Level 109 mmol/L (98-107) Carbon Dioxide Level 30 mmol/L (21-32) Anion Gap 8 (6-14) Blood Urea Nitrogen 27 mg/dL (7-20) Creatinine 1.4 mg/dL (0.6-1.0) Estimated GFR (Cockcroft-Gault) 37.5 Glucose Level 55 mg/dL (70-99) Calcium Level 8.6 mg/dL (8.5-10.1) Test 02/05/21 08:43 Glucose (Fingerstick) 107 mg/dL (70-99) Laboratory Tests Test 02/04/21 11:38 02/04/21 17:02 02/04/21 20:27 02/04/21 21:12 Glucose (Fingerstick) 91 mg/dL (70-99) 84 mg/dL (70-99) 65 mg/dL (70-99) 73 mg/dL (70-99) Test 02/05/21 04:00 02/05/21 07:58 02/05/21 08:43 White Blood Count 8.8 x10^3/uL (4.0-11.0) Red Blood Count 3.03 x10^6/uL (3.50-5.40) Hemoglobin 7.7 g/dL (12.0-15.5) Hematocrit 23.9 % (36.0-47.0) Mean Corpuscular Volume 79 fL (79-100) Mean Corpuscular Hemoglobin 25 pg (25-35) Mean Corpuscular Hemoglobin Concent 32 g/dL (31-37) Red Cell Distribution Width 16.5 % (11.5-14.5) Platelet Count 192 x10^3/uL (140-400) Neutrophils (%) (Auto) 63 % (31-73) Lymphocytes (%) (Auto) 21 % (24-48) Monocytes (%) (Auto) 11 % (0-9) Eosinophils (%) (Auto) 4 % (0-3) Basophils (%) (Auto) 0 % (0-3) Neutrophils # (Auto) 5.6 x10^3/uL (1.8-7.7) Lymphocytes # (Auto) 1.9 x10^3/uL (1.0-4.8) Monocytes # (Auto) 1.0 x10^3/uL (0.0-1.1) Eosinophils # (Auto) 0.3 x10^3/uL (0.0-0.7) Basophils # (Auto) 0.0 x10^3/uL (0.0-0.2) Sodium Level 147 mmol/L (136-145) Potassium Level 3.5 mmol/L (3.5-5.1) Chloride Level 109 mmol/L (98-107) Carbon Dioxide Level 30 mmol/L (21-32) Anion Gap 8 (6-14) Blood Urea Nitrogen 27 mg/dL (7-20) Creatinine 1.4 mg/dL (0.6-1.0) Estimated GFR (Cockcroft-Gault) 37.5 Glucose Level 55 mg/dL (70-99) Calcium Level 8.6 mg/dL (8.5-10.1) Glucose (Fingerstick) 50 mg/dL (70-99) 107 mg/dL (70-99) Medications Active Scripts Medications Dose Route/Sig Max Daily Dose Days Date Category Dose Instructions Zofran (Ondansetron Hcl) 4 Mg Tablet 1 Tab PO PRN Q4HRS PRN 02/02/21 Reported Vitamin C (Ascorbic Acid) 500 Mg Capsule 500 Mg PO BID 02/02/21 Reported Santyl Ointment (Collagenase) 30 Gm Oint...g. 1 Kimberlee TP QSUTUTH 02/02/21 Reported DIRECTED BY PHYSICIAN Hydrocodone-Apap 5-325 (Hydrocodone Bit/Acetaminophen) 1 Tab Tablet 1 Tab PO PRN Q8HRS PRN 02/02/21 Reported Thera-M Caplet (Multivit,Ther Iron,Ca,Fa & Min) 1 Each Tablet 1 Each PO DAILY 02/02/21 Reported Milk Of Magnesia (Magnesium Hydroxide) 400 Mg/5 Ml Oral.susp 30 Ml PO PRN DAILY PRN 02/02/21 Reported Melatonin 3 Mg Tablet.er 3 Mg PO PRN QHS PRN 02/02/21 Reported Insulin Aspart Flexpen (Insulin Aspart) 100 Unit/1 Ml Insuln.pen 15 Unit SQ TIDAC 02/02/21 Reported Dulcolax (Bisacodyl) 10 Mg Supp.rect 10 Mg RC PRN DAILY PRN 02/02/21 Reported Tylenol (Acetaminophen) 325 Mg Tablet 650 Mg PO PRN Q6HRS PRN 02/02/21 Reported Lisinopril 5 Mg Tablet 5 Mg PO DAILY 02/02/21 Reported Insulin Aspart 100 Unit/1 Ml Vial 100 Unit SQ SLIDING SCALE 11/17/20 Reported Levemir Flextouch (Insulin Detemir) 100 Unit/1 Ml Insuln.pen 50 Unit SQ BID 11/17/20 Reported Escitalopram Oxalate 10 Mg Tablet 10 Mg PO DAILY 11/17/20 Reported Carvedilol 25 Mg Tablet Unknown Dose PO BIDWMEALS 09/01/20 Reported Atorvastatin Calcium 80 Mg Tablet Unknown Dose PO QHS 09/01/20 Reported Clopidogrel (Clopidogrel Bisulfate) 75 Mg Tablet Unknown Dose PO DAILY 09/01/20 Reported Metformin Hcl 500 Mg Tablet 500 Mg PO BID 09/01/20 Reported Impression . IMPRESSION: 1. Acute hypoxemic respiratory failure, multifactorial. 2. Suspect aspiration pneumonia. 3. Abnormal x-ray compatible with bilateral nodular alveolar type of infiltrates, suspect chronic on top of acute infiltrates. 4. Rule out SARS-CoV-2., Pending 5. Influenza screen negative 6. History of cerebrovascular accident with right-sided hemiparesis. 7. Type 2 diabetes. 8. Intractable emesis. 9. Fever. 10. Carotic stenosis 11. Diabetic heel ulcer right greater than left Plan . Updated 02/04 continue current support with antibiotics Follow other consultants input If fever persists may require ID consult Nausea and vomiting is better today Updated 02/03 Discussed with speech Continue antibiotics We will defer advancing diet to PCP Follow GI input LOREN LUGO MD Feb 05, 2021 09:53
[2021-02-05 11:00] VITALS: BP 176/67
[2021-02-05] MEDS ORDERED: DEXTROSE 50% 25 GM / 50ML DISP.SYRIN. IV PRN (11:00)
--- NOTE | 2021-02-05 11:10 | PN ---
DATE: SUBJECTIVE: The patient is resting, slightly propped up in bed, in no apparent distress. On questioning her, denied any complaint, in particular denied any further episodes of nausea, vomiting. She has been afebrile for more than 24 hours now. However, she continued to be on a clear liquid diet. PHYSICAL EXAMINATION: GENERAL: When I examined her, she looked pale. No jaundice or cyanosis. No lymphadenopathy, no thyromegaly. No jugular venous distention. No limb edema. VITAL SIGNS: Her heart rate was 71, blood pressure was 154/52, temperature was 96.5, respiratory rate was 22 and oxygen saturation was 100% on 2 liters of oxygen. HEAD, EYES, EARS, NOSE AND THROAT: Normocephalic, atraumatic. NECK: Supple. HEART: Showed normal first and second heart sounds. No gallop, rub or murmur. CHEST: Clear to auscultation. No crepitation or rhonchi. ABDOMEN: Distended, soft, nontender. No guarding or rigidity. No organomegaly. All hernial orifice intact. Bowel sounds normal. NEUROLOGIC: She is awake, alert, responding appropriately. All cranial nerves intact. She has right-sided hemiplegia. She is mostly bedbound, chair bound. Her intake was 400, no output was recorded. LABORATORY DATA: As of this morning, her white cell count was 8800, hemoglobin 7.7, hematocrit 23.9, MCV 79 and platelet count of 192,000. Her chemistry showed a serum sodium 147, potassium 3.5, chloride 109, bicarbonate 30, anion gap of 8, BUN 27, creatinine 1.4, estimated GFR was 37 mL per minute. Her glucose was 55, calcium was 8.6. ASSESSMENT: 1. Recurrent bouts of nausea, vomiting and resultant aspiration pneumonia. Her nausea and vomiting has largely subsided. 2. Urinary tract infection with a growth of more than 100,000 colony forming units of Gram-negative rods identified as Escherichia coli. 3. Left middle cerebral artery territory infarct, right-sided hemiplegia. 4. Hypertension. 5. Hyperlipidemia. PLAN: To continue with IV Zosyn. I will discontinue vancomycin as her blood cultures do not show any growth for more than 2 days now. Await the evaluation by GI and once they advanced her diet, we will discharge her back to [facility] tomorrow. HUMAIRA LORD MD DR: ALVIN/deuce JOB#: [id number] / [id number]
--- NOTE | 2021-02-05 11:10 | PDOC ---
Date of Service: DATE: 02/05/21 TIME: 11:02 Subjective: Subjective: Tolerating clears, wants more to eat. Loose stool this morning, no n/v, no abd pain. Objective: Objective: Looks like still getting scheduled IV Reglan. Vital Signs: Vital Signs Date Time Temp Pulse Resp B/P (MAP) Pulse Ox O2 Delivery O2 Flow Rate FiO2 02/05/21 08:15 71 154/52 02/05/21 08:00 Nasal Cannula 2.0 02/05/21 07:00 96.5 22 100 96.5 Labs: Laboratory Tests Test 02/04/21 11:38 02/04/21 17:02 02/04/21 20:27 02/04/21 21:12 Glucose (Fingerstick) 91 mg/dL 84 mg/dL 65 mg/dL 73 mg/dL Test 02/05/21 04:00 02/05/21 07:58 02/05/21 08:43 White Blood Count 8.8 x10^3/uL Red Blood Count 3.03 x10^6/uL Hemoglobin 7.7 g/dL Hematocrit 23.9 % Mean Corpuscular Volume 79 fL Mean Corpuscular Hemoglobin 25 pg Mean Corpuscular Hemoglobin Concent 32 g/dL Red Cell Distribution Width 16.5 % Platelet Count 192 x10^3/uL Neutrophils (%) (Auto) 63 % Lymphocytes (%) (Auto) 21 % Monocytes (%) (Auto) 11 % Eosinophils (%) (Auto) 4 % Basophils (%) (Auto) 0 % Neutrophils # (Auto) 5.6 x10^3/uL Lymphocytes # (Auto) 1.9 x10^3/uL Monocytes # (Auto) 1.0 x10^3/uL Eosinophils # (Auto) 0.3 x10^3/uL Basophils # (Auto) 0.0 x10^3/uL Sodium Level 147 mmol/L Potassium Level 3.5 mmol/L Chloride Level 109 mmol/L Carbon Dioxide Level 30 mmol/L Anion Gap 8 Blood Urea Nitrogen 27 mg/dL Creatinine 1.4 mg/dL Estimated GFR (Cockcroft-Gault) 37.5 Glucose Level 55 mg/dL Calcium Level 8.6 mg/dL Glucose (Fingerstick) 50 mg/dL 107 mg/dL BLOOD CULTURE Preliminary NO GROWTH AFTER 3 DAYS Imaging: CXR 02/04 Impression: 1. Multifocal ill-defined opacities increased within the left lung base. PE: GEN: NAD LUNGS: diminished left, NC 2L HEART: RRR ABD: large, NABS, soft, non-tender NEURO/PSYCH: A & O 3 A/P: N/v - resolving Pneumonia, UTI, NSTEMI ACD/ANTONIETA H/o CVA on Plavix, DM COVID negative -- ADAT as ordered yesterday, PO PPI. ?wean off/down on Reglan, change to susp, etc Justicifation of Admission Dx: Justifications for Admission: Justification of Admission Dx: Yes Stroke - Ischemic: Stroke-Ischemic SONA SHAW Feb 05, 2021 11:10
[2021-02-05 11:14] LABS: ALBUMIN 2.4 g/dL (3.4-5.0); ALBUMIN/GLOBULIN RATIO 0.6 (1.0-1.7); TOTAL BILIRUBIN 0.4 mg/dL (0.2-1.0); TOTAL PROTEIN 6.1 g/dL (6.4-8.2)
[2021-02-05 11:19] LABS: CREATININE 1.4 mg/dL (0.6-1.0); GFR 37.5
[2021-02-05 11:20] LABS: CALCIUM 8.6 mg/dL (8.5-10.1); POTASSIUM 3.5 mmol/L (3.5-5.1)
[2021-02-05 15:00] VITALS: BP 150/80
[2021-02-05 19:00] VITALS: BP 182/78
[2021-02-05] MEDS: ATORVASTATIN CALCIUM 40 MG TABLET. PO SCH (21:42)
[2021-02-05] MEDS: ENOXAPARIN 40 MG/0.4 ML SYRINGE. SQ SCH (21:42)
[2021-02-05 23:00] VITALS: BP 190/84
[2021-02-06] MEDS: PIPERACILLIN/TAZOBACTAM 3.375 GM in IV NORMAL SALINE 50ML 50 ML IV SCH ×4 (00:43→17:06)
[2021-02-06 03:00] VITALS: BP 184/72
[2021-02-06 04:05] LABS: BASO % 0 % (0-3); EOS # 0.3 x10^3/uL (0.0-0.7); EOS % 3 % (0-3); HEMATOCRIT 23.9 % (36.0-47.0); HEMOGLOBIN 7.9 g/dL (12.0-15.5); LYMPH # 1.6 x10^3/uL (1.0-4.8); LYMPH % 16 % (24-48); MEAN CORPUSCULAR HEMOGLOBIN 26 pg (25-35); MEAN CORPUSCULAR HGB CONC 33 g/dL (31-37); MEAN CORPUSCULAR VOLUME 79 fL (79-100); MONO # 0.9 x10^3/uL (0.0-1.1); MONO % 9 % (0-9); NEUT # 7.3 x10^3/uL (1.8-7.7); NEUT % 73 % (31-73); PLATELET COUNT 220 x10^3/uL (140-400); RED BLOOD COUNT 3.03 x10^6/uL (3.50-5.40); RED CELL DISTRIBUTION WIDTH 16.2 % (11.5-14.5); WHITE BLOOD COUNT 10.1 x10^3/uL (4.0-11.0)
[2021-02-06 04:22] LABS: CALCIUM 8.8 mg/dL (8.5-10.1); CREATININE 1.2 mg/dL (0.6-1.0); GFR 44.8; POTASSIUM 3.7 mmol/L (3.5-5.1)
[2021-02-06 07:50] VITALS: BP 168/69
[2021-02-06] MEDS: METOCLOPRAMIDE HCL 10 MG/2 ML VIAL. IVP PRN ×2 (07:56→17:20)
[2021-02-06] MEDS: INSULIN LISPRO 300 UNITS/3 ML VIAL. SQ SCH ×3 (08:00→17:00)
[2021-02-06 08:46] LABS: MAGNESIUM 2.1 mg/dL (1.8-2.4)
[2021-02-06] MEDS: MULTIVITAMIN with MINERAL TABLET. PO SCH (09:00)
[2021-02-06] MEDS: ASCORBIC ACID 500 MG TABLET PO SCH ×2 (09:00→21:06)
[2021-02-06] MEDS: LACTOBACILLUS RHAMNOSUS GG 1 CAPSULE. PO SCH ×2 (09:00→21:06)
--- NOTE | 2021-02-06 10:00 | PN ---
DATE: 02/06/2021 SUBJECTIVE: The patient is resting, slightly propped up in bed, in no apparent distress, awake, alert. She continued to have nausea and actually vomited this morning; however, she denied any chest pain, shortness of breath, cough or phlegm. PHYSICAL EXAMINATION: GENERAL: When I examined her this morning, she looked pale, but not jaundiced or cyanosed. No lymphadenopathy. No thyromegaly. No jugular venous distention. No lower limb edema. VITAL SIGNS: Her heart rate was 77, blood pressure was 184/72, temperature was 98.3, respiratory rate 20, and oxygen saturation was 95% on 2 liters of oxygen. HEAD, EYES, EARS, NOSE, AND THROAT: Showed she is normocephalic, atraumatic. NECK: Supple. HEART: Normal first and second heart sounds. No gallop, rub or murmur. CHEST: Clear to auscultation. No crepitation or rhonchi. ABDOMEN: Distended, soft, nontender. NEUROLOGIC: She is awake, alert, responding appropriately. All her cranial nerves are intact. She has right-sided hemiplegia. She has also multiple wounds on her right foot covered with dressing. PLAN: Is to continue with the IV Zosyn for now. I discontinued her vancomycin as her blood culture showed no growth after 3 days. Continue with wound care. She is already on metoclopramide for her possible diabetic gastroparesis. HUMAIRA LORD MD DR: ALVIN/deuce JOB#: [id number] / [id number]
--- NOTE | 2021-02-06 10:11 | PDOC ---
Date of Service: DATE: 02/06/21 TIME: 10:07 Subjective: Subjective: Vomited a little bile before she got nausea medicine before breakfast - she thinks Reglan. Tolerated breakfast w/o issue - has not been advanced beyond full liquids. Objective: Vital Signs: Vital Signs Date Time Temp Pulse Resp B/P (MAP) Pulse Ox O2 Delivery O2 Flow Rate FiO2 02/06/21 07:50 97.7 73 20 168/69 (102) 97 Nasal Cannula 2.0 97.7 Labs: Laboratory Tests Test 02/05/21 11:54 02/05/21 17:11 02/05/21 21:23 02/06/21 03:55 Glucose (Fingerstick) 101 mg/dL 110 mg/dL 151 mg/dL White Blood Count 10.1 x10^3/uL Red Blood Count 3.03 x10^6/uL Hemoglobin 7.9 g/dL Hematocrit 23.9 % Mean Corpuscular Volume 79 fL Mean Corpuscular Hemoglobin 26 pg Mean Corpuscular Hemoglobin Concent 33 g/dL Red Cell Distribution Width 16.2 % Platelet Count 220 x10^3/uL Neutrophils (%) (Auto) 73 % Lymphocytes (%) (Auto) 16 % Monocytes (%) (Auto) 9 % Eosinophils (%) (Auto) 3 % Basophils (%) (Auto) 0 % Neutrophils # (Auto) 7.3 x10^3/uL Lymphocytes # (Auto) 1.6 x10^3/uL Monocytes # (Auto) 0.9 x10^3/uL Eosinophils # (Auto) 0.3 x10^3/uL Basophils # (Auto) 0.0 x10^3/uL Sodium Level 146 mmol/L Potassium Level 3.7 mmol/L Chloride Level 110 mmol/L Carbon Dioxide Level 30 mmol/L Anion Gap 6 Blood Urea Nitrogen 21 mg/dL Creatinine 1.2 mg/dL Estimated GFR (Cockcroft-Gault) 44.8 Glucose Level 95 mg/dL Calcium Level 8.8 mg/dL Magnesium Level 2.1 mg/dL Ferritin 102 ng/mL Lactate Dehydrogenase 146 U/L Creatine Kinase 369 U/L Test 02/06/21 07:17 Glucose (Fingerstick) 90 mg/dL BLOOD CULTURE Preliminary NO GROWTH AFTER 4 DAYS PE: GEN: NAD LUNGS: CTAB HEART: RRR ABD: NABS, soft, large, non-tender NEURO/PSYCH: A & O 3 A/P: N/v - recurred this morning - on PO PPI and IV Reglan Pneumonia, UTI, NSTEMI ACD/ANTONIETA - stable, on Plavix DM COVID negative -- Will review w/ Dr. Sanchez. Justicifation of Admission Dx: Justifications for Admission: Justification of Admission Dx: Yes Stroke - Ischemic: Stroke-Ischemic SONA SHAW Feb 06, 2021 10:11
--- NOTE | 2021-02-06 10:23 | PDOC ---
PULMONARY PROGRESS NOTES DATE: 02/06/21 TIME: 10:23 Subjective Patient feels better, no more emesis Vitals Vital Signs Date Time Temp Pulse Resp B/P (MAP) Pulse Ox O2 Delivery O2 Flow Rate FiO2 02/06/21 07:50 97.7 73 20 168/69 (102) 97 Nasal Cannula 2.0 97.7 ROS: No Nausea, No Chest Pain, No Abdominal Pain, No Increase Cough General: Alert Lungs: Clear, Crackles Cardiovascular: S1, S2 Abdomen: Soft Neuro Exam: Alert Extremities: No Edema Skin: Warm Labs Laboratory Tests Test 02/04/21 11:38 02/04/21 17:02 02/04/21 20:27 02/04/21 21:12 Glucose (Fingerstick) 91 mg/dL (70-99) 84 mg/dL (70-99) 65 mg/dL (70-99) 73 mg/dL (70-99) Test 02/05/21 04:00 02/05/21 07:58 02/05/21 08:43 02/05/21 11:54 White Blood Count 8.8 x10^3/uL (4.0-11.0) Red Blood Count 3.03 x10^6/uL (3.50-5.40) Hemoglobin 7.7 g/dL (12.0-15.5) Hematocrit 23.9 % (36.0-47.0) Mean Corpuscular Volume 79 fL (79-100) Mean Corpuscular Hemoglobin 25 pg (25-35) Mean Corpuscular Hemoglobin Concent 32 g/dL (31-37) Red Cell Distribution Width 16.5 % (11.5-14.5) Platelet Count 192 x10^3/uL (140-400) Neutrophils (%) (Auto) 63 % (31-73) Lymphocytes (%) (Auto) 21 % (24-48) Monocytes (%) (Auto) 11 % (0-9) Eosinophils (%) (Auto) 4 % (0-3) Basophils (%) (Auto) 0 % (0-3) Neutrophils # (Auto) 5.6 x10^3/uL (1.8-7.7) Lymphocytes # (Auto) 1.9 x10^3/uL (1.0-4.8) Monocytes # (Auto) 1.0 x10^3/uL (0.0-1.1) Eosinophils # (Auto) 0.3 x10^3/uL (0.0-0.7) Basophils # (Auto) 0.0 x10^3/uL (0.0-0.2) Sodium Level 147 mmol/L (136-145) Potassium Level 3.5 mmol/L (3.5-5.1) Chloride Level 109 mmol/L (98-107) Carbon Dioxide Level 30 mmol/L (21-32) Anion Gap 8 (6-14) Blood Urea Nitrogen 27 mg/dL (7-20) Creatinine 1.4 mg/dL (0.6-1.0) Estimated GFR (Cockcroft-Gault) 37.5 BUN/Creatinine Ratio 19 (6-20) Glucose Level 55 mg/dL (70-99) Calcium Level 8.6 mg/dL (8.5-10.1) Total Bilirubin 0.4 mg/dL (0.2-1.0) Aspartate Amino Transf (AST/SGOT) 13 U/L (15-37) Alanine Aminotransferase (ALT/SGPT) 14 U/L (14-59) Alkaline Phosphatase 57 U/L (46-116) Total Protein 6.1 g/dL (6.4-8.2) Albumin 2.4 g/dL (3.4-5.0) Albumin/Globulin Ratio 0.6 (1.0-1.7) Glucose (Fingerstick) 50 mg/dL (70-99) 107 mg/dL (70-99) 101 mg/dL (70-99) Test 02/05/21 17:11 02/05/21 21:23 02/06/21 03:55 02/06/21 07:17 Glucose (Fingerstick) 110 mg/dL (70-99) 151 mg/dL (70-99) 90 mg/dL (70-99) White Blood Count 10.1 x10^3/uL (4.0-11.0) Red Blood Count 3.03 x10^6/uL (3.50-5.40) Hemoglobin 7.9 g/dL (12.0-15.5) Hematocrit 23.9 % (36.0-47.0) Mean Corpuscular Volume 79 fL (79-100) Mean Corpuscular Hemoglobin 26 pg (25-35) Mean Corpuscular Hemoglobin Concent 33 g/dL (31-37) Red Cell Distribution Width 16.2 % (11.5-14.5) Platelet Count 220 x10^3/uL (140-400) Neutrophils (%) (Auto) 73 % (31-73) Lymphocytes (%) (Auto) 16 % (24-48) Monocytes (%) (Auto) 9 % (0-9) Eosinophils (%) (Auto) 3 % (0-3) Basophils (%) (Auto) 0 % (0-3) Neutrophils # (Auto) 7.3 x10^3/uL (1.8-7.7) Lymphocytes # (Auto) 1.6 x10^3/uL (1.0-4.8) Monocytes # (Auto) 0.9 x10^3/uL (0.0-1.1) Eosinophils # (Auto) 0.3 x10^3/uL (0.0-0.7) Basophils # (Auto) 0.0 x10^3/uL (0.0-0.2) Sodium Level 146 mmol/L (136-145) Potassium Level 3.7 mmol/L (3.5-5.1) Chloride Level 110 mmol/L (98-107) Carbon Dioxide Level 30 mmol/L (21-32) Anion Gap 6 (6-14) Blood Urea Nitrogen 21 mg/dL (7-20) Creatinine 1.2 mg/dL (0.6-1.0) Estimated GFR (Cockcroft-Gault) 44.8 Glucose Level 95 mg/dL (70-99) Calcium Level 8.8 mg/dL (8.5-10.1) Magnesium Level 2.1 mg/dL (1.8-2.4) Ferritin 102 ng/mL (8-252) Lactate Dehydrogenase 146 U/L (81-234) Creatine Kinase 369 U/L (26-192) Laboratory Tests Test 02/05/21 11:54 02/05/21 17:11 02/05/21 21:23 02/06/21 03:55 Glucose (Fingerstick) 101 mg/dL (70-99) 110 mg/dL (70-99) 151 mg/dL (70-99) White Blood Count 10.1 x10^3/uL (4.0-11.0) Red Blood Count 3.03 x10^6/uL (3.50-5.40) Hemoglobin 7.9 g/dL (12.0-15.5) Hematocrit 23.9 % (36.0-47.0) Mean Corpuscular Volume 79 fL (79-100) Mean Corpuscular Hemoglobin 26 pg (25-35) Mean Corpuscular Hemoglobin Concent 33 g/dL (31-37) Red Cell Distribution Width 16.2 % (11.5-14.5) Platelet Count 220 x10^3/uL (140-400) Neutrophils (%) (Auto) 73 % (31-73) Lymphocytes (%) (Auto) 16 % (24-48) Monocytes (%) (Auto) 9 % (0-9) Eosinophils (%) (Auto) 3 % (0-3) Basophils (%) (Auto) 0 % (0-3) Neutrophils # (Auto) 7.3 x10^3/uL (1.8-7.7) Lymphocytes # (Auto) 1.6 x10^3/uL (1.0-4.8) Monocytes # (Auto) 0.9 x10^3/uL (0.0-1.1) Eosinophils # (Auto) 0.3 x10^3/uL (0.0-0.7) Basophils # (Auto) 0.0 x10^3/uL (0.0-0.2) Sodium Level 146 mmol/L (136-145) Potassium Level 3.7 mmol/L (3.5-5.1) Chloride Level 110 mmol/L (98-107) Carbon Dioxide Level 30 mmol/L (21-32) Anion Gap 6 (6-14) Blood Urea Nitrogen 21 mg/dL (7-20) Creatinine 1.2 mg/dL (0.6-1.0) Estimated GFR (Cockcroft-Gault) 44.8 Glucose Level 95 mg/dL (70-99) Calcium Level 8.8 mg/dL (8.5-10.1) Magnesium Level 2.1 mg/dL (1.8-2.4) Ferritin 102 ng/mL (8-252) Lactate Dehydrogenase 146 U/L (81-234) Creatine Kinase 369 U/L (26-192) Test 02/06/21 07:17 Glucose (Fingerstick) 90 mg/dL (70-99) Medications Active Scripts Medications Dose Route/Sig Max Daily Dose Days Date Category Dose Instructions Zofran (Ondansetron Hcl) 4 Mg Tablet 1 Tab PO PRN Q4HRS PRN 02/02/21 Reported Vitamin C (Ascorbic Acid) 500 Mg Capsule 500 Mg PO BID 02/02/21 Reported Santyl Ointment (Collagenase) 30 Gm Oint...g. 1 Kimberlee TP QSUTUTH 02/02/21 Reported DIRECTED BY PHYSICIAN Hydrocodone-Apap 5-325 (Hydrocodone Bit/Acetaminophen) 1 Tab Tablet 1 Tab PO PRN Q8HRS PRN 02/02/21 Reported Thera-M Caplet (Multivit,Ther Iron,Ca,Fa & Min) 1 Each Tablet 1 Each PO DAILY 02/02/21 Reported Milk Of Magnesia (Magnesium Hydroxide) 400 Mg/5 Ml Oral.susp 30 Ml PO PRN DAILY PRN 02/02/21 Reported Melatonin 3 Mg Tablet.er 3 Mg PO PRN QHS PRN 02/02/21 Reported Insulin Aspart Flexpen (Insulin Aspart) 100 Unit/1 Ml Insuln.pen 15 Unit SQ TIDAC 02/02/21 Reported Dulcolax (Bisacodyl) 10 Mg Supp.rect 10 Mg RC PRN DAILY PRN 02/02/21 Reported Tylenol (Acetaminophen) 325 Mg Tablet 650 Mg PO PRN Q6HRS PRN 02/02/21 Reported Lisinopril 5 Mg Tablet 5 Mg PO DAILY 02/02/21 Reported Insulin Aspart 100 Unit/1 Ml Vial 100 Unit SQ SLIDING SCALE 11/17/20 Reported Levemir Flextouch (Insulin Detemir) 100 Unit/1 Ml Insuln.pen 50 Unit SQ BID 11/17/20 Reported Escitalopram Oxalate 10 Mg Tablet 10 Mg PO DAILY 11/17/20 Reported Carvedilol 25 Mg Tablet Unknown Dose PO BIDWMEALS 09/01/20 Reported Atorvastatin Calcium 80 Mg Tablet Unknown Dose PO QHS 09/01/20 Reported Clopidogrel (Clopidogrel Bisulfate) 75 Mg Tablet Unknown Dose PO DAILY 09/01/20 Reported Metformin Hcl 500 Mg Tablet 500 Mg PO BID 09/01/20 Reported Impression . IMPRESSION: 1. Acute hypoxemic respiratory failure, multifactorial. 2. Suspect aspiration pneumonia. 3. Abnormal x-ray compatible with bilateral nodular alveolar type of infiltrates, suspect chronic on top of acute infiltrates. 4. Rule out SARS-CoV-2., Pending 5. Influenza screen negative 6. History of cerebrovascular accident with right-sided hemiparesis. 7. Type 2 diabetes. 8. Intractable emesis. 9. Fever. 10. Carotic stenosis 11. Diabetic heel ulcer right greater than left Plan . Updated 02/06 Continue antibiotics Follow GI input Emesis is better Up to chair Follow speech Updated 02/04 continue current support with antibiotics Follow other consultants input If fever persists may require ID consult Nausea and vomiting is better today Updated 02/03 Discussed with speech Continue antibiotics We will defer advancing diet to PCP Follow GI input LOREN LUGO MD Feb 06, 2021 10:23
[2021-02-06] MEDS: metFORMIN 500 MG TABLET PO SCH ×2 (10:50→17:05)
[2021-02-06] MEDS: LISINOPRIL 5 MG TABLET. PO SCH (10:51)
[2021-02-06] MEDS: PANTOPRAZOLE 40 MG TABLET.DR. PO SCH (10:51)
[2021-02-06] MEDS: CLOPIDOGREL BISULFATE 75 MG TABLET PO SCH (10:51)
[2021-02-06] MEDS: CITALOPRAM 20 MG TABLET. PO SCH (10:51)
[2021-02-06] MEDS: METOPROLOL SUCC 24HR ER 25 MG TAB.ER.24H. PO SCH (10:54)
[2021-02-06] MEDS: INSULIN GLARGINE SYRINGE. SQ SCH ×2 (10:58→23:27)
[2021-02-06 11:07] VITALS: BP 184/66
[2021-02-06] MEDS: hydrALAZINE 20 MG/ML VIAL. IVP PRN (12:01)
[2021-02-06] MEDS: LABETALOL 20 MG/4 ML DISP.SYRIN. IVP PRN (13:36)
[2021-02-06 15:02] VITALS: BP 172/64
[2021-02-06 19:00] VITALS: BP 156/72
[2021-02-06] MEDS: ATORVASTATIN CALCIUM 40 MG TABLET. PO SCH (21:06)
[2021-02-06] MEDS: ENOXAPARIN 40 MG/0.4 ML SYRINGE. SQ SCH (21:07)
[2021-02-06] MEDS: ONDANSETRON PF 4 MG/2 ML VIAL. IVP PRN (21:09)
[2021-02-06 23:00] VITALS: BP 186/78
[2021-02-07] MEDS: PIPERACILLIN/TAZOBACTAM 3.375 GM in IV NORMAL SALINE 50ML 50 ML IV SCH ×5 (00:54→23:38)
[2021-02-07] MEDS: METOCLOPRAMIDE HCL 10 MG/2 ML VIAL. IVP PRN ×2 (00:54→08:23)
[2021-02-07 03:00] VITALS: BP 180/91
[2021-02-07] MEDS: ONDANSETRON PF 4 MG/2 ML VIAL. IVP PRN (03:01)
[2021-02-07 07:00] VITALS: BP 175/56
[2021-02-07] MEDS: PANTOPRAZOLE 40 MG TABLET.DR. PO SCH (07:30)
[2021-02-07] MEDS: metFORMIN 500 MG TABLET PO SCH ×2 (08:00→14:05)
[2021-02-07] MEDS: INSULIN LISPRO 300 UNITS/3 ML VIAL. SQ SCH ×3 (08:00→17:00)
--- NOTE | 2021-02-07 08:54 | NUR ---
Pt with nausea and vomiting noted during the noc. Pt given prn reglan and zofran to help with symptoms. Also placed new peripheral IV since leakage noted. Will continue to monitor. Pt encouraged ice chips instead of fluid intake at this time.
[2021-02-07] MEDS: LACTOBACILLUS RHAMNOSUS GG 1 CAPSULE. PO SCH ×2 (09:00→21:16)
[2021-02-07] MEDS: ASCORBIC ACID 500 MG TABLET PO SCH ×2 (09:00→21:16)
[2021-02-07] MEDS: MULTIVITAMIN with MINERAL TABLET. PO SCH (09:00)
[2021-02-07] MEDS: INSULIN GLARGINE SYRINGE. SQ SCH ×2 (09:00→21:20)
--- NOTE | 2021-02-07 10:05 | PDOC ---
PULMONARY PROGRESS NOTES DATE: 02/07/21 TIME: 10:02 Subjective sob better, has occ cough has nausea Vitals Vital Signs Date Time Temp Pulse Resp B/P (MAP) Pulse Ox O2 Delivery O2 Flow Rate FiO2 02/07/21 07:00 98.2 73 18 175/56 (95) 96 Nasal Cannula 2.0 98.2 ROS: No Nausea, No Chest Pain, No Abdominal Pain, No Increase Cough General: Alert Lungs: Crackles Cardiovascular: S1, S2 Abdomen: Soft Neuro Exam: Alert Extremities: No Edema Skin: Warm Labs Laboratory Tests Test 02/05/21 11:54 02/05/21 17:11 02/05/21 21:23 02/06/21 03:55 Glucose (Fingerstick) 101 mg/dL (70-99) 110 mg/dL (70-99) 151 mg/dL (70-99) White Blood Count 10.1 x10^3/uL (4.0-11.0) Red Blood Count 3.03 x10^6/uL (3.50-5.40) Hemoglobin 7.9 g/dL (12.0-15.5) Hematocrit 23.9 % (36.0-47.0) Mean Corpuscular Volume 79 fL (79-100) Mean Corpuscular Hemoglobin 26 pg (25-35) Mean Corpuscular Hemoglobin Concent 33 g/dL (31-37) Red Cell Distribution Width 16.2 % (11.5-14.5) Platelet Count 220 x10^3/uL (140-400) Neutrophils (%) (Auto) 73 % (31-73) Lymphocytes (%) (Auto) 16 % (24-48) Monocytes (%) (Auto) 9 % (0-9) Eosinophils (%) (Auto) 3 % (0-3) Basophils (%) (Auto) 0 % (0-3) Neutrophils # (Auto) 7.3 x10^3/uL (1.8-7.7) Lymphocytes # (Auto) 1.6 x10^3/uL (1.0-4.8) Monocytes # (Auto) 0.9 x10^3/uL (0.0-1.1) Eosinophils # (Auto) 0.3 x10^3/uL (0.0-0.7) Basophils # (Auto) 0.0 x10^3/uL (0.0-0.2) Sodium Level 146 mmol/L (136-145) Potassium Level 3.7 mmol/L (3.5-5.1) Chloride Level 110 mmol/L (98-107) Carbon Dioxide Level 30 mmol/L (21-32) Anion Gap 6 (6-14) Blood Urea Nitrogen 21 mg/dL (7-20) Creatinine 1.2 mg/dL (0.6-1.0) Estimated GFR (Cockcroft-Gault) 44.8 Glucose Level 95 mg/dL (70-99) Calcium Level 8.8 mg/dL (8.5-10.1) Magnesium Level 2.1 mg/dL (1.8-2.4) Ferritin 102 ng/mL (8-252) Lactate Dehydrogenase 146 U/L (81-234) Creatine Kinase 369 U/L (26-192) Test 02/06/21 07:17 02/06/21 10:35 02/06/21 16:39 02/06/21 21:48 Glucose (Fingerstick) 90 mg/dL (70-99) 143 mg/dL (70-99) 126 mg/dL (70-99) 154 mg/dL (70-99) Test 02/07/21 07:31 Glucose (Fingerstick) 140 mg/dL (70-99) Laboratory Tests Test 02/06/21 10:35 02/06/21 16:39 02/06/21 21:48 02/07/21 07:31 Glucose (Fingerstick) 143 mg/dL (70-99) 126 mg/dL (70-99) 154 mg/dL (70-99) 140 mg/dL (70-99) Medications Active Scripts Medications Dose Route/Sig Max Daily Dose Days Date Category Dose Instructions Zofran (Ondansetron Hcl) 4 Mg Tablet 1 Tab PO PRN Q4HRS PRN 02/02/21 Reported Vitamin C (Ascorbic Acid) 500 Mg Capsule 500 Mg PO BID 02/02/21 Reported Santyl Ointment (Collagenase) 30 Gm Oint...g. 1 Kimberlee TP QSUTUTH 02/02/21 Reported DIRECTED BY PHYSICIAN Hydrocodone-Apap 5-325 (Hydrocodone Bit/Acetaminophen) 1 Tab Tablet 1 Tab PO PRN Q8HRS PRN 02/02/21 Reported Thera-M Caplet (Multivit,Ther Iron,Ca,Fa & Min) 1 Each Tablet 1 Each PO DAILY 02/02/21 Reported Milk Of Magnesia (Magnesium Hydroxide) 400 Mg/5 Ml Oral.susp 30 Ml PO PRN DAILY PRN 02/02/21 Reported Melatonin 3 Mg Tablet.er 3 Mg PO PRN QHS PRN 02/02/21 Reported Insulin Aspart Flexpen (Insulin Aspart) 100 Unit/1 Ml Insuln.pen 15 Unit SQ TIDAC 02/02/21 Reported Dulcolax (Bisacodyl) 10 Mg Supp.rect 10 Mg RC PRN DAILY PRN 02/02/21 Reported Tylenol (Acetaminophen) 325 Mg Tablet 650 Mg PO PRN Q6HRS PRN 02/02/21 Reported Lisinopril 5 Mg Tablet 5 Mg PO DAILY 02/02/21 Reported Insulin Aspart 100 Unit/1 Ml Vial 100 Unit SQ SLIDING SCALE 11/17/20 Reported Levemir Flextouch (Insulin Detemir) 100 Unit/1 Ml Insuln.pen 50 Unit SQ BID 11/17/20 Reported Escitalopram Oxalate 10 Mg Tablet 10 Mg PO DAILY 11/17/20 Reported Carvedilol 25 Mg Tablet Unknown Dose PO BIDWMEALS 09/01/20 Reported Atorvastatin Calcium 80 Mg Tablet Unknown Dose PO QHS 09/01/20 Reported Clopidogrel (Clopidogrel Bisulfate) 75 Mg Tablet Unknown Dose PO DAILY 09/01/20 Reported Metformin Hcl 500 Mg Tablet 500 Mg PO BID 09/01/20 Reported Impression . IMPRESSION: 1. Acute hypoxemic respiratory failure, multifactorial. 2. Suspect aspiration pneumonia. 3. Abnormal x-ray compatible with bilateral nodular alveolar type of infiltrates, suspect chronic on top of acute infiltrates. 4. Rule out SARS-CoV-2., Pending 5. Influenza screen negative 6. History of cerebrovascular accident with right-sided hemiparesis. 7. Type 2 diabetes. 8. Intractable emesis. 9. Fever. 10. Carotic stenosis 11. Diabetic heel ulcer right greater than left Plan . Updated 02/07 Continue antibiotics Follow GI input still has nausea ct of head ordered by dr carrera increase activity lovenox protonix for prophylaxis Follow speech rec discussed w pt rn Updated 02/04 continue current support with antibiotics Follow other consultants input If fever persists may require ID consult Nausea and vomiting is better today Updated 02/03 Discussed with speech Continue antibiotics We will defer advancing diet to PCP Follow GI input JASON SALDANA MD Feb 07, 2021 10:05
--- NOTE | 2021-02-07 10:41 | RAD ---
STUDY: CT head without contrast INDICATION: Intractable nausea and vomiting. COMPARISON: 09/04/2020 TECHNIQUE: Axial CT imaging through the head without the use of intravenous contrast. Sagittal and co francisco reformats were obtained. One or more of the following individualized dose reduction techniques were utilized for this examinat ion: 1. Automated exposure control 2. Adjustment of the mA and/or kV according to patient size 3. Use of iterative reconstruction technique. FINDINGS: No acute intracranial hemorrhage. No localized mass effect or midline shift. Unchanged generalized pr ominence of the ventricular system. Patchy bihemispheric subcortical as well as periventricular hypoattenuation was present previously. A focus of low attenuation at the lateral margin of the right caudate head, image 13 series 2, was see n on the comparison as was hypoattenuation at the left paramedian kristy. No CT evidence for an acute c ortical infarction. Parenchymal volume loss and intracranial calcific atherosclerosis. No newly seen abnormality of the orbits or scalp. Intact calvarium. Normally aerated mastoid air cell s and middle ears. No layering fluid within the visualized paranasal sinuses. Partially atelectatic l eft maxillary sinus. IMPRESSION: 1. No acute abnormality by CT to explain the patient's symptoms. 2. Several chronic/senescent observations as detailed in the body the report are unchanged from 08/15 Electronically signed by: JESSICA PARKER MD (02/07/2021 10:38 AM) [id number]
[2021-02-07 10:59] VITALS: BP 192/72
--- NOTE | 2021-02-07 12:41 | PN ---
DATE: 02/07/2021 SUBJECTIVE: The patient is resting, slightly propped up in bed, in no apparent distress. She continued to complain of nausea and apparently has vomited 3 times last night. Denied any abdominal pain. PHYSICAL EXAMINATION: GENERAL: When I examined her, she looked pale, but no jaundice, cyanosis or thyromegaly. No jugular venous distension. No lower limb edema. VITAL SIGNS: Her heart rate was 73, blood pressure was 175/58, temperature was 98.2, respiratory rate was 18 and oxygen saturation was 96% on 2 liters of oxygen. HEAD, EYES, EARS, NOSE AND THROAT: Showed normocephalic, atraumatic. NECK: Supple. HEART: Showed normal first and second heart sounds. No gallop, rub or murmur. CHEST: Clear to auscultation. No crepitation or rhonchi. ABDOMEN: Distended, soft, nontender. No guarding or rigidity. No organomegaly. All hernial orifice intact. Bowel sounds normal. NEUROLOGIC: She is awake, alert, responding appropriately. All cranial nerves intact. She has right-sided hemiplegia. Her intake was 950, output was 2100. LABORATORY DATA: Showed a white cell count of 10,000, hemoglobin 8, hematocrit 24, MCV 79 and platelet count 220,000. Her most recent chemistry showed a serum sodium 146, potassium 3.7, chloride 110, bicarbonate 30, anion gap of 6, BUN 21, creatinine 1.2, estimated GFR was 44 mL per minute. Her glucose was 95, calcium was 8.8, magnesium was 2.2, serum iron was 12, TIBC was 226. Iron saturation was 5 and serum ferritin was 102. ASSESSMENT: 1. The patient continued to have recurrent episode of nausea and vomiting. 2. Urinary tract infection with a growth of more than 100,000 colony forming units per mL of gram-negative rods identified as Escherichia coli. 3. Aspiration pneumonia. 4. Left middle cerebral artery territory infarct with right-sided hemiplegia. 5. Hypertension. 6. Hyperlipidemia. 7. Peripheral vascular disease. 8. Type 2 diabetes mellitus. PLAN: The plan is obviously to continue with IV antibiotic in the form of piperacillin, tazobactam. Continue with antiemetic and prokinetic. I was wondering whether doing gastric emptying study or perhaps a CT angiogram of the abdomen to see if the patient is having intestinal angina, although she denied any abdominal pain. I will also arrange for her to have a CT scan of the head without contrast to see if there is any possible examination for perhaps high intracranial pressure and recurrent bouts of nausea and vomiting. HUMAIRA LORD MD DR: ALVIN/deuce JOB#: [id number] / [id number]
[2021-02-07] MEDS: hydrALAZINE 20 MG/ML VIAL. IVP PRN ×2 (14:03→23:38)
[2021-02-07] MEDS: CLOPIDOGREL BISULFATE 75 MG TABLET PO SCH (14:04)
[2021-02-07] MEDS: CITALOPRAM 20 MG TABLET. PO SCH (14:05)
[2021-02-07] MEDS: LISINOPRIL 5 MG TABLET. PO SCH (14:05)
[2021-02-07] MEDS: METOPROLOL SUCC 24HR ER 25 MG TAB.ER.24H. PO SCH (14:07)
[2021-02-07 15:00] VITALS: BP 189/68
[2021-02-07 19:00] VITALS: BP 173/68
[2021-02-07] MEDS: ENOXAPARIN 40 MG/0.4 ML SYRINGE. SQ SCH (21:16)
[2021-02-07] MEDS: ATORVASTATIN CALCIUM 40 MG TABLET. PO SCH (21:16)
[2021-02-07 23:00] VITALS: BP 183/83
[2021-02-08 03:00] VITALS: BP 156/56
[2021-02-08] MEDS: ONDANSETRON PF 4 MG/2 ML VIAL. IVP PRN (05:27)
[2021-02-08] MEDS: PIPERACILLIN/TAZOBACTAM 3.375 GM in IV NORMAL SALINE 50ML 50 ML IV SCH ×3 (05:27→17:06)
[2021-02-08] MEDS: METOCLOPRAMIDE HCL 10 MG/2 ML VIAL. IVP PRN ×3 (05:53→17:07)
[2021-02-08 07:00] VITALS: BP 172/75
[2021-02-08] MEDS: INSULIN LISPRO 300 UNITS/3 ML VIAL. SQ SCH ×3 (08:00→17:00)
[2021-02-08 08:16] LABS: ALBUMIN 2.3 g/dL (3.4-5.0); ALBUMIN/GLOBULIN RATIO 0.5 (1.0-1.7); CALCIUM 8.7 mg/dL (8.5-10.1); CREATININE 1.2 mg/dL (0.6-1.0); GFR 44.8; POTASSIUM 3.7 mmol/L (3.5-5.1); TOTAL BILIRUBIN 0.3 mg/dL (0.2-1.0)
[2021-02-08] MEDS: CLOPIDOGREL BISULFATE 75 MG TABLET PO SCH (08:52)
[2021-02-08] MEDS: LACTOBACILLUS RHAMNOSUS GG 1 CAPSULE. PO SCH ×2 (08:52→20:45)
[2021-02-08] MEDS: metFORMIN 500 MG TABLET PO SCH ×2 (08:52→17:06)
[2021-02-08] MEDS: CITALOPRAM 20 MG TABLET. PO SCH (08:52)
[2021-02-08] MEDS: PANTOPRAZOLE 40 MG TABLET.DR. PO SCH (08:52)
[2021-02-08] MEDS: METOPROLOL SUCC 24HR ER 25 MG TAB.ER.24H. PO SCH (08:53)
[2021-02-08] MEDS: LISINOPRIL 5 MG TABLET. PO SCH (08:54)
[2021-02-08] MEDS: ASCORBIC ACID 500 MG TABLET PO SCH ×2 (08:55→20:45)
[2021-02-08] MEDS: MULTIVITAMIN with MINERAL TABLET. PO SCH (08:55)
[2021-02-08] MEDS: INSULIN GLARGINE SYRINGE. SQ SCH ×2 (09:03→20:43)
--- NOTE | 2021-02-08 09:18 | PN ---
DATE: 02/08/2021 SUBJECTIVE: The patient is resting, slightly propped up in bed, eating her yogurt this morning. So far, she has not had any nausea or vomiting. She had loose bowel movement. Denied any abdominal pain. She has been on Reglan yesterday and she only complained of nausea last night at midnight. I did a CT scan of the head yesterday without contrast and it basically showed no acute intracranial hemorrhage. No localized mass effect or midline shift. Unchanged generalized prominence of the ventricular system. Patchy bihemispheric subcortical as well as periventricular hypoattenuation was present previously and the impression showed that there is no acute abnormality by CT to explain the patient's symptoms. Several chronic senescent observation as detailed in the body. PHYSICAL EXAMINATION: GENERAL: When I examined her this morning, she looked well and was clearly in no apparent distress. No pallor, jaundice, cyanosis, or thyromegaly. No jugular venous distension. No lower limb edema. VITAL SIGNS: Her heart rate was 74, blood pressure was 172/75, temperature was 97.8, respiratory rate was 18, and oxygen saturation was 98% on 2 liters of oxygen. HEAD, EYES, EARS, NOSE, AND THROAT: Showed normocephalic, atraumatic. NECK: Supple. HEART: Showed normal first and second heart sounds. No gallop or murmur. CHEST: Clear to auscultation. No crepitation or rhonchi. ABDOMEN: Distended, soft, nontender. NEUROLOGIC: She was awake, alert, responding appropriately. All her cranial nerves are intact. She has right-sided hemiplegia. Her intake over the last 24 hours was 520, output was 950. LABORATORY DATA: Her chemistry showed a serum sodium 149, potassium 3.7, chloride 110, bicarbonate 29, anion gap of 10, BUN 21, creatinine 1.2, estimated GFR was 44 mL per minute. Her glucose was 139, calcium was 8.7. Total bilirubin, AST, ALT, alkaline phosphatase were normal. Lactate dehydrogenase was normal at 174. Total protein 7, albumin was 2.3. Her white cell count was 10,000; hemoglobin 8; hematocrit 24; MCV 79; and platelet count 220,000. ASSESSMENT: 1. The patient continues to have recurrent episodes of nausea and vomiting. Her CT scan of the head, which showed no abnormality and she continues despite being on prokinetic. 2. Urinary tract infection with growth of more than 100,000 colony-forming units per mL of Gram-negative rods identified as Escherichia coli. 3. Aspiration pneumonia. 4. Left middle cerebral artery territory infarct with right-sided hemiplegia. 5. Hypertension. 6. Hyperlipidemia. 7. Peripheral vascular disease. 8. Type 2 diabetes mellitus. PLAN: Is to continue with IV antibiotic. Continue with the antiemetic and prokinetic. CT scan of the head was unremarkable and showed no evidence of any pathology that might explain her symptoms. I will arrange for her to have a gastric emptying study tomorrow. HUMAIRA LORD MD DR: ALVIN/deuce JOB#: [id number] / [id number]
--- NOTE | 2021-02-08 10:40 | PDOC ---
PULMONARY PROGRESS NOTES DATE: 02/08/21 TIME: 10:37 Subjective sob better, has occ cough has nausea on 02 2 lpm not on 02 at home Vitals Vital Signs Date Time Temp Pulse Resp B/P (MAP) Pulse Ox O2 Delivery O2 Flow Rate FiO2 02/08/21 08:54 74 172/75 02/08/21 07:11 16 98 Nasal Cannula 2.0 02/08/21 07:00 97.8 97.8 ROS: No Chest Pain, No Abdominal Pain, No Increase Cough General: Alert Lungs: Clear Cardiovascular: S1, S2 Abdomen: Soft Neuro Exam: Alert Extremities: No Edema Skin: Warm Labs Laboratory Tests Test 02/06/21 16:39 02/06/21 21:48 02/07/21 07:31 02/07/21 11:42 Glucose (Fingerstick) 126 mg/dL (70-99) 154 mg/dL (70-99) 140 mg/dL (70-99) 124 mg/dL (70-99) Test 02/07/21 17:02 02/07/21 20:08 02/08/21 06:10 02/08/21 07:46 Glucose (Fingerstick) 170 mg/dL (70-99) 165 mg/dL (70-99) 139 mg/dL (70-99) Sodium Level 149 mmol/L (136-145) Potassium Level 3.7 mmol/L (3.5-5.1) Chloride Level 110 mmol/L (98-107) Carbon Dioxide Level 29 mmol/L (21-32) Anion Gap 10 (6-14) Blood Urea Nitrogen 21 mg/dL (7-20) Creatinine 1.2 mg/dL (0.6-1.0) Estimated GFR (Cockcroft-Gault) 44.8 BUN/Creatinine Ratio 18 (6-20) Glucose Level 139 mg/dL (70-99) Calcium Level 8.7 mg/dL (8.5-10.1) Total Bilirubin 0.3 mg/dL (0.2-1.0) Aspartate Amino Transf (AST/SGOT) 9 U/L (15-37) Alanine Aminotransferase (ALT/SGPT) 12 U/L (14-59) Alkaline Phosphatase 58 U/L (46-116) Lactate Dehydrogenase 174 U/L (81-234) Total Protein 7.0 g/dL (6.4-8.2) Albumin 2.3 g/dL (3.4-5.0) Albumin/Globulin Ratio 0.5 (1.0-1.7) Laboratory Tests Test 02/07/21 11:42 02/07/21 17:02 02/07/21 20:08 02/08/21 06:10 Glucose (Fingerstick) 124 mg/dL (70-99) 170 mg/dL (70-99) 165 mg/dL (70-99) Sodium Level 149 mmol/L (136-145) Potassium Level 3.7 mmol/L (3.5-5.1) Chloride Level 110 mmol/L (98-107) Carbon Dioxide Level 29 mmol/L (21-32) Anion Gap 10 (6-14) Blood Urea Nitrogen 21 mg/dL (7-20) Creatinine 1.2 mg/dL (0.6-1.0) Estimated GFR (Cockcroft-Gault) 44.8 BUN/Creatinine Ratio 18 (6-20) Glucose Level 139 mg/dL (70-99) Calcium Level 8.7 mg/dL (8.5-10.1) Total Bilirubin 0.3 mg/dL (0.2-1.0) Aspartate Amino Transf (AST/SGOT) 9 U/L (15-37) Alanine Aminotransferase (ALT/SGPT) 12 U/L (14-59) Alkaline Phosphatase 58 U/L (46-116) Lactate Dehydrogenase 174 U/L (81-234) Total Protein 7.0 g/dL (6.4-8.2) Albumin 2.3 g/dL (3.4-5.0) Albumin/Globulin Ratio 0.5 (1.0-1.7) Test 02/08/21 07:46 Glucose (Fingerstick) 139 mg/dL (70-99) Medications Active Scripts Medications Dose Route/Sig Max Daily Dose Days Date Category Dose Instructions Zofran (Ondansetron Hcl) 4 Mg Tablet 1 Tab PO PRN Q4HRS PRN 02/02/21 Reported Vitamin C (Ascorbic Acid) 500 Mg Capsule 500 Mg PO BID 02/02/21 Reported Santyl Ointment (Collagenase) 30 Gm Oint...g. 1 Kimberlee TP QSUTUTH 02/02/21 Reported DIRECTED BY PHYSICIAN Hydrocodone-Apap 5-325 (Hydrocodone Bit/Acetaminophen) 1 Tab Tablet 1 Tab PO PRN Q8HRS PRN 02/02/21 Reported Thera-M Caplet (Multivit,Ther Iron,Ca,Fa & Min) 1 Each Tablet 1 Each PO DAILY 02/02/21 Reported Milk Of Magnesia (Magnesium Hydroxide) 400 Mg/5 Ml Oral.susp 30 Ml PO PRN DAILY PRN 02/02/21 Reported Melatonin 3 Mg Tablet.er 3 Mg PO PRN QHS PRN 02/02/21 Reported Insulin Aspart Flexpen (Insulin Aspart) 100 Unit/1 Ml Insuln.pen 15 Unit SQ TIDAC 02/02/21 Reported Dulcolax (Bisacodyl) 10 Mg Supp.rect 10 Mg RC PRN DAILY PRN 02/02/21 Reported Tylenol (Acetaminophen) 325 Mg Tablet 650 Mg PO PRN Q6HRS PRN 02/02/21 Reported Lisinopril 5 Mg Tablet 5 Mg PO DAILY 02/02/21 Reported Insulin Aspart 100 Unit/1 Ml Vial 100 Unit SQ SLIDING SCALE 11/17/20 Reported Levemir Flextouch (Insulin Detemir) 100 Unit/1 Ml Insuln.pen 50 Unit SQ BID 11/17/20 Reported Escitalopram Oxalate 10 Mg Tablet 10 Mg PO DAILY 11/17/20 Reported Carvedilol 25 Mg Tablet Unknown Dose PO BIDWMEALS 09/01/20 Reported Atorvastatin Calcium 80 Mg Tablet Unknown Dose PO QHS 09/01/20 Reported Clopidogrel (Clopidogrel Bisulfate) 75 Mg Tablet Unknown Dose PO DAILY 09/01/20 Reported Metformin Hcl 500 Mg Tablet 500 Mg PO BID 09/01/20 Reported Impression . IMPRESSION: 1. Acute hypoxemic respiratory failure, multifactorial. 2. Suspect aspiration pneumonia. 3. Abnormal x-ray compatible with bilateral nodular alveolar type of infiltrates, suspect chronic on top of acute infiltrates. 4. Rule out SARS-CoV-2., Pending 5. Influenza screen negative 6. History of cerebrovascular accident with right-sided hemiparesis. 7. Type 2 diabetes. 8. Intractable emesis. 9. Fever. 10. Carotic stenosis 11. Diabetic heel ulcer right greater than left Plan . Updated 02/08 ttirate fio2 to keep sat 90% Continue antibiotics Follow GI input still has nausea ct of head ordered by dr carrera no acute abnl increase activity lovenox protonix for prophylaxis Follow speech rec discussed w pt rn Updated 02/04 continue current support with antibiotics Follow other consultants input If fever persists may require ID consult Nausea and vomiting is better today Updated 02/03 Discussed with speech Continue antibiotics We will defer advancing diet to PCP Follow GI input JASON SALDANA MD Feb 08, 2021 10:40
[2021-02-08 11:00] VITALS: BP 173/70
[2021-02-08 15:00] VITALS: BP 190/64
[2021-02-08 19:00] VITALS: BP 172/60
[2021-02-08] MEDS: ENOXAPARIN 40 MG/0.4 ML SYRINGE. SQ SCH (20:44)
[2021-02-08] MEDS: ATORVASTATIN CALCIUM 40 MG TABLET. PO SCH (20:45)
[2021-02-08 22:55] VITALS: BP 174/72
[2021-02-09] MEDS: PIPERACILLIN/TAZOBACTAM 3.375 GM in IV NORMAL SALINE 50ML 50 ML IV SCH ×5 (00:25→23:41)
[2021-02-09] MEDS: METOCLOPRAMIDE HCL 10 MG/2 ML VIAL. IVP PRN ×3 (02:11→16:59)
[2021-02-09 03:00] VITALS: BP 157/64
[2021-02-09 07:00] VITALS: BP 171/70
[2021-02-09] MEDS: PANTOPRAZOLE 40 MG TABLET.DR. PO SCH (07:30)
[2021-02-09 07:36] LABS: CALCIUM 8.9 mg/dL (8.5-10.1); CREATININE 1.3 mg/dL (0.6-1.0); GFR 40.9; POTASSIUM 4.1 mmol/L (3.5-5.1)
[2021-02-09] MEDS: INSULIN LISPRO 300 UNITS/3 ML VIAL. SQ SCH ×3 (08:00→16:41)
[2021-02-09] MEDS: metFORMIN 500 MG TABLET PO SCH ×2 (08:00→16:59)
[2021-02-09] MEDS: CITALOPRAM 20 MG TABLET. PO SCH (09:00)
[2021-02-09] MEDS: METOPROLOL SUCC 24HR ER 25 MG TAB.ER.24H. PO SCH (09:00)
[2021-02-09] MEDS: ASCORBIC ACID 500 MG TABLET PO SCH ×2 (09:00→16:59)
[2021-02-09] MEDS: MULTIVITAMIN with MINERAL TABLET. PO SCH (09:00)
[2021-02-09] MEDS: LISINOPRIL 5 MG TABLET. PO SCH (09:00)
[2021-02-09] MEDS: CLOPIDOGREL BISULFATE 75 MG TABLET PO SCH (09:00)
[2021-02-09] MEDS: LACTOBACILLUS RHAMNOSUS GG 1 CAPSULE. PO SCH ×2 (09:00→20:59)
[2021-02-09] MEDS: INSULIN GLARGINE SYRINGE. SQ SCH ×2 (09:00→21:03)
--- NOTE | 2021-02-09 09:52 | PDOC ---
PROGRESS NOTES Date of Service DATE: 02/09/21 TIME: 09:49 Subjective Subjective Patient seen and examined in room. Patient has had some improvement in the pain in her right heel. Patient continues to have nausea. Objective Objective Vital Signs Date Time Temp Pulse Resp B/P (MAP) Pulse Ox O2 Delivery O2 Flow Rate FiO2 02/09/21 07:00 97.9 73 18 171/70 (103) 98 Nasal Cannula 3.0 97.9 Intake and Output 02/09/21 07:00 # Voids 2 Physical Exam Physical Exam General: Alert and oriented X3 Cardiac: Heart rate regular. Lungs: Non-labored respirations. Abdomen: Obese. Skin: Right heel with eschar, no slough. Small area of eschar has unroofed, this is now pink. No erythema or swelling. Left heel with improvement in erythema, small intact callous. Neurological: Sensation intact bilaterally. 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 Right worse than left. Both appear to be improved from the last visit. -continue to off-load on pillows, prafo boots ordered. -local wound care per wound care team. Will follow peripherally. Comment Review of Relevant I have reviewed the following items laurie (where applicable) has been applied. Labs Laboratory Tests Test 02/07/21 11:42 02/07/21 17:02 02/07/21 20:08 02/08/21 06:10 Glucose (Fingerstick) 124 mg/dL (70-99) 170 mg/dL (70-99) 165 mg/dL (70-99) Sodium Level 149 mmol/L (136-145) Potassium Level 3.7 mmol/L (3.5-5.1) Chloride Level 110 mmol/L (98-107) Carbon Dioxide Level 29 mmol/L (21-32) Anion Gap 10 (6-14) Blood Urea Nitrogen 21 mg/dL (7-20) Creatinine 1.2 mg/dL (0.6-1.0) Estimated GFR (Cockcroft-Gault) 44.8 BUN/Creatinine Ratio 18 (6-20) Glucose Level 139 mg/dL (70-99) Calcium Level 8.7 mg/dL (8.5-10.1) Total Bilirubin 0.3 mg/dL (0.2-1.0) Aspartate Amino Transf (AST/SGOT) 9 U/L (15-37) Alanine Aminotransferase (ALT/SGPT) 12 U/L (14-59) Alkaline Phosphatase 58 U/L (46-116) Lactate Dehydrogenase 174 U/L (81-234) Total Protein 7.0 g/dL (6.4-8.2) Albumin 2.3 g/dL (3.4-5.0) Albumin/Globulin Ratio 0.5 (1.0-1.7) Test 02/08/21 07:46 02/08/21 11:30 02/08/21 16:39 02/08/21 18:53 Glucose (Fingerstick) 139 mg/dL (70-99) 201 mg/dL (70-99) 177 mg/dL (70-99) 168 mg/dL (70-99) Test 02/09/21 05:45 02/09/21 07:11 Sodium Level 145 mmol/L (136-145) Potassium Level 4.1 mmol/L (3.5-5.1) Chloride Level 110 mmol/L (98-107) Carbon Dioxide Level 28 mmol/L (21-32) Anion Gap 7 (6-14) Blood Urea Nitrogen 24 mg/dL (7-20) Creatinine 1.3 mg/dL (0.6-1.0) Estimated GFR (Cockcroft-Gault) 40.9 Glucose Level 133 mg/dL (70-99) Calcium Level 8.9 mg/dL (8.5-10.1) Glucose (Fingerstick) 132 mg/dL (70-99) Laboratory Tests Test 02/08/21 11:30 02/08/21 16:39 02/08/21 18:53 02/09/21 05:45 Glucose (Fingerstick) 201 mg/dL (70-99) 177 mg/dL (70-99) 168 mg/dL (70-99) Sodium Level 145 mmol/L (136-145) Potassium Level 4.1 mmol/L (3.5-5.1) Chloride Level 110 mmol/L (98-107) Carbon Dioxide Level 28 mmol/L (21-32) Anion Gap 7 (6-14) Blood Urea Nitrogen 24 mg/dL (7-20) Creatinine 1.3 mg/dL (0.6-1.0) Estimated GFR (Cockcroft-Gault) 40.9 Glucose Level 133 mg/dL (70-99) Calcium Level 8.9 mg/dL (8.5-10.1) Test 02/09/21 07:11 Glucose (Fingerstick) 132 mg/dL (70-99) Microbiology 02/02/21 Blood Culture - Final, Complete NO GROWTH AFTER 5 DAYS 02/01/21 Urine Culture - Final, Complete 02/01/21 Antimicrobic Susceptibility - Final, Complete Medications Current Medications Sodium Chloride 1,000 ml @ 1,000 mls/hr Q1H IV Last administered on 02/01/21at 20:48; Start 02/01/21 at 20:00; Stop 02/01/21 at 20:59; Status DC Piperacillin Sod/ Tazobactam Sod 3.375 gm/Sodium Chloride 50 ml @ 100 mls/hr 1X ONCE IV Last administered on 02/01/21at 21:21; Start 02/01/21 at 21:00; Stop 02/01/21 at 21:29; Status DC Ondansetron HCl (Zofran) 4 mg PRN Q8HRS PRN IV NAUSEA/VOMITING; Start 02/01/21 at 21:15; Stop 02/01/21 at 21:35; Status DC Labetalol HCl (Normodyne Iv Push) 20 mg PRN Q30MIN PRN IVP HYPERTENSION Last administered on 02/06/21at 13:36; Start 02/01/21 at 21:15 Piperacillin Sod/ Tazobactam Sod (Zosyn Per Pharmacy) 1 each PRN DAILY PRN MC SEE COMMENTS; Start 02/01/21 at 21:15 Tramadol HCl (Ultram) 50 mg PRN Q6HRS PRN PO MILD PAIN 1-3; Start 02/01/21 at 21:30; Stop 02/09/21 at 09:35; Status DC Morphine Sulfate (Morphine Sulfate) 4 mg PRN Q3HRS PRN IV SEVERE PAIN; Start 02/01/21 at 21:30; Stop 02/09/21 at 09:37; Status DC Ondansetron HCl (Zofran) 4 mg PRN Q6HRS PRN IVP NAUSEA/VOMITING Last administered on 02/08/21at 05:27; Start 02/01/21 at 21:30 Al Hydroxide/Mg Hydroxide (Mylanta Plus Xs) 30 ml PRN Q3HRS PRN PO HEARTBURN / GAS; Start 02/01/21 at 21:30 Calcium Carbonate/ Glycine (Tums) 500 mg PRN Q3HRS PRN PO UPSET STOMACH; Start 02/01/21 at 21:30 Zolpidem Tartrate (Ambien) 5 mg PRN QHS PRN PO INSOMNIA, MAY REPEAT IN 1HR; Start 02/01/21 at 21:30 Morphine Sulfate (Morphine Sulfate) 2 mg PRN Q1HR PRN IV MODERATE PAIN Last administered on 02/08/21at 00:42; Start 02/01/21 at 21:30; Stop 02/09/21 at 09:37; Status DC Oxycodone/ Acetaminophen (Percocet 5/325) 1 tab PRN Q4HRS PRN PO SEVERE PAIN Last administered on 02/08/21at 05:32; Start 02/01/21 at 21:30; Stop 02/09/21 at 09:35; Status DC Acetaminophen (Tylenol) 650 mg PRN Q6HRS PRN PO Headaches, Temp > 101.5F Last administered on 02/02/21at 15:22; Start 02/01/21 at 21:30 Magnesium Hydroxide (Milk Of Magnesia) 2,400 mg PRN Q12HR PRN PO CONSTIPATION; Start 02/01/21 at 21:30 Bisacodyl (Dulcolax Supp) 10 mg PRN DAILY PRN [place] CONSTIPATION; Start 02/01/21 at 21:30 Enoxaparin Sodium (Lovenox 40mg Syringe) 40 mg Q24H SQ Last administered on 02/08/21at 20:44; Start 02/01/21 at 21:30 Clopidogrel Bisulfate (Plavix) 75 mg DAILY PO Last administered on 02/08/21at 08:52; Start 02/02/21 at 09:00 Citalopram Hydrobromide (CeleXA) 20 mg DAILY PO Last administered on 02/08/21at 08:52; Start 02/02/21 at 09:00; Stop 02/09/21 at 09:35; Status DC Non-Formulary Medication (Insulin Detemir (Levemir Flextouch)) 50 unit BID SQ ; Start 02/02/21 at 09:00; Status UNV Tramadol HCl (Ultram) 50 mg PRN Q6HRS PRN PO PAIN; Start 02/01/21 at 21:30; Stop 02/01/21 at 21:35; Status DC Insulin Glargine (Lantus Syringe) 50 unit BID SQ Last administered on 02/03/21at 22:35; Start 02/02/21 at 09:00; Stop 02/05/21 at 11:00; Status DC Insulin Human Lispro (HumaLOG) 9 units TIDWMEALS SQ Last administered on 02/02/21at 11:51; Start 02/02/21 at 08:00; Stop 02/05/21 at 11:00; Status DC Dextrose (Dextrose 50%-Water Syringe) 12.5 gm PRN Q15MIN PRN IV SEE COMMENTS Last administered on 02/05/21at 08:09; Start 02/01/21 at 22:00 Dextrose (Iv Dextrose 5%) 250 ml PRN Q15MIN PRN IV SEE COMMENTS; Start 02/01/21 at 22:00 Piperacillin Sod/ Tazobactam Sod 3.375 gm/Sodium Chloride 50 ml @ 100 mls/hr ONCE ONCE IV Last administered on 02/02/21at 03:33; Start 02/02/21 at 03:30; Stop 02/02/21 at 03:59; Status DC Piperacillin Sod/ Tazobactam Sod 3.375 gm/Sodium Chloride 50 ml @ 100 mls/hr Q6HRS IV Last administered on 02/09/21at 05:48; Start 02/02/21 at 12:00 Lactobacillus Rhamnosus (Culturelle) 1 cap BID PO Last administered on 02/08/21at 20:45; Start 02/02/21 at 21:00 Acetaminophen (Tylenol) 650 mg PRN Q6HRS PRN PO MILD PAIN / TEMP > 100.3'F; Start 02/02/21 at 12:30; Status UNV Bisacodyl (Dulcolax Supp) 10 mg PRN DAILY PRN [place] CONSTIPATION; Start 02/02/21 at 12:30; Status UNV Acetaminophen/ Hydrocodone Bitart (Lortab 5/325) 1 tab PRN Q8HRS PRN PO MODERATE PAIN; Start 02/02/21 at 12:30; Stop 02/09/21 at 09:35; Status DC Lisinopril (Prinivil) 5 mg DAILY PO Last administered on 02/08/21at 08:54; Start 02/02/21 at 13:00 Magnesium Hydroxide (Milk Of Magnesia) 2,400 mg PRN DAILY PRN PO CONSTIPATION; Start 02/02/21 at 12:30; Status UNV Metformin HCl (Glucophage) 500 mg BIDWMEALS PO Last administered on 02/08/21at 17:06; Start 02/02/21 at 17:00 Ascorbic Acid (Vitamin C) 500 mg BID PO Last administered on 02/08/21at 20:45; Start 02/02/21 at 21:00; Stop 02/09/21 at 09:39; Status DC Non-Formulary Medication (Collagenase Clostridium Hist. (Santyl Ointment)) 1 [place] [facility] ; Start 02/03/21 at 16:00; Status UNV Non-Formulary Medication (Insulin Aspart ) 100 unit sliding scale SQ ; Start 02/02/21 at 12:30; Status UNV Non-Formulary Medication (Insulin Aspart (Insulin Aspart Flexpen)) 15 unit TIDAC SQ ; Start 02/02/21 at 16:30; Status UNV Non-Formulary Medication (Melatonin ) 3 mg PRN QHS PRN PO INSOMNIA; Start 02/02/21 at 12:30; Status UNV Multivitamins (Thera M Plus) 1 tab DAILY PO Last administered on 02/05/21at 08:13; Start 02/02/21 at 13:00; Stop 02/09/21 at 09:40; Status DC Ondansetron HCl (Zofran Odt) 4 mg PRN Q4HRS PRN PO NAUSEA/VOMITING; Start 02/02/21 at 12:45 Atorvastatin Calcium (Lipitor) 40 mg QHS PO Last administered on 02/08/21at 20:45; Start 02/02/21 at 21:00 Vancomycin HCl (Vanco Per Pharmacy) 1 each PRN DAILY PRN MC SEE COMMENTS Last administered on 02/04/21at 15:20; Start 02/02/21 at 16:15; Stop 02/05/21 at 10:51; Status DC Metoclopramide HCl (Reglan Vial) 10 mg QIDACHS IVP Last administered on 02/05/21at 12:42; Start 02/02/21 at 16:30; Stop 02/05/21 at 14:01; Status DC Vancomycin HCl 1.5 gm/Sodium Chloride 500 ml @ 250 mls/hr Q24H IV Last administered on 02/04/21at 17:04; Start 02/02/21 at 17:00; Stop 02/05/21 at 10:52; Status DC Vancomycin HCl (Vancomycin Trough Level) 1 each 1X ONCE MC ; Start 02/04/21 at 18:00; Stop 02/05/21 at 10:51; Status DC Pantoprazole Sodium (PROTONIX VIAL for IV PUSH) 40 mg DAILYAC IVP Last administered on 02/05/21at 08:12; Start 02/03/21 at 11:00; Stop 02/05/21 at 11:10; Status DC Furosemide (Lasix) 20 mg 1X ONCE IVP Last administered on 02/03/21at 16:52; Start 02/03/21 at 16:15; Stop 02/03/21 at 16:16; Status DC Hydralazine HCl (Apresoline Inj) 10 mg PRN Q4HRS PRN IVP ELEVATED BP, 1ST CHOICE Last administered on 02/07/21at 23:38; Start 02/03/21 at 16:15 Metoprolol Succinate (Toprol Xl) 12.5 mg DAILY PO Last administered on 02/08/21at 08:53; Start 02/04/21 at 14:00 Insulin Human Lispro (HumaLOG) 0-5 UNITS TIDWMEALS SQ ; Start 02/05/21 at 12:00 Dextrose (Dextrose 50%-Water Syringe) 12.5 gm PRN Q15MIN PRN IV SEE COMMENTS; Start 02/05/21 at 11:00; Status UNV Insulin Glargine (Lantus Syringe) 10 unit BID SQ Last administered on 02/08/21at 20:43; Start 02/05/21 at 12:00 Pantoprazole Sodium (Protonix) 40 mg DAILYAC PO Last administered on 02/08/21at 08:52; Start 02/06/21 at 07:30 Metoclopramide HCl (Reglan Vial) 10 mg PRN Q6HRS PRN IVP NAUSEA/VOMITING Last administered on 02/09/21at 02:11; Start 02/05/21 at 14:15 Ascorbic Acid (Vitamin C) 500 mg BIDWMEALS PO ; Start 02/09/21 at 17:00 Multivitamins (Thera M Plus) 1 tab DAILYWBKFT PO ; Start 02/10/21 at 08:00 Active Scripts Active Reported Zofran (Ondansetron Hcl) 4 Mg Tablet 1 Tab PO PRN Q4HRS PRN Vitamin C (Ascorbic Acid) 500 Mg Capsule 500 Mg PO BID Santyl Ointment (Collagenase) 30 Gm Oint...g. 1 Kimberlee TP QSUTUTH DIRECTED BY PHYSICIAN Hydrocodone-Apap 5-325 (Hydrocodone Bit/Acetaminophen) 1 Tab Tablet 1 Tab PO PRN Q8HRS PRN Thera-M Caplet (Multivit,Ther Iron,Ca,Fa & Min) 1 Each Tablet 1 Each PO DAILY Milk Of Magnesia (Magnesium Hydroxide) 400 Mg/5 Ml Oral.susp 30 Ml PO PRN DAILY PRN Melatonin 3 Mg Tablet.er 3 Mg PO PRN QHS PRN Insulin Aspart Flexpen (Insulin Aspart) 100 Unit/1 Ml Insuln.pen 15 Unit SQ TIDAC Dulcolax (Bisacodyl) 10 Mg Supp.rect 10 Mg RC PRN DAILY PRN Tylenol (Acetaminophen) 325 Mg Tablet 650 Mg PO PRN Q6HRS PRN Lisinopril 5 Mg Tablet 5 Mg PO DAILY Insulin Aspart 100 Unit/1 Ml Vial 100 Unit SQ SLIDING SCALE Levemir Flextouch (Insulin Detemir) 100 Unit/1 Ml Insuln.pen 50 Unit SQ BID Escitalopram Oxalate 10 Mg Tablet 10 Mg PO DAILY Carvedilol 25 Mg Tablet Unknown Dose PO BIDWMEALS Atorvastatin Calcium 80 Mg Tablet Unknown Dose PO QHS Clopidogrel (Clopidogrel Bisulfate) 75 Mg Tablet Unknown Dose PO DAILY Metformin Hcl 500 Mg Tablet 500 Mg PO BID Vitals/I & O Vital Sign - Last 24 Hours 02/08/21 02/08/21 02/08/21 02/08/21 11:00 15:00 19:00 20:00 Temp 97.7 97.9 97.7 97.7 97.9 97.7 Pulse 75 84 71 Resp 18 18 17 B/P (MAP) 173/70 (104) 190/64 (106) 172/60 (97) Pulse Ox 95 96 94 O2 Delivery Nasal Cannula Nasal Cannula Nasal Cannula Nasal Cannula O2 Flow Rate 2.0 2.0 3.0 2.0 02/08/21 02/09/21 02/09/21 22:55 03:00 07:00 Temp 97.9 97.9 97.9 97.9 97.9 97.9 Pulse 70 68 73 Resp 18 18 18 B/P (MAP) 174/72 (106) 157/64 (95) 171/70 (103) Pulse Ox 95 94 98 O2 Delivery Nasal Cannula Nasal Cannula Nasal Cannula O2 Flow Rate 2.0 3.0 3.0 Justifications for Admission Other Justification HCAP, Resp RE Shaver APRN Feb 09, 2021 09:52
--- NOTE | 2021-02-09 10:01 | PN ---
DATE: 02/09/2021 SUBJECTIVE: The patient is resting, slightly propped up in bed, in no apparent respiratory distress. She is awake, alert, continued to complain of nausea. She is n.p.o. for gastric emptying study. PHYSICAL EXAMINATION: GENERAL: When I examined her this morning, she looked well and was clearly in no apparent respiratory distress. No pallor, jaundice, cyanosis, or thyromegaly. No jugular venous distention. No lower limb edema. VITAL SIGNS: Her heart rate was 73, blood pressure was 171/70, temperature 97.9, respiratory rate was 18, and oxygen saturation was 98% on 3 liters of oxygen. HEAD, EYES, EARS, NOSE, AND THROAT: Showed normocephalic, atraumatic. NECK: Supple. HEART: Showed normal first and second heart sounds. No gallop, rub or murmur. CHEST: Clear to auscultation. No crepitation or rhonchi. ABDOMEN: Distended, soft, nontender. NEUROLOGIC: She was awake, alert, responding appropriately. All cranial nerves intact. She has right-sided hemiplegia. Her intake was 520, output was 400. LABORATORY DATA: As of this morning, her serum sodium was 145, potassium 4.1, chloride 110, bicarbonate 28, anion gap of 7, BUN 24, creatinine 1.3, estimated GFR was 40 mL per minute. Her glucose 133 and calcium was 8.9. ASSESSMENT: 1. The patient continued to have intractable nausea and vomiting. CT scan of the head showed no abnormality to account for her symptoms. She is scheduled for gastric emptying study. 2. Urinary tract infection with growth of more than 100,000 colony-forming units per mL of Gram-negative rods, identified as Escherichia coli. 3. Aspiration pneumonia. 4. Left middle cerebral artery territory infarct, ___-sided hemiplegia. 5. Hypertension. 6. Hyperlipidemia. 7. Peripheral vascular disease. 8. Type 2 diabetes mellitus. PLAN: Is to continue with IV antibiotic. Continue with antiemetic and prokinetic. She is scheduled for gastric emptying study. I will consult our pharmacist to go over her medication to see if any of her medication might be the cause of her persistent nausea and vomiting. HUMAIRA LORD MD DR: ALVIN/deuce JOB#: [id number] / [id number]
[2021-02-09 11:00] VITALS: BP_SYST 171; BP_SYST 193; BP_DIAS 63; BP_DIAS 70
--- NOTE | 2021-02-09 11:58 | PDOC ---
Date of Service: DATE: 02/09/21 TIME: 11:51 Subjective: Subjective: Vomited bile yesterday. Nausea comes in waves. Sometimes related to eating, sometimes not. Sometimes dizzy, sometimes not. Now denies coughing. Pretty wheezy when I saw this morning - she says she needs adjusted in bed and we called staff. Objective: Objective: D/w Dr. Davies - lai w/ ongoing n/v, ordered GES. Vital Signs: Vital Signs Date Time Temp Pulse Resp B/P (MAP) Pulse Ox O2 Delivery O2 Flow Rate FiO2 02/09/21 11:00 97.5 76 20 193/63 (106) 96 Nasal Cannula 3.0 97.5 Labs: Laboratory Tests Test 02/08/21 16:39 02/08/21 18:53 02/09/21 05:45 02/09/21 07:11 Glucose (Fingerstick) 177 mg/dL 168 mg/dL 132 mg/dL Sodium Level 145 mmol/L Potassium Level 4.1 mmol/L Chloride Level 110 mmol/L Carbon Dioxide Level 28 mmol/L Anion Gap 7 Blood Urea Nitrogen 24 mg/dL Creatinine 1.3 mg/dL Estimated GFR (Cockcroft-Gault) 40.9 Glucose Level 133 mg/dL Calcium Level 8.9 mg/dL BLOOD CULTURE Final NO GROWTH AFTER 5 DAYS Imaging: Head CT IMPRESSION: 1. No acute abnormality by CT to explain the patient's symptoms. 2. Several chronic/senescent observations as detailed in the body the report are unchanged from 09/04/2020 PE: GEN: chronically ill LUNGS: exp wheezing HEART: RRR ABD: soft, non-tender NEURO/PSYCH: A & O 3 A/P: N/v Pneumonia, UTI, DM, ACD/ANTONIETA, h/o CVA COVID negative -- Last week she clarified emesis was actually coughing - now denies coughing but still vomiting. Await GES, continue PPI (can change to IV if indicated) and PRN IV Reglan. Justicifation of Admission Dx: Justifications for Admission: Justification of Admission Dx: Yes Stroke - Ischemic: Stroke-Ischemic SONA SHAW Feb 09, 2021 11:58
--- NOTE | 2021-02-09 12:21 | PDOC ---
PULMONARY PROGRESS NOTES DATE: 02/09/21 TIME: 12:19 Subjective faint audible wheezing, has occ cough has nausea on 02 2 lpm not on 02 at home Vitals Vital Signs Date Time Temp Pulse Resp B/P (MAP) Pulse Ox O2 Delivery O2 Flow Rate FiO2 02/09/21 11:00 97.5 76 20 193/63 (106) 96 Nasal Cannula 3.0 97.5 ROS: No Chest Pain, No Abdominal Pain, No Increase Cough General: Alert Lungs: Wheezing Cardiovascular: S1, S2 Abdomen: Soft Neuro Exam: Alert Extremities: No Edema Skin: Warm Labs Laboratory Tests Test 02/07/21 17:02 02/07/21 20:08 02/08/21 06:10 02/08/21 07:46 Glucose (Fingerstick) 170 mg/dL (70-99) 165 mg/dL (70-99) 139 mg/dL (70-99) Sodium Level 149 mmol/L (136-145) Potassium Level 3.7 mmol/L (3.5-5.1) Chloride Level 110 mmol/L (98-107) Carbon Dioxide Level 29 mmol/L (21-32) Anion Gap 10 (6-14) Blood Urea Nitrogen 21 mg/dL (7-20) Creatinine 1.2 mg/dL (0.6-1.0) Estimated GFR (Cockcroft-Gault) 44.8 BUN/Creatinine Ratio 18 (6-20) Glucose Level 139 mg/dL (70-99) Calcium Level 8.7 mg/dL (8.5-10.1) Total Bilirubin 0.3 mg/dL (0.2-1.0) Aspartate Amino Transf (AST/SGOT) 9 U/L (15-37) Alanine Aminotransferase (ALT/SGPT) 12 U/L (14-59) Alkaline Phosphatase 58 U/L (46-116) Lactate Dehydrogenase 174 U/L (81-234) Total Protein 7.0 g/dL (6.4-8.2) Albumin 2.3 g/dL (3.4-5.0) Albumin/Globulin Ratio 0.5 (1.0-1.7) Test 02/08/21 11:30 02/08/21 16:39 02/08/21 18:53 02/09/21 05:45 Glucose (Fingerstick) 201 mg/dL (70-99) 177 mg/dL (70-99) 168 mg/dL (70-99) Sodium Level 145 mmol/L (136-145) Potassium Level 4.1 mmol/L (3.5-5.1) Chloride Level 110 mmol/L (98-107) Carbon Dioxide Level 28 mmol/L (21-32) Anion Gap 7 (6-14) Blood Urea Nitrogen 24 mg/dL (7-20) Creatinine 1.3 mg/dL (0.6-1.0) Estimated GFR (Cockcroft-Gault) 40.9 Glucose Level 133 mg/dL (70-99) Calcium Level 8.9 mg/dL (8.5-10.1) Test 02/09/21 07:11 02/09/21 12:02 Glucose (Fingerstick) 132 mg/dL (70-99) 156 mg/dL (70-99) Laboratory Tests Test 02/08/21 16:39 02/08/21 18:53 02/09/21 05:45 02/09/21 07:11 Glucose (Fingerstick) 177 mg/dL (70-99) 168 mg/dL (70-99) 132 mg/dL (70-99) Sodium Level 145 mmol/L (136-145) Potassium Level 4.1 mmol/L (3.5-5.1) Chloride Level 110 mmol/L (98-107) Carbon Dioxide Level 28 mmol/L (21-32) Anion Gap 7 (6-14) Blood Urea Nitrogen 24 mg/dL (7-20) Creatinine 1.3 mg/dL (0.6-1.0) Estimated GFR (Cockcroft-Gault) 40.9 Glucose Level 133 mg/dL (70-99) Calcium Level 8.9 mg/dL (8.5-10.1) Test 02/09/21 12:02 Glucose (Fingerstick) 156 mg/dL (70-99) Medications Active Scripts Medications Dose Route/Sig Max Daily Dose Days Date Category Dose Instructions Zofran (Ondansetron Hcl) 4 Mg Tablet 1 Tab PO PRN Q4HRS PRN 02/02/21 Reported Vitamin C (Ascorbic Acid) 500 Mg Capsule 500 Mg PO BID 02/02/21 Reported Santyl Ointment (Collagenase) 30 Gm Oint...g. 1 Kimberlee TP QSUTUTH 02/02/21 Reported DIRECTED BY PHYSICIAN Hydrocodone-Apap 5-325 (Hydrocodone Bit/Acetaminophen) 1 Tab Tablet 1 Tab PO PRN Q8HRS PRN 02/02/21 Reported Thera-M Caplet (Multivit,Ther Iron,Ca,Fa & Min) 1 Each Tablet 1 Each PO DAILY 02/02/21 Reported Milk Of Magnesia (Magnesium Hydroxide) 400 Mg/5 Ml Oral.susp 30 Ml PO PRN DAILY PRN 02/02/21 Reported Melatonin 3 Mg Tablet.er 3 Mg PO PRN QHS PRN 02/02/21 Reported Insulin Aspart Flexpen (Insulin Aspart) 100 Unit/1 Ml Insuln.pen 15 Unit SQ TIDAC 02/02/21 Reported Dulcolax (Bisacodyl) 10 Mg Supp.rect 10 Mg RC PRN DAILY PRN 02/02/21 Reported Tylenol (Acetaminophen) 325 Mg Tablet 650 Mg PO PRN Q6HRS PRN 02/02/21 Reported Lisinopril 5 Mg Tablet 5 Mg PO DAILY 02/02/21 Reported Insulin Aspart 100 Unit/1 Ml Vial 100 Unit SQ SLIDING SCALE 11/17/20 Reported Levemir Flextouch (Insulin Detemir) 100 Unit/1 Ml Insuln.pen 50 Unit SQ BID 11/17/20 Reported Escitalopram Oxalate 10 Mg Tablet 10 Mg PO DAILY 11/17/20 Reported Carvedilol 25 Mg Tablet Unknown Dose PO BIDWMEALS 09/01/20 Reported Atorvastatin Calcium 80 Mg Tablet Unknown Dose PO QHS 09/01/20 Reported Clopidogrel (Clopidogrel Bisulfate) 75 Mg Tablet Unknown Dose PO DAILY 09/01/20 Reported Metformin Hcl 500 Mg Tablet 500 Mg PO BID 09/01/20 Reported Impression . IMPRESSION: 1. Acute hypoxemic respiratory failure, multifactorial. 2. Suspect aspiration pneumonia. 3. Abnormal x-ray compatible with bilateral nodular alveolar type of infiltrates, suspect chronic on top of acute infiltrates. 4. SARS-CoV-2.,neg 5. Influenza screen negative 6. History of cerebrovascular accident with right-sided hemiparesis. 7. Type 2 diabetes. 8. Intractable emesis. 9. Fever. 10. Carotic stenosis 11. Diabetic heel ulcer right greater than left Plan . Updated 02/09 wheezing start nebs cxr today ttirate fio2 to keep sat 92% Continue antibiotics Follow GI input nausea per dr debi increase activity lovenox protonix for prophylaxis Follow speech rec discussed w pt rn Updated 02/08 ttirate fio2 to keep sat 90% Continue antibiotics Follow GI input still has nausea ct of head ordered by dr carrera no acute abnl increase activity lovenox protonix for prophylaxis Follow speech rec discussed w pt rn JANIS AUGUSTE MD Feb 09, 2021 12:21
[2021-02-09] MEDS ORDERED: IPRATRPIUM/ALBUTEROL 0.5/2.5MG 3 ML NEBU. ONE (13:50)
[2021-02-09] MEDS: IPRATRPIUM/ALBUTEROL 0.5/2.5MG 3 ML NEBU. NEB SCH ×2 (13:52→20:26)
[2021-02-09] MEDS: ONDANSETRON PF 4 MG/2 ML VIAL. IVP PRN (14:14)
[2021-02-09 15:00] VITALS: BP 193/68
--- NOTE | 2021-02-09 15:54 | RAD ---
History: Reason: intractable nausea and vomiting NM NOTIFIED / Spl. Instructions: / History: Procedure: The patient ate a standard meal containing Tc-99m sulfur colloid. Scintigraphic images of the abdomen were obtained. Counts were obtained. Findings: Retention percentages are as follows: 1 Hr: 100 2 Hr:82 3 Hr:76 4 Hr:76 Normal Retention Percentage Range is as Follows: 1 Hr: 35-91% 2 Hr: 2.7-60% 3 Hr: 0.5-28% 4 Hr: 0-10% Impression: Delayed gastric emptying is identified Electronically signed by: Carmelo Sena MD (02/09/2021 3:51 PM) [id number]
--- NOTE | 2021-02-09 17:40 | RAD ---
EXAM: CHEST 1 VIEW History: Dyspnea COMPARISON: 02/04/2021 TECHNIQUE: Single portable radiograph of the chest Findings/ impression: Low lung volumes and technique accentuates heart size and pulmonary vascularity. Mild prominent bilat eral interstitial lung markings likely mild congestive changes or interstitial infiltrates. Bibasilar lung airspace opacities likely atelectasis or infiltrate slightly increased since prior exam. Electronically signed by: Billy Vergaar MD (02/09/2021 5:38 PM) [id number]
[2021-02-09 19:00] VITALS: BP 179/71
[2021-02-09] MEDS: ATORVASTATIN CALCIUM 40 MG TABLET. PO SCH (20:59)
[2021-02-09] MEDS: ONDANSETRON ODT 4 MG TAB.RAPDIS. PO PRN (20:59)
[2021-02-09] MEDS: ENOXAPARIN 40 MG/0.4 ML SYRINGE. SQ SCH (21:00)
[2021-02-09 22:47] VITALS: BP 183/72
[2021-02-10] MEDS: ONDANSETRON PF 4 MG/2 ML VIAL. IVP PRN ×2 (01:52→20:38)
[2021-02-10 03:05] VITALS: BP 188/63
[2021-02-10] MEDS: PIPERACILLIN/TAZOBACTAM 3.375 GM in IV NORMAL SALINE 50ML 50 ML IV SCH ×3 (05:54→17:09)
[2021-02-10] MEDS: METOCLOPRAMIDE HCL 10 MG/2 ML VIAL. IVP PRN (05:56)
[2021-02-10 07:00] VITALS: BP 189/75
[2021-02-10] MEDS: INSULIN LISPRO 300 UNITS/3 ML VIAL. SQ SCH ×3 (08:00→17:00)
[2021-02-10] MEDS: IPRATRPIUM/ALBUTEROL 0.5/2.5MG 3 ML NEBU. NEB SCH ×4 (08:10→19:47)
[2021-02-10] MEDS ORDERED: METOCLOPRAMIDE HCL 10 MG/2 ML VIAL. IVP SCH (08:45)
[2021-02-10] MEDS: INSULIN GLARGINE SYRINGE. SQ SCH ×2 (09:00→20:36)
[2021-02-10] MEDS: PANTOPRAZOLE 40 MG TABLET.DR. PO SCH (09:27)
[2021-02-10] MEDS: LACTOBACILLUS RHAMNOSUS GG 1 CAPSULE. PO SCH ×2 (09:27→20:35)
[2021-02-10] MEDS: MULTIVITAMIN with MINERAL TABLET. PO SCH (09:27)
[2021-02-10] MEDS: ASCORBIC ACID 500 MG TABLET PO SCH ×2 (09:27→17:08)
[2021-02-10] MEDS: CLOPIDOGREL BISULFATE 75 MG TABLET PO SCH (09:27)
[2021-02-10] MEDS: metFORMIN 500 MG TABLET PO SCH ×2 (09:28→17:08)
[2021-02-10] MEDS: LISINOPRIL 5 MG TABLET. PO SCH (09:28)
[2021-02-10] MEDS: METOPROLOL SUCC 24HR ER 25 MG TAB.ER.24H. PO SCH (09:29)
--- NOTE | 2021-02-10 09:39 | PDOC ---
Date of Service: DATE: 02/10/21 TIME: 09:35 Subjective: Subjective: Tolerating full liquids. Some nausea, no vomiting since the weekend. Stooling. Objective: Objective: D/w Dr. Davies - concerned pt may need J-tube, spoke w/ pharmacy re: any medications that could contribute. Vital Signs: Vital Signs Date Time Temp Pulse Resp B/P (MAP) Pulse Ox O2 Delivery O2 Flow Rate FiO2 02/10/21 09:29 87 189/75 02/10/21 08:12 93 Nasal Cannula 2.0 02/10/21 07:00 98.0 22 98.0 Labs: Laboratory Tests Test 02/09/21 12:02 02/09/21 16:37 02/09/21 18:53 02/10/21 07:36 Glucose (Fingerstick) 156 mg/dL 145 mg/dL 188 mg/dL 120 mg/dL Imaging: GES 02/10 Retention percentages are as follows: 1 Hr: 100 2 Hr:82 3 Hr:76 4 Hr:76 Normal Retention Percentage Range is as Follows: 1 Hr: 35-91% 2 Hr: 2.7-60% 3 Hr: 0.5-28% 4 Hr: 0-10% Impression: Delayed gastric emptying is identified PE: GEN: NAD LUNGS: diminished anteriorly, NC 2L HEART: RRR ABD: S/ND/NT NEURO/PSYCH: A & O 3 A/P: Delayed gastric emptying - impressive GES results as above Pneumonia, UTI, DM, h/o CVA ACD/ANTONIETA, h/o G tube COVID negative -- Back to scheduled IV Reglan for now - will adjust so scheduled before meals. Dr. Davies wondering about surgery eval for J-tube - will d/w Dr. Sanchez. Justicifation of Admission Dx: Justifications for Admission: Justification of Admission Dx: Yes Stroke - Ischemic: Stroke-Ischemic SONA SHAW Feb 10, 2021 09:39
--- NOTE | 2021-02-10 09:51 | PN ---
DATE: 02/10/2021 SUBJECTIVE: The patient is resting, slightly propped up, clearly tachypneic. She apparently choked when she attempted to drink her orange juice, has had gastric emptying study, which showed delayed gastric emptying with 76% of her meals still in her stomach for hours. PHYSICAL EXAMINATION: GENERAL: When I examined her, she was slightly tachypneic, pale, but no jaundice, cyanosis or thyromegaly. No jugular venous distention. No lower limb edema. VITAL SIGNS: Her heart rate was 80, blood pressure was 188/63, temperature was 97.8, respiratory rate was 18, and oxygen saturation was 95% on 2 liters of oxygen. HEAD, EYES, EARS, NOSE AND THROAT: Showed normocephalic, atraumatic. NECK: Supple. HEART: Showed normal first and second heart sounds. No gallop or murmur. CHEST: Shows central trachea, equal bilateral chest expansion, air entry with diffuse wheezing bilaterally. She has also bilateral crackles posteriorly. ABDOMEN: Distended, soft, nontender. NEUROLOGIC: She is awake, alert, responding appropriately. All cranial nerves intact. She has right-sided hemiplegia. Her intake and output were incompletely recorded. LABORATORY DATA: As of yesterday, her serum sodium was 145, potassium 4.1, chloride 110, bicarbonate 28, anion gap of 7, BUN 24, creatinine 1.3, estimated GFR was 41 mL per minute, her glucose 133, calcium was 8.9. Her most recent white cell count was 10,000, hemoglobin 8, hematocrit 24, MCV 79, and platelet count 220,000 with normal manual differential. ASSESSMENT: 1. The patient clearly has diabetic gastroparesis and she probably has aspirated again as her chest is very wheezy and has bilateral crepitation. 2. Urinary tract infection with growth of more than 100,000 colony forming units of gram-negative rods identified as Escherichia coli. 3. Aspiration pneumonia. 4. Left middle cerebral artery territory infarct with right-sided hemiplegia. 5. Hypertension. 6. Hyperlipidemia. 7. Peripheral vascular disease. 8. Type 2 diabetes mellitus with diabetic foot ulcer, more in the right than left. She has also carotid artery stenosis showing that 50%-69% narrowing of the bilateral mid internal carotid arteries with mild atheromatous plaque bilaterally. Given the patient has not really improved and continued to have evidence of aspiration and has diabetic gastroparesis, I think she probably needs an gastrojejunostomy tube placed for her to be able to be discharged. I will discuss this with the Gastroenterology team. HUMAIRA LORD MD DR: ALVIN/deuce JOB#: [id number] / [id number]
--- NOTE | 2021-02-10 10:38 | PDOC ---
PULMONARY PROGRESS NOTES DATE: 02/10/21 TIME: 10:35 Subjective resolved audible wheezing, has occ cough has nausea on 02 2 lpm not on 02 at home Vitals Vital Signs Date Time Temp Pulse Resp B/P (MAP) Pulse Ox O2 Delivery O2 Flow Rate FiO2 02/10/21 09:29 87 189/75 02/10/21 08:12 93 Nasal Cannula 2.0 02/10/21 07:00 98.0 22 98.0 ROS: No Chest Pain, No Abdominal Pain, No Increase Cough General: Alert, No acute distress Lungs: Clear Cardiovascular: S1, S2 Abdomen: Soft Neuro Exam: Alert Extremities: No Edema Skin: Warm Labs Laboratory Tests Test 02/08/21 11:30 02/08/21 16:39 02/08/21 18:53 02/09/21 05:45 Glucose (Fingerstick) 201 mg/dL (70-99) 177 mg/dL (70-99) 168 mg/dL (70-99) Sodium Level 145 mmol/L (136-145) Potassium Level 4.1 mmol/L (3.5-5.1) Chloride Level 110 mmol/L (98-107) Carbon Dioxide Level 28 mmol/L (21-32) Anion Gap 7 (6-14) Blood Urea Nitrogen 24 mg/dL (7-20) Creatinine 1.3 mg/dL (0.6-1.0) Estimated GFR (Cockcroft-Gault) 40.9 Glucose Level 133 mg/dL (70-99) Calcium Level 8.9 mg/dL (8.5-10.1) Test 02/09/21 07:11 02/09/21 12:02 02/09/21 16:37 02/09/21 18:53 Glucose (Fingerstick) 132 mg/dL (70-99) 156 mg/dL (70-99) 145 mg/dL (70-99) 188 mg/dL (70-99) Test 02/10/21 07:36 Glucose (Fingerstick) 120 mg/dL (70-99) Laboratory Tests Test 02/09/21 12:02 02/09/21 16:37 02/09/21 18:53 02/10/21 07:36 Glucose (Fingerstick) 156 mg/dL (70-99) 145 mg/dL (70-99) 188 mg/dL (70-99) 120 mg/dL (70-99) Medications Active Scripts Medications Dose Route/Sig Max Daily Dose Days Date Category Dose Instructions Zofran (Ondansetron Hcl) 4 Mg Tablet 1 Tab PO PRN Q4HRS PRN 02/02/21 Reported Vitamin C (Ascorbic Acid) 500 Mg Capsule 500 Mg PO BID 02/02/21 Reported Santyl Ointment (Collagenase) 30 Gm Oint...g. 1 Kimberlee TP QSUTUTH 02/02/21 Reported DIRECTED BY PHYSICIAN Hydrocodone-Apap 5-325 (Hydrocodone Bit/Acetaminophen) 1 Tab Tablet 1 Tab PO PRN Q8HRS PRN 02/02/21 Reported Thera-M Caplet (Multivit,Ther Iron,Ca,Fa & Min) 1 Each Tablet 1 Each PO DAILY 02/02/21 Reported Milk Of Magnesia (Magnesium Hydroxide) 400 Mg/5 Ml Oral.susp 30 Ml PO PRN DAILY PRN 02/02/21 Reported Melatonin 3 Mg Tablet.er 3 Mg PO PRN QHS PRN 02/02/21 Reported Insulin Aspart Flexpen (Insulin Aspart) 100 Unit/1 Ml Insuln.pen 15 Unit SQ TIDAC 02/02/21 Reported Dulcolax (Bisacodyl) 10 Mg Supp.rect 10 Mg RC PRN DAILY PRN 02/02/21 Reported Tylenol (Acetaminophen) 325 Mg Tablet 650 Mg PO PRN Q6HRS PRN 02/02/21 Reported Lisinopril 5 Mg Tablet 5 Mg PO DAILY 02/02/21 Reported Insulin Aspart 100 Unit/1 Ml Vial 100 Unit SQ SLIDING SCALE 11/17/20 Reported Levemir Flextouch (Insulin Detemir) 100 Unit/1 Ml Insuln.pen 50 Unit SQ BID 11/17/20 Reported Escitalopram Oxalate 10 Mg Tablet 10 Mg PO DAILY 11/17/20 Reported Carvedilol 25 Mg Tablet Unknown Dose PO BIDWMEALS 09/01/20 Reported Atorvastatin Calcium 80 Mg Tablet Unknown Dose PO QHS 09/01/20 Reported Clopidogrel (Clopidogrel Bisulfate) 75 Mg Tablet Unknown Dose PO DAILY 09/01/20 Reported Metformin Hcl 500 Mg Tablet 500 Mg PO BID 09/01/20 Reported Comments cxr 02/09 Low lung volumes and technique accentuates heart size and pulmonary vascularity. Mild prominent bilateral interstitial lung markings likely mild congestive changes or interstitial infiltrates. Bibasilar lung airspace opacities likely atelectasis or infiltrate slightly increased since prior exam. Electronically signed by: Billy Vergara MD (02/09/2021 5:38 PM) [id number] Impression . IMPRESSION: 1. Acute hypoxemic respiratory failure, multifactorial. 2. Suspect aspiration pneumonia. 3. Abnormal x-ray compatible, slightly worse 02/09, suspect CHF 4. SARS-CoV-2.,neg 5. Influenza screen negative 6. History of cerebrovascular accident with right-sided hemiparesis. 7. Type 2 diabetes. 8. Intractable emesis. 9. Fever. 10. Carotic stenosis 11. Diabetic heel ulcer right greater than left Plan . Updated 02/10 wheezing resolved. will give extra IV lasix today nebs cxr reviewed 02/09/ ttirate fio2 to keep sat 92% Continue antibiotics Follow GI input increase activity lovenox protonix for prophylaxis Follow speech rec discussed w pt rn Updated 02/08 ttirate fio2 to keep sat 90% Continue antibiotics Follow GI input still has nausea ct of head ordered by dr carrera no acute abnl increase activity lovenox protonix for prophylaxis Follow speech rec discussed w pt rn JANIS AUGUSTE MD Feb 10, 2021 10:38
[2021-02-10] MEDS ORDERED: FUROSEMIDE 40 MG/4 ML VIAL. IVP ONE (10:45)
[2021-02-10 11:00] VITALS: BP 204/74
[2021-02-10] MEDS: METOCLOPRAMIDE HCL 10 MG/2 ML VIAL. IVP SCH ×3 (11:13→20:35)
[2021-02-10] MEDS: LABETALOL 20 MG/4 ML DISP.SYRIN. IVP PRN (11:30)
[2021-02-10 15:00] VITALS: BP 194/65
[2021-02-10] MEDS: PANTOPRAZOLE IV PUSH 40 MG VIAL. IVP SCH (17:05)
[2021-02-10 19:45] VITALS: BP 184/64
[2021-02-10] MEDS: ATORVASTATIN CALCIUM 40 MG TABLET. PO SCH (20:35)
[2021-02-10] MEDS: ENOXAPARIN 40 MG/0.4 ML SYRINGE. SQ SCH (20:35)
[2021-02-10 23:27] VITALS: BP 175/64
[2021-02-11] MEDS: PIPERACILLIN/TAZOBACTAM 3.375 GM in IV NORMAL SALINE 50ML 50 ML IV SCH ×4 (00:17→18:02)
[2021-02-11 03:39] VITALS: BP 187/73
[2021-02-11 07:00] VITALS: BP 188/79
[2021-02-11] MEDS: METOCLOPRAMIDE HCL 10 MG/2 ML VIAL. IVP SCH (07:57)
[2021-02-11] MEDS: PANTOPRAZOLE IV PUSH 40 MG VIAL. IVP SCH (07:57)
[2021-02-11] MEDS: LACTOBACILLUS RHAMNOSUS GG 1 CAPSULE. PO SCH ×2 (07:58→21:11)
[2021-02-11] MEDS: metFORMIN 500 MG TABLET PO SCH ×2 (07:58→18:00)
[2021-02-11] MEDS: CLOPIDOGREL BISULFATE 75 MG TABLET PO SCH (07:58)
[2021-02-11] MEDS: ASCORBIC ACID 500 MG TABLET PO SCH ×2 (07:58→18:00)
[2021-02-11] MEDS: METOPROLOL SUCC 24HR ER 25 MG TAB.ER.24H. PO SCH (07:58)
[2021-02-11] MEDS: MULTIVITAMIN with MINERAL TABLET. PO SCH (07:58)
[2021-02-11] MEDS: LISINOPRIL 5 MG TABLET. PO SCH (07:59)
[2021-02-11] MEDS: INSULIN LISPRO 300 UNITS/3 ML VIAL. SQ SCH ×3 (08:00→17:00)
[2021-02-11] MEDS: IPRATRPIUM/ALBUTEROL 0.5/2.5MG 3 ML NEBU. NEB SCH ×4 (08:08→20:43)
[2021-02-11] MEDS: INSULIN GLARGINE SYRINGE. SQ SCH ×2 (08:11→21:13)
--- NOTE | 2021-02-11 09:39 | PDOC ---
Date of Service: DATE: 02/11/21 TIME: 09:36 Subjective: Subjective: No vomiting for a couple days on full liquids. Doesn't want a J tube - "been there done that." Says Reglan helps a lot. Objective: Vital Signs: Vital Signs Date Time Temp Pulse Resp B/P (MAP) Pulse Ox O2 Delivery O2 Flow Rate FiO2 02/11/21 08:03 97 Nasal Cannula 2.0 02/11/21 07:59 83 188/79 02/11/21 07:00 97.9 27 97.9 Labs: Laboratory Tests Test 02/10/21 11:40 02/10/21 16:52 02/10/21 20:51 02/11/21 07:58 Glucose (Fingerstick) 177 mg/dL 149 mg/dL 185 mg/dL 158 mg/dL PE: GEN: NAD - breakfast tray about half consumed LUNGS: NC, diminished HEART: RRR ABD: large, soft, non-tender NEURO/PSYCH: A & O 3 A/P: Gastroparesis -- Transition to Reglan susp, change to PO PPI. Justicifation of Admission Dx: Justifications for Admission: Justification of Admission Dx: Yes Stroke - Ischemic: Stroke-Ischemic SONA SHAW Feb 11, 2021 09:39
[2021-02-11] MEDS: ONDANSETRON ODT 4 MG TAB.RAPDIS. PO PRN ×2 (09:56→21:10)
--- NOTE | 2021-02-11 10:27 | PDOC ---
PULMONARY PROGRESS NOTES DATE: 02/11/21 TIME: 10:25 Subjective resolved audible wheezing, has occ cough has nausea on 02 2 lpm not on 02 at home Vitals Vital Signs Date Time Temp Pulse Resp B/P (MAP) Pulse Ox O2 Delivery O2 Flow Rate FiO2 02/11/21 08:03 97 Nasal Cannula 2.0 02/11/21 07:59 83 188/79 02/11/21 07:00 97.9 27 97.9 ROS: No Chest Pain, No Abdominal Pain, No Increase Cough General: Alert, No acute distress Lungs: Clear Cardiovascular: S1, S2 Abdomen: Soft Neuro Exam: Alert Extremities: No Edema Skin: Warm Labs Laboratory Tests Test 02/09/21 12:02 02/09/21 16:37 02/09/21 18:53 02/10/21 07:36 Glucose (Fingerstick) 156 mg/dL (70-99) 145 mg/dL (70-99) 188 mg/dL (70-99) 120 mg/dL (70-99) Test 02/10/21 11:40 02/10/21 16:52 02/10/21 20:51 02/11/21 07:58 Glucose (Fingerstick) 177 mg/dL (70-99) 149 mg/dL (70-99) 185 mg/dL (70-99) 158 mg/dL (70-99) Laboratory Tests Test 02/10/21 11:40 02/10/21 16:52 02/10/21 20:51 02/11/21 07:58 Glucose (Fingerstick) 177 mg/dL (70-99) 149 mg/dL (70-99) 185 mg/dL (70-99) 158 mg/dL (70-99) Medications Active Scripts Medications Dose Route/Sig Max Daily Dose Days Date Category Dose Instructions Zofran (Ondansetron Hcl) 4 Mg Tablet 1 Tab PO PRN Q4HRS PRN 02/02/21 Reported Vitamin C (Ascorbic Acid) 500 Mg Capsule 500 Mg PO BID 02/02/21 Reported Santyl Ointment (Collagenase) 30 Gm Oint...g. 1 Kimberlee TP QSUTUTH 02/02/21 Reported DIRECTED BY PHYSICIAN Hydrocodone-Apap 5-325 (Hydrocodone Bit/Acetaminophen) 1 Tab Tablet 1 Tab PO PRN Q8HRS PRN 02/02/21 Reported Thera-M Caplet (Multivit,Ther Iron,Ca,Fa & Min) 1 Each Tablet 1 Each PO DAILY 02/02/21 Reported Milk Of Magnesia (Magnesium Hydroxide) 400 Mg/5 Ml Oral.susp 30 Ml PO PRN DAILY PRN 02/02/21 Reported Melatonin 3 Mg Tablet.er 3 Mg PO PRN QHS PRN 02/02/21 Reported Insulin Aspart Flexpen (Insulin Aspart) 100 Unit/1 Ml Insuln.pen 15 Unit SQ TIDAC 02/02/21 Reported Dulcolax (Bisacodyl) 10 Mg Supp.rect 10 Mg RC PRN DAILY PRN 02/02/21 Reported Tylenol (Acetaminophen) 325 Mg Tablet 650 Mg PO PRN Q6HRS PRN 02/02/21 Reported Lisinopril 5 Mg Tablet 5 Mg PO DAILY 02/02/21 Reported Insulin Aspart 100 Unit/1 Ml Vial 100 Unit SQ SLIDING SCALE 11/17/20 Reported Levemir Flextouch (Insulin Detemir) 100 Unit/1 Ml Insuln.pen 50 Unit SQ BID 11/17/20 Reported Escitalopram Oxalate 10 Mg Tablet 10 Mg PO DAILY 11/17/20 Reported Carvedilol 25 Mg Tablet Unknown Dose PO BIDWMEALS 09/01/20 Reported Atorvastatin Calcium 80 Mg Tablet Unknown Dose PO QHS 09/01/20 Reported Clopidogrel (Clopidogrel Bisulfate) 75 Mg Tablet Unknown Dose PO DAILY 09/01/20 Reported Metformin Hcl 500 Mg Tablet 500 Mg PO BID 09/01/20 Reported Comments cxr 02/09 Low lung volumes and technique accentuates heart size and pulmonary vascularity. Mild prominent bilateral interstitial lung markings likely mild congestive changes or interstitial infiltrates. Bibasilar lung airspace opacities likely atelectasis or infiltrate slightly increased since prior exam. Electronically signed by: Billy Vergara MD (02/09/2021 5:38 PM) [id number] Impression . IMPRESSION: 1. Acute hypoxemic respiratory failure, multifactorial. 2. Suspect aspiration pneumonia. 3. Abnormal x-ray compatible, slightly worse 02/09, suspect CHF 4. SARS-CoV-2.,neg 5. Influenza screen negative 6. History of cerebrovascular accident with right-sided hemiparesis. 7. Type 2 diabetes./ gastroparesis 8. Intractable emesis. 9. Fever. 10. Carotic stenosis 11. Diabetic heel ulcer right greater than left Plan . Updated 02/11 wheezing improved. s/p lasix add low dose steroids/ Steroid nebs cxr reviewed 02/09/ CHF ttirate fio2 to keep sat 92% Continue antibiotics Follow GI input increase activity lovenox protonix for prophylaxis Follow speech rec discussed w pt rn / DR Davies Updated 02/10 wheezing resolved. will give extra IV lasix today nebs cxr reviewed 02/09/ CHF ttirate fio2 to keep sat 92% Continue antibiotics Follow GI input increase activity lovenox protonix for prophylaxis Follow speech rec discussed w pt JANIS Canales MD Feb 11, 2021 10:27
[2021-02-11 11:00] VITALS: BP 196/73
[2021-02-11] MEDS: BUDESONIDE 0.5 MG/2 ML NEBU. NEB SCH ×2 (11:20→20:43)
[2021-02-11] MEDS: METOCLOPRAMIDE ORAL SOLN 10 MG/10 ML SOLUTION. PO SCH ×3 (12:16→21:11)
[2021-02-11] MEDS: predniSONE 20 MG TABLET PO SCH (12:16)
--- NOTE | 2021-02-11 12:38 | PN ---
DATE: 02/11/2021 SUBJECTIVE: The patient is resting, slightly propped up in bed, no apparent distress. She said she slept very well last night. She has eaten her breakfast this morning. She is a full liquid diet, has no nausea or vomiting. She refused gastrojejunostomy tube. PHYSICAL EXAMINATION: GENERAL: When I examined her, she looked well and was clearly in no apparent respiratory distress. No pallor, jaundice, cyanosis or thyromegaly. No jugular venous distention or limb edema. VITAL SIGNS: Her heart rate was 83, blood pressure was 188/79, temperature 97.9, respiratory rate was 27 and oxygen saturation was 97% on 2 liters of oxygen. HEAD, EYES, EARS, NOSE AND THROAT: Showed normocephalic, atraumatic. NECK: Supple. HEART: Showed normal first and second heart sounds. No gallop, rub or murmur. CHEST: Shows central trachea, equal bilateral chest expansion, air entry ____, a few bilateral basal crepitation, all the bronchospasm has largely subsided. ABDOMEN: Distended, soft and nontender. NEUROLOGIC: She is awake, alert, responding appropriately. All cranial nerves intact. She has right-sided hemiplegia. LABORATORY DATA: Her lab work is stable. ASSESSMENT: 1. The patient clearly has diabetic gastroparesis and she probably has aspirated again. She has chest is very wheezy and has bilateral crepitation, although the wheezing has completely resolved after the breathing treatment. 2. Urinary tract infection with growth of more than 100,000 colony forming units per mL of gram-negative rods identified as Escherichia coli. 3. Aspiration pneumonia. 4. Left middle cerebral artery territory infarct with right-sided hemiplegia. 5. Hypertension. 6. Hyperlipidemia. 7. Peripheral vascular disease. 8. Type 2 diabetes mellitus, diabetic foot ulcer, more on the right than left. 9. She has also carotid artery stenosis showing 50-69% narrowing of bilateral mid internal carotid arteries with mild atheromatous plaques bilaterally. PLAN: Given the patient is refusing the gastrojejunostomy tube and that despite all the findings on her gastric emptying I will advance her diet. We will have already scheduled her Reglan and if she is tolerating her diet, she will be discharged back to [facility] tomorrow. HUMAIRA LORD MD DR: Monika JOB#: [id number] / [id number]
--- NOTE | 2021-02-11 12:59 | NUR ---
1200 INSULIN NONADMIN PT WAS TOO NAUSEATED TO EAT.
[2021-02-11 15:00] VITALS: BP 211/88
[2021-02-11] MEDS: ONDANSETRON PF 4 MG/2 ML VIAL. IVP PRN (15:50)
--- NOTE | 2021-02-11 16:57 | NUR ---
Wound/Ostomy Care Wound Type/Assessment: Patient seen per wound care follow up. See wound assessment. Patient has DFU to right heel. Wound cleansed, assessed, and measured. Wound appears sloughy with some eschar but has improved since last assessment. Treatment Recommendations/Plan: Recommendations for Medi-honey gel applied to xeroform gauze and cover with foam dressing. Change on Tuesday and Tuesday. A foam was also placed on the left heel for protection. Dressings applied. Education provided: Patient educated on dressing changes and PU prevention. Offloading surface/device: Bilateral heel medix in place. Recommended Referrals/Tests: N/A Discharge Recommendations for dressings: Dressing change instructions left in room. No other wounds noted. Bed lowered and call light in reach. Wound care will follow up on 02/19/21.
[2021-02-11 19:48] VITALS: BP 184/75
[2021-02-11] MEDS: ZOLPIDEM 5 MG TABLET. PO PRN ×2 (20:58→21:11)
[2021-02-11] MEDS: ATORVASTATIN CALCIUM 40 MG TABLET. PO SCH (21:11)
[2021-02-11] MEDS: ENOXAPARIN 40 MG/0.4 ML SYRINGE. SQ SCH (21:11)
[2021-02-11 23:31] VITALS: BP 175/72
[2021-02-12] MEDS: PIPERACILLIN/TAZOBACTAM 3.375 GM in IV NORMAL SALINE 50ML 50 ML IV SCH ×4 (00:56→17:26)
[2021-02-12 03:28] VITALS: BP 191/77
[2021-02-12 04:45] LABS: HEMATOCRIT 25.9 % (36.0-47.0); HEMOGLOBIN 8.3 g/dL (12.0-15.5); RED BLOOD COUNT 3.27 x10^6/uL (3.50-5.40); RED CELL DISTRIBUTION WIDTH 16.6 % (11.5-14.5); WHITE BLOOD COUNT 10.9 x10^3/uL (4.0-11.0)
[2021-02-12 05:20] LABS: ALBUMIN 2.4 g/dL (3.4-5.0); ALBUMIN/GLOBULIN RATIO 0.5 (1.0-1.7); CALCIUM 8.7 mg/dL (8.5-10.1); CREATININE 1.4 mg/dL (0.6-1.0); GFR 37.5; POTASSIUM 3.9 mmol/L (3.5-5.1); TOTAL BILIRUBIN 0.2 mg/dL (0.2-1.0); TOTAL PROTEIN 7.1 g/dL (6.4-8.2)
[2021-02-12] MEDS: ONDANSETRON PF 4 MG/2 ML VIAL. IVP PRN ×2 (05:57→12:16)
[2021-02-12 07:00] VITALS: BP 191/78
[2021-02-12] MEDS: METOCLOPRAMIDE ORAL SOLN 10 MG/10 ML SOLUTION. PO SCH ×4 (07:30→21:14)
[2021-02-12] MEDS: IPRATRPIUM/ALBUTEROL 0.5/2.5MG 3 ML NEBU. NEB SCH ×4 (07:36→20:20)
[2021-02-12] MEDS: BUDESONIDE 0.5 MG/2 ML NEBU. NEB SCH ×2 (07:36→20:20)
[2021-02-12] MEDS: MULTIVITAMIN with MINERAL TABLET. PO SCH (08:00)
[2021-02-12] MEDS: metFORMIN 500 MG TABLET PO SCH ×2 (08:00→17:24)
[2021-02-12] MEDS: ASCORBIC ACID 500 MG TABLET PO SCH ×2 (08:00→17:24)
[2021-02-12] MEDS: INSULIN LISPRO 300 UNITS/3 ML VIAL. SQ SCH ×3 (08:00→17:30)
[2021-02-12] MEDS: CLOPIDOGREL BISULFATE 75 MG TABLET PO SCH ×2 (09:00→17:43)
[2021-02-12] MEDS: LISINOPRIL 5 MG TABLET. PO SCH ×2 (09:00→17:43)
[2021-02-12] MEDS: predniSONE 20 MG TABLET PO SCH (09:00)
[2021-02-12] MEDS: METOPROLOL SUCC 24HR ER 25 MG TAB.ER.24H. PO SCH ×2 (09:00→17:43)
[2021-02-12] MEDS: LACTOBACILLUS RHAMNOSUS GG 1 CAPSULE. PO SCH ×2 (09:00→21:14)
[2021-02-12] MEDS: INSULIN GLARGINE SYRINGE. SQ SCH ×2 (09:11→21:25)
--- NOTE | 2021-02-12 09:56 | PDOC ---
Date of Service: DATE: 02/12/21 TIME: 09:52 Subjective: Subjective: Nausea is worse today, no vomiting. Had pudding in cream of wheat. Objective: Objective: D/w Dr. Davies - more vomiting and now wants J tube, asking for surgery opinion. D/w nurse - no vomiting but constant nausea, spent significant time discussing situation w/ family yesterday on phone, then family came to the hospital and said no one had explained anything but did remember talking to nurse. Staff says ate 25-50% of full liquids for breakfast. Vital Signs: Vital Signs Date Time Temp Pulse Resp B/P (MAP) Pulse Ox O2 Delivery O2 Flow Rate FiO2 02/12/21 07:38 97 Nasal Cannula 2.0 02/12/21 07:00 97.5 88 20 191/78 (115) 97.5 Labs: Laboratory Tests Test 02/11/21 11:52 02/11/21 16:33 02/11/21 20:39 02/12/21 03:25 Glucose (Fingerstick) 168 mg/dL 207 mg/dL 258 mg/dL White Blood Count 10.9 x10^3/uL Red Blood Count 3.27 x10^6/uL Hemoglobin 8.3 g/dL Hematocrit 25.9 % Mean Corpuscular Volume 79 fL Mean Corpuscular Hemoglobin 25 pg Mean Corpuscular Hemoglobin Concent 32 g/dL Red Cell Distribution Width 16.6 % Platelet Count 246 x10^3/uL Sodium Level 148 mmol/L Potassium Level 3.9 mmol/L Chloride Level 111 mmol/L Carbon Dioxide Level 32 mmol/L Anion Gap 5 Blood Urea Nitrogen 19 mg/dL Creatinine 1.4 mg/dL Estimated GFR (Cockcroft-Gault) 37.5 BUN/Creatinine Ratio 14 Glucose Level 215 mg/dL Calcium Level 8.7 mg/dL Total Bilirubin 0.2 mg/dL Aspartate Amino Transf (AST/SGOT) 10 U/L Alanine Aminotransferase (ALT/SGPT) 14 U/L Alkaline Phosphatase 53 U/L Total Protein 7.1 g/dL Albumin 2.4 g/dL Albumin/Globulin Ratio 0.5 Test 02/12/21 07:18 Glucose (Fingerstick) 210 mg/dL C PE: GEN: NAD, voice quiet LUNGS: some exp wheezing, NC HEART: RRR ABD: large, quiet BS, non-tender NEURO/PSYCH: A & O 3... forgetful? A/P: Gastroparesis -- Varying history, changed mind about wanting to discuss J tube... ?back to IV Reglan, etc. Will d/w Dr. Sanchez. Justicifation of Admission Dx: Justifications for Admission: Justification of Admission Dx: Yes Stroke - Ischemic: Stroke-Ischemic SONA SHAW Feb 12, 2021 09:56
--- NOTE | 2021-02-12 10:38 | PN ---
DATE: 02/12/2021 SUBJECTIVE: The patient is resting, slightly propped up in bed, in no apparent distress. She is awake, alert, denied any further episodes of nausea, vomiting; however, she agreed to go ahead with gastrojejunostomy tube placement and therefore I did consult Dr. Henry for that. Unfortunately, she apparently has eaten something this morning. PHYSICAL EXAMINATION: GENERAL: However, when I examined her, she looked well and was clearly in no apparent respiratory distress. No pallor, jaundice, cyanosis or thyromegaly. No jugular venous distension. No limb edema. VITAL SIGNS: Her heart rate was 88, blood pressure was 191/78, temperature 97.5, respiratory rate was 20 and oxygen saturation was 100% on 2 liters of oxygen. HEAD, EYES, EARS, NOSE AND THROAT: Showed normocephalic, atraumatic. NECK: Supple. HEART: Normal first and second heart sounds. No gallop, rub or murmur. CHEST: Shows central trachea, equal bilateral chest expansion, air entry. I could not appreciate any crepitation or rhonchi. ABDOMEN: Distended, soft and nontender. NEUROLOGIC: She was awake, alert, responding appropriately. All cranial nerves intact. She has right-sided hemiplegia. ASSESSMENT: 1. Acute hypoxic respiratory failure. 2. Likely due to aspiration pneumonia. 3. Urinary tract infection with growth of more than 100,000 colony forming units per mL of gram-negative rods identified as Escherichia coli. 4. The patient has diabetic gastroparesis and has finally agreed to have a gastrojejunostomy tube placed. 5. Left middle cerebral artery territory infarct, right-sided hemiplegia. 6. Hypertension. 7. Hyperlipidemia. 8. Peripheral vascular disease. 9. Type 2 diabetes mellitus with diabetic foot ulcer, more on the right than left. 10. She does have bilateral carotid artery stenosis showing 50-69% narrowing bilateral mid internal carotid arteries with mild atherosclerotic plaques bilaterally. PLAN: To consult Dr. Henry for gastrojejunostomy tube. Meanwhile, will continue with IV antibiotic. Continue with bronchodilator. HUMAIRA LORD MD DR: ALVIN/deuce JOB#: [id number] / [id number]
[2021-02-12 11:00] VITALS: BP 193/76
--- NOTE | 2021-02-12 11:07 | PDOC2 ---
ROSALBARUBÉN Patel REGISTERED PUBLIC HEALTH NURSE 02/12/21 1107: CONSULT Date of Consult Date of Consult DATE: 02/12/21 TIME: 11:01 Reason for Consult Reason for Consult: j tube Referring Physician Referring Physician: Dr Davies Identification/Chief Complaint Chief Complaint nausea, vomiting Source Source: Chart review, Patient History of Present Illness Reason for Visit: N/V, concern for aspiration pneumonia on admission, uti gastroparesis noted hx of peg after stroke taking full liquids, nausea, denies emesis Past Medical History Cardiovascular: HTN, Hyperlipidemia CENTRAL NERVOUS SYSTEM: CVA Psych: Anxiety Endocrine: Diabetes Past Surgical History Past Surgical History: Total knee replacement (bilateral ), Hysterectomy Family History Family History: Heart Disease Social History No ALCOHOL: none Drugs: None Lives: Long-Term (for rehab following stroke ) Current Problem List Problem List Problems Medical Problems: (1) Elevated troponin Status: Acute (2) Person under investigation for COVID-19 Status: Acute (3) Pneumonia Status: Acute (4) UTI (urinary tract infection) Status: Acute Current Medications Current Medications Current Medications Sodium Chloride 1,000 ml @ 1,000 mls/hr Q1H IV Last administered on 02/01/21at 20:48; Start 02/01/21 at 20:00; Stop 02/01/21 at 20:59; Status DC Piperacillin Sod/ Tazobactam Sod 3.375 gm/Sodium Chloride 50 ml @ 100 mls/hr 1X ONCE IV Last administered on 02/01/21at 21:21; Start 02/01/21 at 21:00; Stop 02/01/21 at 21:29; Status DC Ondansetron HCl (Zofran) 4 mg PRN Q8HRS PRN IV NAUSEA/VOMITING; Start 02/01/21 at 21:15; Stop 02/01/21 at 21:35; Status DC Labetalol HCl (Normodyne Iv Push) 20 mg PRN Q30MIN PRN IVP HYPERTENSION Last administered on 02/10/21at 11:30; Start 02/01/21 at 21:15 Piperacillin Sod/ Tazobactam Sod (Zosyn Per Pharmacy) 1 each PRN DAILY PRN MC SEE COMMENTS; Start 02/01/21 at 21:15 Tramadol HCl (Ultram) 50 mg PRN Q6HRS PRN PO MILD PAIN 1-3; Start 02/01/21 at 21:30; Stop 02/09/21 at 09:35; Status DC Morphine Sulfate (Morphine Sulfate) 4 mg PRN Q3HRS PRN IV SEVERE PAIN; Start 02/01/21 at 21:30; Stop 02/09/21 at 09:37; Status DC Ondansetron HCl (Zofran) 4 mg PRN Q6HRS PRN IVP NAUSEA/VOMITING Last adminis tered on 02/12/21at 05:57; Start 02/01/21 at 21:30 Al Hydroxide/Mg Hydroxide (Mylanta Plus Xs) 30 ml PRN Q3HRS PRN PO HEARTBURN / GAS; Start 02/01/21 at 21:30 Calcium Carbonate/ Glycine (Tums) 500 mg PRN Q3HRS PRN PO UPSET STOMACH; Start 02/01/21 at 21:30 Zolpidem Tartrate (Ambien) 5 mg PRN QHS PRN PO INSOMNIA, MAY REPEAT IN 1HR Last administered on 02/11/21at 20:58; Start 02/01/21 at 21:30 Morphine Sulfate (Morphine Sulfate) 2 mg PRN Q1HR PRN IV MODERATE PAIN Last administered on 02/08/21at 00:42; Start 02/01/21 at 21:30; Stop 02/09/21 at 09:37; Status DC Oxycodone/ Acetaminophen (Percocet 5/325) 1 tab PRN Q4HRS PRN PO SEVERE PAIN Last administered on 02/08/21at 05:32; Start 02/01/21 at 21:30; Stop 02/09/21 at 09:35; Status DC Acetaminophen (Tylenol) 650 mg PRN Q6HRS PRN PO Headaches, Temp > 101.5F Last administered on 02/02/21at 15:22; Start 02/01/21 at 21:30 Magnesium Hydroxide (Milk Of Magnesia) 2,400 mg PRN Q12HR PRN PO CONSTIPATION; Start 02/01/21 at 21:30 Bisacodyl (Dulcolax Supp) 10 mg PRN DAILY PRN IN CONSTIPATION; Start 02/01/21 at 21:30 Enoxaparin Sodium (Lovenox 40mg Syringe) 40 mg Q24H SQ Last administered on 02/11/21at 21:11; Start 02/01/21 at 21:30 Clopidogrel Bisulfate (Plavix) 75 mg DAILY PO Last administered on 02/11/21at 07:58; Start 02/02/21 at 09:00 Citalopram Hydrobromide (CeleXA) 20 mg DAILY PO Last administered on 02/08/21at 08:52; Start 02/02/21 at 09:00; Stop 02/09/21 at 09:35; Status DC Non-Formulary Medication (Insulin Detemir (Levemir Flextouch)) 50 unit BID SQ ; Start 02/02/21 at 09:00; Status UNV Tramadol HCl (Ultram) 50 mg PRN Q6HRS PRN PO PAIN; Start 02/01/21 at 21:30; Stop 02/01/21 at 21:35; Status DC Insulin Glargine (Lantus Syringe) 50 unit BID SQ Last administered on 02/03/21at 22:35; Start 02/02/21 at 09:00; Stop 02/05/21 at 11:00; Status DC Insulin Human Lispro (HumaLOG) 9 units TIDWMEALS SQ Last administered on 02/02/21at 11:51; Start 02/02/21 at 08:00; Stop 02/05/21 at 11:00; Status DC Dextrose (Dextrose 50%-Water Syringe) 12.5 gm PRN Q15MIN PRN IV SEE COMMENTS Last administered on 02/05/21at 08:09; Start 02/01/21 at 22:00 Dextrose (Iv Dextrose 5%) 250 ml PRN Q15MIN PRN IV SEE COMMENTS; Start 02/01/21 at 22:00; Status Cancel Piperacillin Sod/ Tazobactam Sod 3.375 gm/Sodium Chloride 50 ml @ 100 mls/hr ONCE ONCE IV Last administered on 02/02/21at 03:33; Start 02/02/21 at 03:30; Stop 02/02/21 at 03:59; Status DC Piperacillin Sod/ Tazobactam Sod 3.375 gm/Sodium Chloride 50 ml @ 100 mls/hr Q6HRS IV Last administered on 02/12/21at 05:23; Start 02/02/21 at 12:00 Lactobacillus Rhamnosus (Culturelle) 1 cap BID PO Last administered on 02/11/21at 21:11; Start 02/02/21 at 21:00 Acetaminophen (Tylenol) 650 mg PRN Q6HRS PRN PO MILD PAIN / TEMP > 100.3'F; Start 02/02/21 at 12:30; Status UNV Bisacodyl (Dulcolax Supp) 10 mg PRN DAILY PRN RC CONSTIPATION; Start 02/02/21 at 12:30; Status UNV Acetaminophen/ Hydrocodone Bitart (Lortab 5/325) 1 tab PRN Q8HRS PRN PO MODERATE PAIN; Start 02/02/21 at 12:30; Stop 02/09/21 at 09:35; Status DC Lisinopril (Prinivil) 5 mg DAILY PO Last administered on 02/11/21at 07:59; Start 02/02/21 at 13:00 Magnesium Hydroxide (Milk Of Magnesia) 2,400 mg PRN DAILY PRN PO CONSTIPATION; Start 02/02/21 at 12:30; Status UNV Metformin HCl (Glucophage) 500 mg BIDWMEALS PO Last administered on 02/11/21at 1 8:00; Start 02/02/21 at 17:00 Ascorbic Acid (Vitamin C) 500 mg BID PO Last administered on 02/08/21at 20:45; Start 02/02/21 at 21:00; Stop 02/09/21 at 09:39; Status DC Non-Formulary Medication (Collagenase Clostridium Hist. (Santyl Ointment)) 1 kimberlee QSUTUTH TP ; Start 02/03/21 at 16:00; Status UNV Non-Formulary Medication (Insulin Aspart ) 100 unit sliding scale SQ ; Start 02/02/21 at 12:30; Status UNV Non-Formulary Medication (Insulin Aspart (Insulin Aspart Flexpen)) 15 unit TIDAC SQ ; Start 02/02/21 at 16:30; Status UNV Non-Formulary Medication (Melatonin ) 3 mg PRN QHS PRN PO INSOMNIA; Start 02/02/21 at 12:30; Status UNV Multivitamins (Thera M Plus) 1 tab DAILY PO Last administered on 02/05/21at 08:13; Start 02/02/21 at 13:00; Stop 02/09/21 at 09:40; Status DC Ondansetron HCl (Zofran Odt) 4 mg PRN Q4HRS PRN PO NAUSEA/VOMITING Last administered on 02/11/21at 21:10; Start 02/02/21 at 12:45 Atorvastatin Calcium (Lipitor) 40 mg QHS PO Last administered on 02/11/21at 21:11; Start 02/02/21 at 21:00 Vancomycin HCl (Vanco Per Pharmacy) 1 each PRN DAILY PRN MC SEE COMMENTS Last administered on 02/04/21at 15:20; Start 02/02/21 at 16:15; Stop 02/05/21 at 10:51; Status DC Metoclopramide HCl (Reglan Vial) 10 mg QIDACHS IVP Last administered on 02/05/21at 12:42; Start 02/02/21 at 16:30; Stop 02/05/21 at 14:01; Status DC Vancomycin HCl 1.5 gm/Sodium Chloride 500 ml @ 250 mls/hr Q24H IV Last administered on 02/04/21at 17:04; Start 02/02/21 at 17:00; Stop 02/05/21 at 10:52; Status DC Vancomycin HCl (Vancomycin Trough Level) 1 each 1X ONCE MC ; Start 02/04/21 at 18:00; Stop 02/05/21 at 10:51; Status DC Pantoprazole Sodium (PROTONIX VIAL for IV PUSH) 40 mg DAILYAC IVP Last administered on 02/05/21at 08:12; Start 02/03/21 at 11:00; Stop 02/05/21 at 11:10; Status DC Furosemide (Lasix) 20 mg 1X ONCE IVP Last administered on 02/03/21at 16:52; Start 02/03/21 at 16:15; Stop 02/03/21 at 16:16; Status DC Hydralazine HCl (Apresoline Inj) 10 mg PRN Q4HRS PRN IVP ELEVATED BP, 1ST CHOICE Last administered on 02/07/21at 23:38; Start 02/03/21 at 16:15 Metoprolol Succinate (Toprol Xl) 12.5 mg DAILY PO Last administered on 02/11/21at 07:58; Start 02/04/21 at 14:00 Insulin Human Lispro (HumaLOG) 0-5 UNITS TIDWMEALS SQ Last administered on 02/10/21at 11:47; Start 02/05/21 at 12:00 Dextrose (Dextrose 50%-Water Syringe) 12.5 gm PRN Q15MIN PRN IV SEE COMMENTS; Start 02/05/21 at 11:00; Status UNV Insulin Glargine (Lantus Syringe) 10 unit BID SQ Last administered on 02/12/21at 09:11; Start 02/05/21 at 12:00 Pantoprazole Sodium (Protonix) 40 mg DAILYAC PO Last administered on 02/10/21 09:27; Start 02/06/21 at 07:30; Stop 02/10/21 at 09:41; Status DC Metoclopramide HCl (Reglan Vial) 10 mg PRN Q6HRS PRN IVP NAUSEA/VOMITING Last administered on 02/10/21at 05:56; Start 02/05/21 at 14:15; Stop 02/10/21 at 08:42; Status DC Ascorbic Acid (Vitamin C) 500 mg BIDWMEALS PO Last administered on 02/11/21at 18:00; Start 02/09/21 at 17:00 Multivitamins (Thera M Plus) 1 tab DAILYWBKFT PO Last administered on 02/11/21at 07:58; Start 02/10/21 at 08:00 Albuterol/ Ipratropium (Duoneb) 3 ml RTQID NEB Last administered on 02/12/21at 07:36; Start 02/09/21 at 16:00 Albuterol/ Ipratropium (Duoneb) 3 ml STK-MED ONCE .ROUTE ; Start 02/09/21 at 13:50; Stop 02/09/21 at 13:51; Status DC Metoclopramide HCl (Reglan Vial) 10 mg Q6HRS IVP Last administered on 02/10/21at 09:26; Start 02/10/21 at 08:45; Stop 02/10/21 at 09:41; Status DC Metoclopramide HCl (Reglan Vial) 10 mg QIDACHS IVP Last administered on 02/11/21 07:57; Start 02/10/21 at 11:30; Stop 02/11/21 at 09:50; Status DC Pantoprazole Sodium (PROTONIX VIAL for IV PUSH) 40 mg BIDAC IVP Last administered on 02/11/21at 07:57; Start 02/10/21 at 16:30; Stop 02/11/21 at 09:41; Status DC Furosemide (Lasix) 40 mg 1X ONCE IVP Last administered on 02/10/21at 11:12; Start 02/10/21 at 10:45; Stop 02/10/21 at 10:46; Status DC Metoclopramide HCl (Reglan Oral Solution) 10 mg QIDACHS PO Last administered on 02/11/21at 21:11; Start 02/11/21 at 11:30 Prednisone (Prednisone) 40 mg DAILY PO Last administered on 02/11/21at 12:16; Start 02/11/21 at 10:15 Budesonide (Pulmicort) 0.5 mg RTBID NEB Last administered on 02/12/21at 07:36; Start 02/11/21 at 10:15 Active Scripts Active Reported Zofran (Ondansetron Hcl) 4 Mg Tablet 1 Tab PO PRN Q4HRS PRN Vitamin C (Ascorbic Acid) 500 Mg Capsule 500 Mg PO BID Santyl Ointment (Collagenase) 30 Gm Oint...g. 1 Kimberlee TP QSUTUTH DIRECTED BY PHYSICIAN Hydrocodone-Apap 5-325 (Hydrocodone Bit/Acetaminophen) 1 Tab Tablet 1 Tab PO PRN Q8HRS PRN Thera-M Caplet (Multivit,Ther Iron,Ca,Fa & Min) 1 Each Tablet 1 Each PO DAILY Milk Of Magnesia (Magnesium Hydroxide) 400 Mg/5 Ml Oral.susp 30 Ml PO PRN DAILY PRN Melatonin 3 Mg Tablet.er 3 Mg PO PRN QHS PRN Insulin Aspart Flexpen (Insulin Aspart) 100 Unit/1 Ml Insuln.pen 15 Unit SQ TIDAC Dulcolax (Bisacodyl) 10 Mg Supp.rect 10 Mg RC PRN DAILY PRN Tylenol (Acetaminophen) 325 Mg Tablet 650 Mg PO PRN Q6HRS PRN Lisinopril 5 Mg Tablet 5 Mg PO DAILY Insulin Aspart 100 Unit/1 Ml Vial 100 Unit SQ SLIDING SCALE Levemir Flextouch (Insulin Detemir) 100 Unit/1 Ml Insuln.pen 50 Unit SQ BID Escitalopram Oxalate 10 Mg Tablet 10 Mg PO DAILY Carvedilol 25 Mg Tablet Unknown Dose PO BIDWMEALS Atorvastatin Calcium 80 Mg Tablet Unknown Dose PO QHS Clopidogrel (Clopidogrel Bisulfate) 75 Mg Tablet Unknown Dose PO DAILY Metformin Hcl 500 Mg Tablet 500 Mg PO BID Allergies Allergies: Coded Allergies: No Known Drug Allergies (Unverified , 11/17/20) ROS General: YES: Fatigue; No: Chills PSYCHOLOGICAL ROS: No: Anxiety, Depression Eyes: No Blurry vision, No Double vision HEENT: No: Heacaches, Sore Throat Hematological and Lymphatic: No: Bleeding Problems, Blood Clots Respiratory: No: Cough, Shortness of breath Gastrointestinal: Yes Other (see hpi) Genitourinary: No Dysuria, No Hematuria Musculoskeletal: Yes Muscle Pain, Yes Muscular Weakness; No Joint Pain Neurological: Yes Speech Problems; No Behavorial Changes Skin: No Pruritus, No Rash Physical Exam General: Alert, Cooperative, No acute distress HEENT: Atraumatic, PERRLA Lungs: Clear to auscultation, Normal air movement Heart: Regular rate, Normal S1, Normal S2 Abdomen: Normal bowel sounds, Soft Extremities: No clubbing, No cyanosis Skin: No breakdown, No significant lesion Neuro: Normal tone, Sensation intact Vitals VITALS Vital Signs Date Time Temp Pulse Resp B/P (MAP) Pulse Ox O2 Delivery O2 Flow Rate FiO2 02/12/21 08:00 Nasal Cannula 2.0 02/12/21 07:38 97 02/12/21 07:00 97.5 88 20 191/78 (115) 97.5 Labs Labs Laboratory Tests Test 02/10/21 11:40 02/10/21 16:52 02/10/21 20:51 02/11/21 07:58 Glucose (Fingerstick) 177 mg/dL (70-99) 149 mg/dL (70-99) 185 mg/dL (70-99) 158 mg/dL (70-99) Test 02/11/21 11:52 02/11/21 16:33 02/11/21 20:39 02/12/21 03:25 Glucose (Fingerstick) 168 mg/dL (70-99) 207 mg/dL (70-99) 258 mg/dL (70-99) White Blood Count 10.9 x10^3/uL (4.0-11.0) Red Blood Count 3.27 x10^6/uL (3.50-5.40) Hemoglobin 8.3 g/dL (12.0-15.5) Hematocrit 25.9 % (36.0-47.0) Mean Corpuscular Volume 79 fL (79-100) Mean Corpuscular Hemoglobin 25 pg (25-35) Mean Corpuscular Hemoglobin Concent 32 g/dL (31-37) Red Cell Distribution Width 16.6 % (11.5-14.5) Platelet Count 246 x10^3/uL (140-400) Sodium Level 148 mmol/L (136-145) Potassium Level 3.9 mmol/L (3.5-5.1) Chloride Level 111 mmol/L (98-107) Carbon Dioxide Level 32 mmol/L (21-32) Anion Gap 5 (6-14) Blood Urea Nitrogen 19 mg/dL (7-20) Creatinine 1.4 mg/dL (0.6-1.0) Estimated GFR (Cockcroft-Gault) 37.5 BUN/Creatinine Ratio 14 (6-20) Glucose Level 215 mg/dL (70-99) Calcium Level 8.7 mg/dL (8.5-10.1) Total Bilirubin 0.2 mg/dL (0.2-1.0) Aspartate Amino Transf (AST/SGOT) 10 U/L (15-37) Alanine Aminotransferase (ALT/SGPT) 14 U/L (14-59) Alkaline Phosphatase 53 U/L (46-116) Total Protein 7.1 g/dL (6.4-8.2) Albumin 2.4 g/dL (3.4-5.0) Albumin/Globulin Ratio 0.5 (1.0-1.7) Test 02/12/21 07:18 Glucose (Fingerstick) 210 mg/dL (70-99) Laboratory Tests Test 02/11/21 11:52 02/11/21 16:33 02/11/21 20:39 02/12/21 03:25 Glucose (Fingerstick) 168 mg/dL (70-99) 207 mg/dL (70-99) 258 mg/dL (70-99) White Blood Count 10.9 x10^3/uL (4.0-11.0) Red Blood Count 3.27 x10^6/uL (3.50-5.40) Hemoglobin 8.3 g/dL (12.0-15.5) Hematocrit 25.9 % (36.0-47.0) Mean Corpuscular Volume 79 fL (79-100) Mean Corpuscular Hemoglobin 25 pg (25-35) Mean Corpuscular Hemoglobin Concent 32 g/dL (31-37) Red Cell Distribution Width 16.6 % (11.5-14.5) Platelet Count 246 x10^3/uL (140-400) Sodium Level 148 mmol/L (136-145) Potassium Level 3.9 mmol/L (3.5-5.1) Chloride Level 111 mmol/L (98-107) Carbon Dioxide Level 32 mmol/L (21-32) Anion Gap 5 (6-14) Blood Urea Nitrogen 19 mg/dL (7-20) Creatinine 1.4 mg/dL (0.6-1.0) Estimated GFR (Cockcroft-Gault) 37.5 BUN/Creatinine Ratio 14 (6-20) Glucose Level 215 mg/dL (70-99) Calcium Level 8.7 mg/dL (8.5-10.1) Total Bilirubin 0.2 mg/dL (0.2-1.0) Aspartate Amino Transf (AST/SGOT) 10 U/L (15-37) Alanine Aminotransferase (ALT/SGPT) 14 U/L (14-59) Alkaline Phosphatase 53 U/L (46-116) Total Protein 7.1 g/dL (6.4-8.2) Albumin 2.4 g/dL (3.4-5.0) Albumin/Globulin Ratio 0.5 (1.0-1.7) Test 02/12/21 07:18 Glucose (Fingerstick) 210 mg/dL (70-99) Assessment/Plan Assessment/Plan gastroparesis dm, CHF, stroke, obesity will have dr pina review poor surgical candidate FLYNN PINA MD 02/12/21 2010: CONSULT Assessment/Plan Assessment/Plan Pt seen and examined. Agree with Ms. Booth's note Pt is interested in pursuing J tube placement. would favor medical maximizing. Thanks for consult! RUBÉN BOOTH REGISTERED PUBLIC HEALTH NURSE Feb 12, 2021 11:07 FLYNN PINA MD Feb 12, 2021 20:10
--- NOTE | 2021-02-12 11:45 | PDOC ---
PULMONARY PROGRESS NOTES DATE: 02/12/21 TIME: 11:44 Subjective resolved audible wheezing, has occ cough has nausea on 02 2 lpm not on 02 at home Vitals Vital Signs Date Time Temp Pulse Resp B/P (MAP) Pulse Ox O2 Delivery O2 Flow Rate FiO2 02/12/21 11:33 96 Nasal Cannula 2.0 02/12/21 11:00 98.2 90 20 193/76 (115) 98.2 ROS: No Chest Pain, No Abdominal Pain, No Increase Cough General: Alert, No acute distress Lungs: Clear Cardiovascular: S1, S2 Abdomen: Soft Neuro Exam: Alert Extremities: No Edema Skin: Warm Labs Laboratory Tests Test 02/10/21 16:52 02/10/21 20:51 02/11/21 07:58 02/11/21 11:52 Glucose (Fingerstick) 149 mg/dL (70-99) 185 mg/dL (70-99) 158 mg/dL (70-99) 168 mg/dL (70-99) Test 02/11/21 16:33 02/11/21 20:39 02/12/21 03:25 02/12/21 07:18 Glucose (Fingerstick) 207 mg/dL (70-99) 258 mg/dL (70-99) 210 mg/dL (70-99) White Blood Count 10.9 x10^3/uL (4.0-11.0) Red Blood Count 3.27 x10^6/uL (3.50-5.40) Hemoglobin 8.3 g/dL (12.0-15.5) Hematocrit 25.9 % (36.0-47.0) Mean Corpuscular Volume 79 fL (79-100) Mean Corpuscular Hemoglobin 25 pg (25-35) Mean Corpuscular Hemoglobin Concent 32 g/dL (31-37) Red Cell Distribution Width 16.6 % (11.5-14.5) Platelet Count 246 x10^3/uL (140-400) Sodium Level 148 mmol/L (136-145) Potassium Level 3.9 mmol/L (3.5-5.1) Chloride Level 111 mmol/L (98-107) Carbon Dioxide Level 32 mmol/L (21-32) Anion Gap 5 (6-14) Blood Urea Nitrogen 19 mg/dL (7-20) Creatinine 1.4 mg/dL (0.6-1.0) Estimated GFR (Cockcroft-Gault) 37.5 BUN/Creatinine Ratio 14 (6-20) Glucose Level 215 mg/dL (70-99) Calcium Level 8.7 mg/dL (8.5-10.1) Total Bilirubin 0.2 mg/dL (0.2-1.0) Aspartate Amino Transf (AST/SGOT) 10 U/L (15-37) Alanine Aminotransferase (ALT/SGPT) 14 U/L (14-59) Alkaline Phosphatase 53 U/L (46-116) Total Protein 7.1 g/dL (6.4-8.2) Albumin 2.4 g/dL (3.4-5.0) Albumin/Globulin Ratio 0.5 (1.0-1.7) Test 02/12/21 11:11 Glucose (Fingerstick) 208 mg/dL (70-99) Laboratory Tests Test 02/11/21 11:52 02/11/21 16:33 02/11/21 20:39 02/12/21 03:25 Glucose (Fingerstick) 168 mg/dL (70-99) 207 mg/dL (70-99) 258 mg/dL (70-99) White Blood Count 10.9 x10^3/uL (4.0-11.0) Red Blood Count 3.27 x10^6/uL (3.50-5.40) Hemoglobin 8.3 g/dL (12.0-15.5) Hematocrit 25.9 % (36.0-47.0) Mean Corpuscular Volume 79 fL (79-100) Mean Corpuscular Hemoglobin 25 pg (25-35) Mean Corpuscular Hemoglobin Concent 32 g/dL (31-37) Red Cell Distribution Width 16.6 % (11.5-14.5) Platelet Count 246 x10^3/uL (140-400) Sodium Level 148 mmol/L (136-145) Potassium Level 3.9 mmol/L (3.5-5.1) Chloride Level 111 mmol/L (98-107) Carbon Dioxide Level 32 mmol/L (21-32) Anion Gap 5 (6-14) Blood Urea Nitrogen 19 mg/dL (7-20) Creatinine 1.4 mg/dL (0.6-1.0) Estimated GFR (Cockcroft-Gault) 37.5 BUN/Creatinine Ratio 14 (6-20) Glucose Level 215 mg/dL (70-99) Calcium Level 8.7 mg/dL (8.5-10.1) Total Bilirubin 0.2 mg/dL (0.2-1.0) Aspartate Amino Transf (AST/SGOT) 10 U/L (15-37) Alanine Aminotransferase (ALT/SGPT) 14 U/L (14-59) Alkaline Phosphatase 53 U/L (46-116) Total Protein 7.1 g/dL (6.4-8.2) Albumin 2.4 g/dL (3.4-5.0) Albumin/Globulin Ratio 0.5 (1.0-1.7) Test 02/12/21 07:18 02/12/21 11:11 Glucose (Fingerstick) 210 mg/dL (70-99) 208 mg/dL (70-99) Medications Active Scripts Medications Dose Route/Sig Max Daily Dose Days Date Category Dose Instructions Zofran (Ondansetron Hcl) 4 Mg Tablet 1 Tab PO PRN Q4HRS PRN 02/02/21 Reported Vitamin C (Ascorbic Acid) 500 Mg Capsule 500 Mg PO BID 02/02/21 Reported Santyl Ointment (Collagenase) 30 Gm Oint...g. 1 Kimberlee TP QSUTUTH 02/02/21 Reported DIRECTED BY PHYSICIAN Hydrocodone-Apap 5-325 (Hydrocodone Bit/Acetaminophen) 1 Tab Tablet 1 Tab PO PRN Q8HRS PRN 02/02/21 Reported Thera-M Caplet (Multivit,Ther Iron,Ca,Fa & Min) 1 Each Tablet 1 Each PO DAILY 02/02/21 Reported Milk Of Magnesia (Magnesium Hydroxide) 400 Mg/5 Ml Oral.susp 30 Ml PO PRN DAILY PRN 02/02/21 Reported Melatonin 3 Mg Tablet.er 3 Mg PO PRN QHS PRN 02/02/21 Reported Insulin Aspart Flexpen (Insulin Aspart) 100 Unit/1 Ml Insuln.pen 15 Unit SQ TIDAC 02/02/21 Reported Dulcolax (Bisacodyl) 10 Mg Supp.rect 10 Mg RC PRN DAILY PRN 02/02/21 Reported Tylenol (Acetaminophen) 325 Mg Tablet 650 Mg PO PRN Q6HRS PRN 02/02/21 Reported Lisinopril 5 Mg Tablet 5 Mg PO DAILY 02/02/21 Reported Insulin Aspart 100 Unit/1 Ml Vial 100 Unit SQ SLIDING SCALE 11/17/20 Reported Levemir Flextouch (Insulin Detemir) 100 Unit/1 Ml Insuln.pen 50 Unit SQ BID 11/17/20 Reported Escitalopram Oxalate 10 Mg Tablet 10 Mg PO DAILY 11/17/20 Reported Carvedilol 25 Mg Tablet Unknown Dose PO BIDWMEALS 09/01/20 Reported Atorvastatin Calcium 80 Mg Tablet Unknown Dose PO QHS 09/01/20 Reported Clopidogrel (Clopidogrel Bisulfate) 75 Mg Tablet Unknown Dose PO DAILY 09/01/20 Reported Metformin Hcl 500 Mg Tablet 500 Mg PO BID 09/01/20 Reported Comments cxr 02/09 Low lung volumes and technique accentuates heart size and pulmonary vascularity. Mild prominent bilateral interstitial lung markings likely mild congestive changes or interstitial infiltrates. Bibasilar lung airspace opacities likely atelectasis or infiltrate slightly increased since prior exam. Electronically signed by: Billy Vergara MD (02/09/2021 5:38 PM) [id number] Impression . IMPRESSION: 1. Acute hypoxemic respiratory failure, multifactorial. 2. Suspect aspiration pneumonia. 3. Abnormal x-ray compatible, slightly worse 02/09, suspect CHF 4. SARS-CoV-2.,neg 5. Influenza screen negative 6. History of cerebrovascular accident with right-sided hemiparesis. 7. Type 2 diabetes./ gastroparesis 8. Intractable emesis. 9. Fever. 10. Carotic stenosis 11. Diabetic heel ulcer right greater than left Plan . Updated 02/12 wheezing improved. s/p lasix low dose steroids/ Steroid nebs cxr reviewed 02/09/ CHF ttirate fio2 to keep sat 92% Continue antibiotics Follow GI input increase activity lovenox protonix for prophylaxis Follow speech rec discussed w pt rn / DR Davies Updated 02/11 wheezing improved. s/p lasix add low dose steroids/ Steroid nebs cxr reviewed 02/09/ CHF ttirate fio2 to keep sat 92% Continue antibiotics Follow GI input increase activity lovenox protonix for prophylaxis Follow speech rec discussed w pt rn / JANIS Nguyen MD Feb 12, 2021 11:45
[2021-02-12 15:00] VITALS: BP 191/69
[2021-02-12] MEDS: LABETALOL 20 MG/4 ML DISP.SYRIN. IVP PRN (17:43)
[2021-02-12 19:00] VITALS: BP 170/71
--- NOTE | 2021-02-12 20:05 | NUR ---
Pt in bed assessment completed vss poc explained, pt denied pain but c/o nausea will medicate pt. pt reoriented to call light will resume care and continue to monitor pt. Call light in reach.
[2021-02-12] MEDS: ATORVASTATIN CALCIUM 40 MG TABLET. PO SCH (21:14)
[2021-02-12] MEDS: ONDANSETRON ODT 4 MG TAB.RAPDIS. PO PRN (21:14)
[2021-02-12] MEDS: ENOXAPARIN 40 MG/0.4 ML SYRINGE. SQ SCH (21:15)
[2021-02-12 22:52] VITALS: BP 156/66
[2021-02-13] VITALS (7 sets, daily range): BP systolic 172–186; BP diastolic 54–82
[2021-02-13] MEDS: PIPERACILLIN/TAZOBACTAM 3.375 GM in IV NORMAL SALINE 50ML 50 ML IV SCH ×4 (00:08→17:51)
[2021-02-13] MEDS: ONDANSETRON PF 4 MG/2 ML VIAL. IVP PRN (01:30)
[2021-02-13] MEDS: hydrALAZINE 20 MG/ML VIAL. IVP PRN ×2 (02:44→17:54)
[2021-02-13] MEDS: METOCLOPRAMIDE ORAL SOLN 10 MG/10 ML SOLUTION. PO SCH ×4 (05:57→21:00)
[2021-02-13 06:15] LABS: HEMATOCRIT 26.9 % (36.0-47.0); HEMOGLOBIN 8.4 g/dL (12.0-15.5); RED BLOOD COUNT 3.36 x10^6/uL (3.50-5.40); RED CELL DISTRIBUTION WIDTH 16.5 % (11.5-14.5); WHITE BLOOD COUNT 11.8 x10^3/uL (4.0-11.0)
[2021-02-13 06:29] LABS: PROTHROMBIN TIME PATIENT 15.4 SEC (11.7-14.0)
[2021-02-13 06:32] LABS: ALBUMIN 2.5 g/dL (3.4-5.0); ALBUMIN/GLOBULIN RATIO 0.6 (1.0-1.7); CALCIUM 8.9 mg/dL (8.5-10.1); CREATININE 1.6 mg/dL (0.6-1.0); GFR 32.2; POTASSIUM 3.2 mmol/L (3.5-5.1); TOTAL BILIRUBIN 0.2 mg/dL (0.2-1.0)
[2021-02-13] MEDS: BUDESONIDE 0.5 MG/2 ML NEBU. NEB SCH ×2 (07:35→21:39)
[2021-02-13] MEDS: IPRATRPIUM/ALBUTEROL 0.5/2.5MG 3 ML NEBU. NEB SCH ×4 (07:35→21:39)
--- NOTE | 2021-02-13 09:29 | NUR ---
pt left the floor for procedure at approx 0930. the called and updates were given.
[2021-02-13] MEDS: ASCORBIC ACID 500 MG TABLET PO SCH ×2 (10:53→17:34)
[2021-02-13] MEDS: MULTIVITAMIN with MINERAL TABLET. PO SCH (10:53)
[2021-02-13] MEDS: CLOPIDOGREL BISULFATE 75 MG TABLET PO SCH (10:53)
[2021-02-13] MEDS: metFORMIN 500 MG TABLET PO SCH ×2 (10:53→17:29)
[2021-02-13] MEDS: LACTOBACILLUS RHAMNOSUS GG 1 CAPSULE. PO SCH ×2 (10:53→21:00)
--- NOTE | 2021-02-13 10:53 | PDOC ---
PULMONARY PROGRESS NOTES DATE: 02/13/21 TIME: 10:51 Subjective resolved audible wheezing, has occ cough has nausea on 02 2 lpm not on 02 at home Vitals Vital Signs Date Time Temp Pulse Resp B/P (MAP) Pulse Ox O2 Delivery O2 Flow Rate FiO2 02/13/21 07:37 96 Nasal Cannula 2.0 02/13/21 07:00 97.6 85 20 186/73 (110) 97.6 ROS: No Chest Pain, No Abdominal Pain, No Increase Cough General: Alert, No acute distress Lungs: Clear Cardiovascular: S1, S2 Abdomen: Soft Neuro Exam: Alert Extremities: No Edema Skin: Warm Labs Laboratory Tests Test 02/11/21 11:52 02/11/21 16:33 02/11/21 20:39 02/12/21 03:25 Glucose (Fingerstick) 168 mg/dL (70-99) 207 mg/dL (70-99) 258 mg/dL (70-99) White Blood Count 10.9 x10^3/uL (4.0-11.0) Red Blood Count 3.27 x10^6/uL (3.50-5.40) Hemoglobin 8.3 g/dL (12.0-15.5) Hematocrit 25.9 % (36.0-47.0) Mean Corpuscular Volume 79 fL (79-100) Mean Corpuscular Hemoglobin 25 pg (25-35) Mean Corpuscular Hemoglobin Concent 32 g/dL (31-37) Red Cell Distribution Width 16.6 % (11.5-14.5) Platelet Count 246 x10^3/uL (140-400) Sodium Level 148 mmol/L (136-145) Potassium Level 3.9 mmol/L (3.5-5.1) Chloride Level 111 mmol/L (98-107) Carbon Dioxide Level 32 mmol/L (21-32) Anion Gap 5 (6-14) Blood Urea Nitrogen 19 mg/dL (7-20) Creatinine 1.4 mg/dL (0.6-1.0) Estimated GFR (Cockcroft-Gault) 37.5 BUN/Creatinine Ratio 14 (6-20) Glucose Level 215 mg/dL (70-99) Calcium Level 8.7 mg/dL (8.5-10.1) Total Bilirubin 0.2 mg/dL (0.2-1.0) Aspartate Amino Transf (AST/SGOT) 10 U/L (15-37) Alanine Aminotransferase (ALT/SGPT) 14 U/L (14-59) Alkaline Phosphatase 53 U/L (46-116) Total Protein 7.1 g/dL (6.4-8.2) Albumin 2.4 g/dL (3.4-5.0) Albumin/Globulin Ratio 0.5 (1.0-1.7) Test 02/12/21 07:18 02/12/21 11:11 02/12/21 16:57 02/12/21 19:44 Glucose (Fingerstick) 210 mg/dL (70-99) 208 mg/dL (70-99) 233 mg/dL (70-99) 226 mg/dL (70-99) Test 02/13/21 03:50 02/13/21 07:34 White Blood Count 11.8 x10^3/uL (4.0-11.0) Red Blood Count 3.36 x10^6/uL (3.50-5.40) Hemoglobin 8.4 g/dL (12.0-15.5) Hematocrit 26.9 % (36.0-47.0) Mean Corpuscular Volume 80 fL (79-100) Mean Corpuscular Hemoglobin 25 pg (25-35) Mean Corpuscular Hemoglobin Concent 31 g/dL (31-37) Red Cell Distribution Width 16.5 % (11.5-14.5) Platelet Count 252 x10^3/uL (140-400) Prothrombin Time 15.4 SEC (11.7-14.0) Prothromb Time International Ratio 1.3 (0.8-1.1) Activated Partial Thromboplast Time 37 SEC (24-38) Sodium Level 149 mmol/L (136-145) Potassium Level 3.2 mmol/L (3.5-5.1) Chloride Level 111 mmol/L (98-107) Carbon Dioxide Level 32 mmol/L (21-32) Anion Gap 6 (6-14) Blood Urea Nitrogen 22 mg/dL (7-20) Creatinine 1.6 mg/dL (0.6-1.0) Estimated GFR (Cockcroft-Gault) 32.2 BUN/Creatinine Ratio 14 (6-20) Glucose Level 194 mg/dL (70-99) Calcium Level 8.9 mg/dL (8.5-10.1) Total Bilirubin 0.2 mg/dL (0.2-1.0) Aspartate Amino Transf (AST/SGOT) 11 U/L (15-37) Alanine Aminotransferase (ALT/SGPT) 14 U/L (14-59) Alkaline Phosphatase 47 U/L (46-116) Total Protein 7.0 g/dL (6.4-8.2) Albumin 2.5 g/dL (3.4-5.0) Albumin/Globulin Ratio 0.6 (1.0-1.7) Glucose (Fingerstick) 189 mg/dL (70-99) Laboratory Tests Test 02/12/21 11:11 02/12/21 16:57 02/12/21 19:44 02/13/21 03:50 Glucose (Fingerstick) 208 mg/dL (70-99) 233 mg/dL (70-99) 226 mg/dL (70-99) White Blood Count 11.8 x10^3/uL (4.0-11.0) Red Blood Count 3.36 x10^6/uL (3.50-5.40) Hemoglobin 8.4 g/dL (12.0-15.5) Hematocrit 26.9 % (36.0-47.0) Mean Corpuscular Volume 80 fL (79-100) Mean Corpuscular Hemoglobin 25 pg (25-35) Mean Corpuscular Hemoglobin Concent 31 g/dL (31-37) Red Cell Distribution Width 16.5 % (11.5-14.5) Platelet Count 252 x10^3/uL (140-400) Prothrombin Time 15.4 SEC (11.7-14.0) Prothromb Time International Ratio 1.3 (0.8-1.1) Activated Partial Thromboplast Time 37 SEC (24-38) Sodium Level 149 mmol/L (136-145) Potassium Level 3.2 mmol/L (3.5-5.1) Chloride Level 111 mmol/L (98-107) Carbon Dioxide Level 32 mmol/L (21-32) Anion Gap 6 (6-14) Blood Urea Nitrogen 22 mg/dL (7-20) Creatinine 1.6 mg/dL (0.6-1.0) Estimated GFR (Cockcroft-Gault) 32.2 BUN/Creatinine Ratio 14 (6-20) Glucose Level 194 mg/dL (70-99) Calcium Level 8.9 mg/dL (8.5-10.1) Total Bilirubin 0.2 mg/dL (0.2-1.0) Aspartate Amino Transf (AST/SGOT) 11 U/L (15-37) Alanine Aminotransferase (ALT/SGPT) 14 U/L (14-59) Alkaline Phosphatase 47 U/L (46-116) Total Protein 7.0 g/dL (6.4-8.2) Albumin 2.5 g/dL (3.4-5.0) Albumin/Globulin Ratio 0.6 (1.0-1.7) Test 02/13/21 07:34 Glucose (Fingerstick) 189 mg/dL (70-99) Medications Active Scripts Medications Dose Route/Sig Max Daily Dose Days Date Category Dose Instructions Zofran (Ondansetron Hcl) 4 Mg Tablet 1 Tab PO PRN Q4HRS PRN 02/02/21 Reported Vitamin C (Ascorbic Acid) 500 Mg Capsule 500 Mg PO BID 02/02/21 Reported Santyl Ointment (Collagenase) 30 Gm Oint...g. 1 Kimberlee TP QSUTUTH 02/02/21 Reported DIRECTED BY PHYSICIAN Hydrocodone-Apap 5-325 (Hydrocodone Bit/Acetaminophen) 1 Tab Tablet 1 Tab PO PRN Q8HRS PRN 02/02/21 Reported Thera-M Caplet (Multivit,Ther Iron,Ca,Fa & Min) 1 Each Tablet 1 Each PO DAILY 02/02/21 Reported Milk Of Magnesia (Magnesium Hydroxide) 400 Mg/5 Ml Oral.susp 30 Ml PO PRN DAILY PRN 02/02/21 Reported Melatonin 3 Mg Tablet.er 3 Mg PO PRN QHS PRN 02/02/21 Reported Insulin Aspart Flexpen (Insulin Aspart) 100 Unit/1 Ml Insuln.pen 15 Unit SQ TIDAC 02/02/21 Reported Dulcolax (Bisacodyl) 10 Mg Supp.rect 10 Mg RC PRN DAILY PRN 02/02/21 Reported Tylenol (Acetaminophen) 325 Mg Tablet 650 Mg PO PRN Q6HRS PRN 02/02/21 Reported Lisinopril 5 Mg Tablet 5 Mg PO DAILY 02/02/21 Reported Insulin Aspart 100 Unit/1 Ml Vial 100 Unit SQ SLIDING SCALE 11/17/20 Reported Levemir Flextouch (Insulin Detemir) 100 Unit/1 Ml Insuln.pen 50 Unit SQ BID 11/17/20 Reported Escitalopram Oxalate 10 Mg Tablet 10 Mg PO DAILY 11/17/20 Reported Carvedilol 25 Mg Tablet Unknown Dose PO BIDWMEALS 09/01/20 Reported Atorvastatin Calcium 80 Mg Tablet Unknown Dose PO QHS 09/01/20 Reported Clopidogrel (Clopidogrel Bisulfate) 75 Mg Tablet Unknown Dose PO DAILY 09/01/20 Reported Metformin Hcl 500 Mg Tablet 500 Mg PO BID 09/01/20 Reported Comments cxr 02/09 Low lung volumes and technique accentuates heart size and pulmonary vascularity. Mild prominent bilateral interstitial lung markings likely mild congestive changes or interstitial infiltrates. Bibasilar lung airspace opacities likely atelectasis or infiltrate slightly increased since prior exam. Electronically signed by: Billy Vergara MD (02/09/2021 5:38 PM) [id number] Impression . IMPRESSION: 1. Acute hypoxemic respiratory failure, multifactorial. 2. Suspect aspiration pneumonia. 3. Abnormal x-ray compatible, slightly worse 02/09, suspect CHF 4. SARS-CoV-2.,neg 5. Influenza screen negative 6. History of cerebrovascular accident with right-sided hemiparesis. 7. Type 2 diabetes./ gastroparesis 8. Intractable emesis. 9. Fever. 10. Carotic stenosis 11. Diabetic heel ulcer right greater than left Plan . Updated 02/13 wheezing improved. s/p lasix low dose steroids/ Steroid nebs cxr reviewed 02/09/ CHF ttirate fio2 to keep sat 92% Continue antibiotics Follow GI input increase activity lovenox protonix for prophylaxis Follow speech rec discussed w pt rn / dc plans per PCP JANIS AUGUSTE MD Feb 13, 2021 10:53
[2021-02-13] MEDS: LISINOPRIL 5 MG TABLET. PO SCH (10:54)
[2021-02-13] MEDS: METOPROLOL SUCC 24HR ER 25 MG TAB.ER.24H. PO SCH (10:55)
[2021-02-13] MEDS: POTASSIUM CHLORIDE 20 MEQ TABLET.ER. PO SCH ×3 (11:04→21:00)
[2021-02-13] MEDS: INSULIN LISPRO 300 UNITS/3 ML VIAL. SQ SCH ×3 (11:13→17:52)
[2021-02-13] MEDS: INSULIN GLARGINE SYRINGE. SQ SCH ×2 (11:14→21:00)
--- NOTE | 2021-02-13 11:14 | PDOC ---
Date of Service: DATE: 02/13/21 TIME: 11:11 Subjective: Subjective: Nausea is "so-so," no vomiting. Objective: Objective: Reviewed surgery note - medical management preferred for now. Vital Signs: Vital Signs Date Time Temp Pulse Resp B/P (MAP) Pulse Ox O2 Delivery O2 Flow Rate FiO2 02/13/21 11:00 97.8 84 20 172/54 (93) 95 Nasal Cannula 2.0 97.8 Labs: Laboratory Tests Test 02/12/21 16:57 02/12/21 19:44 02/13/21 03:50 02/13/21 07:34 Glucose (Fingerstick) 233 mg/dL 226 mg/dL 189 mg/dL White Blood Count 11.8 x10^3/uL Red Blood Count 3.36 x10^6/uL Hemoglobin 8.4 g/dL Hematocrit 26.9 % Mean Corpuscular Volume 80 fL Mean Corpuscular Hemoglobin 25 pg Mean Corpuscular Hemoglobin Concent 31 g/dL Red Cell Distribution Width 16.5 % Platelet Count 252 x10^3/uL Prothrombin Time 15.4 SEC Prothromb Time International Ratio 1.3 Activated Partial Thromboplast Time 37 SEC Sodium Level 149 mmol/L Potassium Level 3.2 mmol/L Chloride Level 111 mmol/L Carbon Dioxide Level 32 mmol/L Anion Gap 6 Blood Urea Nitrogen 22 mg/dL Creatinine 1.6 mg/dL Estimated GFR (Cockcroft-Gault) 32.2 BUN/Creatinine Ratio 14 Glucose Level 194 mg/dL Calcium Level 8.9 mg/dL Total Bilirubin 0.2 mg/dL Aspartate Amino Transf (AST/SGOT) 11 U/L Alanine Aminotransferase (ALT/SGPT) 14 U/L Alkaline Phosphatase 47 U/L Total Protein 7.0 g/dL Albumin 2.5 g/dL Albumin/Globulin Ratio 0.6 Imaging: C/A CT pending PE: GEN: NAD LUNGS: diminished, NC HEART: RRR ABD: large, soft, non-tender NEURO/PSYCH: A & O 3 - forgetful? A/P: Gastroparesis -- Continue same/support per GI, await CT. Justicifation of Admission Dx: Justifications for Admission: Justification of Admission Dx: Yes Stroke - Ischemic: Stroke-Ischemic SONA SHAW Feb 13, 2021 11:14
--- NOTE | 2021-02-13 12:08 | RAD ---
CT CHEST AND ABDOMEN WITHOUT CONTRAST History: Recurrent aspiration pneumonia. Technique: CT of the chest and abdomen were performed with intravenous contrast. Coronal and sagittal reconstructions were performed. Exposure: One or more of the following individualized dose reduction techniques were utilized for thi s examination: 1. Automated exposure control 2. Adjustment of the mA and/or kV according to patient size 3. Use of iterative reconstruction technique. Comparison: CT abdomen pelvis March 09, 2013 Findings: Chest: Moderate prominent mediastinal lymph nodes. Coronary artery calcination. Atheromatous plaque w ithin the aorta and branch vessels. Minimal pericardial effusion. Moderate bilateral pleural effusions with adjacent atelectasis, right greater than left. Interstitial thickening with ground glass opacities bilaterally, concerning for pulmonary edema. Right upper lobe nodular opacity measures 1.3 x 1.0 cm (series 2 image 18). Additional smaller nodula r opacities adjacent. Abdomen: The liver, spleen and pancreas are unremarkable. Prior cholecystectomy. Left adrenal nodule measures 1.7 x 1.4 cm, unchanged compared to 2013. Bilateral perinephric stranding. Nonobstructing intrarenal calculi. Mild left hydronephrosis. Small c alculi within the left proximal ureter just distal to the ureteropelvic junction. Largest measures 3 mm. No right hydronephrosis. Imaged bowel is nonobstructed. Atheromatous plaque throughout the nonaneurysmal abdominal aorta and b ranch vessels. No pathologic lymphadenopathy. No ascites. Body wall edema. Small fat-containing umbil ical hernia. Bones: Multilevel lumbar spondylosis most prominent L4-5 and L5-S1. Grade 1 anterolisthesis L4 on L5. Impression: Chest CT: 1. Moderate bilateral pleural effusions with adjacent atelectasis. 2. Bilateral septal thickening with groundglass opacities, concerning for pulmonary edema. 3. Right upper lobe nodular opacity with adjacent smaller nodular opacities. Recommend short-term CT follow-up after treatment to ensure resolution as malignancy is not excluded. Abdomen and pelvis CT: 1. Left proximal ureteral tiny obstructing calculi contributing to mild left hydronephrosis and candido nephric/periureteral fat stranding. 2. Additional bilateral nonobstructing intrarenal calculi. 3. Body wall edema. 4. Left adrenal nodule, unchanged compared to 2013 and likely benign given stability over time Electronically signed by: Mc Aceves DO (02/13/2021 12:05 PM) [id number]
--- NOTE | 2021-02-13 12:22 | PN ---
DATE: 02/13/2021 SUBJECTIVE: The patient is resting, slightly propped up in bed, in no apparent respiratory distress. She apparently had eaten this morning few bites of her cream of wheat and had nausea last night that required Zofran twice. She was seen by the surgical team and would like to have medical optimization before pursuing surgical placement of the jejunostomy tube. PHYSICAL EXAMINATION: GENERAL: When I examined her this morning, she was resting slightly propped up in bed, in no apparent respiratory distress. She was pale, but no jaundice, cyanosis or thyromegaly. No jugular venous distension. No limb edema. VITAL SIGNS: Her heart rate was 85, blood pressure was 186/73, temperature was 97.6, respiratory rate 20, and oxygen saturation was 96% on 2 liters of oxygen. HEAD, EYES, EARS, NOSE AND THROAT: Showed normocephalic, atraumatic. NECK: Supple. HEART: Showed normal first and second heart sounds. No gallop, rub or murmur. CHEST: Shows central trachea, equal bilateral chest expansion, air entry, vesicular sounds with bilateral basal crepitation and few scattered rhonchi. ABDOMEN: Distended, soft, nontender. NEUROLOGIC: She is awake, alert, responding appropriately. All cranial nerves intact. She has right-sided hemiplegia. She has multiple wounds on both feet. Her intake and output are incompletely recorded. LABORATORY DATA: Her white cell count was 11,800, hemoglobin 8.4, hematocrit 26.9, MCV 80 and platelet count 252,000. Her chemistry showed a serum sodium 149, potassium 3.2, chloride 111, bicarbonate 32, anion gap of 6, BUN 22, creatinine is 1.6, estimated GFR was 32 mL per minute, glucose 194, calcium was 8.9. Total bilirubin, AST, ALT, alkaline phosphatase were normal. Total protein 7, albumin was 2.5. Her prothrombin time, INR and aPTT are all normal. ASSESSMENT: 1. Acute hypoxic respiratory failure. 2. Aspiration pneumonia. 3. Urinary tract infection with growth of more than 100,000 colony forming ____ of gram-negative rods. 4. The patient has diabetic gastroparesis with gastric emptying confirming that with ____ still in her stomach after 4 hours. 5. The patient has agreed to gastrojejunostomy tube placement. 6. She has left middle cerebral artery territory infarct with right-sided hemiplegia. 7. Hypertension. 8. Hyperlipidemia. 9. Peripheral vascular disease. 10. Type 2 diabetes mellitus with diabetic foot ulcer, more on the right than left. 11. The patient does have bilateral carotid artery stenosis showing 50-69% narrowing of bilateral mid internal carotid arteries with mild atherosclerotic plaque bilaterally. 12. The patient also had probably acute on chronic diastolic congestive heart failure that has responded to IV Lasix. The patient also has hypernatremia and hypokalemia. PLAN: My plan is to arrange for a CT scan of the chest, abdomen and pelvis. I have consulted the pulmonary fellow and we will replenish her potassium and push more water to correct her hypernatremia and await the surgical decision as to the timing of a gastrojejunostomy tube placement. HUMAIRA LORD MD DR: ALVIN/deuce JOB#: [id number] / [id number]
[2021-02-13] MEDS: predniSONE 20 MG TABLET PO SCH (12:59)
[2021-02-13] MEDS: ONDANSETRON ODT 4 MG TAB.RAPDIS. PO PRN (13:32)
--- NOTE | 2021-02-13 17:06 | NUR ---
NUNO following this BPCI patient today. Pt resides in LTC at [place]. Pt is not a good candidate for j tube per GI note today. Possible discharge back to [facility] on hospice. Pt remains on 02 and IV Zosyn.
--- NOTE | 2021-02-13 17:20 | PDOC ---
SURGICAL PROGRESS NOTE DATE: 02/13/21 TIME: 17:19 Subjective Pt without new c/o, gage some liquid PO Vital Signs Vital Signs Date Time Temp Pulse Resp B/P (MAP) Pulse Ox O2 Delivery O2 Flow Rate FiO2 02/13/21 15:00 97.8 87 20 185/78 (113) 96 Nasal Cannula 2.0 97.8 I&O Intake and Output 02/13/21 07:00 Intake Total 297 ml Balance 297 ml Intake Oral 297 ml # Voids 4 # Bowel Movements 2 General: Alert, Oriented X3, Cooperative, No acute distress Abdomen: Soft, No tenderness Labs Laboratory Tests Test 02/11/21 20:39 02/12/21 03:25 02/12/21 07:18 02/12/21 11:11 Glucose (Fingerstick) 258 mg/dL (70-99) 210 mg/dL (70-99) 208 mg/dL (70-99) White Blood Count 10.9 x10^3/uL (4.0-11.0) Red Blood Count 3.27 x10^6/uL (3.50-5.40) Hemoglobin 8.3 g/dL (12.0-15.5) Hematocrit 25.9 % (36.0-47.0) Mean Corpuscular Volume 79 fL (79-100) Mean Corpuscular Hemoglobin 25 pg (25-35) Mean Corpuscular Hemoglobin Concent 32 g/dL (31-37) Red Cell Distribution Width 16.6 % (11.5-14.5) Platelet Count 246 x10^3/uL (140-400) Sodium Level 148 mmol/L (136-145) Potassium Level 3.9 mmol/L (3.5-5.1) Chloride Level 111 mmol/L (98-107) Carbon Dioxide Level 32 mmol/L (21-32) Anion Gap 5 (6-14) Blood Urea Nitrogen 19 mg/dL (7-20) Creatinine 1.4 mg/dL (0.6-1.0) Estimated GFR (Cockcroft-Gault) 37.5 BUN/Creatinine Ratio 14 (6-20) Glucose Level 215 mg/dL (70-99) Calcium Level 8.7 mg/dL (8.5-10.1) Total Bilirubin 0.2 mg/dL (0.2-1.0) Aspartate Amino Transf (AST/SGOT) 10 U/L (15-37) Alanine Aminotransferase (ALT/SGPT) 14 U/L (14-59) Alkaline Phosphatase 53 U/L (46-116) Total Protein 7.1 g/dL (6.4-8.2) Albumin 2.4 g/dL (3.4-5.0) Albumin/Globulin Ratio 0.5 (1.0-1.7) Test 02/12/21 16:57 02/12/21 19:44 02/13/21 03:50 02/13/21 07:34 Glucose (Fingerstick) 233 mg/dL (70-99) 226 mg/dL (70-99) 189 mg/dL (70-99) White Blood Count 11.8 x10^3/uL (4.0-11.0) Red Blood Count 3.36 x10^6/uL (3.50-5.40) Hemoglobin 8.4 g/dL (12.0-15.5) Hematocrit 26.9 % (36.0-47.0) Mean Corpuscular Volume 80 fL (79-100) Mean Corpuscular Hemoglobin 25 pg (25-35) Mean Corpuscular Hemoglobin Concent 31 g/dL (31-37) Red Cell Distribution Width 16.5 % (11.5-14.5) Platelet Count 252 x10^3/uL (140-400) Prothrombin Time 15.4 SEC (11.7-14.0) Prothromb Time International Ratio 1.3 (0.8-1.1) Activated Partial Thromboplast Time 37 SEC (24-38) Sodium Level 149 mmol/L (136-145) Potassium Level 3.2 mmol/L (3.5-5.1) Chloride Level 111 mmol/L (98-107) Carbon Dioxide Level 32 mmol/L (21-32) Anion Gap 6 (6-14) Blood Urea Nitrogen 22 mg/dL (7-20) Creatinine 1.6 mg/dL (0.6-1.0) Estimated GFR (Cockcroft-Gault) 32.2 BUN/Creatinine Ratio 14 (6-20) Glucose Level 194 mg/dL (70-99) Calcium Level 8.9 mg/dL (8.5-10.1) Total Bilirubin 0.2 mg/dL (0.2-1.0) Aspartate Amino Transf (AST/SGOT) 11 U/L (15-37) Alanine Aminotransferase (ALT/SGPT) 14 U/L (14-59) Alkaline Phosphatase 47 U/L (46-116) Total Protein 7.0 g/dL (6.4-8.2) Albumin 2.5 g/dL (3.4-5.0) Albumin/Globulin Ratio 0.6 (1.0-1.7) Test 02/13/21 11:25 02/13/21 16:30 Glucose (Fingerstick) 182 mg/dL (70-99) 210 mg/dL (70-99) Laboratory Tests Test 02/12/21 19:44 02/13/21 03:50 02/13/21 07:34 02/13/21 11:25 Glucose (Fingerstick) 226 mg/dL (70-99) 189 mg/dL (70-99) 182 mg/dL (70-99) White Blood Count 11.8 x10^3/uL (4.0-11.0) Red Blood Count 3.36 x10^6/uL (3.50-5.40) Hemoglobin 8.4 g/dL (12.0-15.5) Hematocrit 26.9 % (36.0-47.0) Mean Corpuscular Volume 80 fL (79-100) Mean Corpuscular Hemoglobin 25 pg (25-35) Mean Corpuscular Hemoglobin Concent 31 g/dL (31-37) Red Cell Distribution Width 16.5 % (11.5-14.5) Platelet Count 252 x10^3/uL (140-400) Prothrombin Time 15.4 SEC (11.7-14.0) Prothromb Time International Ratio 1.3 (0.8-1.1) Activated Partial Thromboplast Time 37 SEC (24-38) Sodium Level 149 mmol/L (136-145) Potassium Level 3.2 mmol/L (3.5-5.1) Chloride Level 111 mmol/L (98-107) Carbon Dioxide Level 32 mmol/L (21-32) Anion Gap 6 (6-14) Blood Urea Nitrogen 22 mg/dL (7-20) Creatinine 1.6 mg/dL (0.6-1.0) Estimated GFR (Cockcroft-Gault) 32.2 BUN/Creatinine Ratio 14 (6-20) Glucose Level 194 mg/dL (70-99) Calcium Level 8.9 mg/dL (8.5-10.1) Total Bilirubin 0.2 mg/dL (0.2-1.0) Aspartate Amino Transf (AST/SGOT) 11 U/L (15-37) Alanine Aminotransferase (ALT/SGPT) 14 U/L (14-59) Alkaline Phosphatase 47 U/L (46-116) Total Protein 7.0 g/dL (6.4-8.2) Albumin 2.5 g/dL (3.4-5.0) Albumin/Globulin Ratio 0.6 (1.0-1.7) Test 02/13/21 16:30 Glucose (Fingerstick) 210 mg/dL (70-99) Problem List Problems Medical Problems: (1) Elevated troponin Status: Acute (2) Person under investigation for COVID-19 Status: Acute (3) Pneumonia Status: Acute (4) UTI (urinary tract infection) Status: Acute Assessment/Plan gastroparesis will tentatively consider J-tube placement on 02/17, if medically improved. Justicifation of Admission Dx: Justifications for Admission: Justification of Admission Dx: Yes Stroke - Ischemic: Stroke-Ischemic FLYNN VERDIN MD Feb 13, 2021 17:20
--- NOTE | 2021-02-13 18:31 | NUR ---
LARGE AMOUNTS OF TIME SPENT WITH THE PT THIS SHIFT SHE WOULD HIT HER LIGHT RIGHT AFTER YOU OWULD ASSIST HER AND AK FOR SOMETHING ELSE. THEN PT WOULD CALL WHO THEN WOULD CALL THE NURSES DESK AND COMPLAIN. HOWEVER STAFF ASSISTED PT THROUGHOUT SHIFT IN TIMELY MANNER. ANCHORMAN BATHED PT FROM [id number]. PT REFUSED TO HAVE WEDGE TO REPOSITION AND ALSO REFUSED BOOTS IN THE BED. BANDAGE CHANGED TO RIGHT HEEL AND MEDIHONEY APPLIED. PROTECTIVE FOAM APPLIED TO LEFT HEEL FOR PROPHYLAXIS. REPEATEDLY TRIED TO EDUCATE THE PT WELL FAMILY. RECEIVED SEVERAL PHONE CALLS FROM THE ANISHA THROUGHOUT THE SHIFT.
--- NOTE | 2021-02-13 20:15 | NUR ---
Pt refusing all meds. Reported was "Doing good." RN explained pt doing good because of her meds. Pt still refused. HELADIO Hooper in room at same time - witnessed pt refusing meds.
[2021-02-13] MEDS: ATORVASTATIN CALCIUM 40 MG TABLET. PO SCH (21:00)
[2021-02-13] MEDS: ENOXAPARIN 40 MG/0.4 ML SYRINGE. SQ SCH (21:30)
[2021-02-14] MEDS: PIPERACILLIN/TAZOBACTAM 3.375 GM in IV NORMAL SALINE 50ML 50 ML IV SCH ×2 (00:06→05:32)
[2021-02-14 03:58] VITALS: BP 180/70
[2021-02-14 07:00] VITALS: BP 180/74
[2021-02-14] MEDS: ONDANSETRON PF 4 MG/2 ML VIAL. IVP PRN ×3 (07:08→21:31)
[2021-02-14] MEDS: IPRATRPIUM/ALBUTEROL 0.5/2.5MG 3 ML NEBU. NEB SCH ×4 (07:22→19:57)
[2021-02-14] MEDS: BUDESONIDE 0.5 MG/2 ML NEBU. NEB SCH ×2 (07:22→19:57)
[2021-02-14 07:23] LABS: CALCIUM 8.9 mg/dL (8.5-10.1); CREATININE 1.9 mg/dL (0.6-1.0); GFR 26.4; POTASSIUM 4.2 mmol/L (3.5-5.1)
[2021-02-14] MEDS: INSULIN LISPRO 300 UNITS/3 ML VIAL. SQ SCH ×3 (08:00→17:32)
[2021-02-14] MEDS: METOPROLOL SUCC 24HR ER 25 MG TAB.ER.24H. PO SCH (08:59)
[2021-02-14] MEDS: POTASSIUM CHLORIDE 20 MEQ TABLET.ER. PO SCH ×3 (08:59→21:30)
[2021-02-14] MEDS: ASCORBIC ACID 500 MG TABLET PO SCH ×2 (08:59→17:33)
[2021-02-14] MEDS: LACTOBACILLUS RHAMNOSUS GG 1 CAPSULE. PO SCH ×2 (08:59→21:30)
[2021-02-14] MEDS: CLOPIDOGREL BISULFATE 75 MG TABLET PO SCH (08:59)
[2021-02-14] MEDS: MULTIVITAMIN with MINERAL TABLET. PO SCH (08:59)
[2021-02-14] MEDS: predniSONE 20 MG TABLET PO SCH (09:00)
[2021-02-14] MEDS: METOCLOPRAMIDE ORAL SOLN 10 MG/10 ML SOLUTION. PO SCH ×4 (09:00→21:30)
[2021-02-14] MEDS: INSULIN GLARGINE SYRINGE. SQ SCH ×2 (09:17→21:51)
--- NOTE | 2021-02-14 09:21 | PDOC ---
RUBÉN NAVARRETE CHILD PSYCHIATRIST 02/14/21 0921: SURGICAL PROGRESS NOTE DATE: 02/14/21 TIME: 09:19 Subjective denies pain taking clears, nausea, no emesis Vital Signs Vital Signs Date Time Temp Pulse Resp B/P (MAP) Pulse Ox O2 Delivery O2 Flow Rate FiO2 02/14/21 08:59 84 180/70 02/14/21 03:58 97.3 18 98 Nasal Cannula 2.0 97.3 I&O Intake and Output 02/14/21 07:00 Intake Total 0 ml Balance 0 ml Intake Oral 0 ml General: Alert, Cooperative, mild distress Abdomen: Soft, No tenderness Labs Laboratory Tests Test 02/12/21 11:11 02/12/21 16:57 02/12/21 19:44 02/13/21 03:50 Glucose (Fingerstick) 208 mg/dL (70-99) 233 mg/dL (70-99) 226 mg/dL (70-99) White Blood Count 11.8 x10^3/uL (4.0-11.0) Red Blood Count 3.36 x10^6/uL (3.50-5.40) Hemoglobin 8.4 g/dL (12.0-15.5) Hematocrit 26.9 % (36.0-47.0) Mean Corpuscular Volume 80 fL (79-100) Mean Corpuscular Hemoglobin 25 pg (25-35) Mean Corpuscular Hemoglobin Concent 31 g/dL (31-37) Red Cell Distribution Width 16.5 % (11.5-14.5) Platelet Count 252 x10^3/uL (140-400) Prothrombin Time 15.4 SEC (11.7-14.0) Prothromb Time International Ratio 1.3 (0.8-1.1) Activated Partial Thromboplast Time 37 SEC (24-38) Sodium Level 149 mmol/L (136-145) Potassium Level 3.2 mmol/L (3.5-5.1) Chloride Level 111 mmol/L (98-107) Carbon Dioxide Level 32 mmol/L (21-32) Anion Gap 6 (6-14) Blood Urea Nitrogen 22 mg/dL (7-20) Creatinine 1.6 mg/dL (0.6-1.0) Estimated GFR (Cockcroft-Gault) 32.2 BUN/Creatinine Ratio 14 (6-20) Glucose Level 194 mg/dL (70-99) Calcium Level 8.9 mg/dL (8.5-10.1) Total Bilirubin 0.2 mg/dL (0.2-1.0) Aspartate Amino Transf (AST/SGOT) 11 U/L (15-37) Alanine Aminotransferase (ALT/SGPT) 14 U/L (14-59) Alkaline Phosphatase 47 U/L (46-116) Total Protein 7.0 g/dL (6.4-8.2) Albumin 2.5 g/dL (3.4-5.0) Albumin/Globulin Ratio 0.6 (1.0-1.7) Test 02/13/21 07:34 02/13/21 11:25 02/13/21 16:30 02/13/21 20:20 Glucose (Fingerstick) 189 mg/dL (70-99) 182 mg/dL (70-99) 210 mg/dL (70-99) 244 mg/dL (70-99) Test 02/14/21 06:15 02/14/21 07:55 Sodium Level 149 mmol/L (136-145) Potassium Level 4.2 mmol/L (3.5-5.1) Chloride Level 113 mmol/L (98-107) Carbon Dioxide Level 33 mmol/L (21-32) Anion Gap 3 (6-14) Blood Urea Nitrogen 26 mg/dL (7-20) Creatinine 1.9 mg/dL (0.6-1.0) Estimated GFR (Cockcroft-Gault) 26.4 Glucose Level 238 mg/dL (70-99) Calcium Level 8.9 mg/dL (8.5-10.1) Glucose (Fingerstick) 224 mg/dL (70-99) Laboratory Tests Test 02/13/21 11:25 02/13/21 16:30 02/13/21 20:20 02/14/21 06:15 Glucose (Fingerstick) 182 mg/dL (70-99) 210 mg/dL (70-99) 244 mg/dL (70-99) Sodium Level 149 mmol/L (136-145) Potassium Level 4.2 mmol/L (3.5-5.1) Chloride Level 113 mmol/L (98-107) Carbon Dioxide Level 33 mmol/L (21-32) Anion Gap 3 (6-14) Blood Urea Nitrogen 26 mg/dL (7-20) Creatinine 1.9 mg/dL (0.6-1.0) Estimated GFR (Cockcroft-Gault) 26.4 Glucose Level 238 mg/dL (70-99) Calcium Level 8.9 mg/dL (8.5-10.1) Test 02/14/21 07:55 Glucose (Fingerstick) 224 mg/dL (70-99) Problem List Problems Medical Problems: (1) Elevated troponin Status: Acute (2) Person under investigation for COVID-19 Status: Acute (3) Pneumonia Status: Acute (4) UTI (urinary tract infection) Status: Acute Assessment/Plan requiring o2, bs high, cr 1.9 tentative or tuesday pending above improvement Justicifation of Admission Dx: Justifications for Admission: Justification of Admission Dx: Yes Stroke - Ischemic: Stroke-Ischemic FLYNN VERDIN MD 02/14/21 1331: SURGICAL PROGRESS NOTE Assessment/Plan Pt seen and examined. Agree with Ms. Navarrete's note Pt gage some PO abd soft, Nd, NTTP, well healed G-tube scar d/w pt and pt's family surgical J-tube. Certainly high risk for healing and tube complications. They will consider. RUBÉN NAVARRETE CHILD PSYCHIATRIST Feb 14, 2021 09:21 FLYNN VERDIN MD Feb 14, 2021 13:31
--- NOTE | 2021-02-14 09:32 | PN ---
DATE: 02/14/2021 SUBJECTIVE: The patient is resting, slightly propped up in bed, continues to complain of nausea, has been nauseated last night and again this morning, though she has not vomited. She refused to take all her medications last night, although she took some of them this morning. She was seen by the surgical team and she is scheduled tentatively to have her gastrojejunostomy tube on 02/17/2021. I did a CT scan of the chest, abdomen and pelvis without contrast, which basically showed the patient has moderate bilateral pleural effusions with adjacent atelectasis and bilateral septal thickening with ground-glass opacities concerning for pulmonary edema. She has also right upper lobe nodular opacity with adjacent smaller nodular opacities; recommend short-term CT followup after treatment to ensure resolution as malignancy is not excluded. The abdomen showed left proximal ureteral tiny obstructing calculi contributing to mild left-sided hydronephrosis and perinephric periureteral fat stranding. Additional bilateral nonobstructing intrarenal calculi. She has body wall edema and left adrenal nodule, unchanged compared to 2013, and likely benign given stability over time. PHYSICAL EXAMINATION: GENERAL: When I examined her, she was resting slightly propped up in bed, in no apparent respiratory distress. No pallor, jaundice, cyanosis or thyromegaly. No jugular venous distention. Mild bilateral lower limb edema. VITAL SIGNS: Her heart rate was 84, blood pressure was 180/70, temperature 97.3, respiratory rate was 18 and oxygen saturation was 98% on 2 liters of oxygen. HEAD, EYES, EARS, NOSE AND THROAT: Showed normocephalic, atraumatic. NECK: Supple. HEART: Normal first and second heart sounds. No gallop or murmur. CHEST: Showed central trachea, equal bilateral chest expansion, air entry, vesicular sounds. I could not appreciate any crepitation or rhonchi anteriorly. She does have bilateral basal crepitations. Dull percussion note on both sides posteriorly. ABDOMEN: Distended, soft, nontender. NEUROLOGICAL: She was awake, alert, responding appropriately. All her cranial nerves intact. She has right-sided hemiplegia. Her intake and output are incompletely recorded. LABORATORY DATA: As of this morning, her serum sodium was 149, potassium 4.2, chloride 113, bicarbonate 33, anion gap of 3, BUN of 26, creatinine 1.9, estimated GFR was 26 mL per minute, her glucose was 238, and calcium was 8.9. ASSESSMENT AND PLAN: 1. Acute hypoxic respiratory failure, likely due to aspiration pneumonia. 2. Aspiration pneumonia. 3. [id number] diastolic congestive heart failure. The patient has evidence of pulmonary congestion and bilateral pleural effusions. 4. Urinary tract infection with growth of more than 100,000 colony-forming units of gram-negative rods. 5. The patient has diabetic gastroparesis with gastric emptying study confirming that more than 76% of her meal is still in stomach 4 hours. 6. The patient has agreed to gastrojejunostomy tube placement and this was scheduled tentatively to be done 02/17/2021. 7. The patient has left middle cerebral artery territory infarct, right-sided hemiplegia. 8. Hypertension. 9. Hyperlipidemia. 10. Peripheral vascular disease. 11. Type 2 diabetes mellitus with diabetic foot ulcers, more on the right than the left. 12. The patient does have bilateral carotid artery stenoses showing 50-59% narrowing in bilateral mid internal carotid arteries with mild atherosclerotic plaquing bilaterally. 13. The patient has continued to show evidence of congestive heart failure. Unfortunately, her kidney function including BUN and creatinine and her sodium are steadily rising. Today, her serum sodium is up to 149; her BUN is 26, partly due to steroids; and her creatinine is up to 1.9. I will probably hold the metformin given the impaired kidney function. HUMAIRA LORD MD DR: ALVIN/deuce JOB#: [id number] / [id number]
[2021-02-14 11:00] VITALS: BP 175/65
--- NOTE | 2021-02-14 11:02 | PDOC ---
PULMONARY PROGRESS NOTES DATE: 02/14/21 TIME: 10:59 Subjective Patient remains on 2 L nasal cannula, denies any shortness of breath or cough or chest pain No overnight concerns afebrile Vitals Vital Signs Date Time Temp Pulse Resp B/P (MAP) Pulse Ox O2 Delivery O2 Flow Rate FiO2 02/14/21 08:59 84 180/70 02/14/21 08:00 Nasal Cannula 2.0 02/14/21 07:00 97.2 16 97.2 02/14/21 03:58 98 ROS: No Nausea, No Chest Pain, No Abdominal Pain, No Increase Cough General: Alert, Oriented X4, No acute distress Lungs: Clear Cardiovascular: S1, S2 Abdomen: Soft Neuro Exam: Alert Extremities: Other (BLE +2) Skin: Warm Labs Laboratory Tests Test 02/12/21 11:11 02/12/21 16:57 02/12/21 19:44 02/13/21 03:50 Glucose (Fingerstick) 208 mg/dL (70-99) 233 mg/dL (70-99) 226 mg/dL (70-99) White Blood Count 11.8 x10^3/uL (4.0-11.0) Red Blood Count 3.36 x10^6/uL (3.50-5.40) Hemoglobin 8.4 g/dL (12.0-15.5) Hematocrit 26.9 % (36.0-47.0) Mean Corpuscular Volume 80 fL (79-100) Mean Corpuscular Hemoglobin 25 pg (25-35) Mean Corpuscular Hemoglobin Concent 31 g/dL (31-37) Red Cell Distribution Width 16.5 % (11.5-14.5) Platelet Count 252 x10^3/uL (140-400) Prothrombin Time 15.4 SEC (11.7-14.0) Prothromb Time International Ratio 1.3 (0.8-1.1) Activated Partial Thromboplast Time 37 SEC (24-38) Sodium Level 149 mmol/L (136-145) Potassium Level 3.2 mmol/L (3.5-5.1) Chloride Level 111 mmol/L (98-107) Carbon Dioxide Level 32 mmol/L (21-32) Anion Gap 6 (6-14) Blood Urea Nitrogen 22 mg/dL (7-20) Creatinine 1.6 mg/dL (0.6-1.0) Estimated GFR (Cockcroft-Gault) 32.2 BUN/Creatinine Ratio 14 (6-20) Glucose Level 194 mg/dL (70-99) Calcium Level 8.9 mg/dL (8.5-10.1) Total Bilirubin 0.2 mg/dL (0.2-1.0) Aspartate Amino Transf (AST/SGOT) 11 U/L (15-37) Alanine Aminotransferase (ALT/SGPT) 14 U/L (14-59) Alkaline Phosphatase 47 U/L (46-116) Total Protein 7.0 g/dL (6.4-8.2) Albumin 2.5 g/dL (3.4-5.0) Albumin/Globulin Ratio 0.6 (1.0-1.7) Test 02/13/21 07:34 02/13/21 11:25 02/13/21 16:30 02/13/21 20:20 Glucose (Fingerstick) 189 mg/dL (70-99) 182 mg/dL (70-99) 210 mg/dL (70-99) 244 mg/dL (70-99) Test 02/14/21 06:15 02/14/21 07:55 Sodium Level 149 mmol/L (136-145) Potassium Level 4.2 mmol/L (3.5-5.1) Chloride Level 113 mmol/L (98-107) Carbon Dioxide Level 33 mmol/L (21-32) Anion Gap 3 (6-14) Blood Urea Nitrogen 26 mg/dL (7-20) Creatinine 1.9 mg/dL (0.6-1.0) Estimated GFR (Cockcroft-Gault) 26.4 Glucose Level 238 mg/dL (70-99) Calcium Level 8.9 mg/dL (8.5-10.1) Glucose (Fingerstick) 224 mg/dL (70-99) Laboratory Tests Test 02/13/21 11:25 02/13/21 16:30 02/13/21 20:20 02/14/21 06:15 Glucose (Fingerstick) 182 mg/dL (70-99) 210 mg/dL (70-99) 244 mg/dL (70-99) Sodium Level 149 mmol/L (136-145) Potassium Level 4.2 mmol/L (3.5-5.1) Chloride Level 113 mmol/L (98-107) Carbon Dioxide Level 33 mmol/L (21-32) Anion Gap 3 (6-14) Blood Urea Nitrogen 26 mg/dL (7-20) Creatinine 1.9 mg/dL (0.6-1.0) Estimated GFR (Cockcroft-Gault) 26.4 Glucose Level 238 mg/dL (70-99) Calcium Level 8.9 mg/dL (8.5-10.1) Test 02/14/21 07:55 Glucose (Fingerstick) 224 mg/dL (70-99) Medications Active Scripts Medications Dose Route/Sig Max Daily Dose Days Date Category Dose Instructions Zofran (Ondansetron Hcl) 4 Mg Tablet 1 Tab PO PRN Q4HRS PRN 02/02/21 Reported Vitamin C (Ascorbic Acid) 500 Mg Capsule 500 Mg PO BID 02/02/21 Reported Santyl Ointment (Collagenase) 30 Gm Oint...g. 1 Kimberlee TP QSUTUTH 02/02/21 Reported DIRECTED BY PHYSICIAN Hydrocodone-Apap 5-325 (Hydrocodone Bit/Acetaminophen) 1 Tab Tablet 1 Tab PO PRN Q8HRS PRN 02/02/21 Reported Thera-M Caplet (Multivit,Ther Iron,Ca,Fa & Min) 1 Each Tablet 1 Each PO DAILY 02/02/21 Reported Milk Of Magnesia (Magnesium Hydroxide) 400 Mg/5 Ml Oral.susp 30 Ml PO PRN DAILY PRN 02/02/21 Reported Melatonin 3 Mg Tablet.er 3 Mg PO PRN QHS PRN 02/02/21 Reported Insulin Aspart Flexpen (Insulin Aspart) 100 Unit/1 Ml Insuln.pen 15 Unit SQ TIDAC 02/02/21 Reported Dulcolax (Bisacodyl) 10 Mg Supp.rect 10 Mg RC PRN DAILY PRN 02/02/21 Reported Tylenol (Acetaminophen) 325 Mg Tablet 650 Mg PO PRN Q6HRS PRN 02/02/21 Reported Lisinopril 5 Mg Tablet 5 Mg PO DAILY 02/02/21 Reported Insulin Aspart 100 Unit/1 Ml Vial 100 Unit SQ SLIDING SCALE 11/17/20 Reported Levemir Flextouch (Insulin Detemir) 100 Unit/1 Ml Insuln.pen 50 Unit SQ BID 11/17/20 Reported Escitalopram Oxalate 10 Mg Tablet 10 Mg PO DAILY 11/17/20 Reported Carvedilol 25 Mg Tablet Unknown Dose PO BIDWMEALS 09/01/20 Reported Atorvastatin Calcium 80 Mg Tablet Unknown Dose PO QHS 09/01/20 Reported Clopidogrel (Clopidogrel Bisulfate) 75 Mg Tablet Unknown Dose PO DAILY 09/01/20 Reported Metformin Hcl 500 Mg Tablet 500 Mg PO BID 09/01/20 Reported Comments cxr 02/09 Low lung volumes and technique accentuates heart size and pulmonary vascularity. Mild prominent bilateral interstitial lung markings likely mild congestive changes or interstitial infiltrates. Bibasilar lung airspace opacities likely atelectasis or infiltrate slightly increased since prior exam. Electronically signed by: Billy Vergara MD (02/09/2021 5:38 PM) [id number] Impression . IMPRESSION: 1. Acute hypoxemic respiratory failure, multifactorial. 2. Suspect aspiration pneumonia. 3. Abnormal x-ray compatible, slightly worse 02/09, suspect CHF 4. SARS-CoV-2.,neg 5. Influenza screen negative 6. History of cerebrovascular accident with right-sided hemiparesis. 7. Type 2 diabetes./ gastroparesis 8. Intractable emesis--resolved 9. Fever--resolved 10. Carotic stenosis 11. Diabetic heel ulcer right greater than left Plan . Updated 02/14 Continue supplemental oxygen to keep oxygen saturations greater than 92%, currently on 2 L nasal cannula Wheezing has resolved status post Lasix Continue steroids, wean slowly Continue bronchodilators cxr reviewed 02/09/ CHF-- ECHO 09/02-- EF 60-65% Continue antibiotics Follow GI and surgical recommendations Physical therapy/Occupational Therapy/speech therapy lovenox protonix for prophylaxis Discussed with RN Updated 02/13 wheezing improved. s/p lasix low dose steroids/ Steroid nebs cxr reviewed 02/09/ CHF ttirate fio2 to keep sat 92% Continue antibiotics Follow GI input increase activity lovenox protonix for prophylaxis Follow speech rec discussed w pt rn / dc plans per PCP JANIS AUGUSTE MD Feb 14, 2021 11:02
[2021-02-14 13:40] LABS: ALBUMIN 2.5 g/dL (3.4-5.0); ALBUMIN/GLOBULIN RATIO 0.6 (1.0-1.7); CALCIUM 8.7 mg/dL (8.5-10.1); CREATININE 1.9 mg/dL (0.6-1.0); GFR 26.4; POTASSIUM 4.2 mmol/L (3.5-5.1); TOTAL BILIRUBIN 0.2 mg/dL (0.2-1.0)
[2021-02-14] MEDS: PIPERACILLIN/TAZOBACTAM 2.25 GM in IV NORMAL SALINE 50ML 50 ML IV SCH ×2 (13:47→21:31)
--- NOTE | 2021-02-14 13:56 | CONS ---
DATE OF CONSULTATION: REQUESTING PHYSICIAN: Dr. Davies. REASON FOR CONSULTATION: Hypernatremia, acute renal failure. HISTORY OF PRESENT ILLNESS: This is a 66-year-old female who has history of diabetes mellitus and suspected infectious pneumonitis. She is being managed for the same. She has had history of gastroparesis with intractable emesis, which has resolved. Her laboratories are notable for admission BUN 26, creatinine 1.2, GFR of 44.8 mL per minute. Current values reveal BUN 26, creatinine 1.9, GFR of 26 mL per minute with serum sodium of 149. She has been undergoing diuresis. PAST MEDICAL HISTORY: Diabetes mellitus, diabetic gastroparesis, chronic kidney disease stage 3, pneumonia, CVA with right-sided hemiparesis, carotid stenosis, diabetic heel ulcer right greater than left. ALLERGIES: Not noted. MEDICATIONS: Reviewed. FAMILY HISTORY: Noncontributory. SOCIAL HISTORY: The patient resides with . REVIEW OF SYSTEMS: No headaches or sinus problem, nasal drainage, epistaxis. The patient does note history of diabetic retinopathy. No chest pain, shortness of breath, PND, orthopnea, dyspnea on exertion. No abdominal pain. No nausea, vomiting, diarrhea. No seizures or malignancies. She does have lower extremity edema. PHYSICAL EXAMINATION: GENERAL APPEARANCE: The patient is awake, conversant. HEENT: Sallow complexion, otherwise clear. NECK: No increased JVD. No thyromegaly, mass or adenopathy. LUNGS: Clear. CARDIAC: Without S3 or rub. ABDOMEN: Obese, bowel sounds are present. Nontender. EXTREMITIES: Bilateral lower extremity edema, 2+. NEUROLOGIC: Nonfocal, nonlocalized. PSYCHIATRIC: Reduced attention to detail. Dysphoric affect. LABORATORY DATA: Sodium 149, potassium 4.2, chloride 113, CO2 of 33, BUN 26, creatinine 1.9, glucose 238. Urinalysis; specific gravity greater than 1.025, greater than 300 mg percent protein. IMPRESSION: 1. Chronic kidney disease stage 3 secondary to diabetic nephropathy. She has a likely history of diabetes mellitus with diabetic retinopathy and significant proteinuria. 2. Acute renal failure -- likely due to reduced effective intravascular volume. She continues to have lower extremity edema, however. May be establishing new baseline. 3. Lower extremity edema. RECOMMENDATIONS: 1. Increase free water slowly. 2. Trend labs. 3. Maintain fluid balance, but certainly not at the expense of renal function. We will follow. CONSTANTINE ALBERTO MD DR: HARINDER/deuce JOB#: [id number] / [id number]
[2021-02-14] MEDS: SODIUM CHLORIDE 23.4% 38.5 MEQ in IV STERILE WATER 1,000 ML IV SCH (14:38)
[2021-02-14 15:00] VITALS: BP 193/76
[2021-02-14] MEDS: hydrALAZINE 20 MG/ML VIAL. IVP PRN (15:45)
--- NOTE | 2021-02-14 16:00 | NUR ---
Pt called the nurses station and stated that "my wheeze is back." This RN paged RT for a breathing treatment for patient. Romy RN notified this RN that patient called and stated that pt is having difficulty breathing and nobody is addressing it. Upon entering room, pt was screaming "help" repeatedly, this RN explained that the breathing treatment was on the way and patient stated "NO! I don't want one of those, it makes my breathing worse." This RN showed patient that her sPO2 is 98% on 2L NC. Pt requesting to be sat up more in the bed. Pillows propped behind her back. arrived to the bedside shortly after and this RN educated the on what interventions would be beneficial to improve patient respiratory status. Reassured patient and that respiratory status is stable.
[2021-02-14 19:53] VITALS: BP 169/77
[2021-02-14] MEDS: ATORVASTATIN CALCIUM 40 MG TABLET. PO SCH (21:30)
[2021-02-14] MEDS: ENOXAPARIN 40 MG/0.4 ML SYRINGE. SQ SCH (21:31)
[2021-02-14] MEDS: ZOLPIDEM 5 MG TABLET. PO PRN (21:32)
[2021-02-14 23:06] VITALS: BP 175/70
[2021-02-15] MEDS: PIPERACILLIN/TAZOBACTAM 2.25 GM in IV NORMAL SALINE 50ML 50 ML IV SCH ×3 (06:28→21:59)
[2021-02-15 07:00] VITALS: BP 178/74
[2021-02-15] MEDS: IPRATRPIUM/ALBUTEROL 0.5/2.5MG 3 ML NEBU. NEB SCH ×4 (07:14→20:53)
[2021-02-15] MEDS: BUDESONIDE 0.5 MG/2 ML NEBU. NEB SCH ×2 (07:15→20:53)
[2021-02-15] MEDS: METOCLOPRAMIDE ORAL SOLN 10 MG/10 ML SOLUTION. PO SCH ×4 (08:00→22:01)
[2021-02-15] MEDS: ASCORBIC ACID 500 MG TABLET PO SCH ×2 (08:02→17:09)
[2021-02-15] MEDS: MULTIVITAMIN with MINERAL TABLET. PO SCH (08:02)
[2021-02-15] MEDS: INSULIN LISPRO 300 UNITS/3 ML VIAL. SQ SCH ×3 (08:18→17:19)
--- NOTE | 2021-02-15 08:19 | PDOC ---
RUBÉN NAVARRETE DEMOGRAPHER 02/15/21 0819: SURGICAL PROGRESS NOTE DATE: 02/15/21 TIME: 08:17 Subjective nausea, no emesis SOA Vital Signs Vital Signs Date Time Temp Pulse Resp B/P (MAP) Pulse Ox O2 Delivery O2 Flow Rate FiO2 02/15/21 07:15 95 Nasal Cannula 2.0 02/14/21 23:06 98.6 92 18 175/70 (105) 98.6 I&O Intake and Output 02/15/21 07:00 Intake Total 360 ml Output Total 1 ml Balance 359 ml Intake Oral 360 ml Stool Total 1 ml # Voids 8 # Bowel Movements 5 General: Alert, Cooperative Abdomen: Soft, Other (ND) Labs Laboratory Tests Test 02/13/21 11:25 02/13/21 16:30 02/13/21 20:20 02/14/21 06:15 Glucose (Fingerstick) 182 mg/dL (70-99) 210 mg/dL (70-99) 244 mg/dL (70-99) Sodium Level 149 mmol/L (136-145) Potassium Level 4.2 mmol/L (3.5-5.1) Chloride Level 113 mmol/L (98-107) Carbon Dioxide Level 30 mmol/L (21-32) Anion Gap 6 (6-14) Blood Urea Nitrogen 26 mg/dL (7-20) Creatinine 1.9 mg/dL (0.6-1.0) Estimated GFR (Cockcroft-Gault) 26.4 BUN/Creatinine Ratio 14 (6-20) Glucose Level 240 mg/dL (70-99) Calcium Level 8.7 mg/dL (8.5-10.1) Total Bilirubin 0.2 mg/dL (0.2-1.0) Aspartate Amino Transf (AST/SGOT) 10 U/L (15-37) Alanine Aminotransferase (ALT/SGPT) 14 U/L (14-59) Alkaline Phosphatase 47 U/L (46-116) Total Protein 7.0 g/dL (6.4-8.2) Albumin 2.5 g/dL (3.4-5.0) Albumin/Globulin Ratio 0.6 (1.0-1.7) Test 02/14/21 07:55 02/14/21 13:21 02/14/21 17:14 02/14/21 20:40 Glucose (Fingerstick) 224 mg/dL (70-99) 316 mg/dL (70-99) 311 mg/dL (70-99) 310 mg/dL (70-99) Test 02/15/21 08:07 Glucose (Fingerstick) 271 mg/dL (70-99) Laboratory Tests Test 02/14/21 13:21 02/14/21 17:14 02/14/21 20:40 02/15/21 08:07 Glucose (Fingerstick) 316 mg/dL (70-99) 311 mg/dL (70-99) 310 mg/dL (70-99) 271 mg/dL (70-99) Problem List Problems Medical Problems: (1) Elevated troponin Status: Acute (2) Person under investigation for COVID-19 Status: Acute (3) Pneumonia Status: Acute (4) UTI (urinary tract infection) Status: Acute Assessment/Plan gastroparesis blood sugars over 300 noted SOA, requiring 02 poor surgical candidate, high risk intraopeartively and postoperatively --tentative plans tuesday, will review with Dr Henry Justicifation of Admission Dx: Justifications for Admission: Justification of Admission Dx: Yes Stroke - Ischemic: Stroke-Ischemic FLYNN HENRY MD 02/15/212052: SURGICAL PROGRESS NOTE Assessment/Plan Pt seen and examined. Agree with Ms. Navarrete's note Pt with some SOA abd soft pt is poor candidate for J-tube placement. RUBÉN NAVARRETE DEMOGRAPHER Feb 15, 2021 08:19 FLYNN HENRY MD Feb 15, 2021 20:53
[2021-02-15 09:31] LABS: HEMATOCRIT 27.2 % (36.0-47.0); HEMOGLOBIN 8.4 g/dL (12.0-15.5); RED BLOOD COUNT 3.34 x10^6/uL (3.50-5.40); RED CELL DISTRIBUTION WIDTH 17.7 % (11.5-14.5); WHITE BLOOD COUNT 13.1 x10^3/uL (4.0-11.0)
[2021-02-15 09:48] LABS: ALBUMIN 2.5 g/dL (3.4-5.0); ALBUMIN/GLOBULIN RATIO 0.6 (1.0-1.7); CALCIUM 8.9 mg/dL (8.5-10.1); CREATININE 2.2 mg/dL (0.6-1.0); GFR 22.3; POTASSIUM 4.5 mmol/L (3.5-5.1); TOTAL BILIRUBIN 0.3 mg/dL (0.2-1.0)
[2021-02-15] MEDS: predniSONE 20 MG TABLET PO SCH (09:57)
[2021-02-15] MEDS: CLOPIDOGREL BISULFATE 75 MG TABLET PO SCH (09:57)
[2021-02-15] MEDS: LACTOBACILLUS RHAMNOSUS GG 1 CAPSULE. PO SCH ×2 (09:57→22:00)
[2021-02-15] MEDS: METOPROLOL SUCC 24HR ER 25 MG TAB.ER.24H. PO SCH (09:58)
[2021-02-15] MEDS: POTASSIUM CHLORIDE 20 MEQ TABLET.ER. PO SCH ×3 (09:58→22:00)
[2021-02-15] MEDS: INSULIN GLARGINE SYRINGE. SQ SCH ×2 (09:59→22:04)
--- NOTE | 2021-02-15 10:05 | PDOC ---
PULMONARY PROGRESS NOTES DATE: 02/15/21 TIME: 10:02 Subjective Patient remains on 2 L nasal cannula, denies any shortness of breath or cough or chest pain No overnight concerns Vitals Vital Signs Date Time Temp Pulse Resp B/P (MAP) Pulse Ox O2 Delivery O2 Flow Rate FiO2 02/15/21 09:58 87 178/74 02/15/21 08:20 Nasal Cannula 2.0 02/15/21 07:15 95 02/15/21 07:00 98.7 16 98.7 ROS: No Nausea, No Chest Pain, No Abdominal Pain, No Increase Cough General: Alert, Oriented X4, No acute distress Lungs: Clear Cardiovascular: S1, S2 Abdomen: Soft Neuro Exam: Alert Extremities: Other (BLE +2) Skin: Warm Labs Laboratory Tests Test 02/13/21 11:25 02/13/21 16:30 02/13/21 20:20 02/14/21 06:15 Glucose (Fingerstick) 182 mg/dL (70-99) 210 mg/dL (70-99) 244 mg/dL (70-99) Sodium Level 149 mmol/L (136-145) Potassium Level 4.2 mmol/L (3.5-5.1) Chloride Level 113 mmol/L (98-107) Carbon Dioxide Level 30 mmol/L (21-32) Anion Gap 6 (6-14) Blood Urea Nitrogen 26 mg/dL (7-20) Creatinine 1.9 mg/dL (0.6-1.0) Estimated GFR (Cockcroft-Gault) 26.4 BUN/Creatinine Ratio 14 (6-20) Glucose Level 240 mg/dL (70-99) Calcium Level 8.7 mg/dL (8.5-10.1) Total Bilirubin 0.2 mg/dL (0.2-1.0) Aspartate Amino Transf (AST/SGOT) 10 U/L (15-37) Alanine Aminotransferase (ALT/SGPT) 14 U/L (14-59) Alkaline Phosphatase 47 U/L (46-116) Total Protein 7.0 g/dL (6.4-8.2) Albumin 2.5 g/dL (3.4-5.0) Albumin/Globulin Ratio 0.6 (1.0-1.7) Test 02/14/21 07:55 02/14/21 13:21 02/14/21 17:14 02/14/21 20:40 Glucose (Fingerstick) 224 mg/dL (70-99) 316 mg/dL (70-99) 311 mg/dL (70-99) 310 mg/dL (70-99) Test 02/15/21 08:07 02/15/21 09:15 Glucose (Fingerstick) 271 mg/dL (70-99) White Blood Count 13.1 x10^3/uL (4.0-11.0) Red Blood Count 3.34 x10^6/uL (3.50-5.40) Hemoglobin 8.4 g/dL (12.0-15.5) Hematocrit 27.2 % (36.0-47.0) Mean Corpuscular Volume 81 fL (79-100) Mean Corpuscular Hemoglobin 25 pg (25-35) Mean Corpuscular Hemoglobin Concent 31 g/dL (31-37) Red Cell Distribution Width 17.7 % (11.5-14.5) Platelet Count 254 x10^3/uL (140-400) Sodium Level 146 mmol/L (136-145) Potassium Level 4.5 mmol/L (3.5-5.1) Chloride Level 110 mmol/L (98-107) Carbon Dioxide Level 32 mmol/L (21-32) Anion Gap 4 (6-14) Blood Urea Nitrogen 31 mg/dL (7-20) Creatinine 2.2 mg/dL (0.6-1.0) Estimated GFR (Cockcroft-Gault) 22.3 BUN/Creatinine Ratio 14 (6-20) Glucose Level 281 mg/dL (70-99) Calcium Level 8.9 mg/dL (8.5-10.1) Total Bilirubin 0.3 mg/dL (0.2-1.0) Aspartate Amino Transf (AST/SGOT) 12 U/L (15-37) Alanine Aminotransferase (ALT/SGPT) 13 U/L (14-59) Alkaline Phosphatase 46 U/L (46-116) Total Protein 7.0 g/dL (6.4-8.2) Albumin 2.5 g/dL (3.4-5.0) Albumin/Globulin Ratio 0.6 (1.0-1.7) Laboratory Tests Test 02/14/21 13:21 02/14/21 17:14 02/14/21 20:40 02/15/21 08:07 Glucose (Fingerstick) 316 mg/dL (70-99) 311 mg/dL (70-99) 310 mg/dL (70-99) 271 mg/dL (70-99) Test 02/15/21 09:15 White Blood Count 13.1 x10^3/uL (4.0-11.0) Red Blood Count 3.34 x10^6/uL (3.50-5.40) Hemoglobin 8.4 g/dL (12.0-15.5) Hematocrit 27.2 % (36.0-47.0) Mean Corpuscular Volume 81 fL (79-100) Mean Corpuscular Hemoglobin 25 pg (25-35) Mean Corpuscular Hemoglobin Concent 31 g/dL (31-37) Red Cell Distribution Width 17.7 % (11.5-14.5) Platelet Count 254 x10^3/uL (140-400) Sodium Level 146 mmol/L (136-145) Potassium Level 4.5 mmol/L (3.5-5.1) Chloride Level 110 mmol/L (98-107) Carbon Dioxide Level 32 mmol/L (21-32) Anion Gap 4 (6-14) Blood Urea Nitrogen 31 mg/dL (7-20) Creatinine 2.2 mg/dL (0.6-1.0) Estimated GFR (Cockcroft-Gault) 22.3 BUN/Creatinine Ratio 14 (6-20) Glucose Level 281 mg/dL (70-99) Calcium Level 8.9 mg/dL (8.5-10.1) Total Bilirubin 0.3 mg/dL (0.2-1.0) Aspartate Amino Transf (AST/SGOT) 12 U/L (15-37) Alanine Aminotransferase (ALT/SGPT) 13 U/L (14-59) Alkaline Phosphatase 46 U/L (46-116) Total Protein 7.0 g/dL (6.4-8.2) Albumin 2.5 g/dL (3.4-5.0) Albumin/Globulin Ratio 0.6 (1.0-1.7) Medications Active Scripts Medications Dose Route/Sig Max Daily Dose Days Date Category Dose Instructions Zofran (Ondansetron Hcl) 4 Mg Tablet 1 Tab PO PRN Q4HRS PRN 02/02/21 Reported Vitamin C (Ascorbic Acid) 500 Mg Capsule 500 Mg PO BID 02/02/21 Reported Santyl Ointment (Collagenase) 30 Gm Oint...g. 1 Kimberlee TP QSUTUTH 02/02/21 Reported DIRECTED BY PHYSICIAN Hydrocodone-Apap 5-325 (Hydrocodone Bit/Acetaminophen) 1 Tab Tablet 1 Tab PO PRN Q8HRS PRN 02/02/21 Reported Thera-M Caplet (Multivit,Ther Iron,Ca,Fa & Min) 1 Each Tablet 1 Each PO DAILY 02/02/21 Reported Milk Of Magnesia (Magnesium Hydroxide) 400 Mg/5 Ml Oral.susp 30 Ml PO PRN DAILY PRN 02/02/21 Reported Melatonin 3 Mg Tablet.er 3 Mg PO PRN QHS PRN 02/02/21 Reported Insulin Aspart Flexpen (Insulin Aspart) 100 Unit/1 Ml Insuln.pen 15 Unit SQ TIDAC 02/02/21 Reported Dulcolax (Bisacodyl) 10 Mg Supp.rect 10 Mg RC PRN DAILY PRN 02/02/21 Reported Tylenol (Acetaminophen) 325 Mg Tablet 650 Mg PO PRN Q6HRS PRN 02/02/21 Reported Lisinopril 5 Mg Tablet 5 Mg PO DAILY 02/02/21 Reported Insulin Aspart 100 Unit/1 Ml Vial 100 Unit SQ SLIDING SCALE 11/17/20 Reported Levemir Flextouch (Insulin Detemir) 100 Unit/1 Ml Insuln.pen 50 Unit SQ BID 11/17/20 Reported Escitalopram Oxalate 10 Mg Tablet 10 Mg PO DAILY 11/17/20 Reported Carvedilol 25 Mg Tablet Unknown Dose PO BIDWMEALS 09/01/20 Reported Atorvastatin Calcium 80 Mg Tablet Unknown Dose PO QHS 09/01/20 Reported Clopidogrel (Clopidogrel Bisulfate) 75 Mg Tablet Unknown Dose PO DAILY 09/01/20 Reported Metformin Hcl 500 Mg Tablet 500 Mg PO BID 09/01/20 Reported Comments cxr 02/09 Low lung volumes and technique accentuates heart size and pulmonary vascularity. Mild prominent bilateral interstitial lung markings likely mild congestive changes or interstitial infiltrates. Bibasilar lung airspace opacities likely atelectasis or infiltrate slightly increased since prior exam. Electronically signed by: Billy Vergara MD (02/09/2021 5:38 PM) [id number] Impression . IMPRESSION: 1. Acute hypoxemic respiratory failure, multifactorial. 2. Suspect aspiration pneumonia. 3. Abnormal x-ray compatible, slightly worse 02/09, suspect CHF 4. SARS-CoV-2.,neg 5. Influenza screen negative 6. History of cerebrovascular accident with right-sided hemiparesis. 7. Type 2 diabetes./ gastroparesis--planned for G/J-tube 8. Intractable emesis--resolved 9. Fever--resolved 10. Carotic stenosis 11. Diabetic heel ulcer right greater than left Plan . Updated 02/15 Continue supplemental oxygen to keep oxygen saturations greater than 92%, currently on 2 L nasal cannula Continue steroids, reduce to 20mg today Continue bronchodilators cxr reviewed 02/09/ [facility]-- ECHO 09/02-- EF 60-65% Continue antibiotics Follow nephrology recs- monitor BMP Follow GI and surgical recommendations--- planned for G/J tube on Tuesday Physical therapy/Occupational Therapy/speech therapy lovenox/protonix for prophylaxis Social work for D/C planning Discussed with RN Updated 02/14 Continue supplemental oxygen to keep oxygen saturations greater than 92%, currently on 2 L nasal cannula Wheezing has resolved status post Lasix Continue steroids, wean slowly Continue bronchodilators cxr reviewed 02/09/ [facility]-- ECHO 09/02-- EF 60-65% Continue antibiotics Follow GI and surgical recommendations Physical therapy/Occupational Therapy/speech therapy lovenox protonix for prophylaxis Discussed with RN Updated 02/13 wheezing improved. s/p lasix low dose steroids/ Steroid nebs cxr reviewed 02/09/ [facility] ttirate fio2 to keep sat 92% Continue antibiotics Follow GI input increase activity lovenox protonix for prophylaxis Follow speech rec discussed w pt rn / dc plans per PCP JANIS AUGUSTE MD Feb 15, 2021 10:05
[2021-02-15 11:00] VITALS: BP 178/69
[2021-02-15] MEDS: SODIUM CHLORIDE 23.4% 38.5 MEQ in IV STERILE WATER 1,000 ML IV SCH (11:34)
[2021-02-15] MEDS: hydrALAZINE 20 MG/ML VIAL. IVP PRN (11:45)
[2021-02-15 15:00] VITALS: BP 159/64
[2021-02-15 19:39] VITALS: BP 190/71
--- NOTE | 2021-02-15 21:58 | PN ---
DATE: 02/15/2021 SUBJECTIVE: The patient is resting, slightly propped up in bed, no apparent distress, awake, alert. On questioning, she continued to have nausea, but denied any vomiting. PHYSICAL EXAMINATION: GENERAL: When I examined her, she looked somewhat pale, but no jaundice or cyanosis. No lymphadenopathy, no thyromegaly. No jugular venous distention. Mild bilateral lower limb edema. VITAL SIGNS: Her heart rate was 92, blood pressure was 175/70, temperature 98.6, respiratory rate was 18 and oxygen saturation was 97% on 2 liters of oxygen. HEAD, EYES, EARS, NOSE AND THROAT: Showed normocephalic, atraumatic. NECK: Supple. HEART: Normal first and second heart sounds. No gallop or murmur. CHEST: Shows central trachea, equal bilateral expansion, air entry, vesicular sounds. I could not really appreciate any crepitation or rhonchi anteriorly. ABDOMEN: Distended, soft and nontender. NEUROLOGIC: She is awake, alert, responding appropriately. She has right-sided hemiplegia. She has bilateral diabetic foot ulcer more on the right than left. Her intake and output are incompletely recorded. LABORATORY DATA: She has no lab work done today. As of yesterday, her serum sodium was 149, potassium 4.2, chloride 112, bicarbonate 30, anion gap of 6, BUN 26 and creatinine 1.9. Estimated GFR was 26 mL per minute. Her glucose 140 and calcium was 8.7. Total bilirubin, AST, ALT and alkaline phosphatase were normal. Total protein 7. Albumin was 2.5. ASSESSMENT: 1. Acute hypoxic respiratory failure, likely multifactorial including aspiration pneumonia and acute congestive heart failure. 2. Aspiration pneumonia. 3. Acute on chronic diastolic congestive heart failure. The patient has evidence of pulmonary congestion and bilateral pleural effusion. 4. Urinary tract infection with growth of more than 100,000 colony forming units per mL of gram-negative rods. 5. The patient has diabetic gastroparesis with gastric emptying study confirming that more than 76% of her meals still in the stomach 4 hours later. 6. The patient has agreed to gastrojejunostomy tube placement and this was scheduled tentatively on 02/17/2021. 7. 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 8. Hypertension. 9. Hyperlipidemia. 10. Peripheral vascular disease. 11. Type 2 diabetes mellitus with diabetic foot ulcers, more on the right than left. 12. The patient does have bilateral carotid artery stenosis showing 50-59% narrowing of the bilateral mid internal carotid arteries with mild atherosclerotic plaquing bilaterally. 13. The patient has continued to show evidence of congestive heart failure. Unfortunately, her kidney function including BUN and creatinine and her sodium are steadily rising. In fact, yesterday, her serum sodium up to 149, BUN was 26 and creatinine was 1.9 and I did consult the inside sales representative to assist with her management. I did discontinue metformin as well as the lisinopril. PLAN: To continue with IV antibiotic. Continue with all her other medications, particularly metoclopramide for intractable nausea. I did order lab work today. HUMAIRA LORD MD DR: ALVIN/deuce JOB#: [id number] / [id number]
[2021-02-15] MEDS: ATORVASTATIN CALCIUM 40 MG TABLET. PO SCH (22:00)
[2021-02-15] MEDS: ONDANSETRON PF 4 MG/2 ML VIAL. IVP PRN (22:01)
[2021-02-15] MEDS: ENOXAPARIN 40 MG/0.4 ML SYRINGE. SQ SCH (22:01)
[2021-02-15] MEDS: ZOLPIDEM 5 MG TABLET. PO PRN (22:03)
[2021-02-15 23:20] VITALS: BP 181/78
[2021-02-16] MEDS: PIPERACILLIN/TAZOBACTAM 2.25 GM in IV NORMAL SALINE 50ML 50 ML IV SCH ×3 (06:03→21:39)
[2021-02-16] MEDS: SODIUM CHLORIDE 23.4% 38.5 MEQ in IV STERILE WATER 1,000 ML IV SCH ×2 (06:56→23:33)
[2021-02-16 07:00] VITALS: BP 173/68
[2021-02-16] MEDS: IPRATRPIUM/ALBUTEROL 0.5/2.5MG 3 ML NEBU. NEB SCH ×4 (08:00→16:58)
[2021-02-16] MEDS: BUDESONIDE 0.5 MG/2 ML NEBU. NEB SCH ×2 (08:00→20:00)
[2021-02-16] MEDS: ASCORBIC ACID 500 MG TABLET PO SCH ×2 (08:09→16:28)
[2021-02-16] MEDS: POTASSIUM CHLORIDE 20 MEQ TABLET.ER. PO SCH ×3 (08:09→20:27)
[2021-02-16] MEDS: METOCLOPRAMIDE ORAL SOLN 10 MG/10 ML SOLUTION. PO SCH ×4 (08:09→20:27)
[2021-02-16] MEDS: MULTIVITAMIN with MINERAL TABLET. PO SCH (08:09)
[2021-02-16] MEDS: CLOPIDOGREL BISULFATE 75 MG TABLET PO SCH (08:09)
[2021-02-16] MEDS: METOPROLOL SUCC 24HR ER 25 MG TAB.ER.24H. PO SCH (08:10)
[2021-02-16] MEDS: predniSONE 20 MG TABLET PO SCH (08:10)
[2021-02-16] MEDS: LACTOBACILLUS RHAMNOSUS GG 1 CAPSULE. PO SCH ×2 (08:10→20:27)
[2021-02-16] MEDS: INSULIN GLARGINE SYRINGE. SQ SCH ×2 (08:11→21:39)
[2021-02-16] MEDS: INSULIN LISPRO 300 UNITS/3 ML VIAL. SQ SCH ×3 (08:12→16:46)
--- NOTE | 2021-02-16 10:19 | PDOC ---
DATE OF SERVICE DATE: 02/16/21 TIME: 10:08 SUBJECTIVE ROS States feeling fair , On o2 by AR OBJECTIVE Vital Signs Vital Signs Date Time Temp Pulse Resp B/P (MAP) Pulse Ox O2 Delivery O2 Flow Rate FiO2 02/16/21 08:10 81 173/68 02/16/21 08:00 Nasal Cannula 2.0 02/16/21 07:00 96.3 20 98 96.3 I & 0 Intake and Output 02/16/21 07:00 Intake Total 1050 ml Balance 1050 ml IV Total 1050 ml # Voids 3 # Bowel Movements 1 PHYSICAL EXAM Physical Exam GEN: NAD HEEN OM moist, O2 by NC NECK Supple LUNGS Decreased at bases, Non labored CV S1S2 ABd soft NEURO Grossly normal No dennis DIAGNOSIS/ASSESSMENT Assessment & Plan Acute renal failure --Vasomotor, No labs this morning , Supportive care, strict I/O(UOP not recorded ) , avoid nephrotoxins Chronic kidney disease stage 3 secondary to diabetic nephropathy. She has a likely history of diabetes mellitus with diabetic retinopathy and significant proteinuria. Renal calculus - reported on CT 02/13 - Left proximal ureteral tiny obstruct ing calculi contributing to mild left hydronephrosis and perinephric/periureteral fat stranding. Additional bilateral nonobstructing intrarenal calculi. Not sured if addressed by Primary or Neph over the weekend Left adrenal nodule, unchanged compared to 2012 and likely benign given stability over time Acute hypoxic respiratory failure, likely multifactorial including aspiration pneumonia and acute congestive heart failure. ABNORMAL CT CHEST 02/15 with 1.2 cm RUL nodule and other small nodules. moderate effusions due to low oncotic pressure Plan for thoracentesis Aspiration pneumonia. Acute on chronic diastolic congestive heart failure. The patient has evidence of pulmonary congestion and bilateral pleural effusion. Urinary tract infection with growth of more than 100,000 colony forming units per mL of gram-negative rods. diabetic gastroparesis with gastric emptying study confirming. 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 Hypertension. Peripheral vascular disease. Type 2 diabetes mellitus with diabetic foot ulcers, more on the right than left.BS high . Management per primary congestive heart failure. CT CHEST 02/15 Impression: Chest CT: 1. Moderate bilateral pleural effusions with adjacent atelectasis. 2. Bilateral septal thickening with groundglass opacities, concerning for pulmonary edema. 3. Right upper lobe nodular opacity with adjacent smaller nodular opacities. Recommend short-term CT follow-up after treatment to ensure resolution as malignancy is not excluded. COMMENT/RELEVANT DATA Meds Current Medications Medications (Trade) Dose Ordered Sig/Liam Start Time Stop Time Status Last Admin Dose Admin Acetaminophen (Tylenol) 650 mg PRN Q6HRS PRN 02/02/21 12:30 UNV Acetaminophen/ Hydrocodone Bitart (Lortab 5/325) 1 tab PRN Q8HRS PRN 02/02/21 12:30 02/09/21 09:35 DC Al Hydroxide/Mg Hydroxide (Mylanta Plus Xs) 30 ml PRN Q3HRS PRN 02/01/21 21:30 Albuterol/ Ipratropium (Duoneb) 3 ml STK-MED ONCE 02/09/21 13:50 02/09/21 13:51 DC Ascorbic Acid (Vitamin C) 500 mg BIDWMEALS 02/09/21 17:00 02/16/21 08:09 500 MG Atorvastatin Calcium (Lipitor) 40 mg QHS 02/02/21 21:00 02/15/21 22:00 40 MG Bisacodyl (Dulcolax Supp) 10 mg PRN DAILY PRN 02/02/21 12:30 UNV Budesonide (Pulmicort) 0.5 mg RTBID 02/11/21 10:15 02/15/21 07:15 0.5 MG Calcium Carbonate/ Glycine (Tums) 500 mg PRN Q3HRS PRN 02/01/21 21:30 Citalopram Hydrobromide (CeleXA) 20 mg DAILY 02/02/21 09:00 02/09/21 09:35 DC 02/08/21 08:52 20 MG Clopidogrel Bisulfate (Plavix) 75 mg DAILY 02/02/21 09:00 02/16/21 08:09 75 MG Dextrose (Dextrose 50%-Water Syringe) 12.5 gm PRN Q15MIN PRN 02/05/21 11:00 UNV Dextrose (Iv Dextrose 5%) 250 ml PRN Q15MIN PRN 02/01/21 22:00 Cancel Enoxaparin Sodium (Lovenox 40mg Syringe) 40 mg Q24H 02/01/21 21:30 02/15/21 22:01 40 MG Furosemide (Lasix) 40 mg 1X ONCE 02/10/21 10:45 02/10/21 10:46 DC 02/10/21 11:12 40 MG Hydralazine HCl (Apresoline Inj) 10 mg PRN Q4HRS PRN 02/03/21 16:15 02/15/21 11:45 10 MG Insulin Glargine (Lantus Syringe) 10 unit BID 02/05/21 12:00 02/16/21 08:11 10 UNIT Insulin Human Lispro (HumaLOG) 0-5 UNITS TIDWMEALS 02/05/21 12:00 02/16/21 08:12 4 UNITS Labetalol HCl (Normodyne Iv Push) 20 mg PRN Q30MIN PRN 02/01/21 21:15 02/12/21 17:43 20 MG Lactobacillus Rhamnosus (Culturelle) 1 cap BID 02/02/21 21:00 02/16/21 08:10 1 CAP Lisinopril (Prinivil) 5 mg DAILY 02/02/21 13:00 02/14/21 07:45 DC 02/13/21 10:54 5 MG Magnesium Hydroxide (Milk Of Magnesia) 2,400 mg PRN DAILY PRN 02/02/21 12:30 UNV Metformin HCl (Glucophage) 500 mg BIDWMEALS 02/02/21 17:00 02/14/21 07:45 DC 02/13/21 17:29 500 MG Metoclopramide HCl (Reglan Oral Solution) 5 mg QIDACHS 02/14/21 16:30 02/16/21 08:09 5 MG Metoclopramide HCl (Reglan Vial) 10 mg QIDACHS 02/10/21 11:30 02/11/21 09:50 DC 02/11/21 07:57 10 MG Metoprolol Succinate (Toprol Xl) 12.5 mg DAILY 02/04/21 14:00 02/16/21 08:10 12.5 MG Morphine Sulfate (Morphine Sulfate) 2 mg PRN Q1HR PRN 02/01/21 21:30 02/09/21 09:37 DC 02/08/21 00:42 2 MG Multivitamins (Thera M Plus) 1 tab [id number] 02/10/21 08:00 02/16/21 08:09 1 TAB Non-Formulary Medication (Collagenase Clostridium Hist. (Santyl Ointment)) 1 raven QSUTUTH 02/03/21 16:00 UNV Non-Formulary Medication (Insulin Aspart (Insulin Aspart Flexpen)) 15 unit TIDAC 02/02/21 16:30 UNV Non-Formulary Medication (Insulin Aspart ) 100 unit sliding scale 02/02/21 12:30 UNV Non-Formulary Medication (Insulin Detemir (Levemir Flextouch)) 50 unit BID 02/02/21 09:00 UNV Non-Formulary Medication (Melatonin ) 3 mg PRN QHS PRN 02/02/21 12:30 UNV Ondansetron HCl (Zofran Odt) 4 mg PRN Q4HRS PRN 02/02/21 12:45 02/13/21 13:32 4 MG Ondansetron HCl (Zofran) 4 mg PRN Q6HRS PRN 02/01/21 21:30 02/15/21 22:01 4 MG Oxycodone/ Acetaminophen (Percocet 5/325) 1 tab PRN Q4HRS PRN 02/01/21 21:30 02/09/21 09:35 DC 02/08/21 05:32 1 TAB Pantoprazole Sodium (PROTONIX VIAL for IV PUSH) 40 mg BIDAC 02/10/21 16:30 02/11/21 09:41 DC 02/11/21 07:57 40 MG Pantoprazole Sodium (Protonix) 40 mg DAILYAC 02/06/21 07:30 02/10/21 09:41 DC 02/10/21 09:27 40 MG Piperacillin Sod/ Tazobactam Sod (Zosyn Per Pharmacy) 1 each PRN DAILY PRN 02/01/21 21:15 Piperacillin Sod/ Tazobactam Sod 2.25 gm/Sodium Chloride 50 ml @ 100 mls/hr Q8HRS 02/14/21 14:00 02/16/21 06:03 100 MLS/HR Piperacillin Sod/ Tazobactam Sod 3.375 gm/Sodium Chloride 50 ml @ 100 mls/hr Q6HRS 02/02/21 12:00 02/14/21 07:45 DC 02/14/21 05:32 100 MLS/HR Potassium Chloride (Klor-Con) 20 meq TID 02/13/21 09:00 02/16/21 08:09 20 MEQ Prednisone (Prednisone) 20 mg DAILY 02/16/21 09:00 02/16/21 08:10 20 MG Sodium Chloride 38.5 meq/Sterile Water 1,009.625 ml @ 50 mls/hr [id number] 02/14/21 14:00 02/16/21 06:56 50 MLS/HR Tramadol HCl (Ultram) 50 mg PRN Q6HRS PRN 02/01/21 21:30 02/01/21 21:35 DC Vancomycin HCl (Vanco Per Pharmacy) 1 each PRN DAILY PRN 02/02/21 16:15 02/05/21 10:51 DC 02/04/21 15:20 1 EACH Vancomycin HCl (Vancomycin Trough Level) 1 each 1X ONCE 02/04/21 18:00 02/05/21 10:51 DC Vancomycin HCl 1.5 gm/Sodium Chloride 500 ml @ 250 mls/hr Q24H 02/02/21 17:00 02/05/21 10:52 DC 02/04/21 17:04 250 MLS/HR Zolpidem Tartrate (Ambien) 5 mg PRN QHS PRN 02/01/21 21:30 02/15/21 22:03 5 MG Lab Laboratory Tests Test 02/15/21 11:31 02/15/21 17:18 02/15/21 20:47 02/16/21 08:02 Glucose (Fingerstick) 268 mg/dL (70-99) 310 mg/dL (70-99) 315 mg/dL (70-99) 264 mg/dL (70-99) Results All relevant outside records, renal labs, imaging studies, telemetry/EKG's were reviewed. Justicifation of Admission Dx: Justifications for Admission: Justification of Admission Dx: Yes Stroke - Ischemic: Stroke-Ischemic RAVIN PHELAN MD Feb 16, 2021 10:19
--- NOTE | 2021-02-16 10:51 | PDOC ---
Date of Service: DATE: 02/16/21 TIME: 10:47 Subjective: Subjective: Didn't want breakfast due to nausea and fear of vomiting. No abd pain. Stooling. "He said no tube." Objective: Objective: Note C Diff negative and now Reglan reduced from 10mg to 5mg susp QIDACHS and ?off pantoprazole Vital Signs: Vital Signs Date Time Temp Pulse Resp B/P (MAP) Pulse Ox O2 Delivery O2 Flow Rate FiO2 02/16/21 08:10 81 173/68 02/16/21 08:00 Nasal Cannula 2.0 02/16/21 07:00 96.3 20 98 96.3 Labs: Laboratory Tests Test 02/15/21 11:31 02/15/21 17:18 02/15/21 20:47 02/16/21 08:02 Glucose (Fingerstick) 268 mg/dL 310 mg/dL 315 mg/dL 264 mg/dL PE: GEN: NAD LUNGS: soft exp wheeze HEART: RRR ABD: large, soft, non-tender, BS+ NEURO/PSYCH: A & O 3, probably not a great historian A/P: Gastroparesis, nausea, anorexia -- Reviewed surgery note - poor J tube candidate. Will review meds w/ Dr. Sanchez. Justicifation of Admission Dx: Justifications for Admission: Justification of Admission Dx: Yes Stroke - Ischemic: Stroke-Ischemic JOSE-SONA GASTON Feb 16, 2021 10:51
[2021-02-16 11:00] VITALS: BP 189/73
--- NOTE | 2021-02-16 11:27 | PDOC ---
RUBÉN NAVARRETE MANAGER PHILOSOPHY 02/16/21 1127: SURGICAL PROGRESS NOTE DATE: 02/16/21 TIME: 11:26 Subjective sleeping during rounds dr verdin d/w with her yesterday--postop healing risks high, BS high, cr elevated--at this time no plans for J tube Vital Signs Vital Signs Date Time Temp Pulse Resp B/P (MAP) Pulse Ox O2 Delivery O2 Flow Rate FiO2 02/16/21 08:10 81 173/68 02/16/21 08:00 Nasal Cannula 2.0 02/16/21 07:00 96.3 20 98 96.3 I&O Intake and Output 02/16/21 07:00 Intake Total 1050 ml Balance 1050 ml IV Total 1050 ml # Voids 3 # Bowel Movements 1 Labs Laboratory Tests Test 02/14/21 13:21 02/14/21 15:50 02/14/21 17:14 02/14/21 20:40 Glucose (Fingerstick) 316 mg/dL (70-99) 311 mg/dL (70-99) 310 mg/dL (70-99) Clostridium difficile Toxin (PCR) Negative (NEGATIVE) Test 02/15/21 08:07 02/15/21 09:15 02/15/21 11:31 02/15/21 17:18 Glucose (Fingerstick) 271 mg/dL (70-99) 268 mg/dL (70-99) 310 mg/dL (70-99) White Blood Count 13.1 x10^3/uL (4.0-11.0) Red Blood Count 3.34 x10^6/uL (3.50-5.40) Hemoglobin 8.4 g/dL (12.0-15.5) Hematocrit 27.2 % (36.0-47.0) Mean Corpuscular Volume 81 fL (79-100) Mean Corpuscular Hemoglobin 25 pg (25-35) Mean Corpuscular Hemoglobin Concent 31 g/dL (31-37) Red Cell Distribution Width 17.7 % (11.5-14.5) Platelet Count 254 x10^3/uL (140-400) Sodium Level 146 mmol/L (136-145) Potassium Level 4.5 mmol/L (3.5-5.1) Chloride Level 110 mmol/L (98-107) Carbon Dioxide Level 32 mmol/L (21-32) Anion Gap 4 (6-14) Blood Urea Nitrogen 31 mg/dL (7-20) Creatinine 2.2 mg/dL (0.6-1.0) Estimated GFR (Cockcroft-Gault) 22.3 BUN/Creatinine Ratio 14 (6-20) Glucose Level 281 mg/dL (70-99) Calcium Level 8.9 mg/dL (8.5-10.1) Total Bilirubin 0.3 mg/dL (0.2-1.0) Aspartate Amino Transf (AST/SGOT) 12 U/L (15-37) Alanine Aminotransferase (ALT/SGPT) 13 U/L (14-59) Alkaline Phosphatase 46 U/L (46-116) Total Protein 7.0 g/dL (6.4-8.2) Albumin 2.5 g/dL (3.4-5.0) Albumin/Globulin Ratio 0.6 (1.0-1.7) Test 02/15/21 20:47 02/16/21 08:02 02/16/21 11:06 Glucose (Fingerstick) 315 mg/dL (70-99) 264 mg/dL (70-99) 230 mg/dL (70-99) Laboratory Tests Test 02/15/21 11:31 02/15/21 17:18 02/15/21 20:47 02/16/21 08:02 Glucose (Fingerstick) 268 mg/dL (70-99) 310 mg/dL (70-99) 315 mg/dL (70-99) 264 mg/dL (70-99) Test 02/16/21 11:06 Glucose (Fingerstick) 230 mg/dL (70-99) Problem List Problems Medical Problems: (1) Elevated troponin Status: Acute (2) Person under investigation for COVID-19 Status: Acute (3) Pneumonia Status: Acute (4) UTI (urinary tract infection) Status: Acute Justicifation of Admission Dx: Justifications for Admission: Justification of Admission Dx: Yes Stroke - Ischemic: Stroke-Ischemic FLYNN VERDIN MD 02/16/211922: SURGICAL PROGRESS NOTE Assessment/Plan Pt currently not surgical candidate. Will sign off, but please call for questions. RUBÉN NAVARRETE MANAGER PHILOSOPHY Feb 16, 2021 11:27 FLYNN VERDIN MD Feb 16, 2021 19:23
[2021-02-16] MEDS: ONDANSETRON PF 4 MG/2 ML VIAL. IVP PRN (11:56)
--- NOTE | 2021-02-16 12:17 | PDOC ---
PULMONARY PROGRESS NOTES DATE: 02/16/21 TIME: 12:12 Subjective Patient remains on 2 L nasal cannula, denies any shortness of breath or cough or chest pain No overnight concerns Vitals Vital Signs Date Time Temp Pulse Resp B/P (MAP) Pulse Ox O2 Delivery O2 Flow Rate FiO2 02/16/21 11:00 96.2 79 21 189/73 (111) 97 Nasal Cannula 2.0 96.2 ROS: No Nausea, No Chest Pain, No Abdominal Pain, No Increase Cough General: Alert, Oriented X4, No acute distress Lungs: Clear Cardiovascular: S1, S2 Abdomen: Soft Neuro Exam: Alert Extremities: Other (BLE +2) Skin: Warm Labs Laboratory Tests Test 02/14/21 13:21 02/14/21 15:50 02/14/21 17:14 02/14/21 20:40 Glucose (Fingerstick) 316 mg/dL (70-99) 311 mg/dL (70-99) 310 mg/dL (70-99) Clostridium difficile Toxin (PCR) Negative (NEGATIVE) Test 02/15/21 08:07 02/15/21 09:15 02/15/21 11:31 02/15/21 17:18 Glucose (Fingerstick) 271 mg/dL (70-99) 268 mg/dL (70-99) 310 mg/dL (70-99) White Blood Count 13.1 x10^3/uL (4.0-11.0) Red Blood Count 3.34 x10^6/uL (3.50-5.40) Hemoglobin 8.4 g/dL (12.0-15.5) Hematocrit 27.2 % (36.0-47.0) Mean Corpuscular Volume 81 fL (79-100) Mean Corpuscular Hemoglobin 25 pg (25-35) Mean Corpuscular Hemoglobin Concent 31 g/dL (31-37) Red Cell Distribution Width 17.7 % (11.5-14.5) Platelet Count 254 x10^3/uL (140-400) Sodium Level 146 mmol/L (136-145) Potassium Level 4.5 mmol/L (3.5-5.1) Chloride Level 110 mmol/L (98-107) Carbon Dioxide Level 32 mmol/L (21-32) Anion Gap 4 (6-14) Blood Urea Nitrogen 31 mg/dL (7-20) Creatinine 2.2 mg/dL (0.6-1.0) Estimated GFR (Cockcroft-Gault) 22.3 BUN/Creatinine Ratio 14 (6-20) Glucose Level 281 mg/dL (70-99) Calcium Level 8.9 mg/dL (8.5-10.1) Total Bilirubin 0.3 mg/dL (0.2-1.0) Aspartate Amino Transf (AST/SGOT) 12 U/L (15-37) Alanine Aminotransferase (ALT/SGPT) 13 U/L (14-59) Alkaline Phosphatase 46 U/L (46-116) Total Protein 7.0 g/dL (6.4-8.2) Albumin 2.5 g/dL (3.4-5.0) Albumin/Globulin Ratio 0.6 (1.0-1.7) Test 02/15/21 20:47 02/16/21 08:02 02/16/21 11:06 Glucose (Fingerstick) 315 mg/dL (70-99) 264 mg/dL (70-99) 230 mg/dL (70-99) Laboratory Tests Test 02/15/21 17:18 02/15/21 20:47 02/16/21 08:02 02/16/21 11:06 Glucose (Fingerstick) 310 mg/dL (70-99) 315 mg/dL (70-99) 264 mg/dL (70-99) 230 mg/dL (70-99) Medications Active Scripts Medications Dose Route/Sig Max Daily Dose Days Date Category Dose Instructions Zofran (Ondansetron Hcl) 4 Mg Tablet 1 Tab PO PRN Q4HRS PRN 02/02/21 Reported Vitamin C (Ascorbic Acid) 500 Mg Capsule 500 Mg PO BID 02/02/21 Reported Santyl Ointment (Collagenase) 30 Gm Oint...g. 1 Kimberlee TP QSUTUTH 02/02/21 Reported DIRECTED BY PHYSICIAN Hydrocodone-Apap 5-325 (Hydrocodone Bit/Acetaminophen) 1 Tab Tablet 1 Tab PO PRN Q8HRS PRN 02/02/21 Reported Thera-M Caplet (Multivit,Ther Iron,Ca,Fa & Min) 1 Each Tablet 1 Each PO DAILY 02/02/21 Reported Milk Of Magnesia (Magnesium Hydroxide) 400 Mg/5 Ml Oral.susp 30 Ml PO PRN DAILY PRN 02/02/21 Reported Melatonin 3 Mg Tablet.er 3 Mg PO PRN QHS PRN 02/02/21 Reported Insulin Aspart Flexpen (Insulin Aspart) 100 Unit/1 Ml Insuln.pen 15 Unit SQ TIDAC 02/02/21 Reported Dulcolax (Bisacodyl) 10 Mg Supp.rect 10 Mg RC PRN DAILY PRN 02/02/21 Reported Tylenol (Acetaminophen) 325 Mg Tablet 650 Mg PO PRN Q6HRS PRN 02/02/21 Reported Lisinopril 5 Mg Tablet 5 Mg PO DAILY 02/02/21 Reported Insulin Aspart 100 Unit/1 Ml Vial 100 Unit SQ SLIDING SCALE 11/17/20 Reported Levemir Flextouch (Insulin Detemir) 100 Unit/1 Ml Insuln.pen 50 Unit SQ BID 11/17/20 Reported Escitalopram Oxalate 10 Mg Tablet 10 Mg PO DAILY 11/17/20 Reported Carvedilol 25 Mg Tablet Unknown Dose PO BIDWMEALS 09/01/20 Reported Atorvastatin Calcium 80 Mg Tablet Unknown Dose PO QHS 09/01/20 Reported Clopidogrel (Clopidogrel Bisulfate) 75 Mg Tablet Unknown Dose PO DAILY 09/01/20 Reported Metformin Hcl 500 Mg Tablet 500 Mg PO BID 09/01/[address] CHEST 02/15 Impression: Chest CT: 1. Moderate bilateral pleural effusions with adjacent atelectasis. 2. Bilateral septal thickening with groundglass opacities, concerning for pulmonary edema. 3. Right upper lobe nodular opacity with adjacent smaller nodular opacities. Recommend short-term CT follow-up after treatment to ensure resolution as malignancy is not excluded. cxr 02/09 Low lung volumes and technique accentuates heart size and pulmonary vascularity. Mild prominent bilateral interstitial lung markings likely mild congestive changes or interstitial infiltrates. Bibasilar lung airspace opacities likely atelectasis or infiltrate slightly increased since prior exam. Electronically signed by: Billy Vergara MD (02/09/2021 5:38 PM) [id number] Impression . IMPRESSION: 1. Acute hypoxemic respiratory failure, multifactorial. 2. Suspect aspiration pneumonia. 3. ABNORMAL CT CHEST 02/15 with 1.2 cm RUL nodule and other small nodules. moderate effusions due to low oncotic pressure 4. SARS-CoV-2.,neg 5. Influenza screen negative 6. History of cerebrovascular accident with right-sided hemiparesis. 7. Type 2 diabetes./ gastroparesis--planned for G/J-tube 8. Intractable emesis--resolved 9. Fever--resolved 10. Carotic stenosis 11. Diabetic heel ulcer right greater than left Plan . Updated 02/16 d/w patient about thoracentesis. she agrees. hold lovenox and consult IR Regarding lung nodule, poor functional status for invasive testing. Rec either repeat ct chest in 3 months vs PET as OP Continue supplemental oxygen to keep oxygen saturations greater than 92%, currently on 2 L nasal cannula Continue steroids, reduce to 20mg today Continue bronchodilators ECHO 09/02-- EF 60-65% Continue antibiotics Follow nephrology recs- monitor BMP Follow GI and surgical recommendations--- planned for G/J tube on Tuesday Physical therapy/Occupational Therapy/speech therapy lovenox/protonix for prophylaxis Social work for D/C planning Discussed with RN Updated 02/15 Continue supplemental oxygen to keep oxygen saturations greater than 92%, currently on 2 L nasal cannula Continue steroids, reduce to 20mg today Continue bronchodilators cxr reviewed 02/09/ CHF-- ECHO 09/02-- EF 60-65% Continue antibiotics Follow nephrology recs- monitor BMP Follow GI and surgical recommendations--- planned for G/J tube on Tuesday Physical therapy/Occupational Therapy/speech therapy lovenox/protonix for prophylaxis Social work for D/C planning Discussed with RN Updated 02/14 Continue supplemental oxygen to keep oxygen saturations greater than 92%, currently on 2 L nasal cannula Wheezing has resolved status post Lasix Continue steroids, wean slowly Continue bronchodilators cxr reviewed 02/09/ CHF-- ECHO 09/02-- EF 60-65% Continue antibiotics Follow GI and surgical recommendations Physical therapy/Occupational Therapy/speech therapy lovenox protonix for prophylaxis Discussed with JANIS RAMSEY MD Feb 16, 2021 12:16
--- NOTE | 2021-02-16 14:06 | PN ---
DATE: 02/16/2021 SUBJECTIVE: The patient is resting, slightly propped up in bed, in no apparent distress. She denied any nausea or vomiting. Did complain of shortness of breath, but denied any cough, phlegm or hemoptysis. PHYSICAL EXAMINATION: GENERAL: When I examined her, she was pale, but no jaundice or cyanosis. No lymphadenopathy, no thyromegaly. No jugular venous distention, but marked generalized anasarca, likely due to third spacing as her serum albumin is only 2.5. VITAL SIGNS: Her heart rate was 81, blood pressure was 173/68, temperature was 96.3, respiratory rate was 20, and oxygen saturation was 98% on 2 liters of oxygen. HEAD, EYES, EARS, NOSE AND THROAT: Showed normocephalic, atraumatic. NECK: Supple. HEART: Showed normal first and second heart sounds. No gallop or murmur. CHEST: Shows central trachea, equal bilateral expansion, air entry, vesicular sounds, could not appreciate any crepitation or rhonchi anteriorly. She does have bilateral basal crepitation and dull percussion noted posteriorly. ABDOMEN: Markedly distended, soft, nontender. NEUROLOGIC: She is awake, alert, responding appropriately. All cranial nerves intact. She has right sided hemiplegia. She has diabetic foot ulcer, more so on the right than left. Her intake over the last 24 hours was 316, output was recorded. LABORATORY DATA: As of yesterday showed a serum sodium 146, potassium 4.5, chloride 110, bicarbonate 32, anion gap of 4, BUN 31, creatinine 2.2, estimated GFR was 22 mL per minute. Her glucose was 281. Her calcium was 8.9. Total bilirubin, AST, ALT, alkaline phosphatase were normal. Total protein 7, albumin was 2.5. Her white cell count was 13,000, hemoglobin 8.4, hematocrit 27.2, MCV 81 and platelet count 254,000. CT scan of the chest showed moderate bilateral pleural effusion with adjacent atelectasis. She has bilateral septal thickening with ground glass opacities concerning for pulmonary edema. She has right upper lobe nodular opacities with adjacent smaller nodular opacities. Recommended short-term CT followup after treatment to ensure resolution as malignancy is not excluded. CT scan of the abdomen and pelvis showed left proximal ureteral, tiny obstructing calculi contributing to mild left sided hydronephrosis and perinephric, periureteric fat stranding. She has also additional bilateral nonobstructing intrarenal calculi, body wall edema, left adrenal nodule, unchanged compared to 2013, likely benign given stability over time. ASSESSMENT: 1. Acute hypoxic respiratory failure, likely multifactorial including aspiration pneumonia and acute chronic diastolic congestive heart failure. 2. Aspiration pneumonia. 3. Acute on chronic diastolic congestive heart failure. The patient has evidence of pulmonary congestion and bilateral pleural effusion. 4. Urinary tract infection with growth of more than 100,000 colony forming units per mL of gram-negative rods. 5. The patient has diabetic gastroparesis with gastric emptying study confirming that more than 76% of her meals stay still in the stomach 4 hours later. 6. The patient has agreed to gastrojejunostomy tube placement and this was scheduled tentatively on 02/17/2021. 7. 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 8. Hypertension. 9. Hyperlipidemia. 10. Peripheral vascular disease. 11. Type 2 diabetes mellitus with diabetic foot ulcer, more on the right than left. 12. The patient does have bilateral carotid artery stenosis showing 50-59% narrowing of the bilateral mid internal carotid arteries with mild atherosclerotic plaquing bilaterally. 13. The patient has acute kidney injury that is worsening as her creatinine is steadily rising from 1.2 to 2.2, likely due to diabetic nephropathy. She has also an obstructing stone on the left side causing mild hydronephrosis. I did discontinue her lisinopril. We did consult the bending shed worker. PLAN: Obviously, given the worsening kidney function and evidence of congestive heart failure, I wonder whether we need to treat her more aggressively with diuretics. I will consult the triple valve tester again and the bending shed worker to optimize her medical management before the surgery. HUMAIRA LORD MD DR: ALVIN/deuce JOB#: [id number] / [id number]
[2021-02-16] MEDS: ONDANSETRON ODT 4 MG TAB.RAPDIS. PO PRN (14:19)
[2021-02-16] MEDS: PANTOPRAZOLE 40 MG TABLET.DR. PO SCH (14:58)
[2021-02-16 15:00] VITALS: BP 188/73
--- NOTE | 2021-02-16 16:43 | RAD ---
STUDY: Complete renal sonogram INDICATION: Renal stones and mild left hydronephrosis seen by CT on 02/13/2021 COMPARISON: CT 02/13/2021 TECHNIQUE: Real-time grayscale and color Doppler sonographic evaluation of both kidneys. The bladder was also evaluated. FINDINGS: Right kidney: Measures 12.9 cm in length. No complex cyst or mass. No hydronephrosis. Several foci of increased echogenicity within the right kidney likely a combination of calcific atherosclerosis and nonobstructing intrarenal stones. Left kidney: Measures 13.8 cm in length. No complex cyst or mass. Mild hydronephrosis seen on the rec ent CT is not appreciated on this exam. Intrarenal stones and calcific atherosclerosis. Bladder: Difficult to closely evaluate due to incomplete distention. No localized wall thickening is apparent. Miscellaneous: None. IMPRESSION: Intrarenal stones and calcific atherosclerosis bilaterally. The mild left hydronephrosis seen on the comparison CT is not identified on this exam. No hydronephrosis on the right. Electronically signed by: JESSICA PARKER MD (02/16/2021 4:41 PM) RUTH ANN
[2021-02-16 19:00] VITALS: BP 194/75
[2021-02-16] MEDS: ATORVASTATIN CALCIUM 40 MG TABLET. PO SCH (20:27)
[2021-02-16] MEDS: hydrALAZINE 20 MG/ML VIAL. IVP PRN (20:37)
[2021-02-16 23:00] VITALS: BP 178/64
[2021-02-17 03:00] VITALS: BP 171/66
[2021-02-17] MEDS: ACETAMINOPHEN 325 MG TABLET. PO PRN ×2 (03:30→11:41)
[2021-02-17] MEDS: PIPERACILLIN/TAZOBACTAM 2.25 GM in IV NORMAL SALINE 50ML 50 ML IV SCH ×3 (05:39→21:02)
[2021-02-17] MEDS: hydrALAZINE 20 MG/ML VIAL. IVP PRN (05:40)
[2021-02-17 07:00] VITALS: BP 176/64
[2021-02-17] MEDS: METOCLOPRAMIDE ORAL SOLN 10 MG/10 ML SOLUTION. PO SCH ×4 (07:30→21:03)
[2021-02-17] MEDS: IPRATRPIUM/ALBUTEROL 0.5/2.5MG 3 ML NEBU. NEB SCH ×4 (07:39→22:05)
[2021-02-17] MEDS: BUDESONIDE 0.5 MG/2 ML NEBU. NEB SCH ×2 (07:40→22:05)
--- NOTE | 2021-02-17 08:23 | PDOC ---
PULMONARY PROGRESS NOTES DATE: 02/17/21 TIME: 08:23 Subjective Patient currently on 2 L of oxygen no respiratory complaint Vitals Vital Signs Date Time Temp Pulse Resp B/P (MAP) Pulse Ox O2 Delivery O2 Flow Rate FiO2 02/17/21 07:35 96 Nasal Cannula 2.0 02/17/21 05:40 83 171/66 02/17/21 03:00 98.6 20 98.6 ROS: No Nausea, No Chest Pain, No Abdominal Pain, No Increase Cough General: Alert, No acute distress Lungs: Clear Cardiovascular: S1, S2 Abdomen: Soft Neuro Exam: Alert Extremities: Other (BLE +2) Skin: Warm Labs Laboratory Tests Test 02/15/21 09:15 02/15/21 11:31 02/15/21 17:18 02/15/21 20:47 White Blood Count 13.1 x10^3/uL (4.0-11.0) Red Blood Count 3.34 x10^6/uL (3.50-5.40) Hemoglobin 8.4 g/dL (12.0-15.5) Hematocrit 27.2 % (36.0-47.0) Mean Corpuscular Volume 81 fL (79-100) Mean Corpuscular Hemoglobin 25 pg (25-35) Mean Corpuscular Hemoglobin Concent 31 g/dL (31-37) Red Cell Distribution Width 17.7 % (11.5-14.5) Platelet Count 254 x10^3/uL (140-400) Sodium Level 146 mmol/L (136-145) Potassium Level 4.5 mmol/L (3.5-5.1) Chloride Level 110 mmol/L (98-107) Carbon Dioxide Level 32 mmol/L (21-32) Anion Gap 4 (6-14) Blood Urea Nitrogen 31 mg/dL (7-20) Creatinine 2.2 mg/dL (0.6-1.0) Estimated GFR (Cockcroft-Gault) 22.3 BUN/Creatinine Ratio 14 (6-20) Glucose Level 281 mg/dL (70-99) Calcium Level 8.9 mg/dL (8.5-10.1) Total Bilirubin 0.3 mg/dL (0.2-1.0) Aspartate Amino Transf (AST/SGOT) 12 U/L (15-37) Alanine Aminotransferase (ALT/SGPT) 13 U/L (14-59) Alkaline Phosphatase 46 U/L (46-116) Total Protein 7.0 g/dL (6.4-8.2) Albumin 2.5 g/dL (3.4-5.0) Albumin/Globulin Ratio 0.6 (1.0-1.7) Glucose (Fingerstick) 268 mg/dL (70-99) 310 mg/dL (70-99) 315 mg/dL (70-99) Test 02/16/21 08:02 02/16/21 11:06 02/16/21 16:38 02/17/21 08:00 Glucose (Fingerstick) 264 mg/dL (70-99) 230 mg/dL (70-99) 219 mg/dL (70-99) 173 mg/dL (70-99) Laboratory Tests Test 02/16/21 11:06 02/16/21 16:38 02/17/21 08:00 Glucose (Fingerstick) 230 mg/dL (70-99) 219 mg/dL (70-99) 173 mg/dL (70-99) Medications Active Scripts Medications Dose Route/Sig Max Daily Dose Days Date Category Dose Instructions Zofran (Ondansetron Hcl) 4 Mg Tablet 1 Tab PO PRN Q4HRS PRN 02/02/21 Reported Vitamin C (Ascorbic Acid) 500 Mg Capsule 500 Mg PO BID 02/02/21 Reported Santyl Ointment (Collagenase) 30 Gm Oint...g. 1 Kimberlee TP QSUTUTH 02/02/21 Reported DIRECTED BY PHYSICIAN Hydrocodone-Apap 5-325 (Hydrocodone Bit/Acetaminophen) 1 Tab Tablet 1 Tab PO PRN Q8HRS PRN 02/02/21 Reported Thera-M Caplet (Multivit,Ther Iron,Ca,Fa & Min) 1 Each Tablet 1 Each PO DAILY 02/02/21 Reported Milk Of Magnesia (Magnesium Hydroxide) 400 Mg/5 Ml Oral.susp 30 Ml PO PRN DAILY PRN 02/02/21 Reported Melatonin 3 Mg Tablet.er 3 Mg PO PRN QHS PRN 02/02/21 Reported Insulin Aspart Flexpen (Insulin Aspart) 100 Unit/1 Ml Insuln.pen 15 Unit SQ TIDAC 02/02/21 Reported Dulcolax (Bisacodyl) 10 Mg Supp.rect 10 Mg RC PRN DAILY PRN 02/02/21 Reported Tylenol (Acetaminophen) 325 Mg Tablet 650 Mg PO PRN Q6HRS PRN 02/02/21 Reported Lisinopril 5 Mg Tablet 5 Mg PO DAILY 02/02/21 Reported Insulin Aspart 100 Unit/1 Ml Vial 100 Unit SQ SLIDING SCALE 11/17/20 Reported Levemir Flextouch (Insulin Detemir) 100 Unit/1 Ml Insuln.pen 50 Unit SQ BID 11/17/20 Reported Escitalopram Oxalate 10 Mg Tablet 10 Mg PO DAILY 11/17/20 Reported Carvedilol 25 Mg Tablet Unknown Dose PO BIDWMEALS 09/01/20 Reported Atorvastatin Calcium 80 Mg Tablet Unknown Dose PO QHS 09/01/20 Reported Clopidogrel (Clopidogrel Bisulfate) 75 Mg Tablet Unknown Dose PO DAILY 09/01/20 Reported Metformin Hcl 500 Mg Tablet 500 Mg PO BID 09/01/[address] CHEST 02/15 Impression: Chest CT: 1. Moderate bilateral pleural effusions with adjacent atelectasis. 2. Bilateral septal thickening with groundglass opacities, concerning for pulmonary edema. 3. Right upper lobe nodular opacity with adjacent smaller nodular opacities. Recommend short-term CT follow-up after treatment to ensure resolution as malignancy is not excluded. cxr 02/09 Low lung volumes and technique accentuates heart size and pulmonary vascularity. Mild prominent bilateral interstitial lung markings likely mild congestive changes or interstitial infiltrates. Bibasilar lung airspace opacities likely atelectasis or infiltrate slightly increased since prior exam. Electronically signed by: Billy Vergara MD (02/09/2021 5:38 PM) [id number] Impression . IMPRESSION: 1. Acute hypoxemic respiratory failure, multifactorial. 2. Suspect aspiration pneumonia. 3. ABNORMAL CT CHEST 02/15 with 1.2 cm RUL nodule and other small nodules. moderate effusions due to low oncotic pressure 4. SARS-CoV-2.,neg 5. Influenza screen negative 6. History of cerebrovascular accident with right-sided hemiparesis. 7. Type 2 diabetes./ gastroparesis--planned for G/J-tube 8. Intractable emesis--resolved 9. Fever--resolved 10. Carotic stenosis 11. Diabetic heel ulcer right greater than left 12. Gastroparesis Plan . Updated 02/17 Patient not more short of air Awaiting thoracentesis Continue oxygen supplementation Bronchodilators Follow GI recommendations, patient declined geode J-tube Possible discharge on 02/18, okay by me Updated 02/16 d/w patient about thoracentesis. she agrees. hold lovenox and consult IR Regarding lung nodule, poor functional status for invasive testing. Rec either repeat ct chest in 3 months vs PET as OP Continue supplemental oxygen to keep oxygen saturations greater than 92%, currently on 2 L nasal cannula Continue steroids, reduce to 20mg today Continue bronchodilators ECHO 09/02-- EF 60-65% Continue antibiotics Follow nephrology recs- monitor BMP Follow GI and surgical recommendations--- planned for G/J tube on Tuesday Physical therapy/Occupational Therapy/speech therapy lovenox/protonix for prophylaxis Social work for D/C planning Discussed with RN Updated 02/15 Continue supplemental oxygen to keep oxygen saturations greater than 92%, currently on 2 L nasal cannula Continue steroids, reduce to 20mg today Continue bronchodilators cxr reviewed 02/09/ CHF-- ECHO 09/02-- EF 60-65% Continue antibiotics Follow nephrology recs- monitor BMP Follow GI and surgical recommendations--- planned for G/J tube on Tuesday Physical therapy/Occupational Therapy/speech therapy lovenox/protonix for prophylaxis Social work for D/C planning Discussed with LOREN WALTERS MD Feb 17, 2021 08:23
[2021-02-17 08:27] LABS: HEMATOCRIT 26.6 % (36.0-47.0); HEMOGLOBIN 8.2 g/dL (12.0-15.5); RED BLOOD COUNT 3.3 x10^6/uL (3.50-5.40); RED CELL DISTRIBUTION WIDTH 17.2 % (11.5-14.5); WHITE BLOOD COUNT 12.8 x10^3/uL (4.0-11.0)
[2021-02-17 08:38] LABS: PROTHROMBIN TIME PATIENT 15.7 SEC (11.7-14.0)
[2021-02-17] MEDS: PANTOPRAZOLE 40 MG TABLET.DR. PO SCH (08:47)
[2021-02-17] MEDS: predniSONE 20 MG TABLET PO SCH (08:47)
[2021-02-17] MEDS: MULTIVITAMIN with MINERAL TABLET. PO SCH (08:47)
[2021-02-17] MEDS: ASCORBIC ACID 500 MG TABLET PO SCH ×2 (08:48→17:16)
[2021-02-17] MEDS: LACTOBACILLUS RHAMNOSUS GG 1 CAPSULE. PO SCH ×2 (08:48→21:03)
[2021-02-17] MEDS: POTASSIUM CHLORIDE 20 MEQ TABLET.ER. PO SCH (08:48)
[2021-02-17] MEDS: CLOPIDOGREL BISULFATE 75 MG TABLET PO SCH (08:49)
[2021-02-17] MEDS: METOPROLOL SUCC 24HR ER 25 MG TAB.ER.24H. PO SCH (08:54)
[2021-02-17] MEDS: INSULIN GLARGINE SYRINGE. SQ SCH ×2 (09:08→21:03)
[2021-02-17] MEDS: INSULIN LISPRO 300 UNITS/3 ML VIAL. SQ SCH ×3 (09:08→17:22)
[2021-02-17 09:20] LABS: ALBUMIN 2.5 g/dL (3.4-5.0); ALBUMIN/GLOBULIN RATIO 0.6 (1.0-1.7); CALCIUM 9.1 mg/dL (8.5-10.1); GFR 24.9; POTASSIUM 5.4 mmol/L (3.5-5.1); TOTAL BILIRUBIN 0.3 mg/dL (0.2-1.0); TOTAL PROTEIN 6.8 g/dL (6.4-8.2)
--- NOTE | 2021-02-17 09:37 | PDOC ---
DATE OF SERVICE DATE: 02/17/21 TIME: 09:37 SUBJECTIVE ROS No new concerns or complaints voiced by patient, On o2 by NC OBJECTIVE Vital Signs Vital Signs Date Time Temp Pulse Resp B/P (MAP) Pulse Ox O2 Delivery O2 Flow Rate FiO2 02/17/21 08:54 84 176/64 02/17/21 07:35 96 Nasal Cannula 2.0 02/17/21 07:00 97.3 20 97.3 I & 0 Intake and Output 02/17/21 07:00 Intake Total 200 ml Balance 200 ml Intake Oral 200 ml # Voids 5 # Bowel Movements 1 PHYSICAL EXAM Physical Exam GEN: NAD HEEN OM moist, O2 by NC NECK Supple LUNGS Decreased at bases, Non labored CV S1S2 ABd soft NEURO Grossly normal No dennis DIAGNOSIS/ASSESSMENT Assessment & Plan Acute renal failure --Vasomotor, renal function improving Supportive care, strict I/O(UOP not recorded ) , avoid nephrotoxins HyperKalemia- Mild, Monitor Chronic kidney disease stage 3 secondary to diabetic nephropathy. She has a likely history of diabetes mellitus with diabetic retinopathy and significant proteinuria. Renal calculus - reported on CT 02/13 - Left proximal ureteral tiny obstructing calculi contributing to mild left hydronephrosis and perinephric /periureteral fat stranding. Additional bilateral nonobstructing intrarenal calculi Renal US Right kidney Several foci of increased echogenicity within the right kidney likely a combination of calcific atherosclerosis and nonobstructing intrarenal stones. LK- Mild hydronephrosis seen on the recent CT is not appreciated on this exam. Intrarenal stones and calcific atherosclerosis. Bladder: Difficult to closely evaluate due to incomplete distention. No localized wall thickening is apparent. Left adrenal nodule, unchanged compared to 2012 and likely benign given stability over time Acute hypoxic respiratory failure, likely multifactorial including aspiration pneumonia and acute congestive heart failure. ABNORMAL CT CHEST 02/15 with 1.2 cm RUL nodule and other small nodules. moderate effusions due to low oncotic pressure pleural effusion scheduled for thoracentesis Aspiration pneumonia. Acute on chronic diastolic congestive heart failure. The patient has evidence of pulmonary congestion and bilateral pleural effusion. Urinary tract infection with growth of more than 100,000 colony forming units per mL of gram-negative rods. diabetic gastroparesis with gastric emptying study confirming. 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 Hypertension. Peripheral vascular disease. Type 2 diabetes mellitus with diabetic foot ulcers, more on the right than left.BS high . Management per primary congestive heart failure. CT CHEST 02/15 Impression: Chest CT: 1. Moderate bilateral pleural effusions with adjacent atelectasis. 2. Bilateral septal thickening with groundglass opacities, concerning for pulmonary edema. 3. Right upper lobe nodular opacity with adjacent smaller nodular opacities. Recommend short-term CT follow-up after treatment to ensure resolution as malignancy is not excluded. COMMENT/RELEVANT DATA Meds Current Medications Medications (Trade) Dose Ordered Sig/Liam Start Time Stop Time Status Last Admin Dose Admin Acetaminophen (Tylenol) 650 mg PRN Q6HRS PRN 02/02/21 12:30 UNV Acetaminophen/ Hydrocodone Bitart (Lortab 5/325) 1 tab PRN Q8HRS PRN 02/02/21 12:30 02/09/21 09:35 DC Al Hydroxide/Mg Hydroxide (Mylanta Plus Xs) 30 ml PRN Q3HRS PRN 02/01/21 21:30 Albuterol/ Ipratropium (Duoneb) 3 ml STK-MED ONCE 02/09/21 13:50 02/09/21 13:51 DC Ascorbic Acid (Vitamin C) 500 mg BIDWMEALS 02/09/21 17:00 02/17/21 08:48 Atorvastatin Calcium (Lipitor) 40 mg QHS 02/02/21 21:00 02/16/21 20:27 Bisacodyl (Dulcolax Supp) 10 mg PRN DAILY PRN 02/02/21 12:30 UNV Budesonide (Pulmicort) 0.5 mg RTBID 02/11/21 10:15 02/17/21 07:40 Calcium Carbonate/ Glycine (Tums) 500 mg PRN Q3HRS PRN 02/01/21 21:30 Citalopram Hydrobromide (CeleXA) 20 mg DAILY 02/02/21 09:00 02/09/21 09:35 DC 02/08/21 08:52 Clopidogrel Bisulfate (Plavix) 75 mg DAILY 02/02/21 09:00 02/16/21 08:09 Dextrose (Dextrose 50%-Water Syringe) 12.5 gm PRN Q15MIN PRN 02/05/21 11:00 UNV Dextrose (Iv Dextrose 5%) 250 ml PRN Q15MIN PRN 02/01/21 22:00 Cancel Enoxaparin Sodium (Lovenox 40mg Syringe) 40 mg Q24H 02/01/21 21:30 02/16/21 12:20 DC 02/15/21 22:01 Furosemide (Lasix) 40 mg 1X ONCE 02/10/21 10:45 02/10/21 10:46 DC 02/10/21 11:12 Hydralazine HCl (Apresoline Inj) 10 mg PRN Q4HRS PRN 02/03/21 16:15 02/17/21 05:40 Insulin Glargine (Lantus Syringe) 10 unit BID 02/05/21 12:00 02/17/21 09:08 Insulin Human Lispro (HumaLOG) 0-5 UNITS TIDWMEALS 02/05/21 12:00 02/17/21 09:08 Labetalol HCl (Normodyne Iv Push) 20 mg PRN Q30MIN PRN 02/01/21 21:15 02/12/21 17:43 Lactobacillus Rhamnosus (Culturelle) 1 cap BID 02/02/21 21:00 02/17/21 08:48 Lisinopril (Prinivil) 5 mg DAILY 02/02/21 13:00 02/14/21 07:45 DC 02/13/21 10:54 Magnesium Hydroxide (Milk Of Magnesia) 2,400 mg PRN DAILY PRN 02/02/21 12:30 UNV Metformin HCl (Glucophage) 500 mg BIDWMEALS 02/02/21 17:00 02/14/21 07:45 DC 02/13/21 17:29 Metoclopramide HCl (Reglan Oral Solution) 5 mg QIDACHS 02/14/21 16:30 02/17/21 07:30 Metoclopramide HCl (Reglan Vial) 10 mg QIDACHS 02/10/21 11:30 02/11/21 09:50 DC 02/11/21 07:57 Metoprolol Succinate (Toprol Xl) 12.5 mg DAILY 02/04/21 14:00 02/17/21 08:54 Morphine Sulfate (Morphine Sulfate) 2 mg PRN Q1HR PRN 02/01/21 21:30 02/09/21 09:37 DC 02/08/21 00:42 Multivitamins (Thera M Plus) 1 tab [id number] 02/10/21 08:00 02/17/21 08:47 Non-Formulary Medication (Collagenase Clostridium Hist. (Santyl Ointment)) 1 raven QSUTUTH 02/03/21 16:00 UNV Non-Formulary Medication (Insulin Aspart (Insulin Aspart Flexpen)) 15 unit TIDAC 02/02/21 16:30 UNV Non-Formulary Medication (Insulin Aspart ) 100 unit sliding scale 02/02/21 12:30 UNV Non-Formulary Medication (Insulin Detemir (Levemir Flextouch)) 50 unit BID 02/02/21 09:00 UNV Non-Formulary Medication (Melatonin ) 3 mg PRN QHS PRN 02/02/21 12:30 UNV Ondansetron HCl (Zofran Odt) 4 mg PRN Q4HRS PRN 02/02/21 12:45 02/16/21 14:19 Ondansetron HCl (Zofran) 4 mg PRN Q6HRS PRN 02/01/21 21:30 02/16/21 11:56 Oxycodone/ Acetaminophen (Percocet 5/325) 1 tab PRN Q4HRS PRN 02/01/21 21:30 02/09/21 09:35 DC 02/08/21 05:32 Pantoprazole Sodium (PROTONIX VIAL for IV PUSH) 40 mg BIDAC 02/10/21 16:30 02/11/21 09:41 DC 02/11/21 07:57 Pantoprazole Sodium (Protonix) 40 mg DAILYAC 02/16/21 14:30 02/17/21 08:47 Piperacillin Sod/ Tazobactam Sod (Zosyn Per Pharmacy) 1 each PRN DAILY PRN 02/01/21 21:15 Piperacillin Sod/ Tazobactam Sod 2.25 gm/Sodium Chloride 50 ml @ 100 mls/hr Q8HRS 02/14/21 14:00 02/17/21 05:39 Piperacillin Sod/ Tazobactam Sod 3.375 gm/Sodium Chloride 50 ml @ 100 mls/hr Q6HRS 02/02/21 12:00 02/14/21 07:45 DC 02/14/21 05:32 Potassium Chloride (Klor-Con) 20 meq TID 02/13/21 09:00 02/17/21 08:48 Prednisone (Prednisone) 20 mg DAILY 02/16/21 09:00 02/17/21 08:47 Sodium Chloride 38.5 meq/Sterile Water 1,009.625 ml @ 50 mls/hr [id number] 02/14/21 14:00 02/16/21 23:33 Tramadol HCl (Ultram) 50 mg PRN Q6HRS PRN 02/01/21 21:30 02/01/21 21:35 DC Vancomycin HCl (Vanco Per Pharmacy) 1 each PRN DAILY PRN 02/02/21 16:15 02/05/21 10:51 DC 02/04/21 15:20 Vancomycin HCl (Vancomycin Trough Level) 1 each 1X ONCE 02/04/21 18:00 02/05/21 10:51 DC Vancomycin HCl 1.5 gm/Sodium Chloride 500 ml @ 250 mls/hr Q24H 02/02/21 17:00 02/05/21 10:52 DC 02/04/21 17:04 Zolpidem Tartrate (Ambien) 5 mg PRN QHS PRN 02/01/21 21:30 02/15/21 22:03 Lab Laboratory Tests Test 02/16/21 11:06 02/16/21 16:38 02/17/21 08:00 02/17/21 08:05 Glucose (Fingerstick) 230 mg/dL (70-99) 219 mg/dL (70-99) 173 mg/dL (70-99) White Blood Count 12.8 x10^3/uL (4.0-11.0) Red Blood Count 3.30 x10^6/uL (3.50-5.40) Hemoglobin 8.2 g/dL (12.0-15.5) Hematocrit 26.6 % (36.0-47.0) Mean Corpuscular Volume 81 fL (79-100) Mean Corpuscular Hemoglobin 25 pg (25-35) Mean Corpuscular Hemoglobin Concent 31 g/dL (31-37) Red Cell Distribution Width 17.2 % (11.5-14.5) Platelet Count 245 x10^3/uL (140-400) Prothrombin Time 15.7 SEC (11.7-14.0) Prothromb Time International Ratio 1.3 (0.8-1.1) Sodium Level 145 mmol/L (136-145) Potassium Level 5.4 mmol/L (3.5-5.1) Chloride Level 108 mmol/L (98-107) Carbon Dioxide Level 30 mmol/L (21-32) Anion Gap 7 (6-14) Blood Urea Nitrogen 40 mg/dL (7-20) Creatinine 2.0 mg/dL (0.6-1.0) Estimated GFR (Cockcroft-Gault) 24.9 BUN/Creatinine Ratio 20 (6-20) Glucose Level 192 mg/dL (70-99) Calcium Level 9.1 mg/dL (8.5-10.1) Total Bilirubin 0.3 mg/dL (0.2-1.0) Aspartate Amino Transf (AST/SGOT) 11 U/L (15-37) Alanine Aminotransferase (ALT/SGPT) 14 U/L (14-59) Alkaline Phosphatase 45 U/L (46-116) Total Protein 6.8 g/dL (6.4-8.2) Albumin 2.5 g/dL (3.4-5.0) Albumin/Globulin Ratio 0.6 (1.0-1.7) Results All relevant outside records, renal labs, imaging studies, telemetry/EKG's were reviewed. Justicifation of Admission Dx: Justifications for Admission: Justification of Admission Dx: Yes Stroke - Ischemic: Stroke-Ischemic RAVIN PHELAN MD Feb 17, 2021 09:37
--- NOTE | 2021-02-17 09:37 | PN ---
DATE: 02/17/2021 SUBJECTIVE: The patient is resting slightly propped up in bed, in no apparent respiratory distress. She is awake, alert. On questioning her, she continued to complain of nausea, but no vomiting. She is apparently scheduled for thoracentesis today. PHYSICAL EXAMINATION: GENERAL: On examining her, she looked pale, but no jaundice or cyanosis. No lymphadenopathy, no thyromegaly. No jugular venous distention. Generalized anasarca. VITAL SIGNS: Her heart rate was 83, blood pressure was 171/66, temperature was 98.6, respiratory rate was 20, and oxygen saturation was 98% on 2 liters of oxygen. HEAD, EYES, EARS, NOSE AND THROAT: Normocephalic, atraumatic. NECK: Supple. HEART: Normal first and second heart sounds. No gallop, rub or murmur. CHEST: Shows central trachea, equal bilateral chest expansion, air entry. Vesicular sounds with no crepitation or rhonchi anteriorly. She has dull percussion noted and absent breath sounds posteriorly, more on the right than left. I could not appreciate any crepitation or rhonchi. ABDOMEN: Markedly distended, soft, nontender. There is no guarding or rigidity. No organomegaly. All hernial orifice intact. Bowel sounds normal. NEUROLOGIC: She is awake, alert, responding appropriately. All her cranial nerves are intact. She has left middle cerebral artery territory infarct with right-sided hemiplegia. She has bilateral diabetic foot ulcers, more so on the right than left. Her intake over the last 24 hours and output were incompletely recorded. LABORATORY DATA: Today's labs are still pending at the time of this dictation. ASSESSMENT: Acute kidney injury. Her BUN and creatinine are steadily rising. The patient is known to have baseline chronic kidney disease stage 3, secondary to diabetic nephropathy. She also has an obstructing calculus in the left ureter with mild left-sided hydronephrosis with perinephric and periureteral fat stranding, with additional bilateral nonobstructing intrarenal calculi. The patient has developed acute hypoxic respiratory failure, multifactorial, including aspiration pneumonia and acute on chronic diastolic congestive heart failure. She also has bilateral pleural effusions, more on the right than left, for which she is scheduled for thoracentesis. She also has urinary tract infection with a growth of more than 100,000 colony forming units per mL of gram-negative rods and diabetic gastroparesis, with gastric emptying study confirming. Apparently, the surgical team did not consider her a candidate for gastrojejunostomy tube. She is also known to have left middle cerebral artery territory infarct with right-sided hemiplegia, hypertension, peripheral vascular disease, type 2 diabetes with diabetic foot ulcers, more on the right than left. PLAN: Obviously to proceed with the thoracentesis. Unfortunately, her lab work is still pending at the time of this dictation. HUMAIRA LORD MD DR: ALVIN/deuce JOB#: [id number] / [id number]
--- NOTE | 2021-02-17 10:28 | PDOC ---
Date of Service: DATE: 02/17/21 TIME: 10:19 Subjective: Subjective: Nausea is "so-so" though ate most of full liquid breakfast. present, asks about thoracentesis. Objective: Objective: D/w nurse - plans for thoracentesis. Nausea this morning, got Reglan. Vital Signs: Vital Signs Date Time Temp Pulse Resp B/P (MAP) Pulse Ox O2 Delivery O2 Flow Rate FiO2 02/17/21 08:54 84 176/64 02/17/21 07:35 96 Nasal Cannula 2.0 02/17/21 07:00 97.3 20 97.3 Labs: Laboratory Tests Test 02/16/21 11:06 02/16/21 16:38 02/17/21 08:00 Glucose (Fingerstick) 230 mg/dL (70-99) 219 mg/dL (70-99) 173 mg/dL (70-99) Imaging: SLLP 02/05 * ...Pt w/hx of dysphagia d/t CVA in 08/2020. Had PEG placed at that time but removed 11/2020. Pt now resides at [facility]. Staff there stated pt came to them from [facility] on an oral diet. Diet consistency has reportedly been advanced while at [facility] per JOE Reyes. IMPRESSIONS: Oropharyngeal swallow con't timely, complete at bedside. No overt s/s aspiration. Pt adm w/abnl PCXR and negative COVID 19 and influenza tests. If felt strongly that aspiration may be source of abnl PCXR, could perform imaging to more fully outline swallow function. Pt continues to demo WFL oropharyngeal swallow w/ thin liquids and puree. No overt s/s aspiration with puree and thin liquids this date. RECOMMENDATIONS: Diet per GI, thin liquids ok. Imaging (videoswallow) if desired to r/o silent aspiration. DW JOE Donahue and pt. PE: GEN: NAD - helping w/ breakfast LUNGS: diminished anteriorly HEART: RRR ABD: large, soft, non-tender NEURO/PSYCH: A & O 3 A/P: Gastroparesis, nausea, anorexia GIULIA -- Encouraged PO, continue Reglan and PPI - no plans for J tube. No need for [employer] re-eval per GI - seems diet is limited currently (remains on full liquids) by delayed gastric emptying and nausea - no dysphagia concerns. She did seem to eat a bit more this morning? present. Justicifation of Admission Dx: Justifications for Admission: Justification of Admission Dx: Yes Stroke - Ischemic: Stroke-Ischemic SONA SHAW Feb 17, 2021 10:28
[2021-02-17 10:33] VITALS: BP 176/65
[2021-02-17 15:00] VITALS: BP 205/77
[2021-02-17 19:00] VITALS: BP 206/78
[2021-02-17] MEDS: SODIUM CHLORIDE 23.4% 38.5 MEQ in IV STERILE WATER 1,000 ML IV SCH (21:02)
[2021-02-17] MEDS: ATORVASTATIN CALCIUM 40 MG TABLET. PO SCH (21:03)
[2021-02-17] MEDS: ZOLPIDEM 5 MG TABLET. PO PRN (21:13)
[2021-02-17 22:53] VITALS: BP 207/71
[2021-02-18 02:23] VITALS: BP 149/80
[2021-02-18 05:46] LABS: CALCIUM 9.1 mg/dL (8.5-10.1); CREATININE 1.7 mg/dL (0.6-1.0); POTASSIUM 5.5 mmol/L (3.5-5.1)
[2021-02-18] MEDS: PIPERACILLIN/TAZOBACTAM 2.25 GM in IV NORMAL SALINE 50ML 50 ML IV SCH ×2 (05:57→14:00)
[2021-02-18 07:40] VITALS: BP 177/69
[2021-02-18] MEDS ORDERED: SODIUM POLYSTYRENE SULFON/SORB 15 GM/60 ML ORAL.SUSP. PO ONE (07:45)
[2021-02-18] MEDS ORDERED: LACTULOSE 20 GM/30 ML SOLUTION. PO PRN (07:45)
[2021-02-18] MEDS: ASCORBIC ACID 500 MG TABLET PO SCH ×2 (08:00→17:00)
[2021-02-18] MEDS: MULTIVITAMIN with MINERAL TABLET. PO SCH (08:00)
[2021-02-18] MEDS: METOPROLOL SUCC 24HR ER 25 MG TAB.ER.24H. PO SCH (08:25)
[2021-02-18] MEDS: PANTOPRAZOLE 40 MG TABLET.DR. PO SCH (08:26)
[2021-02-18] MEDS: METOCLOPRAMIDE ORAL SOLN 10 MG/10 ML SOLUTION. PO SCH ×3 (08:26→16:30)
--- NOTE | 2021-02-18 08:29 | RAD ---
Ultrasound-guided right-sided thoracentesis 02/18/2021 6:25 AM Indication: RIGHT PLEURAL FLUID COLLECTION Procedure: Informed consent was obtained. A timeout procedure was performed. Sonographic evaluation of the right chest was performed demonstrating moderate pleural effusion. The right posterior chest was prepped and draped in sterile fashion. 1% lidocaine without epinephrine was administered for local anesthesia. Real-time ultrasonographic guidance was used in passing a 5 Persian Protean Electriceh catheter into the right pleural space. 0.85 L of serosanguineous pleural fluid was removed. Samples of fluid were sent to the lab for further evaluation per ordering physician request. The catheter was removed and pressure held to achieve hemostasis. A sterile dressing was applied. No immediate complications were identified. The patient tolerated the procedure well. Impression: Right sided ultrasound-guided thoracentesis
[2021-02-18] MEDS: hydrALAZINE 20 MG/ML VIAL. IVP PRN (08:31)
[2021-02-18] MEDS: INSULIN LISPRO 300 UNITS/3 ML VIAL. SQ SCH ×3 (08:43→17:00)
[2021-02-18] MEDS: INSULIN GLARGINE SYRINGE. SQ SCH (08:43)
--- NOTE | 2021-02-18 08:46 | PDOC ---
PULMONARY PROGRESS NOTES DATE: 02/18/21 TIME: 08:45 Subjective Patient currently on 2 L of oxygen no respiratory complaint Vitals Vital Signs Date Time Temp Pulse Resp B/P (MAP) Pulse Ox O2 Delivery O2 Flow Rate FiO2 02/18/21 08:31 81 177/69 02/18/21 02:23 97.4 18 98 Nasal Cannula 2.0 97.4 ROS: No Nausea, No Chest Pain, No Abdominal Pain, No Increase Cough General: Alert, No acute distress Lungs: Clear Cardiovascular: S1, S2 Abdomen: Soft Neuro Exam: Alert Extremities: Other (BLE +2) Skin: Warm Labs Laboratory Tests Test 02/16/21 11:06 02/16/21 16:38 02/17/21 08:00 02/17/21 08:05 Glucose (Fingerstick) 230 mg/dL (70-99) 219 mg/dL (70-99) 173 mg/dL (70-99) White Blood Count 12.8 x10^3/uL (4.0-11.0) Red Blood Count 3.30 x10^6/uL (3.50-5.40) Hemoglobin 8.2 g/dL (12.0-15.5) Hematocrit 26.6 % (36.0-47.0) Mean Corpuscular Volume 81 fL (79-100) Mean Corpuscular Hemoglobin 25 pg (25-35) Mean Corpuscular Hemoglobin Concent 31 g/dL (31-37) Red Cell Distribution Width 17.2 % (11.5-14.5) Platelet Count 245 x10^3/uL (140-400) Prothrombin Time 15.7 SEC (11.7-14.0) Prothromb Time International Ratio 1.3 (0.8-1.1) Sodium Level 145 mmol/L (136-145) Potassium Level 5.4 mmol/L (3.5-5.1) Chloride Level 108 mmol/L (98-107) Carbon Dioxide Level 30 mmol/L (21-32) Anion Gap 7 (6-14) Blood Urea Nitrogen 40 mg/dL (7-20) Creatinine 2.0 mg/dL (0.6-1.0) Estimated GFR (Cockcroft-Gault) 24.9 BUN/Creatinine Ratio 20 (6-20) Glucose Level 192 mg/dL (70-99) Calcium Level 9.1 mg/dL (8.5-10.1) Total Bilirubin 0.3 mg/dL (0.2-1.0) Aspartate Amino Transf (AST/SGOT) 11 U/L (15-37) Alanine Aminotransferase (ALT/SGPT) 14 U/L (14-59) Alkaline Phosphatase 45 U/L (46-116) Total Protein 6.8 g/dL (6.4-8.2) Albumin 2.5 g/dL (3.4-5.0) Albumin/Globulin Ratio 0.6 (1.0-1.7) Test 02/17/21 12:28 02/17/21 16:44 02/17/21 19:37 02/18/21 04:18 Glucose (Fingerstick) 244 mg/dL (70-99) 256 mg/dL (70-99) 245 mg/dL (70-99) Sodium Level 140 mmol/L (136-145) Potassium Level 5.5 mmol/L (3.5-5.1) Chloride Level 107 mmol/L (98-107) Carbon Dioxide Level 31 mmol/L (21-32) Anion Gap 2 (6-14) Blood Urea Nitrogen 36 mg/dL (7-20) Creatinine 1.7 mg/dL (0.6-1.0) Estimated GFR (Cockcroft-Gault) 30.0 Glucose Level 203 mg/dL (70-99) Calcium Level 9.1 mg/dL (8.5-10.1) Laboratory Tests Test 02/17/21 12:28 02/17/21 16:44 02/17/21 19:37 02/18/21 04:18 Glucose (Fingerstick) 244 mg/dL (70-99) 256 mg/dL (70-99) 245 mg/dL (70-99) Sodium Level 140 mmol/L (136-145) Potassium Level 5.5 mmol/L (3.5-5.1) Chloride Level 107 mmol/L (98-107) Carbon Dioxide Level 31 mmol/L (21-32) Anion Gap 2 (6-14) Blood Urea Nitrogen 36 mg/dL (7-20) Creatinine 1.7 mg/dL (0.6-1.0) Estimated GFR (Cockcroft-Gault) 30.0 Glucose Level 203 mg/dL (70-99) Calcium Level 9.1 mg/dL (8.5-10.1) Medications Active Scripts Medications Dose Route/Sig Max Daily Dose Days Date Category Dose Instructions Zofran (Ondansetron Hcl) 4 Mg Tablet 1 Tab PO PRN Q4HRS PRN 02/02/21 Reported Vitamin C (Ascorbic Acid) 500 Mg Capsule 500 Mg PO BID 02/02/21 Reported Santyl Ointment (Collagenase) 30 Gm Oint...g. 1 Kimberlee TP QSUTUTH 02/02/21 Reported DIRECTED BY PHYSICIAN Hydrocodone-Apap 5-325 (Hydrocodone Bit/Acetaminophen) 1 Tab Tablet 1 Tab PO PRN Q8HRS PRN 02/02/21 Reported Thera-M Caplet (Multivit,Ther Iron,Ca,Fa & Min) 1 Each Tablet 1 Each PO DAILY 02/02/21 Reported Milk Of Magnesia (Magnesium Hydroxide) 400 Mg/5 Ml Oral.susp 30 Ml PO PRN DAILY PRN 02/02/21 Reported Melatonin 3 Mg Tablet.er 3 Mg PO PRN QHS PRN 02/02/21 Reported Insulin Aspart Flexpen (Insulin Aspart) 100 Unit/1 Ml Insuln.pen 15 Unit SQ TIDAC 02/02/21 Reported Dulcolax (Bisacodyl) 10 Mg Supp.rect 10 Mg RC PRN DAILY PRN 02/02/21 Reported Tylenol (Acetaminophen) 325 Mg Tablet 650 Mg PO PRN Q6HRS PRN 02/02/21 Reported Lisinopril 5 Mg Tablet 5 Mg PO DAILY 02/02/21 Reported Insulin Aspart 100 Unit/1 Ml Vial 100 Unit SQ SLIDING SCALE 11/17/20 Reported Levemir Flextouch (Insulin Detemir) 100 Unit/1 Ml Insuln.pen 50 Unit SQ BID 11/17/20 Reported Escitalopram Oxalate 10 Mg Tablet 10 Mg PO DAILY 11/17/20 Reported Carvedilol 25 Mg Tablet Unknown Dose PO BIDWMEALS 09/01/20 Reported Atorvastatin Calcium 80 Mg Tablet Unknown Dose PO QHS 09/01/20 Reported Clopidogrel (Clopidogrel Bisulfate) 75 Mg Tablet Unknown Dose PO DAILY 09/01/20 Reported Metformin Hcl 500 Mg Tablet 500 Mg PO BID 09/01/[address] CHEST 02/15 Impression: Chest CT: 1. Moderate bilateral pleural effusions with adjacent atelectasis. 2. Bilateral septal thickening with groundglass opacities, concerning for pulmonary edema. 3. Right upper lobe nodular opacity with adjacent smaller nodular opacities. Recommend short-term CT follow-up after treatment to ensure resolution as malignancy is not excluded. cxr 02/09 Low lung volumes and technique accentuates heart size and pulmonary vascularity. Mild prominent bilateral interstitial lung markings likely mild congestive changes or interstitial infiltrates. Bibasilar lung airspace opacities likely atelectasis or infiltrate slightly increased since prior exam. Electronically signed by: Billy Vergara MD (02/09/2021 5:38 PM) [id number] Impression . IMPRESSION: 1. Acute hypoxemic respiratory failure, multifactorial. 2. Suspect aspiration pneumonia. 3. ABNORMAL CT CHEST 02/15 with 1.2 cm RUL nodule and other small nodules. moderate effusions due to low oncotic pressure 4. SARS-CoV-2.,neg 5. Influenza screen negative 6. History of cerebrovascular accident with right-sided hemiparesis. 7. Type 2 diabetes./ gastroparesis--planned for G/J-tube 8. Intractable emesis--resolved 9. Fever--resolved 10. Carotic stenosis 11. Diabetic heel ulcer right greater than left 12. Gastroparesis Plan . Updated 02 18 Patient to discharge home today Respiratory status appears to be compensated Updated 02/17 Patient not more short of air Awaiting thoracentesis Continue oxygen supplementation Bronchodilators Follow GI recommendations, patient declined geode J-tube Possible discharge on 02/18, okay by me Updated 02/16 d/w patient about thoracentesis. she agrees. hold lovenox and consult IR Regarding lung nodule, poor functional status for invasive testing. Rec either repeat ct chest in 3 months vs PET as OP Continue supplemental oxygen to keep oxygen saturations greater than 92%, currently on 2 L nasal cannula Continue steroids, reduce to 20mg today Continue bronchodilators ECHO 09/02-- EF 60-65% Continue antibiotics Follow nephrology recs- monitor BMP Follow GI and surgical recommendations--- planned for G/J tube on Tuesday Physical therapy/Occupational Therapy/speech therapy lovenox/protonix for prophylaxis Social work for D/C planning Discussed with RN Updated 02/15 Continue supplemental oxygen to keep oxygen saturations greater than 92%, currently on 2 L nasal cannula Continue steroids, reduce to 20mg today Continue bronchodilators cxr reviewed 02/09/ CHF-- ECHO 09/02-- EF 60-65% Continue antibiotics Follow nephrology recs- monitor BMP Follow GI and surgical recommendations--- planned for G/J tube on Tuesday Physical therapy/Occupational Therapy/speech therapy lovenox/protonix for prophylaxis Social work for D/C planning Discussed with LOREN WALTERS MD Feb 18, 2021 08:46
[2021-02-18] MEDS: LACTOBACILLUS RHAMNOSUS GG 1 CAPSULE. PO SCH (09:00)
[2021-02-18] MEDS: CLOPIDOGREL BISULFATE 75 MG TABLET PO SCH (09:00)
[2021-02-18] MEDS: predniSONE 20 MG TABLET PO SCH (09:00)
--- NOTE | 2021-02-18 09:41 | PDOC ---
Date of Service: DATE: 02/18/21 TIME: 09:38 Subjective: Subjective: Nurse present - nausea is better, ate 50% of breakfast, possible DC to [place] today. Pt wants to go home. Objective: Vital Signs: Vital Signs Date Time Temp Pulse Resp B/P (MAP) Pulse Ox O2 Delivery O2 Flow Rate FiO2 02/18/21 08:31 81 177/69 02/18/21 02:23 97.4 18 98 Nasal Cannula 2.0 97.4 Labs: Laboratory Tests Test 02/17/21 12:28 02/17/21 16:44 02/17/21 19:37 02/18/21 04:18 Glucose (Fingerstick) 244 mg/dL 256 mg/dL 245 mg/dL Sodium Level 140 mmol/L Potassium Level 5.5 mmol/L Chloride Level 107 mmol/L Carbon Dioxide Level 31 mmol/L Anion Gap 2 Blood Urea Nitrogen 36 mg/dL Creatinine 1.7 mg/dL Estimated GFR (Cockcroft-Gault) 30.0 Glucose Level 203 mg/dL Calcium Level 9.1 mg/dL Test 02/18/21 08:38 Glucose (Fingerstick) 201 mg/dL Imaging: Thoracentesis 02/17 0.85 L of serosanguineous pleural fluid was removed PE: GEN: NAD LUNGS: diminished anteriorly - no wheeze today HEART: RRR, ABD: S/ND/NT NEURO/PSYCH: A & O 3, likely questionable historian A/P: Gastroparesis, nausea, anorexia -- DC per primary. Would continue PPI and Reglan. Diet as able. Justicifation of Admission Dx: Justifications for Admission: Justification of Admission Dx: Yes Stroke - Ischemic: Stroke-Ischemic SONA SHAW Feb 18, 2021 09:41
--- NOTE | 2021-02-18 10:49 | SNU/HH DC ---
DISCHARGE ORDERS DISCHARGE INFORMATION: DISCHARGE DATE: Feb 18, 2021 FINAL DIAGNOSIS Problems Medical Problems: (1) Elevated troponin Status: Acute (2) Person under investigation for COVID-19 Status: Acute (3) Pneumonia Status: Acute (4) UTI (urinary tract infection) Status: Acute CONDITION ON DISCHARGE: Stable CODE STATUS: Code Status: Full [facility]: SNF STAY <30 DAYS: Yes POST DISCHARGE ORDERS: ACTIVITY ORDERS: Activity as tolerated DIET AFTER DISCHARGE: ADA CHECKS AFTER DISCHARGE: CHECKS AFTER DISCHARGE: Check blood sugar, ac/hs TREATMENT/EQUIPMENT ORDERS: ADAPTIVE EQUIPMENT NEEDED: Front wheeled walker Physical Therapy For: Evalulation/Treatment Occupational Therapy For: Evaluation/Treatment Speech Language Pathology For: Evaluation/Treatment DISCHARGE MEDICATIONS: Home Meds Reported Medications Ondansetron Hcl (ZOFRAN) 4 Mg Tablet, 1 TAB PO PRN Q4HRS PRN for NAUSEA/VOMITING, #5 TAB 02/02/21 Ascorbic Acid (Vitamin C) 500 Mg Capsule, 500 MG PO BID for wound healing, CAP 02/02/21 Collagenase Clostridium Hist. (SANTYL OINTMENT) 30 Gm Oint...g., 1 ANAHI TP QSUTUTH for WOUND CARE, #1 EACH DIRECTED BY PHYSICIAN 02/02/21 Hydrocodone Bit/Acetaminophen (HYDROCODONE-APAP 5-325 ) 1 Tab Tablet, 1 TAB PO PRN Q8HRS PRN for PAIN, TAB 0 Refills 02/02/21 Multivit,Ther Iron,Ca,Fa & Min (THERA-M CAPLET) 1 Each Tablet, 1 EACH PO DAILY for supplement, TAB 02/02/21 Magnesium Hydroxide (MILK OF MAGNESIA) 400 Mg/5 Ml Oral.susp, 30 ML PO PRN DAILY PRN for CONSTIPATION, MISC 02/02/21 Melatonin (MELATONIN) 3 Mg Tablet.er, 3 MG PO PRN QHS PRN for INSOMNIA, TAB.SR 02/02/21 Insulin Aspart (Insulin Aspart Flexpen) 100 Unit/1 Ml Insuln.pen, 15 UNIT SQ TIDAC for diabetes, EACH 02/02/21 Bisacodyl (DULCOLAX) 10 Mg Supp.rect, 10 MG RC PRN DAILY PRN for CONSTIPATION, SUPP.RECT 0 Refills 02/02/21 Acetaminophen (TYLENOL) 325 Mg Tablet, 650 MG PO PRN Q6HRS PRN for MILD PAIN / TEMP > 100.3'F, TAB 02/02/21 Insulin Aspart (Insulin Aspart) 100 Unit/1 Ml Vial, 100 UNIT SQ sliding scale for iddm, EACH 11/17/20 Insulin Detemir (Levemir Flextouch) 100 Unit/1 Ml Insuln.pen, 50 UNIT SQ BID for iddm, SYR 11/17/20 Escitalopram Oxalate (ESCITALOPRAM OXALATE) 10 Mg Tablet, 10 MG PO DAILY for ANTI-DEPRESSANT, #30 TAB 0 Refills 11/17/20 Carvedilol (CARVEDILOL) 25 Mg Tablet, PO BIDWMEALS for CARDIAC, TAB 09/01/20 Atorvastatin Calcium (Atorvastatin Calcium) 80 Mg Tablet, PO QHS for FOR HIGH CHOLESTEROL, TAB 09/01/20 Clopidogrel Bisulfate (CLOPIDOGREL) 75 Mg Tablet, PO DAILY for blood thinner, #90 TAB 1 Refill 09/01/20 Metformin Hcl (METFORMIN HCL) 500 Mg Tablet, 500 MG PO BID for ANTI-DIABETIC, TAB 0 Refills 09/01/20 Discontinued Reported Medications Lisinopril (LISINOPRIL) 5 Mg Tablet, 5 MG PO DAILY for FOR HYPERTENSION, #30 TAB 0 Refills 02/02/21 HUMAIRA LORD MD Feb 18, 2021 10:49
--- NOTE | 2021-02-18 10:54 | NUR ---
SW following this patient today. Spoke with RN and reviewed chart. Met with Dr. Davies. Discharge orders done and faxed to [facility]. RN to call report. NUNO spoke with Eusebia from [facility] who will contact this SW back with a transportation time. Pt on . Updated clinicals also faxed to [facility]. Addendum: 02/18/21 at 1345 by DENISE REINA Eusebia from [facility] called. Orders received. Transportation arranged for 1500. RN notified. No further SW needs at this time.
[2021-02-18 11:00] VITALS: BP 162/62
--- NOTE | 2021-02-18 12:06 | PDOC ---
DATE OF SERVICE DATE: 02/18/21 TIME: 12:01 SUBJECTIVE ROS states breathing better post thoracentesis, she reports"quite a bit of fluid removed on 02/17) " OBJECTIVE Vital Signs Vital Signs Date Time Temp Pulse Resp B/P (MAP) Pulse Ox O2 Delivery O2 Flow Rate FiO2 02/18/21 11:00 97.3 86 20 162/62 (95) 98 Nasal Cannula 2.0 97.3 I & 0 Intake and Output 02/18/21 07:00 Intake Total 200 ml Balance 200 ml Intake Oral 200 ml # Voids 5 PHYSICAL EXAM Physical Exam GEN: NAD HEEN OM moist, O2 by NC NECK Supple LUNGS Decreased at bases, Non labored CV S1S2 ABd soft NEURO Grossly normal No dennis DIAGNOSIS/ASSESSMENT Assessment & Plan Acute renal failure --Vasomotor, renal function improving Supportive care, strict I/O(UOP not recorded ) , avoid nephrotoxins HyperKalemia- Mild, Monitor .Recommned Low K diet. Please inform the Facility Chronic kidney disease stage 3 secondary to diabetic nephropathy. She has a likely history of diabetes mellitus with diabetic retinopathy and significant proteinuria. Renal calculus - reported on CT 02/13 - Left proximal ureteral tiny obstructing calculi contributing to mild left hydronephrosis and perinephric/periureteral fat stranding. Additional bilateral nonobstructing intrarenal calculi Renal US Right kidney Several foci of increased echogenicity within the right kidney likely a combination of calcific atherosclerosis and nonobstructing intrarenal stones. LK- Mild hydronephrosis seen on the recent CT is not appreciated on this exam. Intrarenal stones and calcific atherosclerosis. Bladder: Difficult to closely evaluate due to incomplete distention. No localized wall thickening is apparent. Left adrenal nodule, unchanged compared to 2012 and likely benign given stability over time Acute hypoxic respiratory failure, likely multifactorial including aspiration pneumonia and acute congestive heart failure. ABNORMAL CT CHEST 02/15 with 1.2 cm RUL nodule and other small nodules. moderate effusions due to low oncotic pressure pleural effusion s/p Rt thoracentesis 02/17 850 mls drained Aspiration pneumonia. Acute on chronic diastolic congestive heart failure. The patient has evidence of pulmonary congestion and bilateral pleural effusion. Urinary tract infection with growth of more than 100,000 colony forming units per mL of gram-negative rods. diabetic gastroparesis with gastric emptying study confirming. 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 Hypertension. Peripheral vascular disease. Type 2 diabetes mellitus with diabetic foot ulcers, more on the right than left.BS high . Management per primary congestive heart failure. Pt is anticipating dc today [facility]. Recommned OP fu with PCP; Nephrology (can fu with us- routine, Non urgent appt) CT CHEST 02/15 Impression: Chest CT: 1. Moderate bilateral pleural effusions with adjacent atelectasis. 2. Bilateral septal thickening with groundglass opacities, concerning for pulmonary edema. 3. Right upper lobe nodular opacity with adjacent smaller nodular opacities. Recommend short-term CT follow-up after treatment to ensure resolution as malignancy is not excluded. COMMENT/RELEVANT DATA Meds Current Medications Medications (Trade) Dose Ordered Sig/Liam Start Time Stop Time Status Last Admin Dose Admin Acetaminophen (Tylenol) 650 mg PRN Q6HRS PRN 02/02/21 12:30 UNV Acetaminophen/ Hydrocodone Bitart (Lortab 5/325) 1 tab PRN Q8HRS PRN 02/02/21 12:30 02/09/21 09:35 DC Al Hydroxide/Mg Hydroxide (Mylanta Plus Xs) 30 ml PRN Q3HRS PRN 02/01/21 21:30 Albuterol/ Ipratropium (Duoneb) 3 ml STK-MED ONCE 02/09/21 13:50 02/09/21 13:51 DC Ascorbic Acid (Vitamin C) 500 mg BIDWMEALS 02/09/21 17:00 02/17/21 17:16 500 MG Atorvastatin Calcium (Lipitor) 40 mg QHS 02/02/21 21:00 02/17/21 21:03 40 MG Bisacodyl (Dulcolax Supp) 10 mg PRN DAILY PRN 02/02/21 12:30 UNV Budesonide (Pulmicort) 0.5 mg RTBID 02/11/21 10:15 02/17/21 07:40 0.5 MG Calcium Carbonate/ Glycine (Tums) 500 mg PRN Q3HRS PRN 02/01/21 21:30 Citalopram Hydrobromide (CeleXA) 20 mg DAILY 02/02/21 09:00 02/09/21 09:35 DC 02/08/21 08:52 20 MG Clopidogrel Bisulfate (Plavix) 75 mg DAILY 02/02/21 09:00 02/16/21 08:09 75 MG Dextrose (Dextrose 50%-Water Syringe) 12.5 gm PRN Q15MIN PRN 02/05/21 11:00 UNV Dextrose (Iv Dextrose 5%) 250 ml PRN Q15MIN PRN 02/01/21 22:00 Cancel Enoxaparin Sodium (Lovenox 40mg Syringe) 40 mg Q24H 02/01/21 21:30 02/16/21 12:20 DC 02/15/21 22:01 40 MG Furosemide (Lasix) 40 mg 1X ONCE 02/10/21 10:45 02/10/21 10:46 DC 02/10/21 11:12 40 MG Hydralazine HCl (Apresoline Inj) 10 mg PRN Q4HRS PRN 02/03/21 16:15 02/18/21 08:31 10 MG Insulin Glargine (Lantus Syringe) 10 unit BID 02/05/21 12:00 02/18/21 08:43 10 UNIT Insulin Human Lispro (HumaLOG) 0-5 UNITS TIDWMEALS 02/05/21 12:00 02/18/21 08:43 3 UNITS Labetalol HCl (Normodyne Iv Push) 20 mg PRN Q30MIN PRN 02/01/21 21:15 02/12/21 17:43 20 MG Lactobacillus Rhamnosus (Culturelle) 1 cap BID 02/02/21 21:00 02/17/21 21:03 1 CAP Lactulose (Lactulose) 20 gm PRN DAILY PRN 02/18/21 07:45 Lisinopril (Prinivil) 5 mg DAILY 02/02/21 13:00 02/14/21 07:45 DC 02/13/21 10:54 5 MG Magnesium Hydroxide (Milk Of Magnesia) 2,400 mg PRN DAILY PRN 02/02/21 12:30 UNV Metformin HCl (Glucophage) 500 mg BIDWMEALS 02/02/21 17:00 02/14/21 07:45 DC 02/13/21 17:29 500 MG Metoclopramide HCl (Reglan Oral Solution) 5 mg QIDACHS 02/14/21 16:30 02/18/21 08:26 5 MG Metoclopramide HCl (Reglan Vial) 10 mg QIDACHS 02/10/21 11:30 02/11/21 09:50 DC 02/11/21 07:57 10 MG Metoprolol Succinate (Toprol Xl) 12.5 mg DAILY 02/04/21 14:00 02/18/21 08:25 12.5 MG Morphine Sulfate (Morphine Sulfate) 2 mg PRN Q1HR PRN 02/01/21 21:30 02/09/21 09:37 DC 02/08/21 00:42 2 MG Multivitamins (Thera M Plus) 1 tab [id number] 02/10/21 08:00 02/17/21 08:47 1 TAB Non-Formulary Medication (Collagenase Clostridium Hist. (Santyl Ointment)) 1 raven QSUTUTH 02/03/21 16:00 UNV Non-Formulary Medication (Insulin Aspart (Insulin Aspart Flexpen)) 15 unit TIDAC 02/02/21 16:30 UNV Non-Formulary Medication (Insulin Aspart ) 100 unit sliding scale 02/02/21 12:30 UNV Non-Formulary Medication (Insulin Detemir (Levemir Flextouch)) 50 unit BID 02/02/21 09:00 UNV Non-Formulary Medication (Melatonin ) 3 mg PRN QHS PRN 02/02/21 12:30 UNV Ondansetron HCl (Zofran Odt) 4 mg PRN Q4HRS PRN 02/02/21 12:45 02/16/21 14:19 4 MG Ondansetron HCl (Zofran) 4 mg PRN Q6HRS PRN 02/01/21 21:30 02/16/21 11:56 4 MG Oxycodone/ Acetaminophen (Percocet 5/325) 1 tab PRN Q4HRS PRN 02/01/21 21:30 02/09/21 09:35 DC 02/08/21 05:32 1 TAB Pantoprazole Sodium (PROTONIX VIAL for IV PUSH) 40 mg BIDAC 02/10/21 16:30 02/11/21 09:41 DC 02/11/21 07:57 40 MG Pantoprazole Sodium (Protonix) 40 mg DAILYAC 02/16/21 14:30 02/18/21 08:26 40 MG Piperacillin Sod/ Tazobactam Sod (Zosyn Per Pharmacy) 1 each PRN DAILY PRN 02/01/21 21:15 Piperacillin Sod/ Tazobactam Sod 2.25 gm/Sodium Chloride 50 ml @ 100 mls/hr Q8HRS 02/14/21 14:00 02/18/21 05:57 100 MLS/HR Piperacillin Sod/ Tazobactam Sod 3.375 gm/Sodium Chloride 50 ml @ 100 mls/hr Q6HRS 02/02/21 12:00 02/14/21 07:45 DC 02/14/21 05:32 100 MLS/HR Potassium Chloride (Klor-Con) 20 meq TID 02/13/21 09:00 02/17/21 11:24 DC 02/17/21 08:48 20 MEQ Prednisone (Prednisone) 20 mg DAILY 02/16/21 09:00 02/17/21 08:47 20 MG Sodium Polystyrene Sulfonate (Kayexalate) 15 gm 1X ONCE 02/18/21 07:45 02/18/21 07:46 DC 02/18/21 08:24 15 GM Sodium Chloride 38.5 meq/Sterile Water 1,009.625 ml @ 50 mls/hr [id number] 02/14/21 14:00 02/17/21 21:02 50 MLS/HR Tramadol HCl (Ultram) 50 mg PRN Q6HRS PRN 02/01/21 21:30 02/01/21 21:35 DC Vancomycin HCl (Vanco Per Pharmacy) 1 each PRN DAILY PRN 02/02/21 16:15 02/05/21 10:51 DC 02/04/21 15:20 1 EACH Vancomycin HCl (Vancomycin Trough Level) 1 each 1X ONCE 02/04/21 18:00 02/05/21 10:51 DC Vancomycin HCl 1.5 gm/Sodium Chloride 500 ml @ 250 mls/hr Q24H 02/02/21 17:00 02/05/21 10:52 DC 02/04/21 17:04 250 MLS/HR Zolpidem Tartrate (Ambien) 5 mg PRN QHS PRN 02/01/21 21:30 02/17/21 21:13 5 MG Lab Laboratory Tests Test 02/17/21 12:28 02/17/21 16:44 02/17/21 19:37 02/18/21 04:18 Glucose (Fingerstick) 244 mg/dL (70-99) 256 mg/dL (70-99) 245 mg/dL (70-99) Sodium Level 140 mmol/L (136-145) Potassium Level 5.5 mmol/L (3.5-5.1) Chloride Level 107 mmol/L (98-107) Carbon Dioxide Level 31 mmol/L (21-32) Anion Gap 2 (6-14) Blood Urea Nitrogen 36 mg/dL (7-20) Creatinine 1.7 mg/dL (0.6-1.0) Estimated GFR (Cockcroft-Gault) 30.0 Glucose Level 203 mg/dL (70-99) Calcium Level 9.1 mg/dL (8.5-10.1) Test 02/18/21 08:38 02/18/21 10:53 Glucose (Fingerstick) 201 mg/dL (70-99) 193 mg/dL (70-99) Results All relevant outside records, renal labs, imaging studies, telemetry/EKG's were reviewed. Justicifation of Admission Dx: Justifications for Admission: Justification of Admission Dx: Yes Stroke - Ischemic: Stroke-Ischemic RAVIN PHELAN MD Feb 18, 2021 12:06
[2021-02-18 12:28] LABS: CREATININE 1.6 mg/dL (0.6-1.0); GFR 32.2; POTASSIUM 4.8 mmol/L (3.5-5.1)
--- NOTE | 2021-02-18 12:45 | DS ---
DATE OF DISCHARGE: HOSPITAL COURSE: The patient is a 66-year-old female, the patient is a resident at [facility], was noted to have recurrent bouts of nausea, vomiting and she was extensively investigated, was seen in consultation by the canoe maker, the supervisor extrusion, registered medical assistant, as well as the vascular surgeon and wound care team as well as the industrial cafeteria manager. She has had carotid Doppler ultrasound, which showed that the patient has 50-69% narrowing bilateral mid internal carotid arteries as well mild atheromatous plaque bilaterally, but vascular surgeon did not recommend any surgical intervention. Venous Doppler ultrasound of both lower extremities showed no evidence of deep vein thrombosis. Her chest x-ray showed that she has subtle patchy bibasilar airspace disease, may be infectious or inflammatory in etiology and given the fact that she has been having recurrent episodes of nausea and vomiting, aspiration pneumonia was high, she was admitted with acute hypoxic respiratory failure. She was started on IV antibiotic and she continued to have recurrent bouts of nausea, vomiting. I did actually gastric emptying studies, which basically showed the retention percentage, at 4 hours 76% of her meals still retained in her stomach and I did consult the general surgeon for gastrojejunostomy tube placement. Unfortunately, the patient went into acute renal failure as well as acute congestive heart failure and therefore, she was not considered a candidate for gastrojejunostomy tube placement. She also had large right sided pleural effusion and about 850 mL of serosanguineous fluid were removed and some of the fluid was sent for the lab for further evaluation. PHYSICAL EXAMINATION: GENERAL: When I saw her today, she was resting, slightly propped up in bed, in no apparent respiratory distress. She was somewhat pale, but no jaundice, cyanosis or thyromegaly. No jugular venous distention, but bilateral lower limb edema. VITAL SIGNS: Her heart rate was 81, blood pressure was 177/69, temperature was 96.6, respiratory rate was 16, and oxygen saturation was 98% on 2 liters of oxygen. HEAD, EYES, EARS, NOSE AND THROAT: Showed normocephalic, atraumatic. NECK: Supple. HEART: Showed normal first and second heart sounds. No gallop, rub or murmur. CHEST: Clear to auscultation. No crepitation or rhonchi. ABDOMEN: Distended, soft, nontender. NEUROLOGIC: She was awake, alert, responding appropriately. All cranial nerves intact. 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 LABORATORY DATA: This morning showed a white cell count of 12,800, hemoglobin 8.2, hematocrit 26.6, MCV 81 and platelet count 245,000. Her chemistry showed a serum sodium 140, potassium 5.5, chloride 107, bicarbonate 31, anion gap of 2, BUN 36, creatinine 1.7, estimated GFR was 30 mL per minute. Her glucose was 103 and calcium was 9.1. Her prothrombin time was 15.7, INR 1.3. Her C. diff toxins were negative. Coronavirus PCR was not detectable. Influenza A and B were negative. DISCHARGE MEDICATIONS: The patient was discharged to [facility] to continue on lactulose 30 mL p.o. daily, Protonix 40 mg daily, prednisone 20 mg once a day, metoclopramide 5 mg before meals and bedtime, Pulmicort 0.5 mg by nebulizer twice a day, multivitamin 1 tablet once a day, ascorbic acid 500 mg twice a day, albuterol and Atrovent by nebulizer 4 times a day, Lantus 10 units twice a day. She is also on Humalog insulin, advancing sliding scale before meals, metoprolol succinate 12.5 mg once a day, hydralazine, atorvastatin 40 mg at bedtime, lactobacillus rhamnosus 1 capsule twice a day, ondansetron 4 mg every 4 hours as needed, Plavix 75 mg once a day, bisacodyl 10 mg suppositories rectally daily p.r.n. for constipation, acetaminophen 650 mg every 6 hours, Ambien 5 mg at bedtime, calcium carbonate 500 mg every 3 hours. FINAL DISCHARGE DIAGNOSES: 1. Acute hypoxic respiratory failure, likely multifactorial including aspiration pneumonia as well as acute on chronic diastolic congestive heart failure and large right sided pleural effusion. 2. Aspiration pneumonia. 3. Acute on chronic diastolic congestive heart failure. The patient has evidence of pulmonary congestion, bilateral pleural effusion. 4. Urinary tract infection with growth of more than 100,000 colony forming per mL of gram-negative rods identified as Escherichia coli, sensitive to piperacillin and tazobactam. 5. The patient has diabetic gastroparesis with gastric emptying study confirming that there is more than 76% of her meals still in her stomach 4 hours later. 6. The patient initially agreed to gastrojejunostomy tube placement. Unfortunately, she was evaluated by the surgical team and she was not considered a candidate for surgical intervention for the time being. 7. 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 8. Hypertension. 9. Hyperlipidemia. 10. Peripheral vascular disease. 11. Type 2 diabetes mellitus with diabetic foot ulcer, more so on the right than left. 12. The patient has had bilateral carotid artery stenosis showing 50-69% narrowing of the bilateral mid internal carotid arteries with mild atherosclerotic plaquing bilaterally. 13. The patient has acute kidney injury that has worsened, creatinine peaked up to 3, now the creatinine is coming down, today is 1.7, likely due to acute on chronic kidney injury with a background of diabetic nephropathy. She does have also an obstructing stone in the left side, causing mild hydronephrosis. I did discontinue her lisinopril. PLAN: To transfer the patient back to [facility] to continue the process of rehabilitation. HUMAIRA LORD MD DR: ALVIN/deuce JOB#: [id number] / [id number]
[2021-02-18 14:37] VITALS: BP 165/57
--- NOTE | 2021-02-18 16:20 | NUR ---
Nurse exchange report called to JOE Beaulieu at [place] . Awaiting transportation.
--- NOTE | 2021-02-19 15:12 | PATHOLOGY ---
Note [facility] Accession Number: [id number] TESTS RESULT FLAG UNITS REF RANGE LAB Clinician Provided Cytology Information No. of containers..01 Other (Miscellaneous) Source: RIGHT PLEURAL FLUID DIAGNOSIS: 02 RIGHT PLEURAL FLUID NEGATIVE FOR MALIGNANT CELLS. REACTIVE MESOTHELIAL CELLS PRESENT. THIS INTERPRETATION INCLUDES EVALUATION OF A CELL BLOCK. Signed out by: 02 Campos Jacobs MD, Pathologist NPI- [id number] Performed by: Liza Nascimento, [place] ([facility]) Gross description: 01 35ML, CLEAR YELLOW, 1 TP 1 CB /LCS 02/18/2021 1101 Local FLAG LEGEND: L-Low Normal,H-High Normal,LL-Alert Low,HH-Alert High <-Panic Low,>-Panic High,A-Abnormal,AA-Critical Abnormal Performed at: [address] [place] [address] Gregg Rodrigez MD, 02 [facility] [address] [place] [address] Campos Jacobs MD, Specimen Comment: A courtesy copy of this report has been sent to [phone] Specimen Comment: Report sent to Performed at: [address] [place] [address] [address], [place], [place] [id number] MD Gregg Rodrigez MD Phone: [phone]
== END 2021-02-18 19:21 | DRG 177 ==
LOC: ER 19:29 → ED HOLD 22:21 → 6 SOUTH 02-02 04:41
PROVIDERS: ADMIT Internal Medicine; ATTEND Internal Medicine
PROC: 0W993ZZ Drainage of Right Pleural Cavity, Percutaneous Approach (ICD-10-PCS; principal; 2021-02-18)
DX: J69.0 Pneumonitis due to inhalation of food and vomit (principal); I21.4 Non-ST elevation (NSTEMI) myocardial infarction; I50.33 Acute on chronic diastolic (congestive) heart failure; J96.01 Acute respiratory failure with hypoxia; N39.0 Urinary tract infection, site not specified; I69.351 Hemiplegia and hemiparesis following cerebral infarction affecting right dominant side; N17.9 Acute kidney failure, unspecified; L97.419 Non-pressure chronic ulcer of right heel and midfoot with unspecified severity; I13.0 Hypertensive heart and chronic kidney disease with heart failure and stage 1 through stage 4 chronic kidney disease, or unspecified chronic kidney disease; N13.6 Pyonephrosis; J98.11 Atelectasis; R47.01 Aphasia; J91.8 Pleural effusion in other conditions classified elsewhere; E87.0 Hyperosmolality and hypernatremia; E78.5 Hyperlipidemia, unspecified; T38.0X5A Adverse effect of glucocorticoids and synthetic analogues, initial encounter; E87.6 Hypokalemia; E11.621 Type 2 diabetes mellitus with foot ulcer; Z20.822 Contact with and (suspected) exposure to COVID-19; B96.20 Unspecified Escherichia coli [E. coli] as the cause of diseases classified elsewhere; E11.51 Type 2 diabetes mellitus with diabetic peripheral angiopathy without gangrene; E11.22 Type 2 diabetes mellitus with diabetic chronic kidney disease; E11.43 Type 2 diabetes mellitus with diabetic autonomic (poly)neuropathy; K31.84 Gastroparesis; I65.23 Occlusion and stenosis of bilateral carotid arteries; N18.30 Chronic kidney disease, stage 3 unspecified; J15.6 Pneumonia due to other Gram-negative bacteria; Z96.653 Presence of artificial knee joint, bilateral; E86.0 Dehydration; E27.8 Other specified disorders of adrenal gland; F41.9 Anxiety disorder, unspecified; E66.9 Obesity, unspecified; J15.9 Unspecified bacterial pneumonia; R13.12 Dysphagia, oropharyngeal phase; L89.629 Pressure ulcer of left heel, unspecified stage; L89.619 Pressure ulcer of right heel, unspecified stage; L97.529 Non-pressure chronic ulcer of other part of left foot with unspecified severity; L97.519 Non-pressure chronic ulcer of other part of right foot with unspecified severity; Z87.891 Personal history of nicotine dependence; Z68.37 Body mass index [BMI] 37.0-37.9, adult; Z99.3 Dependence on wheelchair; Z90.710 Acquired absence of both cervix and uterus; Z89.412 Acquired absence of left great toe; Z82.49 Family history of ischemic heart disease and other diseases of the circulatory system; Y92.89 Other specified places as the place of occurrence of the external cause; I69.391 Dysphagia following cerebral infarction
CPT/HCPCS: 32555; 36415; 36600; 51798; 70450; 71045; 71250; 74018; 74150; 76770; 78264; 80048; 80053; 80061; 80202; 81001; 82550; 82607; 82728; 82805; 82962; 83540; 83550; 83605; 83615; 83735; 83880; 84157; 84484; 85007; 85025; 85027; 85379; 85610; 85730; 87040; 87071; 87075; 87077; 87086; 87186; 87493; 87641; 87804; 93005; 93880; 93970; 94640; 94760; 96361; 96365; 96367; 99285; A9541; C9113; J0360; J1650; J1815; J1940; J2270; J2405; J2543; J2765; J3370; J3490; J7030; J7040; J7512; U0003; 92526-GN; 92610-GN; G0378; J7626; J8597